=== PATIENT | female | born 1940 | race Caucasian/White ===

== ENCOUNTER 2019-05-29 17:53 | Inpatient (IN) | payer MEDICARE, SELFPAY ==
--- NOTE | ~2019-05-29 | XR_ITS ---
EXAMINATION: XR chest 2V EXAM DATE: 05/29/2019 20:01 INDICATION: Dysuria. Fever. TECHNIQUE: Frontal and lateral projections of the chest obtained and reviewed. Comparison is made to prior examination from 08/01/2018. FINDINGS: Small post infectious residua. The lungs are otherwise clear. There are no pleural effusi ons. Cardiac silhouette is prominent but magnified on this AP technique. There is no pneumothorax suspected. The bones are osteopenic. There are bony degenerative changes. Cervical and thoracolumba r fusion hardware. Lower thoracic vertebroplasty. Accounting for differences in technique, there is no significant interval change. IMPRESSION: No acute cardiopulmonary findings. Reviewed, dictated and finalized at location A.
--- NOTE | ~2019-05-29 | CT_ITS ---
EXAMINATION: CT abdomen pelvis w con EXAM DATE: 05/29/2019 19:56 INDICATION: Abdominal, suprapubic pain. TECHNIQUE: Spiral CT of the abdomen and pelvis was performed following intravenous injection of 100 m L Omnipaque 350. Axial, coronal and sagittal images were reviewed. The dose-length product (DLP) fo r this examination was 384.17 mGy-cm. The exposure was tailored according to patient size (auto mA e xposure control), and iterative reconstruction (ASIR) was used as additional dose reduction technique . There is no prior study for comparison. FINDINGS: The liver, spleen, adrenal glands and pancreas are unremarkable. Gallbladder is unremarkab le. No biliary obstruction. Portal and splenic veins are patent. Kidneys enhance symmetrically. T here is no hydronephrosis. The uterus is not identified and has likely been surgically resected. T he bladder is unremarkable. There is no retroperitoneal or pelvic lymphadenopathy. The appendix is not positively visualized. There is no pericecal inflammatory change to suggest appe ndicitis. There are surgical changes consistent with Niesen fundoplication. There is colonic interp osition. There is moderate sigmoid diverticulosis. There is wall thickening along the sigmoid colon and mild i nflammation. There is a focal region between the sigmoid colon and the bladder with air-fluid level w hich is suspected to be a diverticular abscess measuring about 3 x 4 cm. Can't totally exclude inflam matory cancer. There is no direct line of site to this for percutaneous intervention. No free intrap eritoneal gas. The heart is normal in size. There are no pericardial or pleural effusions. Mild b asilar emphysema and bronchiectasis. There is thoracolumbar fusion hardware. IMPRESSION: 1. Small abscess between sigmoid colon and bladder likely complication of acute diverticulitis. Reviewed, dictated and finalized at location A. IMPRESSION: 1. Small abscess between sigmoid colon and bladder likely complication of acut e diverticulitis.
--- NOTE | 2019-05-29 18:00 | ED.FEMALEGU ---
HPI - Female Genitourinary General Chief complaint: Urogenital-Female Stated complaint: painful urination, fever Time Seen by Provider: 05/29/19 17:58 Source: patient and RN notes reviewed Mode of arrival: wheelchair Limitations: no limitations History of Present Illness HPI Narrative: A 78 y/o female, with a hx of stage 3 CKD, presents to the ED with dysuria and difficulty urinating for the past week. She reports associated suprapubic ABD pain, generalized weakness, rhinorrhea, and a fever of 101.5. She also notes some chronic back pain. She denies any cough, congestion, N/V/D, or CP. No recent travel or sick contacts. MD elicited complaint: dysuria and difficulty urinating Pertinent past history: hysterectomy Onset (ago): week(s) (1) Associated symptoms: abdominal pain (suprapubic), weakness (generalized), fever (101.5) and other (rhinorrhea) Related Data Home Medications Medication Instructions Recorded Confirmed oxycodone-acetaminophen 02/22/19 Allergies Allergy/AdvReac Type Severity Reaction Status Date / Time morphine Allergy Mild Confusion Verified 05/29/19 18:34 adhesive Allergy Unknown BLISTERS Verified 05/29/19 18:34 diclofenac Allergy Unknown Unknown Verified 05/29/19 18:34 loratadine Allergy Unknown Unknown Verified 05/29/19 18:34 meloxicam Allergy Unknown Unknown Verified 05/29/19 18:34 NKFA Allergy Mild Unknown Uncoded 05/29/19 18:34 Review of Systems Review of Systems: Narrative: CONSTITUTIONAL: Reports generalized weakness and a fever of 101.5. ENT: Denies congestion. Reports rhinorrhea. CARDIOVASCULAR: Denies chest pain. RESPIRATORY: Denies cough. GASTROINTESTINAL: Denies nausea, vomiting, or diarrhea. Reports suprapubic ABD pain. GENITOURINARY: Reports dysuria and difficulty urinating. All systems reviewed & are unremarkable except as noted in HPI and below PMFSH Past Medical History Medical History Appendicitis Bilateral cataracts Chronic kidney disease, stage 3 (moderate) Degenerative disc disease Diverticulosis Gallbladder disease GI bleed Hiatal hernia History of CVA with residual deficit Hy kid NOS w cr kid I-IV Migraine Osteoarthritis Radiculopathy, lumbar region Surgical History Surgical History H/O discectomy H/O left mastectomy H/O: hysterectomy History of appendectomy History of cataract surgery History of cholecystectomy History of repair of hiatal hernia Hx of rectal polypectomy Previous back surgery Rods inserted Social History Social History Smoking packs per day: 1 Smoking cigarettes per day: 20.0 Years smoked: 40 Smoking pack-years: 40.00 Smoking status: Former smoker Second hand tobacco smoke exposure: No Smoking end date: 02/27/03 Alcohol intake: never Substance use: never Substance use type: does not use Gender identity (if verbalized by the patient): Female Exam Narrative: Exam Narrative: GENERAL: Awake, alert, conversant HEAD: Normocephalic, atraumatic. EYES: EOMI, conjunctiva clear ENT: Nares patent. Mucous membranes moist. NECK: Full range of motion CHEST: No respiratory distress, speaking in full sentences, no tachypnea HEART: Regular rate ABDOMEN: Non distended, + suprapubic tenderness, no flank tenderness, no guarding or ridigity EXTREMITIES: Normal range of motion. No edema. SKIN: Warm, dry, no rash. NEURO: No focal deficits. Alert and oriented x3. Course Course Emergency Course: Patient presenting for evaluation of suprapubic pain. At the time of initial assessment, ABCs are intact and vital signs are stable. Patient is afebrile. Laboratory results notable for mild leukocytosis. Stable creatinine. CT scan with evidence of abscess behind the bladder near to the sigmoid colon. Patient urinalysis is unequivocal, may be consistent with UTI, patient will need antibiotics for the abscess and sofía
[2019-05-29 18:15] VITALS: BP 132/81; PULSE 78; RESP 18; TEMP 37.6; O2SAT 85; O2SAT 97
[2019-05-29 18:20] VITALS: O2SAT 98
--- NOTE | 2019-05-29 18:25 | PC.NURSE ---
Pt states she has had supra pubic pain with urgency, frequency and pain with urination x 1 wk. Pt states she has had fever for a few days. Pt states she has no pain if not urinating. Pt is A&Ox4. Pt appears in NAD.
--- NOTE | 2019-05-29 18:34 | ECG_ITS ---
Measurements Intervals [place] Rate: 80 P: 39 RI: 175 QRS: 102 QRSD: 146 T: 8 QT: 374 QTc: 432 Interpretive Statements SINUS RHYTHM RIGHT AXIS DEVIATION RIGHT BUNDLE BRANCH BLOCK BASELINE WANDER- I, V4-V6 ABNORMAL ECG Electronically Signed On 05-30-2019 7:03:31 CDT by Tal Hernandez D.O.
[2019-05-29] MEDS: SODIUM CHLORIDE 0.9% IV 500 ML 999 ML IV CONT (18:52)
[2019-05-29] MEDS: ONDANSETRON INJ 4 MG/2 ML VIAL IV PUSH (18:52)
[2019-05-29] MEDS: ACETAMINOPHEN 500 MG TABLET 1000 MG PO (18:53)
[2019-05-29 19:10] LABS: Basophils Absolute Auto 0.1 K/mm3 (0.0-0.1); Basophils Percent Auto 0.6 % (0.2-1.2); Eosinophils Absolute Auto 0.1 K/mm3 (0-0.3); Eosinophils Percent Auto 0.8 % (0-4.4); Hematocrit 37.6 % (37.0-47.0); Hemoglobin 11.6 g/dL (12.0-15.0); Immature Granulocyte Absolute 0.06 K/mm3 (0.00-0.031); Immature Granulocyte Percent A 0.5 % (0-0.5); Lymphocytes Absolute Auto 1.63 K/mm3 (0.9-3.2); Lymphocytes Percent Auto 13.8 % (18.3-44.2); Mean Corpuscular HGB Conc 30.9 g/dl (32-36); Mean Corpuscular Volume 84.1 fl (80-100); Mean Platelet Volume 8.7 fl (7.4-10.4); Monocytes Absolute Auto 0.8 K/mm3 (0.1-0.6); Neutrophils Absolute Auto 9.1 K/mm3 (1.3-6.7); Neutrophils Percent Auto 77.3 % (45.5-73.1); Platelet Count Result 503 k/mm3 (150-375); Red Blood Count 4.47 M/mm3 (4.2-5.4); Red Cell Distribution Width 14.2 % (11.5-14.5); White Blood Count 11.8 K/mm3 (4.5-10.0)
[2019-05-29 19:22] LABS: Alanine Aminotransferase 11 U/L (4-35); Albumin Level 3.5 g/dL (3.5-5.1); Alkaline Phosphatase 61 U/L (38-126); Aspartate Amino Transferase 31 U/L (14-36); Bilirubin,Total 0.2 mg/dL (0.2-1.3); Blood Urea Nitrogen 16 mg/dL (7-17); Calcium 9.2 mg/dL (8.4-10.2); Carbon Dioxide 27 mmol/L (22-30); Chloride 99 mmol/L (98-107); Estimated CRCL calculation 30 ml/min; Estimated Glomerular Filt Rate 48; Glucose 123 mg/dL (65-105); Lipase 15 U/L (23-300); Potassium 3.6 mmol/L (3.4-5.0); Sodium 131 mmol/L (137-145)
[2019-05-29 19:23] VITALS: TEMP 36.9
[2019-05-29 19:23] LABS: Lactic Acid Reflex 0.8 mmol/L (0.7-2.1)
[2019-05-29 19:50] LABS: Add Urine Microscopic? YES; Amorphous Sediment Urine Few; Appearance Urine Clear (Clear); Bacteria Urine Trace /hpf; Bilirubin Urine Negative (Negative); Blood Urine 1+ (Negative); Color Urine Yellow (Yellow); Glucose Urine UA Negative (Negative); Ketones Urine Negative (Negative); Leukocyte Esterase Ur 1+ LEU/UL (Negative); Mucus Urine Rare /lpf; Nitrate Urine Negative (Negative); Protein Urine 1+ mg/dL (Negative); Specific Grav Ur 1.013 (1.001-1.035); Squamous Epithelial Cell Urine Few /hpf (Few); Urobilinogen Urine Negative mg/dL (<2.0); WBC Urine 21-30 /hpf
[2019-05-29 20:13] VITALS: BP 109/56; PULSE 74; RESP 18; TEMP 37.2; O2SAT 96
[2019-05-29 21:15] VITALS: BP 99/45; PULSE 72; RESP 23; TEMP 37.2; O2SAT 98
[2019-05-29 21:35] VITALS: BP 98/40; PULSE 66; RESP 16; TEMP 36.6; O2SAT 98
[2019-05-29 21:44] VITALS: BMI 19.9
--- NOTE | 2019-05-29 21:52 | ADMGEN ---
This patient, Maricruz Carnes, was admitted to 3 Med Surg Room 322-01. Patient/family oriented to hospital policies and general routines including ID bracelet, bed and alarms, visiting hours, pain management, procedures, bathroom and other care routines, personal items, smoking policy, room service/diet, and visiting hours. Valuables list has been completed. Information on how to activate the Rapid Response Team has been discussed. Patient/Family are encouraged to report perceived risks to care and to ask questions if they do not understand what they are told or what they should do.
[2019-05-29] MEDS: LACTATED RINGERS 1,000 ML 75 ML IV CONT (22:00)
--- NOTE | 2019-05-29 22:18 | PM.IMHP ---
H&P: HPI History of Present Illness Chief complaint: Sigmoid abscess Narrative: This is an 78 year old female with known CKD stage 3 who presented to the hospital because she believed she had a urinary tract infection. She complaining of having diffuse lower abdominal pain as well as suprapubic discomfort. She also reports having a fever. She mentions she has been battling with UTI symptoms for a couple of months. She denies any diarrhea or rectal bleeding and reports that she has had constipation. Her last colonoscopy was over 8 years ago. She denies any history of diverticular disease. On further questioning she also denies any nausea, vomiting, shortness of breath, coughing, chest pain, hematuria, or focal neurological symptoms. Tonight in the ER the pateint was found to have a small abscess between sigmoid colon and bladder likely complication of acute diverticulitis. General surgery has been consulted by ER provider and they asked that we admit the patient and they will evaluate her in the morning for possible surgical intervention for her abscess. There is no evidence of bowel perforation at this time and thus this does not appear to be a surgical emergency. She denies any other symptoms at this time. Review of Systems Review of Systems: All systems reviewed & are unremarkable except as noted in HPI and below PMFSH Past Medical History Medical History Appendicitis Bilateral cataracts Chronic kidney disease, stage 3 (moderate) Degenerative disc disease Diverticulosis Gallbladder disease GI bleed Hiatal hernia History of CVA with residual deficit Hy kid NOS w cr kid I-IV Migraine Osteoarthritis Radiculopathy, lumbar region Surgical History Surgical History H/O discectomy H/O left mastectomy H/O: hysterectomy History of appendectomy History of cataract surgery History of cholecystectomy History of repair of hiatal hernia Hx of rectal polypectomy Previous back surgery Rods inserted Family History Family History Father Malignant neoplasm of prostate Kidney malignancy Mother Emphysema of lung Social History Social History Smoking packs per day: 3 Smoking cigarettes per day: 60.0 Years smoked: 40 Smoking pack-years: 120.00 Smoking status: Former smoker Tobacco type: cigarettes Second hand tobacco smoke exposure: No Smoking end date: 02/27/03 Alcohol intake: never Substance use: never Substance use type: does not use Gender identity (if verbalized by the patient): Female Spiritual care concerns: No Agree to blood products: Yes Meds Home Medications and Allergies Home Medications Medication Instructions Recorded Confirmed Type fenofibrate 160 mg tablet 160 mg PO DAILY #90 tablet 05/02/19 05/29/19 Rx simvastatin 40 mg tablet 40 mg PO DAILY #90 tablet 05/02/19 05/29/19 Rx levothyroxine 88 mcg PO DAILY 05/29/19 05/29/19 History lisinopril-hydrochlorothiazide 1 tablet PO DAILY 05/29/19 05/29/19 History Allergies Allergy/AdvReac Type Severity Reaction Status Date / Time morphine Allergy Mild Confusion Verified 05/29/19 18:34 adhesive Allergy Unknown BLISTERS Verified 05/29/19 18:34 diclofenac Allergy Unknown Unknown Verified 05/29/19 18:34 loratadine Allergy Unknown Unknown Verified 05/29/19 18:34 meloxicam Allergy Unknown Unknown Verified 05/29/19 18:34 NKFA Allergy Mild Unknown Uncoded 05/29/19 18:34 Vital Signs Vital Signs - 24 hr 05/29/19 18:15 05/29/19 18:20 05/29/19 19:23 Temperature 37.6 C 36.9 C Pulse Rate 78 Respiratory Rate 18 Blood Pressure 132/81 Pulse Oximetry 85 L 98 05/29/19 20:13 05/29/19 21:15 Temperature 37.2 C 37.2 C Pulse Rate 74 72 Respiratory Rate 18 23 H Blood Pressure 109/56 L 99/45 L Pulse Oximetry 96 98
[2019-05-30] MEDS: LEVOTHYROXINE SODIUM INJ 100 MCG/5 ML VIAL 44 MCG IV PUSH (05:39)
[2019-05-30 06:00] VITALS: BP 113/49; PULSE 63; RESP 16; TEMP 36.4; O2SAT 97
[2019-05-30 06:07] LABS: Basophils Absolute Auto 0.1 K/mm3 (0.0-0.1); Basophils Percent Auto 0.8 % (0.2-1.2); Eosinophils Absolute Auto 0.2 K/mm3 (0-0.3); Eosinophils Percent Auto 2.4 % (0-4.4); Hematocrit 33.6 % (37.0-47.0); Hemoglobin 10.5 g/dL (12.0-15.0); Immature Granulocyte Absolute 0.03 K/mm3 (0.00-0.031); Immature Granulocyte Percent A 0.3 % (0-0.5); Lymphocytes Absolute Auto 1.22 K/mm3 (0.9-3.2); Mean Corpuscular HGB Conc 31.3 g/dl (32-36); Mean Corpuscular Hemoglobin 26.2 pg (26-34); Mean Corpuscular Volume 83.8 fl (80-100); Mean Platelet Volume 8.7 fl (7.4-10.4); Monocytes Absolute Auto 0.7 K/mm3 (0.1-0.6); Monocytes Percent Auto 7.9 % (2.6-8.5); Neutrophils Absolute Auto 6.5 K/mm3 (1.3-6.7); Neutrophils Percent Auto 74.6 % (45.5-73.1); Platelet Count Result 427 k/mm3 (150-375); Red Blood Count 4.01 M/mm3 (4.2-5.4); Red Cell Distribution Width 14.3 % (11.5-14.5); White Blood Count 8.7 K/mm3 (4.5-10.0)
[2019-05-30 06:19] LABS: Blood Urea Nitrogen 12 mg/dL (7-17); Calcium 8.3 mg/dL (8.4-10.2); Carbon Dioxide 25 mmol/L (22-30); Chloride 102 mmol/L (98-107); Estimated CRCL calculation 39 ml/min; Estimated Glomerular Filt Rate > 60; Glucose 96 mg/dL (65-105); Potassium 3.2 mmol/L (3.4-5.0); Sodium 133 mmol/L (137-145)
--- NOTE | 2019-05-30 11:04 | PM.CNGS ---
Assessment and Plan Assessment and plan (1) Colonic diverticular abscess: Code(s): K57.20 - Diverticulitis of large intestine with perforation and abscess without bleeding Status: Acute Assessment and Plan: Seems to be improving after only about 12 hours of medical treatment. Continue bowel rest with ice chips. Analgesics p.r.n. and IV fluids. Continue IV Zosyn antibiotics. Recheck white count tomorrow. Possibly start clear liquids tomorrow if continues to do well. (2) Thoracic spine pain: Code(s): M54.6 - Pain in thoracic spine Status: Acute Assessment and Plan: Will try to get information from community health systems regarding her new medication for chronic back pain. (3) Chronic kidney disease, stage 3 (moderate): Code(s): N18.3 - Chronic kidney disease, stage 3 (moderate) Status: Chronic Assessment and Plan: Creatinine 1.1 (4) HTN (hypertension), benign: Code(s): I10 - Essential (primary) hypertension Status: Chronic (5) History of breast cancer: Code(s): Z85.3 - Personal history of malignant neoplasm of breast Status: Acute Assessment and Plan: left mastectomy 15-20 years ago. History of Present Illness Consult details Consult date: 05/30/19 Reason for consult: abdominal pain ( Pelvic abscess by CT scan) Requesting physician: Harriet Luna MD Narrative: patient is an 78-year-old woman who came to the emergency room yesterday evening with complaints of lower abdominal pain and fever. She reported she has been having symptoms of urinary tract infection off and on for about 2 months. In the emergency room the patient was noted to have diffuse lower abdominal tenderness. She was afebrile but reported fever to 101.5 at home[place] [id number] scan of the abdomen and pelvis was done with IV contrast. This showed inflammatory changes in the sigmoid colon with a 4 cm abscess located behind the bladder and between the sigmoid colon and bladder. The patient was placed on bowel rest with IV fluids and analgesics. She is on IV Zosyn per antibiotic protocol. At this time she reports that her abdominal pain is improved. She denies any history of diverticulitis in the past. She reports her last colonoscopy was done by Dr. Kirkpatrick in [place] and was 7 years ago. Reviewing her previous admissions, the patient in 2006 had a colonoscopy here by Dr. Kirkpatrick. This showed melanosis coli, poor prep, and diverticulosis. She was also treated in November of 2015 for ischemic colitis. At that time she presented with bloody stools and acute lower abdominal pain. She responded to antibiotics but it was noted that she has chronic constipation due to narcotic use. The patient has chronic back pain and had a lumbar fusion. Until a month ago, she was taking Percocet 10/325 at least twice a day. She has been seeing someone named Drea at [facility] here in [place]. She is now on a new medication for her back pain but she can't recall what that is. She has had multiple previous surgeries including a left mastectomy sometime prior to 2004 for breast cancer. She has had appendectomy, cholecystectomy, and hysterectomy. I performed an open [place] fundoplication on the patient in 2004. She is seen now in consultation regarding her lower abdominal pain and CT evidence of diverticulitis with pelvic abscess. Her urinalysis was negative. She has no symptoms of pneumaturia or fecaluria. Review of Systems Review of Systems: All systems reviewed & are unremarkable except as noted in HPI and below Constitutional: Constitutional: Reports chills, Reports fever(s), Denies headache(s) and Reports malaise ENT: Denies headache(s) Cardiovascular: Cardiovascular: Denies chest pain and Denies dyspnea Respiratory: Respiratory: Denies cough and Denies dyspnea Gastrointestinal: Gastrointestinal: Reports as per HPI Neurologic: Denies Sensory deficit (Neuro
[2019-05-30 11:06] VITALS: BMI 19.9
[2019-05-30 14:00] VITALS: BP 116/51; PULSE 77; RESP 18; TEMP 38.1; O2SAT 96
[2019-05-30] MEDS: LACTATED RINGERS 1,000 ML 75 ML IV CONT (14:03)
--- NOTE | 2019-05-30 16:20 | PM.IMPN ---
Progress Note: A&P Assessment and Plan (1) Colonic diverticular abscess: Code(s): K57.20 - Diverticulitis of large intestine with perforation and abscess without bleeding Status: Acute Assessment and Plan: CT scan showing a small abscess between sigmoid colon and bladder likely complication of acute diverticulitis. Patient was hemodynamically stable on admission. WBC 11.8K. Blood pressure soft at times overnight but better today. Low grade temperature earlier today. She has been started on IV Zosyn. Still with lower abd pain related to bladder distention pushing on the abscess. WBC normal now. Encouraged patient to be up walking. She does have issues with constipation so may need to start Miralax. Appreciate General surgery input. (2) Chronic kidney disease, stage 3 (moderate): Code(s): N18.3 - Chronic kidney disease, stage 3 (moderate) Status: Chronic Assessment and Plan: Patient with a history of CKD stage 3. Est GFR runs in the 50's since 2018. Cr 0.8 today related to the IV fluids. Avoid nephrotoxic agents. Continue to monitor. (3) Mixed hyperlipidemia: Code(s): E78.2 - Mixed hyperlipidemia Status: Acute Assessment and Plan: Stable. LFTs within normal limits. fenofibrate and simvastatin on hold. Resume when appropriate. (4) Hypothyroidism: Qualifiers: Hypothyroidism type: unspecified Qualified Code(s): E03.9 - Hypothyroidism, unspecified Code(s): E03.9 - Hypothyroidism, unspecified Status: Chronic Assessment and Plan: TSH normal last year. Continue IV levothyroxine. Change to oral route when able. (5) HTN (hypertension), benign: Code(s): I10 - Essential (primary) hypertension Status: Chronic Assessment and Plan: Blood pressure reviewed on 05/30/2019. Blood pressure well controlled off home medications. She normally is on lisinopril/HCTZ. Resume when appropriate. (6) Hyponatremia: Code(s): E87.1 - Hypo-osmolality and hyponatremia Status: Acute Assessment and Plan: Noted but not common for this patient. Na better with IVF. Hyponatremia probably rlated to dehydration. Continue to follow. Check TSH and Cortisol if persistent. (7) Hypokalemia: Code(s): E87.6 - Hypokalemia Status: Acute Assessment and Plan: Mild hypokalemia related to IVF. Replace. Check Mag level tomorrow. (8) Chronic anemia: Code(s): D64.9 - Anemia, unspecified Status: Acute Assessment and Plan: Hgb 11.6 on admission and similar to past values in June. Hgb dropped to 10.5 probably related to IVF. Hx of colon polyps and colitis. Will check iron studies. (9) DVT prophylaxis: Code(s): Z29.9 - Encounter for prophylactic measures, unspecified Status: Acute Assessment and Plan: Lovenox Subjective Date/time seen: 05/30/19 16:21 Interval history: 78yo female here for abd pain and found to have abdominal abscess. Still with pain in the lower abdomen but improved after voiding. No BMs since admission. No dysuria. +flatus. No headache, nausea, vomiting chest pain, shortness of breath, sore throat or diarrhea Exam Narrative: Exam Narrative: 100.6 113/49 Gen - NARD lying almost flat in bed Chest - CTA bilaterally, nml RR CV - RRR S1/S2 Abd - Soft, NT/ND, Positive BS Ext - No pedal edema Psych - Nml mood and affect Skin - Warm and dry Objective Data Vital Signs Vital Signs: Vital Signs - 24 hr 05/29/19 18:15 05/29/19 18:20 05/29/19 19:23 Temperature 99.6 F 98.5 F Pulse Rate 78 Respiratory Rate 18 Blood Pressure 132/81 Pulse Oximetry 85 L 98 05/29/19 20:13 05/29/19 21:15 05/29/19 21:35 Temperature 98.9 F 99.0 F 97.8 F Pulse Rate 74 72 66 Respiratory Rate 18 23 H 16 Blood Pressure 109/56 L 99/45 L 98/40 L Pulse Oximetry 96 98 98 05/30/19 06:00 Temperature 97.6 F Pulse Rate 63 R
[2019-05-30] MEDS: POTASSIUM CHLORIDE 20 MEQ TABLET 40 MEQ PO (19:26)
[2019-05-30] MEDS: ENOXAPARIN 40 MG/0.4 ML SYRINGE SUB-Q (19:26)
[2019-05-30 21:32] VITALS: BP 124/49; PULSE 73; RESP 18; TEMP 36.9; O2SAT 98
[2019-05-31] MEDS: LACTATED RINGERS 1,000 ML 75 ML IV CONT ×2 (05:31→21:03)
[2019-05-31] MEDS: LEVOTHYROXINE SODIUM INJ 100 MCG/5 ML VIAL 44 MCG IV PUSH (05:32)
[2019-05-31 06:06] LABS: Hemoglobin 10.3 g/dL (12.0-15.0); Mean Corpuscular HGB Conc 30.3 g/dl (32-36); Mean Corpuscular Volume 85.9 fl (80-100); Mean Platelet Volume 8.6 fl (7.4-10.4); Platelet Count Result 407 k/mm3 (150-375); Red Blood Count 3.96 M/mm3 (4.2-5.4); Red Cell Distribution Width 14.2 % (11.5-14.5); White Blood Count 10.5 K/mm3 (4.5-10.0)
[2019-05-31 06:15] LABS: Albumin Level 2.9 g/dL (3.5-5.1); Blood Urea Nitrogen 12 mg/dL (7-17); Calcium 8.4 mg/dL (8.4-10.2); Carbon Dioxide 23 mmol/L (22-30); Chloride 103 mmol/L (98-107); Estimated CRCL calculation 39 ml/min; Estimated Glomerular Filt Rate > 60; Glucose 75 mg/dL (65-105); Magnesium 1.9 mg/dL (1.6-2.3); Phosphorus 2.9 mg/dL (2.5-4.5); Potassium 3.7 mmol/L (3.4-5.0); Sodium 134 mmol/L (137-145)
[2019-05-31 06:29] VITALS: BP 136/66; PULSE 69; RESP 18; TEMP 36.5; O2SAT 99
[2019-05-31 06:37] LABS: Iron 23 ug/dL (37-170)
[2019-05-31 06:47] LABS: Percent Iron Saturation 8 % (20-50)
--- NOTE | 2019-05-31 08:54 | PM.PNGS ---
Progress Note: A&P Assessment and Plan (1) Colonic diverticular abscess: Code(s): K57.20 - Diverticulitis of large intestine with perforation and abscess without bleeding Status: Acute Assessment and Plan: Continues to improve with the current treatment. Low-grade fever yesterday afternoon but afebrile since. WBC this morning 10,500. Abdominal pain is improving and she appears to be less tender. Continue IV Zosyn and analgesics. Will start a clear liquid diet. (2) Thoracic spine pain: Code(s): M54.6 - Pain in thoracic spine Status: Acute (3) Chronic kidney disease, stage 3 (moderate): Code(s): N18.3 - Chronic kidney disease, stage 3 (moderate) Status: Chronic Assessment and Plan: Creatinine 0.8 today, improved with IV fluid hydration. (4) HTN (hypertension), benign: Code(s): I10 - Essential (primary) hypertension Status: Chronic Additional Plan Discussed the patient's case and plan of care with Dr. Morales today. Subjective Subjective Date/Time Seen: 05/31/19 08:54 Patient reports: no new complaints, feels better, pain is less, flatus and bowel movement Interval history: Patient reports feeling better today. Reports abdominal pain is still located in the lower abdomen but is less today. Reports flatus and having a BM this morning. No nausea, vomiting, or bloating. Voiding normally. No other complaints at this time. Review of Systems Review of Systems: All systems reviewed & are unremarkable except as noted in HPI and below Exam Const: General: comfortable, no acute distress, alert and awake GI: Inspection: normal to inspection and non-distended GI Palp: Yes Soft to palpation, Yes Tenderness to palpation present (GI) (lower abdominal tenderness mostly near the suprapubic area), No Guarding due to palpation present (GI) and No Rebound tenderness present Percussion: Yes normal to percussion Auscultation: normal bowel sounds Neuro: General: patient oriented x3, moves all extremities and no focal motor deficits Extrem: General: normal to inspection and no calf tenderness Psych: Mental Status: mental status grossly normal (Awake, alert, and lucid. Judgment and memory intact) Affect: normal affect Attitude: cooperative Insight: Good insight present (Psych) Judgement: Good judgement present (Psych) Objective Data Vital Signs Vital Signs: Vital Signs - 24 hr 05/30/19 14:00 05/30/19 21:32 05/31/19 06:29 Temperature 38.1 C H 36.9 C 36.5 C Pulse Rate 77 73 69 Respiratory Rate 18 18 18 Blood Pressure 116/51 L 124/49 L 136/66 Pulse Oximetry 96 98 99 Intake/Output Intake/Output: Intake & Output 05/28/19 05/29/19 05/30/19 05/31/19 23:59 23:59 23:59 23:59 Intake Total 550 1200 1000 Output Total 950 500 Balance 550 250 500 Meds/Results Medications: Active Medications Generic Name Dose Route Start Last Admin Trade Name Freq PRN Reason Stop Dose Admin Enoxaparin Sodium 40 mg 05/30/19 17:00 05/30/19 19:26 Lovenox SUB-Q 40 mg DAILY@1700 MAYNOR Administration Lactated Ringer's 1,000 mls @ 75 mls/hr 05/29/19 21:10 05/31/19 05:31 Lr - Lactated Ringers Iv IV CONT 75 mls/hr .[id number] MAYNOR Administration Piperacillin Sod/Tazobactam Sod 2.25 gm in 50 mls @ 100 mls/hr 05/30/19 06:00 05/31/19 05:31 Zosyn 2.25 Gm/D5w 50 Ml IVPB 100 mls/hr Q6HR MAYNOR Administration Levothyroxine Sodium 44 mcg 05/30/19 06:30 05/31/19 05:32 Levothyroxine Sodium Inj IV PUSH 44 mcg DAILY@0630 MAYNOR Administration Morphine Sulfate 2 mg 05/29/19 21:08 Morphine Sulfate Inj IV PUSH Q2H PRN Pain Rated 7-10 Ondansetron HCl 4 mg 05/29/19 21:08 Zofran Inj IV PUSH Q4H PRN Nausea Radiology Results: ITS Impressions Chest X-Ray 05/29/19 20:03 IMPRESSION: No acute cardiopulmonary findings. Abdomen/Pelvis CT 05/29/19 20:04 IMPRESSION: 1. Small abscess between sigmoid colon and bladder li
--- NOTE | 2019-05-31 10:58 | PCNFU ---
Nutrition Follow-Up Complete: Altered GI fxn as related to sigmoid abscess as evidenced by NPO/poor po intake. Goal: meet estimated nutritional needs. progressing towards goal. Pt current nutrition is Clear liquid. Nutrition recommendation: Agree Last recorded weight is 51.1 kg. Bowel Motility:+BM 4/3 Labs Reviewed:Na 134,Alb 2.9, Hgb 10.3 Meds Noted:Lovenox,LR @75 ml/hr Additional Notes: Diet order has advanced to a clear liquid diet. Nursing was ordering tray for patient at that time. She is having bowel movements. Agree with advancing as tolerated per MD orders. Monitoring: RD will monitor every 3 days.
[2019-05-31 14:00] VITALS: BP 130/57; PULSE 78; RESP 18; TEMP 36.8; O2SAT 99
--- NOTE | 2019-05-31 14:44 | PCDIET ---
Physician Consult for Low Fiber Diet education. Due to Covid19 precautions, patient will be called for all educations. Patient called at 1343, no answer. I spoke with nurse SOULEYMANE Ortega today regarding diet education, discussed if I was unable to get in touch with patient, all information is located in the discharge instructions. Thank you for the consult.
--- NOTE | 2019-05-31 15:35 | PM.IMPN ---
Progress Note: A&P Assessment and Plan (1) Colonic diverticular abscess: Code(s): K57.20 - Diverticulitis of large intestine with perforation and abscess without bleeding Status: Acute Assessment and Plan: CT scan showing a small abscess between sigmoid colon and bladder likely complication of acute diverticulitis. Patient was hemodynamically stable on admission. Blood pressure was soft at times but normal and stable now. Persistnet low grade temperature noted. She is currently on IV Zosyn. Still with lower abd pain related to bladder distention pushing on the abscess but this has improved. WBC up slightly at 10.5K. Encouraged patient to be up walking. Tolerating clear liquids. Appreciate General surgery input. (2) Chronic kidney disease, stage 3 (moderate): Code(s): N18.3 - Chronic kidney disease, stage 3 (moderate) Status: Chronic Assessment and Plan: Patient with a history of CKD stage 3. Est GFR runs in the 50's since 2018. Cr 0.8 again today. Avoid nephrotoxic agents. Continue to monitor. (3) Mixed hyperlipidemia: Code(s): E78.2 - Mixed hyperlipidemia Status: Acute Assessment and Plan: Stable. LFTs within normal limits. Fenofibrate and simvastatin on hold. Resume when eating normally. (4) Hypothyroidism: Qualifiers: Hypothyroidism type: unspecified Qualified Code(s): E03.9 - Hypothyroidism, unspecified Code(s): E03.9 - Hypothyroidism, unspecified Status: Chronic Assessment and Plan: TSH normal last year. Continue IV levothyroxine. Change to oral route tomorrow since tolerating oral intake. (5) HTN (hypertension), benign: Code(s): I10 - Essential (primary) hypertension Status: Chronic Assessment and Plan: Blood pressure reviewed on 05/31/2019. Blood pressure well controlled off home medications. She normally is on lisinopril/HCTZ. Resume when appropriate. (6) Hyponatremia: Code(s): E87.1 - Hypo-osmolality and hyponatremia Status: Acute Assessment and Plan: Noted but not common for this patient. Na contineu to improve with IVF. Consider dehydration possibly related to the HCTZ. Continue to follow. (7) Hypokalemia: Code(s): E87.6 - Hypokalemia Status: Acute Assessment and Plan: Mild hypokalemia that was replaced. Repeat potassium and Mg level normal. (8) Chronic anemia: Code(s): D64.9 - Anemia, unspecified Status: Acute Assessment and Plan: Hgb 11.6 on admission and similar to past values in June. Hgb dropped to 10.5 but stable. Iron deficiency noted on lab values. Hx of colon polyps and colitis. Will need repeat colonoscopy when she has improved. Start iron. (9) DVT prophylaxis: Code(s): Z29.9 - Encounter for prophylactic measures, unspecified Status: Acute Assessment and Plan: Lovenox Subjective Date/time seen: 05/31/19 15:35 Interval history: 78yo female here for abd pain and found to have abdominal abscess. Low grade fever last night. Still having pain when bladder full but less severe now. No n/v. +BMs without diarrhea. Abd pain better. Up walking to the BR. Tolerating the clear liquids so far Exam Narrative: Exam Narrative: 100.8 130/57 Gen - NARD Chest - CTA bilaterally, nml RR CV - RRR S1/S2 Abd - Soft, NT/ND, Positive BS Ext - No pedal edema Psych - Nml mood and affect Skin - Warm and dry Objective Data Vital Signs Vital Signs: Vital Signs - 24 hr 05/30/19 21:32 05/31/19 06:29 05/31/19 14:00 Temperature 98.5 F 97.7 F 98.3 F Pulse Rate 73 69 78 Respiratory Rate 18 18 18 Blood Pressure 124/49 L 136/66 130/57 L Pulse Oximetry 98 99 99 Intake/Output Intake/Output: Intake & Output 05/28/19 05/29/19 05/30/19 05/31/19 23:59 23:59 23:59 23:59 Intake Total 550 1200 1410 Output Total 950 500 Balance 550 250 910 Meds/Results M
[2019-05-31] MEDS: ENOXAPARIN 40 MG/0.4 ML SYRINGE SUB-Q (17:01)
[2019-05-31] MEDS: ACETAMINOPHEN 325 MG TABLET 650 MG (17:02)
[2019-05-31 21:16] VITALS: BP 113/47; PULSE 60; RESP 16; TEMP 36.4; O2SAT 99
[2019-06-01] MEDS: LEVOTHYROXINE SODIUM 88 MCG TABLET PO (05:33)
[2019-06-01 06:00] VITALS: BP 127/53; PULSE 60; RESP 16; TEMP 36.4; O2SAT 99
[2019-06-01 07:15] LABS: Hematocrit 34.6 % (37.0-47.0); Hemoglobin 10.9 g/dL (12.0-15.0); Mean Corpuscular HGB Conc 31.5 g/dl (32-36); Mean Corpuscular Hemoglobin 26.1 pg (26-34); Mean Platelet Volume 8.6 fl (7.4-10.4); Platelet Count Result 439 k/mm3 (150-375); Red Blood Count 4.17 M/mm3 (4.2-5.4); Red Cell Distribution Width 14.1 % (11.5-14.5)
[2019-06-01 07:28] LABS: Blood Urea Nitrogen 8 mg/dL (7-17); Calcium 8.5 mg/dL (8.4-10.2); Carbon Dioxide 26 mmol/L (22-30); Chloride 104 mmol/L (98-107); Estimated CRCL calculation 45 ml/min; Estimated Glomerular Filt Rate > 60; Glucose 111 mg/dL (65-105); Potassium 3.1 mmol/L (3.4-5.0); Sodium 136 mmol/L (137-145)
[2019-06-01] MEDS: FERROUS SULFATE 324 MG TABLET PO ×2 (09:10→17:44)
--- NOTE | 2019-06-01 09:58 | PM.PNGS ---
Progress Note: A&P Assessment and Plan (1) Colonic diverticular abscess: Code(s): K57.20 - Diverticulitis of large intestine with perforation and abscess without bleeding Status: Acute Assessment and Plan: exam benign, will advance to low residue diet, encourage OOB, home if diana diet c po abx, diarrhea likely from abx will try immodium Subjective Subjective Date/Time Seen: 06/01/19 09:58 Interval history: Pt feels ok, c/o diarrhea. Pt denies any abd pain, some mild soreness c movt. Pt diana clears. Pt denies any further fevers, chills. Review of Systems Constitutional: Constitutional: Denies chills, Reports fatigue, Reports lethargy and Reports weakness Comments: denies fevers Cardiovascular: Cardiovascular: Denies chest pain Respiratory: Respiratory: Denies no additional respiratory complaints and Denies dyspnea Gastrointestinal: Gastrointestinal: Denies abdominal pain, Denies constipation, Reports diarrhea, Denies nausea and Denies vomiting Exam Const: General: no acute distress Resp: Auscultation: clear to auscultation bilaterally Cardio: Rate: regular rate Rhythm: regular rhythm GI: Other: soft, NT, ND Objective Data Vital Signs Vital Signs: Vital Signs - 24 hr 05/31/19 14:00 05/31/19 21:16 06/01/19 06:00 Temperature 36.8 C 36.4 C 36.4 C L Pulse Rate 78 60 60 Respiratory Rate 18 16 16 Blood Pressure 130/57 L 113/47 L 127/53 L Pulse Oximetry 99 99 99 Intake/Output Intake/Output: Intake & Output 05/29/19 05/30/19 05/31/19 06/01/19 23:59 23:59 23:59 23:59 Intake Total 550 1200 2630 320 Output Total 950 500 600 Balance 395 133 5674 -280 Meds/Results Medications: Active Medications Generic Name Dose Route Start Last Admin Trade Name Freq PRN Reason Stop Dose Admin Acetaminophen 650 mg 05/31/19 16:56 Tylenol Tablet PO Q4H PRN Mild Pain (1-3) or Fever Enoxaparin Sodium 40 mg 05/30/19 17:00 05/31/19 17:01 Lovenox SUB-Q 40 mg DAILY@1700 [facility] Administration Ferrous Sulfate 324 mg 06/01/19 08:00 06/01/19 09:10 Ferrous Sulfate PO 324 mg BIDWM [facility] Administration Lactated Ringer's 1,000 mls @ 50 mls/hr 05/29/19 21:10 05/31/19 21:03 Lr - Lactated Ringers Iv IV CONT 75 mls/hr .Q20H [facility] Administration Piperacillin Sod/Tazobactam Sod 2.25 gm in 50 mls @ 100 mls/hr 05/30/19 06:00 06/01/19 05:55 Zosyn 2.25 Gm/D5w 50 Ml IVPB Infused Q6HR [facility] Infusion Levothyroxine Sodium 88 mcg 06/01/19 06:30 06/01/19 05:33 Synthroid PO 88 mcg DAILY@0630 [facility] Administration Morphine Sulfate 2 mg 05/29/19 21:08 Morphine Sulfate Inj IV PUSH Q2H PRN Pain Rated 7-10 Ondansetron HCl 4 mg 05/29/19 21:08 Zofran Inj IV PUSH Q4H PRN Nausea Radiology Results: ITS Impressions Chest X-Ray 05/29/19 20:03 IMPRESSION: No acute cardiopulmonary findings. Abdomen/Pelvis CT 05/29/19 20:04 IMPRESSION: 1. Small abscess between sigmoid colon and bladder likely complication of acute diverticulitis. Labs Labs: Laboratory Results - last 24 hr 06/01/19 06/01/19 06:33 06:33 WBC 10.0 RBC 4.17 L Hgb 10.9 L Hct 34.6 L MCV 83.0 MCH 26.1 MCHC 31.5 L RDW 14.1 Plt Count 439 H MPV 8.6 Sodium 136 L Potassium 3.1 L Chloride 104 Carbon Dioxide 26 BUN 8 Creatinine 0.70 Estim Creat Clear Calc 45 Estimated GFR > 60 Glucose 111 H Calcium 8.5 Quality VTE Prophylaxis VTE prophylaxis: mechanical ordered
[2019-06-01] MEDS: LACTATED RINGERS 1,000 ML 75 ML IV CONT (12:09)
[2019-06-01] MEDS: LOPERAMIDE HCL 2 MG CAPSULE PO ×3 (12:10→18:46)
[2019-06-01] MEDS: ACETAMINOPHEN 325 MG TABLET 650 MG PO (12:12)
[2019-06-01 14:00] VITALS: BP 138/59; PULSE 67; RESP 18; TEMP 36.3; O2SAT 99
--- NOTE | 2019-06-01 14:08 | PM.IMPN ---
Progress Note: A&P Assessment and Plan (1) Colonic diverticular abscess: Code(s): K57.20 - Diverticulitis of large intestine with perforation and abscess without bleeding Status: Acute Assessment and Plan: CT scan showing a small abscess between sigmoid colon and bladder likely complication of acute diverticulitis. Patient was hemodynamically stable on admission but BP did become soft at times. BP normal and stable now. Low grade temperature noted early but has since resolved. Lower abd pain related to bladder distention pushing on the abscess has resolved. Diet advanced. Diarrhea possibly from the abx. She is currently on IV Zosyn. Appreciate General surgery input. Home tomorrow if diarrhea controlled, tolerating oral intake and pain controlled. Will need follow up imaging after discharge. (2) Chronic kidney disease, stage 3 (moderate): Code(s): N18.3 - Chronic kidney disease, stage 3 (moderate) Status: Chronic Assessment and Plan: Patient with a history of CKD stage 3. Est GFR runs in the 50's since 2018. Cr 0.7 related to the IVFs. Avoid nephrotoxic agents. Continue to monitor. (3) Mixed hyperlipidemia: Code(s): E78.2 - Mixed hyperlipidemia Status: Acute Assessment and Plan: Stable. LFTs within normal limits. Fenofibrate and simvastatin remain on hold. Resume when eating normally. (4) Hypothyroidism: Qualifiers: Hypothyroidism type: unspecified Qualified Code(s): E03.9 - Hypothyroidism, unspecified Code(s): E03.9 - Hypothyroidism, unspecified Status: Chronic Assessment and Plan: TSH normal last year. Continue oral levothyroxine. (5) HTN (hypertension), benign: Code(s): I10 - Essential (primary) hypertension Status: Chronic Assessment and Plan: Blood pressure reviewed on 06/01/2019. Blood pressure remains well controlled off home medications. She normally is on lisinopril/HCTZ. Resume when appropriate. Probably not resume HCTZ. (6) Hyponatremia: Code(s): E87.1 - Hypo-osmolality and hyponatremia Status: Acute Assessment and Plan: Noted but not common for this patient. Na back to 136 with the IVF. Consider dehydration possibly related to the HCTZ. Stop IVF. (7) Hypokalemia: Code(s): E87.6 - Hypokalemia Status: Acute Assessment and Plan: Mild hypokalemia that was replaced. Repeat potassium today low again probably related to the IVF. Mg level normal. Stop IVF. Replace potassium (8) Chronic anemia: Code(s): D64.9 - Anemia, unspecified Status: Acute Assessment and Plan: Hgb 11.6 on admission and similar to past values in June. Hgb dropped to 10.5 but stable. Iron deficiency noted on lab values. Hx of colon polyps and colitis. Will need repeat colonoscopy when she has improved. Continue iron. (9) DVT prophylaxis: Code(s): Z29.9 - Encounter for prophylactic measures, unspecified Status: Acute Assessment and Plan: Lovenox Subjective Date/time seen: 06/01/19 14:08 Interval history: 78yo female here for abd pain and found to have abdominal abscess. No issues overnight. No fevers. No CP or SOB. No longer having pain prior to voiding. Has developed diarrhea and imodium given. No n/v but with decreased appetite. Exam Narrative: Exam Narrative: AF 138/59 Gen - NARD lying almost flat in bed Chest - CTA bilaterally, nml RR CV - RRR S1/S2 Abd - Soft, NT/ND, Positive BS Ext - No pedal edema Psych - Nml mood and affect Skin - Warm and dry Objective Data Vital Signs Vital Signs: Vital Signs - 24 hr 05/31/19 21:16 06/01/19 06:00 06/01/19 14:00 Temperature 97.6 F 97.5 F L 97.4 F L Pulse Rate 60 60 67 Respiratory Rate 16 16 18 Blood Pressure 113/47 L 127/53 L 138/59 L Pulse Oximetry 99 99 99 Intake/Output Intake/Output: Intake & Output 05/29/19
[2019-06-01] MEDS: POTASSIUM CHLORIDE 20 MEQ PACKET (FOR LIQUID) 40 MEQ PO (15:24)
[2019-06-01] MEDS: ENOXAPARIN 40 MG/0.4 ML SYRINGE SUB-Q (17:43)
[2019-06-01 21:54] VITALS: BP 131/67; PULSE 65; RESP 16; TEMP 37; O2SAT 99
[2019-06-02] MEDS: LOPERAMIDE HCL 2 MG CAPSULE PO (00:36)
[2019-06-02 06:00] VITALS: BP 121/62; PULSE 50; RESP 16; TEMP 36.3; O2SAT 96
[2019-06-02] MEDS: LEVOTHYROXINE SODIUM 88 MCG TABLET PO (06:08)
[2019-06-02] MEDS: FERROUS SULFATE 324 MG TABLET PO (08:58)
--- NOTE | 2019-06-02 09:58 | PM.PNGS ---
Progress Note: A&P Assessment and Plan (1) Colonic diverticular abscess: Code(s): K57.20 - Diverticulitis of large intestine with perforation and abscess without bleeding Status: Acute Assessment and Plan: doing well, exam benign, cont low residue diet, ok to dc home c po abx from surgical standpoint, f/u c Dr. Morales in 2 wks p dc Subjective Subjective Date/Time Seen: 06/02/19 09:58 Pt feels good, no complaints. Pt diana low residue diet s issue. Pt having normal bowel fxn. Pt denies any f/c, abd pain. Review of Systems Constitutional: Constitutional: Denies chills, Denies fatigue and Denies fever(s) Cardiovascular: Cardiovascular: Denies chest pain Respiratory: Respiratory: Denies dyspnea Gastrointestinal: Gastrointestinal: Denies abdominal pain, Denies constipation, Denies GI cramping, Denies diarrhea, Denies nausea and Denies vomiting Exam Const: General: no acute distress Resp: Effort & Inspection: normal respiratory effort Cardio: Rate: regular rate Rhythm: regular rhythm GI: Inspection: normal to inspection and non-distended GI Palp: No abdominal tenderness, Yes Soft to palpation, No Tenderness to palpation present (GI), No Guarding due to palpation present (GI) and No Rebound tenderness present Objective Data Vital Signs Vital Signs: Vital Signs - 24 hr 06/01/19 14:00 06/01/19 21:54 06/02/19 06:00 Temperature 36.3 C L 37.0 C 36.3 C L Pulse Rate 67 65 50 L Respiratory Rate 18 16 16 Blood Pressure 138/59 L 131/67 121/62 Pulse Oximetry 99 99 96 Intake/Output Intake/Output: Intake & Output 05/30/19 05/31/19 06/01/19 06/02/19 23:59 23:59 23:59 23:59 Intake Total 1200 2630 2280 680 Output Total 602 963 4850 Balance 250 2130 1080 680 Meds/Results Medications: Active Medications Generic Name Dose Route Start Last Admin Trade Name Freq PRN Reason Stop Dose Admin Acetaminophen 650 mg 05/31/19 16:56 06/01/19 12:12 Tylenol Tablet PO 650 mg Q4H PRN Administration Mild Pain (1-3) or Fever Enoxaparin Sodium 40 mg 05/30/19 17:00 06/01/19 17:43 Lovenox SUB-Q 40 mg DAILY@1700 [facility] Administration Ferrous Sulfate 324 mg 06/01/19 08:00 06/02/19 08:58 Ferrous Sulfate PO 324 mg BIDWM [facility] Administration Piperacillin Sod/Tazobactam Sod 2.25 gm in 50 mls @ 100 mls/hr 05/30/19 06:00 06/02/19 06:38 Zosyn 2.25 Gm/D5w 50 Ml IVPB Infused Q6HR [facility] Infusion Levothyroxine Sodium 88 mcg 06/01/19 06:30 06/02/19 06:08 Synthroid PO 88 mcg DAILY@0630 [facility] Administration Loperamide HCl 2 mg 06/01/19 10:02 06/02/19 00:36 Loperamide Hcl PO 2 mg PRN PRN Administration Diarrhea Ondansetron HCl 4 mg 05/29/19 21:08 Zofran Inj IV PUSH Q4H PRN Nausea Radiology Results: ITS Impressions Chest X-Ray 05/29/19 20:03 IMPRESSION: No acute cardiopulmonary findings. Abdomen/Pelvis CT 05/29/19 20:04 IMPRESSION: 1. Small abscess between sigmoid colon and bladder likely complication of acute diverticulitis. Quality VTE Prophylaxis VTE prophylaxis: mechanical ordered
[2019-06-02 13:56] VITALS: BP 133/51; PULSE 69; RESP 16; TEMP 36.5; O2SAT 100
--- NOTE | 2019-06-02 14:39 | PM.DS ---
DS: Diagnosis Admitting Diagnosis Admitting Diagnosis: Diverticulitis of large intestine with perforation and abscess without bleeding Discharge Diagnosis (1) Colonic diverticular abscess: Code(s): K57.20 - Diverticulitis of large intestine with perforation and abscess without bleeding Status: Acute Assessment and Plan: CT scan on admission showing a small abscess between sigmoid colon and bladder likely complication of acute diverticulitis. Patient was hemodynamically stable on admission but BP did become soft at times. BP normal and stable now. Low grade temperature noted early but has since resolved. Lower abd pain related to bladder distention pushing on the abscess has resolved. She was NPO until she ate clinical improvement. Starting clear liquid diet and diet was advanced to low-fiber diet which she tolerated well. She developed diarrhea but this has resolved. She was treated with IV Zosyn. General surgery was involved in her care. (2) Chronic kidney disease, stage 3 (moderate): Code(s): N18.3 - Chronic kidney disease, stage 3 (moderate) Status: Chronic Assessment and Plan: Patient with a history of CKD stage 3. Est GFR runs in the 50's since 2018. Cr 0.7 related to the IVFs. Avoid nephrotoxic agents. Continue to monitor. (3) Mixed hyperlipidemia: Code(s): E78.2 - Mixed hyperlipidemia Status: Acute Assessment and Plan: Stable. LFTs within normal limits. Fenofibrate and simvastatin were placed on hold while NPO. Resume at discharge (4) Hypothyroidism: Qualifiers: Hypothyroidism type: unspecified Qualified Code(s): E03.9 - Hypothyroidism, unspecified Code(s): E03.9 - Hypothyroidism, unspecified Status: Chronic Assessment and Plan: TSH normal last year. We continued oral levothyroxine. (5) HTN (hypertension), benign: Code(s): I10 - Essential (primary) hypertension Status: Chronic Assessment and Plan: Blood pressure reviewed on 06/02/2019. Blood pressure remains well controlled off home medications. She normally is on lisinopril/HCTZ. Will continue to hold these medications for now. Patient to check blood pressure at home and discuss with primary care doctor. (6) Hyponatremia: Code(s): E87.1 - Hypo-osmolality and hyponatremia Status: Acute Assessment and Plan: Sodium 131 on admission probably related to dehydration. Na back to 136 with the IVF. Dehydration possibly related to the HCTZ. Treated with IV fluids until patient was eating normally. (7) Hypokalemia: Code(s): E87.6 - Hypokalemia Status: Acute Assessment and Plan: Mild hypokalemia that was replaced. (8) Chronic anemia: Code(s): D64.9 - Anemia, unspecified Status: Acute Assessment and Plan: Hgb 11.6 on admission and similar to past values in June. Hgb dropped to 10.5 but stable. Iron deficiency noted on lab values. Hx of colon polyps and colitis. Will need repeat colonoscopy when she has improved. She was started on iron. DS: Summary Hospital Course Reason for hospitalization: 78-year-old female here for abdominal pain found to have abdominal abscess. Please see H&P for details. Hospital Course: As above Time Spent with Patient Time attestation: Total time spent providing and/or coordinating discharge services: 32 minutes Time spent: Greater than 30 minutes Exam Narrative: Exam Narrative: AF 133/51 Gen - NARD lying semi recumbent in bed Chest - CTA bilaterally, nml RR CV - RRR S1/S2 Abd - Soft, NT/ND, Positive BS Ext - No pedal edema Psych - Nml mood and affect Skin - Warm and dry Discharge Plan Discharge Attending physician on discharge: Melvin Villanueva Consulting providers: Oumar Morales Discharging Clinician: Melvin Villanueva Anticipated Discharge Date/Time: 06/02/19 14:49 Patient Disposition: Home, Self-Care Ac
--- NOTE | 2019-06-03 14:44 | PC.NURSE ---
Received message from that patient's daughter stating new scripts not sent to pharmacy. Called Augmentin and Ferrous Sulfate into [facility]. Notified daughter, Heaven.
== END 2019-06-02 15:50 | disposition home or self-care (01) | DRG 392 ==
LOC: ANHED 21:13 → ANH3MEDSUR 21:19
PROVIDERS: Admitting Provider Family Medicine; Emergency Provider Emergency Medicine; PCP Family Medicine; Visit Provider Internal Medicine
DX: K57.20 Diverticulitis of large intestine with perforation and abscess without bleeding (principal); E87.1 Hypo-osmolality and hyponatremia; I12.9 Hypertensive chronic kidney disease with stage 1 through stage 4 chronic kidney disease, or unspecified chronic kidney disease; N18.3 Chronic kidney disease, stage 3 (moderate); E03.9 Hypothyroidism, unspecified; E87.6 Hypokalemia; D64.9 Anemia, unspecified; M54.16 Radiculopathy, lumbar region; M19.90 Unspecified osteoarthritis, unspecified site; K44.9 Diaphragmatic hernia without obstruction or gangrene; K46.9 Unspecified abdominal hernia without obstruction or gangrene; M54.6 Pain in thoracic spine; Z90.49 Acquired absence of other specified parts of digestive tract; Z90.710 Acquired absence of both cervix and uterus; Z98.42 Cataract extraction status, left eye; Z98.41 Cataract extraction status, right eye; Z86.73 Personal history of transient ischemic attack (TIA), and cerebral infarction without residual deficits; Z87.891 Personal history of nicotine dependence; Z85.3 Personal history of malignant neoplasm of breast
CPT/HCPCS: 36415; 71046; 74177; 80048; 80053; 80069; 81001; 82728; 83540; 83550; 83605; 83690; 83735; 85025; 85027; 87086; 87804; 93005; 96361; 96365; 96366; 96375; 99285; A9270; G0378; J1650; J2405; J2543; J7040; J7120; Q9967

== ENCOUNTER 2019-06-17 14:07 | Outpatient (CLI) | payer MEDICARE, SELFPAY ==
[2019-06-17 15:08] LABS: Add Urine Microscopic? YES; Appearance Urine Turbid (Clear); Bacteria Urine 3+ /hpf; Bilirubin Urine Negative (Negative); Blood Urine 2+ (Negative); Color Urine Yellow (Yellow); Glucose Urine UA Negative (Negative); Ketones Urine Negative (Negative); Leukocyte Esterase Ur 3+ LEU/UL (Negative); Nitrate Urine Negative (Negative); Protein Urine 2+ mg/dL (Negative); RBC Urine >75 /hpf (0-2); Squamous Epithelial Cell Urine Moderate /hpf (Few); Urobilinogen Urine Negative mg/dL (<2.0); WBC Clumps Urine Present /HPF; WBC Urine >75 /hpf
== END 2019-06-17 14:08 | disposition home or self-care (01) ==
PROVIDERS: PCP Family Medicine; Visit Provider Surgery
DX: R39.89 Other symptoms and signs involving the genitourinary system (principal); K57.20 Diverticulitis of large intestine with perforation and abscess without bleeding
CPT/HCPCS: 81001; 87077; 87086; 87088; 87186

== ENCOUNTER 2019-06-21 10:31 | Outpatient (CLI) | payer MEDICARE, SELFPAY ==
--- NOTE | ~2019-06-21 | CT_ITS ---
EXAMINATION: CT abdomen pelvis wo con DATE: 06/21/2019 11:03 INDICATION: Diverticulitis of the large intestine with perforation TECHNIQUE: Computed tomography (CT) of the abdomen and pelvis was performed without intravenous contr ast. The dose-length product (DLP) was 246.76 mGy-cm. Automated exposure control and iterative recons truction technique were employed. COMPARISON: 05/29/2019 FINDINGS: Sensitivity limited by the absence of intravenous contrast. There is mild emphysema of the visualized lung bases. The heart size is normal. The liver, pancreas, gallbladder, and adrenal glands are normal. Punctate calcifications in an otherwise normal spleen likely represent healed granulomat ous disease. There is calcified atherosclerosis of the aorta and many of the other arteries. The kidn eys are unremarkable. There is diverticulosis with persistent wall thickening of the sigmoid colon. T he previously described perisigmoid abscess positioned in the left pelvis between the sigmoid colon a nd bladder appears to slightly decreased in size measuring up to 3.8 cm, previously 4.1 cm. The gas-c ontaining component of the abscess has decreased in size. However, there is now a moderate volume of gas in the nondependent portion of the urinary bladder. There are no dilated loops of bowel. No patho logically enlarged abdominal or pelvic lymph nodes are identified. IMPRESSION: 1. Diverticulitis with slight decrease in size of previously described perisigmoid abscess. Moderate volume of gas in the urinary bladder raises concern for interval development of an enterovesicular fi stula. Reviewed, dictated and finalized at location A. IMPRESSION: 1. Diverticulitis with slight decrease in size of previously described perisigm oid abscess. Moderate volume of gas in the urinary bladder raises concern for i nterval development of an enterovesicular fistula.
== END 2019-06-21 10:32 | disposition home or self-care (01) ==
PROVIDERS: PCP Family Medicine; Visit Provider Surgery
DX: K57.20 Diverticulitis of large intestine with perforation and abscess without bleeding (principal); R39.89 Other symptoms and signs involving the genitourinary system
CPT/HCPCS: 74176

== ENCOUNTER 2019-07-09 05:50 | Outpatient (CLI) | payer MEDICARE, SELFPAY ==
[2019-07-09 18:34] LABS: SARS-CoV-2 RNA PCR Negative
== END 2019-07-09 05:51 | disposition home or self-care (01) ==
LOC: ANHCOVIDDT 05:50
PROVIDERS: PCP Family Medicine; Visit Provider Internal Medicine Gastroenterology
DX: Z01.818 Encounter for other preprocedural examination (principal); Z11.59 Encounter for screening for other viral diseases
CPT/HCPCS: 87635; U0003

== ENCOUNTER 2019-07-11 01:49 | Day surgery (SDC) | payer MEDICARE, SELFPAY ==
[2019-07-08 10:37] VITALS: BMI 21.4
--- NOTE | 2019-07-11 06:21 | SUR.PREOP ---
0605 PATIENT DENIES ANY DRUG ALLERGIES. JAE COMER
[2019-07-11 06:24] VITALS: BP 122/65; PULSE 69; RESP 16; TEMP 36.4; O2SAT 99; BMI 19.1
[2019-07-11] MEDS: LACTATED RINGERS 1,000 ML 150 ML IV CONT (06:50)
--- NOTE | 2019-07-11 06:57 | WPDANESEPPF ---
Anes - Initial Pre Proc Eval Procedure: Operation Date: 07/11/19 07:30 Proposed Procedures p Colonoscopy - Yung Kirkpatrick DO Date/Time: 07/11/19 06:57 Surgeon: Yung Kirkpatrick DO Pre Op Diagnosis: DIVERTICULITIS OF LARGE INTESTINE W/PERFORATION AB Patient Data Age: 79 Gender: F Height: 5 ft 3 in Weight: 48.8 kg Last Vital Signs Temp 36.4 C 07/11/19 06:24 Pulse 69 07/11/19 06:24 Resp 16 07/11/19 06:24 BP 122/65 07/11/19 06:24 Pulse Ox 99 07/11/19 06:24 Allergies Allergy/AdvReac Type Severity Reaction Status Date / Time loratadine Allergy Intermediate Swelling Verified 07/11/19 06:21 of Lip/Tongue/Throat morphine Allergy Mild Confusion Verified 07/11/19 06:21 adhesive Allergy Unknown BLISTERS Verified 07/11/19 06:21 Home Medications Medication Instructions Recorded Confirmed Type fenofibrate 160 mg tablet 160 mg PO DAILY #90 tablet 05/02/19 07/11/19 Rx simvastatin 40 mg tablet 40 mg PO DAILY #90 tablet 05/02/19 07/11/19 Rx levothyroxine 88 mcg PO DAILY 05/29/19 07/11/19 History ferrous sulfate 324 mg PO BIDWM #60 tablet 06/02/19 07/11/19 Rx polyethylene glycol 3350 17 17 gm PO BID 06/17/19 07/11/19 History gram/dose oral powder cephalexin 500 mg capsule 500 mg PO DAILY #30 cap 06/24/19 07/11/19 Rx cranberry conc-ascorbic acid 1 cap PO DAILY 07/08/19 07/11/19 History [Cranberry Urinary Comfort] Patient hx anesthesia problems: none Family hx anesthesia problems: none PMFSH Past Medical History Medical History Appendicitis Bilateral cataracts Chronic kidney disease, stage 3 (moderate) Degenerative disc disease Diverticulosis Gallbladder disease GI bleed Hiatal hernia History of CVA with residual deficit Hy kid NOS w cr kid I-IV Migraine Osteoarthritis Radiculopathy, lumbar region Surgical History Surgical History H/O discectomy H/O left mastectomy H/O: hysterectomy History of appendectomy History of cataract surgery History of cholecystectomy History of repair of hiatal hernia Hx of rectal polypectomy Previous back surgery Rods inserted Family History Family History Father Malignant neoplasm of prostate Kidney malignancy Mother Emphysema of lung Social History Social History Smoking packs per day: 3 Smoking cigarettes per day: 60.0 Years smoked: 40 Smoking pack-years: 120.00 Smoking status: Former smoker Tobacco type: cigarettes Second hand tobacco smoke exposure: No Smoking end date: 02/27/03 Alcohol intake: never Substance use: never Substance use type: does not use Gender identity (if verbalized by the patient): Female Spiritual care concerns: No Agree to blood products: Yes Anes - Eval Final PreProcedure Day of Procedure 07/11/19 06:57 Patient weight: thin Heart: regular rate and rhythm Lungs: clear to auscultation Airway: Mallampati scale class II Neurological: alert and oriented Last oral intake: >/= 8 hours ASA classification: III Emergent: no Anesthetic plan: proceed Anesthesia type and monitoring: general GIVS and standard monitoring Informed Consent: The patient's anesthetic plan and its attendant risks and benefits were discussed with the patient/family/POA. Questions were solicited and answers provided to the satisfaction of the patient/family/POA.
--- NOTE | 2019-07-11 07:36 | PM.IMHP ---
H&P: HPI History of Present Illness Chief complaint: DIVERTICULITIS OF LARGE INTESTINE W/PERFORATION AB Narrative: Reason for visit colonoscopy. This very pleasant lady seen in consultation request of general surgery. Impression: Diverticulitis with abscess and possible colovesicular fistula. GERD with a history of hiatal hernia repair. History adenomatous colon polyps. HTN. HLD. Breast cancer status post mastectomy. COPD. Chronic kidney disease. DJD. CVA. Recommendation: Will proceed with colonoscopy. History: Very pleasant lady's here for colonoscopy. Her GI review systems negative except for history of chronic constipation. She was recently diagnosed as having diverticulitis with abscess and possible colovesicular fistula. She is here for colonoscopy to assess for underlying inflammatory or neoplastic disease. General: very pleasant patient in no acute distress. HEENT: Head was normocephalic sclerae is clear mouth without masses neck was supple. Heart: Rate rhythm regular without S3 or S4. Lungs: CTA. Abdomen: Soft with no guarding or rigidity. Bowel sounds were active. Neurologic: Cranial nerves 2 through 12 intact. No focal defects. No clonus. Musculoskeletal system: Revealed no joint tenderness or swelling no muscle atrophy. Extremities: Reveal no significant edema. Skin: Warm and dry with normal turgor. Mental status: intact. Patient is alert and oriented. Review of Systems Review of Systems: All systems reviewed & are unremarkable except as noted in HPI and below PMFSH Past Medical History Medical History Appendicitis Bilateral cataracts Chronic kidney disease, stage 3 (moderate) Degenerative disc disease Diverticulosis Gallbladder disease GI bleed Hiatal hernia History of CVA with residual deficit Hy kid NOS w cr kid I-IV Migraine Osteoarthritis Radiculopathy, lumbar region Surgical History Surgical History H/O discectomy H/O left mastectomy H/O: hysterectomy History of appendectomy History of cataract surgery History of cholecystectomy History of repair of hiatal hernia Hx of rectal polypectomy Previous back surgery Rods inserted Family History Family History Father Malignant neoplasm of prostate Kidney malignancy Mother Emphysema of lung Social History Social History Smoking packs per day: 3 Smoking cigarettes per day: 60.0 Years smoked: 40 Smoking pack-years: 120.00 Smoking status: Former smoker Tobacco type: cigarettes Second hand tobacco smoke exposure: No Smoking end date: 02/27/03 Alcohol intake: never Substance use: never Substance use type: does not use Gender identity (if verbalized by the patient): Female Spiritual care concerns: No Agree to blood products: Yes Meds Home Medications and Allergies Home Medications Medication Instructions Recorded Confirmed Type fenofibrate 160 mg tablet 160 mg PO DAILY #90 tablet 05/02/19 07/11/19 Rx simvastatin 40 mg tablet 40 mg PO DAILY #90 tablet 05/02/19 07/11/19 Rx levothyroxine 88 mcg PO DAILY 05/29/19 07/11/19 History ferrous sulfate 324 mg PO BIDWM #60 tablet 06/02/19 07/11/19 Rx polyethylene glycol 3350 17 17 gm PO BID 06/17/19 07/11/19 History gram/dose oral powder cephalexin 500 mg capsule 500 mg PO DAILY #30 cap 06/24/19 07/11/19 Rx cranberry conc-ascorbic acid 1 cap PO DAILY 07/08/19 07/11/19 History [Cranberry Urinary Comfort] Allergies Allergy/AdvReac Type Severity Reaction Status Date / Time loratadine Allergy Intermediate Swelling Verified 07/11/19 06:21 of Lip/Tongue/Throat morphine Allergy Mild Confusion Verified 07/11/19 06:21 adhesive Allergy Unknown BLISTERS Verified 07/11/19 06:21 Vital Signs Comfort
[2019-07-11 08:18] VITALS: BP 101/57; PULSE 74; RESP 26; O2SAT 100
[2019-07-11 08:28] VITALS: BP 121/59; PULSE 60; RESP 26; O2SAT 100
[2019-07-11 08:37] VITALS: BP 126/55; PULSE 61; RESP 20; O2SAT 100
== END 2019-07-11 09:02 | disposition home or self-care (01) ==
PROVIDERS: PCP Family Medicine; Visit Provider Internal Medicine Gastroenterology
PROC: 0DJD8ZZ Inspection of Lower Intestinal Tract, Via Natural or Artificial Opening Endoscopic (ICD-10-PCS; CPT 45378; principal; 2019-07-11 07:30)
DX: D12.2 Benign neoplasm of ascending colon (principal); D12.3 Benign neoplasm of transverse colon; K52.9 Noninfective gastroenteritis and colitis, unspecified; K57.30 Diverticulosis of large intestine without perforation or abscess without bleeding; K21.9 Gastro-esophageal reflux disease without esophagitis; E78.5 Hyperlipidemia, unspecified; J44.9 Chronic obstructive pulmonary disease, unspecified; I12.9 Hypertensive chronic kidney disease with stage 1 through stage 4 chronic kidney disease, or unspecified chronic kidney disease; N18.3 Chronic kidney disease, stage 3 (moderate); M19.90 Unspecified osteoarthritis, unspecified site; Z85.3 Personal history of malignant neoplasm of breast; Z86.73 Personal history of transient ischemic attack (TIA), and cerebral infarction without residual deficits; Z87.891 Personal history of nicotine dependence
CPT/HCPCS: 45380; 87635; 88305; C9803; J2704; J7120; U0003

== ENCOUNTER 2019-07-16 09:28 | Outpatient (CLI) | payer MEDICARE, SELFPAY | END 2019-07-16 09:29 | disposition home or self-care (01) | LOC: ANHSURGERY 09:35 | PROVIDERS: PCP Family Medicine; Visit Provider Surgery | DX: Z01.812 Encounter for preprocedural laboratory examination (principal); K57.92 Diverticulitis of intestine, part unspecified, without perforation or abscess without bleeding | CPT/HCPCS: 36415; 86850; 86900; 86901 ==

== ENCOUNTER 2019-07-23 00:02 | Outpatient (CLI) | payer MEDICARE, SELFPAY ==
[2019-07-23 17:31] LABS: SARS-CoV-2 RNA PCR Negative
== END 2019-07-23 00:03 | disposition home or self-care (01) ==
LOC: ANHCOVIDDT 00:02
PROVIDERS: PCP Family Medicine; Visit Provider Surgery
DX: Z01.818 Encounter for other preprocedural examination (principal); Z11.59 Encounter for screening for other viral diseases
CPT/HCPCS: 87635; C9803; U0003

== ENCOUNTER 2019-07-25 16:15 | Inpatient (IN) | payer MEDICARE, SELFPAY ==
[2019-07-16 10:48] VITALS: BP 150/60; PULSE 68; RESP 18; TEMP 36.6; O2SAT 100; BMI 20.5
[2019-07-24 20:58] VITALS: O2SAT 94
[2019-07-25] VITALS (13 sets, daily range): BP systolic 108–151; BP diastolic 42–62; PULSE 55–72; RESP 16–24; TEMP 35.8–36.9; O2SAT 98–100; BMI 19.6; BMI 21.1
--- NOTE | ~2019-07-25 | XR_ITS ---
EXAMINATION: XR cystogram DATE: 07/31/2019 09:58 INDICATION: Colovesical fistula. TECHNIQUE: Water-soluble contrast was gravity-infused through the patient's Oconnor catheter. Multiple fluoroscopic images were obtained. Fluoroscopy exposure time was 0.2 minutes. The total number of maritza ges was 11. COMPARISON: CT abdomen and pelvis 06/21/2019 FINDINGS: There is no extraluminal leakage of contrast from the bladder. No ureteral reflux. There ar e changes of posterior fusion procedure in the spine. IMPRESSION: 1. No extraluminal leakage of contrast. Reviewed, dictated and finalized at location [facility].
--- NOTE | ~2019-07-25 | CT_ITS ---
EXAMINATION: CT brain wo con DATE: 07/29/2019 16:36 INDICATION: New onset of delirium TECHNIQUE: Computed tomography (CT) of the head was performed without intravenous contrast. The mA wa s adjusted according to patient size. Iterative reconstruction technique was employed. Exam dose: 60 5.33 mGy-cm total exam DLP. COMPARISON: 02/22/2019 CT brain FINDINGS: There are bilateral vertebral artery, basilar artery and bilateral carotid siphon and supra clinoid internal carotid artery calcifications. There is nonspecific diminished attenuation of the ce rebral white matter, likely due to chronic small vessel ischemic changes. There is a chronic lacunar infarct of left basal ganglia. Chronic bilateral cerebellar lacunar infarcts. No intracranial mass lesion or hemorrhage or recent cerebrovascular accident is evident. CT is not se nsitive however for hyperacute ischemic infarct. No subdural or epidural hematoma. The mastoid air cells and included paranasal sinuses are clear. No fracture or bone destruction of the cranial vault. IMPRESSION: Cerebral atherosclerosis and chronic small vessel ischemic changes of the cerebral white matter Chronic left basal ganglia lacunar infarct. Chronic bilateral cerebellar lacunar infarcts. No acute intracranial finding or significant change since 02/22/2019 Reviewed, dictated and finalized at [facility]. Reviewed, dictated and finalized at location [facility].
--- NOTE | 2019-07-25 06:48 | PM.IMHP ---
H&P: HPI History of Present Illness Chief complaint: Diverticulitis With Abscess/ Colovescular Fistula Narrative: Maricruz Carnes is a 79 year old female Who presented to the emergency room on May 28 with abdominal pain fever and symptoms of urinary tract infection. CT scan was done and showed acute diverticulitis with an abscess adjacent to the urinary bladder. She was treated conservatively with IV antibiotics and bowel rest. Her diverticulitis resolved but she has continued to have pneumaturia and evidence of a colovesical fistula. She continues to have some lower abdominal suprapubic pain. She had a colonoscopy by Dr. Kirkpatrick on July 11, 2019. This was negative other than inflammation in the area of the sigmoid colon and multiple wide-mouth diverticuli. After thorough discussion in the office, she is taken to surgery now for sigmoidectomy with repair of colovesical fistula. Review of Systems Review of Systems: All systems reviewed & are unremarkable except as noted in HPI and below Constitutional: Constitutional: Denies headache(s) ENT: Denies headache(s) Cardiovascular: Cardiovascular: Denies chest pain and Denies dyspnea Respiratory: Respiratory: Denies cough and Denies dyspnea Gastrointestinal: Gastrointestinal: Denies bloating, Denies constipation and Denies nausea Neurologic: Denies confusion and Denies headache(s) Psychiatric: Psychiatric: Denies confusion PMFSH Past Medical History Medical History Appendicitis Bilateral cataracts Chronic kidney disease, stage 3 (moderate) Degenerative disc disease Diverticulosis Gallbladder disease GI bleed Hiatal hernia History of CVA with residual deficit Hy kid NOS w cr kid I-IV Migraine Osteoarthritis Radiculopathy, lumbar region Surgical History Surgical History H/O discectomy H/O left mastectomy H/O: hysterectomy History of appendectomy History of cataract surgery History of cholecystectomy History of repair of hiatal hernia Hx of rectal polypectomy Previous back surgery Rods inserted Family History Family History Father Malignant neoplasm of prostate Kidney malignancy Mother Emphysema of lung Social History Social History Smoking packs per day: 3 Smoking cigarettes per day: 60.0 Years smoked: 40 Smoking pack-years: 120.00 Smoking status: Former smoker Tobacco type: cigarettes Second hand tobacco smoke exposure: No Smoking end date: 02/27/03 Alcohol intake: never Substance use: never Substance use type: does not use Gender identity (if verbalized by the patient): Female Spiritual care concerns: No Agree to blood products: Yes Meds Home Medications and Allergies Home Medications Medication Instructions Recorded Confirmed Type levothyroxine 88 mcg PO DAILY 05/29/19 07/16/19 History cranberry conc-ascorbic acid 1 cap PO DAILY 07/08/19 07/16/19 History [Cranberry Urinary Comfort] fenofibrate 160 mg PO HS 07/16/19 07/16/19 History metronidazole 500 mg PO Q8H 07/16/19 07/16/19 History simvastatin 40 mg PO HS 07/16/19 07/16/19 History Allergies Allergy/AdvReac Type Severity Reaction Status Date / Time loratadine Allergy Intermediate Swelling Verified 07/16/19 09:45 of throat morphine Allergy Mild Confusion Verified 07/16/19 09:45 adhesive Allergy Unknown BLISTERS Verified 07/16/19 09:45 Exam Const: General: cooperative, comfortable, no acute distress, alert and awake; No confusion Orientation/consciousness: No confusion HENMT: Head: normocephalic, atraumatic, no contusions and no scalp lesions Ears: external ears normal General nose exam: Normal external nose present Face and sinus: face symmetric and dry mucous membranes Mouth: Yes Normal oral and palatal mucosa present
--- NOTE | 2019-07-25 09:11 | WPDANESEPPF ---
Anes - Initial Pre Proc Eval Procedure: Operation Date: 07/25/19 10:30 Proposed Procedures p Sigmoidectomy With Repair Colovesicular Fistula - Oumar Morales MD Date/Time: 07/25/19 09:11 Surgeon: Oumar Morales MD Pre Op Diagnosis: Diverticulitis With Abscess/ Colovescular Fistula Patient Data Age: 79 Gender: F Height: 1.57 m Weight: 51 kg Last Vital Signs Temp 36.6 C 07/16/19 10:48 Pulse 68 07/16/19 10:48 Resp 18 07/16/19 10:48 BP 150/60 H 07/16/19 10:48 Pulse Ox 100 07/16/19 10:48 Allergies Allergy/AdvReac Type Severity Reaction Status Date / Time loratadine Allergy Intermediate Swelling Verified 07/16/19 09:45 of throat morphine Allergy Mild Confusion Verified 07/16/19 09:45 adhesive Allergy Unknown BLISTERS Verified 07/16/19 09:45 Home Medications Medication Instructions Recorded Confirmed Type levothyroxine 88 mcg PO DAILY 05/29/19 07/16/19 History cranberry conc-ascorbic acid 1 cap PO DAILY 07/08/19 07/16/19 History [Cranberry Urinary Comfort] fenofibrate 160 mg PO HS 07/16/19 07/16/19 History metronidazole 500 mg PO Q8H 07/16/19 07/16/19 History simvastatin 40 mg PO HS 07/16/19 07/16/19 History ECG: Date of Service: 05/29/19 Procedure(s): CA 12 lead EKG Accession Number(s): [id number] cc: ~ Measurements Intervals [place] Rate: 80 P: 39 CO: 175 QRS: 102 QRSD: 146 T: 8 QT: 374 QTc: 432 Interpretive Statements SINUS RHYTHM RIGHT AXIS DEVIATION RIGHT BUNDLE BRANCH BLOCK BASELINE WANDER- I, V4-V6 ABNORMAL ECG Electronically Signed On 05-30-2019 7:03:31 CDT by Tal Hernandez D.O. Dictated By: Tal Hernandez DO 05/29/19 [id number] Other Studies: stress test 07/2018: normal perfusion imaging, no diagnostic st changes, lvef 68% Patient hx anesthesia problems: none Family hx anesthesia problems: none PMFSH Past Medical History Medical History (Updated 07/25/19 @ 09:15 by Stanislav Islas MD) Appendicitis Bilateral cataracts Cancer LT BREAST CA Cardiomyopathy Chronic back pain Chronic kidney disease, stage 3 (moderate) Colovesical fistula Degenerative disc disease Diverticulitis of large intestine with abscess Diverticulosis Emphysema of lung Gallbladder disease GI bleed Hiatal hernia History of breast cancer History of CVA with residual deficit HTN (hypertension), benign Hy kid NOS w cr kid I-IV Hypercholesterolemia Hypothyroidism IFG (impaired fasting glucose) Migraine Mixed hyperlipidemia Osteoarthritis Osteoporosis Radiculopathy, lumbar region Thoracic spine pain Transient ischemic attack (TIA) X 2 Surgical History Surgical History (Updated 07/25/19 @ 09:15 by Stanislav Islas MD) H/O discectomy H/O left mastectomy H/O: hysterectomy History of appendectomy History of cataract surgery History of cholecystectomy History of repair of hiatal hernia Hx of rectal polypectomy Previous back surgery Rods inserted - CERVICAL and lumbar rods and screws SURGERIES X 4 Family History Family History Father Malignant neoplasm of prostate Kidney malignancy Mother Emphysema of lung Social History Social History Smoking packs per day: 3 Smoking cigarettes per day: 60.0 Years smoked: 40 Smoking pack-years: 120.00 Smoking status: Former smoker Tobacco type: cigarettes Second hand tobacco smoke exposure: No Smoking end date: 02/27/03 Alcohol intake: never Substance use: never Substance use type: does not use Gender identity (if verbalized by the patient): Female Spiritual care concerns: No Agree to blood products:
[2019-07-25] MEDS: LACTATED RINGERS 1,000 ML 30 ML IV CONT ×2 (09:30→15:02)
--- NOTE | 2019-07-25 09:57 | SUR.PREOP ---
0915; PT STATES SHE COMPLETED HER ENSURE BUNDLE THE DAY BEFORE SURGERY 07/23
[2019-07-25] MEDS: ALVIMOPAN 12 MG CAPSULE PO (10:03)
--- NOTE | 2019-07-25 10:12 | SUR.PREOP ---
1012; PT AND DAUGHTER NOTIFIED THE SURGERY START TIME WILL BE 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
[2019-07-25] MEDS: ceFAZolin 2 GM/D5W 50 ML 2 GM/50 ML BAG IVPB (11:00)
[2019-07-25] MEDS: metroNIDAZOLE 500 MG/ISO 100ML 500 MG/100 ML BAG 100 MG IVPB (11:15)
[2019-07-25] MEDS: IBUPROFEN IV 800 MG/200 ML 800 MG/200 ML BAG 400 MG IVPB ×2 (11:30→17:27)
--- NOTE | 2019-07-25 15:03 | PM.PROC ---
Procedure Note - Detailed Date of procedure: 07/25/19 Pre-op diagnosis: Diverticulitis With Abscess/ Colovesical Fistula Diverticulitis with abscess, colovesical fistula Post-op diagnosis: same Procedure performed: Sigmoid colon resection with repair colovesical fistula, takedown splenic flexure, hand-sewn colorectal anastomosis Description of procedure: The patient was taken to surgery and induced into general anesthesia. She was placed in Subhash stirrups in lithotomy. Rectal irrigation was carried out. Rectal tube was placed. O[place]nor catheter was placed. She was prepped and draped. A lower abdominal midline incision was made and carried down through the midline fascia. Peritoneal cavity was entered and extended the length of the wound. Our initial incision was from the pubis to below the umbilicus. After attempting to work with this size incision initially, I could not keep the bowel retracted enough to do the surgery. The incision had to be enlarged to just above the umbilicus. Bryn wound guard was used to retract the abdominal wall. Adhesions to the anterior abdominal wall were taken down. Adhesions of bowel to transverse colon were taken down. The viscera were retracted from the pelvis and the area of diverticulitis in the likely area of colovesical fistula was seen. I started the dissection by dividing the lateral peritoneal attachments to the descending colon. There were numerous diverticula on the descending colon and I opted to remove the entire sigmoid as well as some of the descending colon. After mobilizing the descending colon I continued up to the splenic flexure. The flexure was high and required a lot of retraction and careful dissection. Nonetheless I was able to place some traction on the distal transverse colon and proximal descending colon and slowly dissect out the splenic flexure. I finally freed it completely by dividing the omental adhesions to the transverse colon and proximal descending colon. This allowed plenty of colon to be brought down for anastomosis. From there I found the left ureter and dissected it down to the area of diverticular disease. There was a very thickened area of chronic diverticulitis in the mid to distal sigmoid. This was densely adherent to the lateral pelvic sidewall. The ureter was carefully dissected and dissected away from the area of the adhesions to the sigmoid colon. From there I used the Harmonic scalpel and freed the sigmoid colon from the adhesions to the round ligament and other pelvic structures. I then divided the lateral peritoneal attachments to the sigmoid colon, mobilizing it fully. I continued this dissection into the pelvis and isolated the area of the colovesical fistula. It was a small area on the dome of the bladder. I divided it with the cautery. The area of the fistula on the bladder was seen easily. I closed it with interrupted suture of 2 0 Vicryl. These were full-thickness suture. From there I divided additional adhesions and mobilized fully the sigmoid colon so that I could see the rectum. An area of upper rectum which was soft and pliable was chosen. I then used the cautery and Harmonic scalpel to dissect out the upper rectum from the rectal mesentery. The upper rectum was divided with the TLC 75 stapler. I then divided the mesentery of the sigmoid and upper rectum associated with the diverticular disease. This was done with the Harmonic scalpel. I dissected back to the distal descending colon where I had decided to perform the proximal extent of resection. I skeletonized the distal descending colon with the Harmonic scalpel and cautery. A TLC 75 was used to divide the bowel here as well. The sigmoid colon and distal descending colon were passed off as a specimen labeled sigmoid colon. I checked the mesentery and there appeared to be excellent mesenteric flow to the distal descending colon. It had plenty of length to reach down into the pelvis without tension. I then ca
--- NOTE | 2019-07-25 15:32 | SUR.PHASEI ---
1532 - pt's daughter shirley called and updated.
--- NOTE | 2019-07-25 16:25 | ADMGEN ---
This patient, Maricruz Carnes, was admitted to IMU Room 211-01. Patient/family oriented to hospital policies and general routines including ID bracelet, bed and alarms, visiting hours, pain management, procedures, bathroom and other care routines, personal items, smoking policy, room service/diet, and visiting hours. Valuables list has been completed. Information on how to activate the Rapid Response Team has been discussed. Patient/Family are encouraged to report perceived risks to care and to ask questions if they do not understand what they are told or what they should do.
[2019-07-25] MEDS: LACTATED RINGERS 1,000 ML 100 ML IV CONT (17:24)
[2019-07-25] MEDS: ACETAMINOPHEN 500 MG TABLET 1000 MG PO (20:23)
[2019-07-25] MEDS: FAMOTIDINE 20 MG/2 ML VIAL IV PUSH (20:23)
[2019-07-25] MEDS: ENOXAPARIN 30 MG/0.3 ML SYRINGE SUB-Q (20:24)
[2019-07-25] MEDS: SIMVASTATIN 20 MG TABLET 40 MG PO (20:24)
[2019-07-26] VITALS (12 sets, daily range): BP systolic 122–134; BP diastolic 49–66; PULSE 63–87; RESP 12–20; TEMP 36.1–36.9; O2SAT 90–100
[2019-07-26] MEDS: IBUPROFEN IV 800 MG/200 ML 800 MG/200 ML BAG 400 MG IVPB ×2 (00:02→05:48)
[2019-07-26] MEDS: LACTATED RINGERS 1,000 ML 100 ML IV CONT ×2 (03:35→16:51)
[2019-07-26 04:31] LABS: Basophils Absolute Auto 0.1 K/mm3 (0.0-0.1); Basophils Percent Auto 0.4 % (0.2-1.2); Hematocrit 38.3 % (37.0-47.0); Immature Granulocyte Absolute 0.07 K/mm3 (0.00-0.031); Immature Granulocyte Percent A 0.4 % (0-0.5); Lymphocytes Absolute Auto 1.36 K/mm3 (0.9-3.2); Lymphocytes Percent Auto 8.5 % (18.3-44.2); Mean Corpuscular HGB Conc 31.3 g/dl (32-36); Mean Corpuscular Hemoglobin 26.7 pg (26-34); Mean Corpuscular Volume 85.1 fl (80-100); Mean Platelet Volume 9.6 fl (7.4-10.4); Monocytes Absolute Auto 0.6 K/mm3 (0.1-0.6); Monocytes Percent Auto 3.8 % (2.6-8.5); Neutrophils Absolute Auto 13.8 K/mm3 (1.3-6.7); Neutrophils Percent Auto 86.9 % (45.5-73.1); Platelet Count Result 280 k/mm3 (150-375); Red Cell Distribution Width 17.2 % (11.5-14.5); White Blood Count 15.9 K/mm3 (4.5-10.0)
[2019-07-26 04:46] LABS: Blood Urea Nitrogen 13 mg/dL (7-17); Calcium 8.3 mg/dL (8.4-10.2); Carbon Dioxide 25 mmol/L (22-30); Chloride 107 mmol/L (98-107); Estimated CRCL calculation 36 ml/min; Estimated Glomerular Filt Rate > 60; Glucose 122 mg/dL (65-105); Potassium 3.5 mmol/L (3.4-5.0); Sodium 137 mmol/L (137-145)
[2019-07-26] MEDS: LEVOTHYROXINE SODIUM 88 MCG TABLET PO (05:48)
[2019-07-26] MEDS: ENOXAPARIN 30 MG/0.3 ML SYRINGE SUB-Q ×2 (08:23→20:28)
[2019-07-26] MEDS: ACETAMINOPHEN 500 MG TABLET 1000 MG PO (08:23)
[2019-07-26] MEDS: FAMOTIDINE 20 MG/2 ML VIAL IV PUSH ×2 (08:23→20:28)
--- NOTE | 2019-07-26 12:07 | PM.PNGS ---
Progress Note: A&P Assessment and Plan (1) Diverticulitis of large intestine with abscess: Qualifiers: Diverticulitis bleeding: without bleeding Qualified Code(s): K57.20 - Diverticulitis of large intestine with perforation and abscess without bleeding Code(s): K57.20 - Diverticulitis of large intestine with perforation and abscess without bleeding Status: Chronic Assessment and Plan: Doing well postop day 1. Status post sigmoidectomy with colorectal anastomosis and closure of colovesical fistula. Will advance to full liquids this morning and possibly to soft diet later today. Transfer patient to medical-surgical floor and get up out of bed to chair and ambulate if possible. Continue to recheck labs. Seems to be doing quite well so far. 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 Leave Oconnor for 7 days. (3) Chronic kidney disease, stage 3 (moderate): Code(s): N18.3 - Chronic kidney disease, stage 3 (moderate) Status: Chronic Assessment and Plan: Creatinine 0.8. Estimated creatinine clearance 36 millimeters/minute. Had some oliguria through the night with urine output about 20 cc/hour. Will continue IV fluids today. (4) History of CVA with residual deficit: Code(s): I69.30 - Unspecified sequelae of cerebral infarction Status: Chronic (5) Cardiomyopathy: Code(s): I42.9 - Cardiomyopathy, unspecified Status: Acute Subjective Subjective Date/Time Seen: 07/26/19 12:07 Post Op day: 1 Patient reports: still having pain (Incisional, Tylenol and ibuprofen do not help were), tolerating liquids well and flatus Review of Systems Review of Systems: All systems reviewed & are unremarkable except as noted in HPI and below Constitutional: Constitutional: Denies headache(s) ENT: Denies headache(s) Cardiovascular: Cardiovascular: Denies chest pain and Denies dyspnea Respiratory: Respiratory: Denies cough and Denies dyspnea Gastrointestinal: Gastrointestinal: Reports as per HPI Neurologic: Denies confusion and Denies headache(s) Psychiatric: Psychiatric: Denies confusion Exam Const: General: comfortable and no acute distress; No confusion Orientation/consciousness: patient oriented x3 and No confusion Resp: Effort & Inspection: normal respiratory effort Auscultation: clear to auscultation bilaterally Cardio: Rate: regular rate Rhythm: regular rhythm GI: Inspection: non-distended and incision (Dressing dry and intact) GI Palp: Yes Soft to palpation, Yes Tenderness to palpation present (GI), No Guarding due to palpation present (GI) and No Rebound tenderness present Auscultation: Hypoactive bowel sounds present Neuro: General: patient oriented x3, no focal motor deficits and No confusion Extrem: General: no calf tenderness and no edema Psych: Affect: normal affect Insight: Good insight present (Psych) Judgement: Good judgement present (Psych) Objective Data Vital Signs Vital Signs: Vital Signs - 24 hr 07/25/19 15:02 07/25/19 15:15 07/25/19 15:30 Temperature 36.9 C Pulse Rate 69 55 L 56 L Respiratory Rate 16 18 20 Blood Pressure 118/51 L 136/44 L 133/51 L Pulse Oximetry 100 100 98 07/25/19 15:47 07/25/19 16:00 07/25/19 16:10 Temperature Pulse Rate 62 61 68 Respiratory Rate 20 20 19 Blood Pressure 108/42 L 141/50 H 118/57 L Pulse Oximetry 99 100 100 07/25/19 16:25 07/25/19 16:38 07/25/19 18:00 Temperature 35.8 C L Pulse Rate 63 64 72 Respiratory Rate 24 H Blood Pressure 147/54 H Pulse Oximetry 100 07/25/19 20:00 07/25/19 22:00 07/25/19 23:51 Temperature 36.1 C L 36.1 C L Pulse Rate 68 71 66 Respiratory Rate 16 18 Blood Pressure 135/60 151/62 H Pulse Oximetry 100 100 07/26/19 00:00 07/26/19 02:00 07/26/19 03:43 Temperature Pulse Rate 66 63 64 Respiratory Rate 16 Blood Pressure 134/57 L
--- NOTE | 2019-07-26 16:31 | PC.NURSE ---
This patient, Maricruz Carnes, was transferred to [ [facility]] on 07/26/19 at 1446. Personal belongings sent with patient. Belongings list checked and signed with receiving [ X]. Report given to [Melissa]. Appropriate documentation sent with patient.
[2019-07-26] MEDS: ALVIMOPAN 12 MG CAPSULE PO ×2 (16:49→21:45)
[2019-07-26] MEDS: ONDANSETRON INJ 4 MG/2 ML VIAL IV PUSH (18:46)
[2019-07-26] MEDS: SIMVASTATIN 20 MG TABLET 40 MG PO (20:28)
[2019-07-27] MEDS: LACTATED RINGERS 1,000 ML 100 ML IV CONT ×2 (00:27→20:44)
[2019-07-27 05:00] VITALS: BP 169/88; PULSE 93; RESP 16; TEMP 36.8; O2SAT 90
[2019-07-27] MEDS: LEVOTHYROXINE SODIUM 88 MCG TABLET PO (06:08)
[2019-07-27 07:42] LABS: Hematocrit 35.1 % (37.0-47.0); Mean Corpuscular HGB Conc 31.3 g/dl (32-36); Mean Corpuscular Hemoglobin 26.7 pg (26-34); Mean Corpuscular Volume 85.2 fl (80-100); Mean Platelet Volume 9.5 fl (7.4-10.4); Platelet Count Result 249 k/mm3 (150-375); Red Blood Count 4.12 M/mm3 (4.2-5.4); Red Cell Distribution Width 17.4 % (11.5-14.5); White Blood Count 10.5 K/mm3 (4.5-10.0)
[2019-07-27 07:50] LABS: Blood Urea Nitrogen 10 mg/dL (7-17); Calcium 8.5 mg/dL (8.4-10.2); Carbon Dioxide 29 mmol/L (22-30); Chloride 104 mmol/L (98-107); Estimated CRCL calculation 36 ml/min; Estimated Glomerular Filt Rate > 60; Glucose 98 mg/dL (65-105); Sodium 136 mmol/L (137-145)
[2019-07-27 08:00] VITALS: PULSE 88; RESP 16; O2SAT 94
[2019-07-27 10:00] VITALS: BP 127/60; PULSE 80; RESP 18; TEMP 37.1; O2SAT 98
[2019-07-27] MEDS: ENOXAPARIN 30 MG/0.3 ML SYRINGE SUB-Q ×2 (10:18→20:43)
[2019-07-27] MEDS: FAMOTIDINE 20 MG/2 ML VIAL IV PUSH ×2 (10:22→20:44)
[2019-07-27] MEDS: ALVIMOPAN 12 MG CAPSULE PO ×2 (10:24→21:30)
--- NOTE | 2019-07-27 11:21 | PM.PNGS ---
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 Assessment and Plan: cont cassidy Subjective Subjective Date/Time Seen: 07/27/19 11:21 feels ok, some bloating and abd tenderness, diana full liquids Review of Systems Constitutional: Constitutional: Reports fatigue, Reports lethargy and Reports weakness Cardiovascular: Cardiovascular: Denies chest pain Respiratory: Respiratory: Denies dyspnea Gastrointestinal: Gastrointestinal: Reports abdominal pain, Reports bloating, Denies nausea and Denies vomiting Exam Const: General: no acute distress Resp: Auscultation: clear to auscultation bilaterally Cardio: Rate: regular rate Rhythm: regular rhythm GI: Other: soft, mod dist, sam TTP, incision C/D/I Objective Data Vital Signs Vital Signs: Vital Signs - 24 hr 07/26/19 12:00 07/26/19 15:03 07/26/19 22:00 Temperature 36.1 C L 36.4 C L 36.9 C Pulse Rate 70 77 87 Respiratory Rate 12 20 16 Blood Pressure 122/51 L 131/66 132/61 Pulse Oximetry 95 97 90 07/27/19 05:00 07/27/19 08:00 Temperature 36.8 C Pulse Rate 93 88 Respiratory Rate 16 16 Blood Pressure 169/88 H Pulse Oximetry 90 94 Intake/Output Intake/Output: Intake & Output 07/24/19 07/25/19 07/26/19 07/27/19 23:59 23:59 23:59 23:59 Intake Total 970 6835 1879 Output Total 978 094 7803 Balance 720 1825 579 Meds/Results Medications: Active Medications Generic Name Dose Route Start Last Admin Trade Name Freq PRN Reason Stop Dose Admin Acetaminophen 500 mg 07/26/19 10:06 Tylenol Tablet PO Q6H PRN Mild Pain (1-3) or Fever Hydrocodone Bitart/Acetaminophen 1 tab 07/26/19 10:06 [place] 5-325 Mg PO Q4H PRN Pain Rated 4-6 Hydrocodone Bitart/Acetaminophen 1 tab 07/26/19 10:06 07/27/19 06:07 [place] 10-325 Mg PO 1 tab Q4H PRN Administration Pain Rated 7-10 Alvimopan 12 mg 07/26/19 14:57 07/27/19 10:24 Entereg PO 08/02/19 14:58 12 mg Q12HR MAYNOR Administration Enoxaparin Sodium 30 mg 07/25/19 21:00 07/27/19 10:18 Lovenox SUB-Q 30 mg Q12HR MAYNOR Administration Famotidine 20 mg 07/25/19 21:00 07/27/19 10:22 Pepcid Iv IV PUSH 20 mg Q12HR MAYNOR Administration Fentanyl Citrate 25 mcg 07/25/19 16:15 07/26/19 14:38 Sublimaze IV PUSH 25 mcg Q2H PRN Administration Pain Rated 7-10 Fentanyl Citrate 12.5 mcg 07/25/19 16:15 07/26/19 16:49 Sublimaze IV PUSH 12.5 mcg Q2H PRN Administration Pain Rated 4-6 Lactated Ringer's 1,000 mls @ 100 mls/hr 07/25/19 16:15 07/27/19 04:51 Lr - Lactated Ringers Iv IV CONT 100 mls/hr .Q10H MAYNOR Infusion Levothyroxine Sodium 88 mcg 07/26/19 06:30 07/27/19 06:08 Synthroid PO 88 mcg DAILY@0630 MAYNOR Administration Ondansetron HCl 4 mg 07/25/19 16:15 07/26/19 18:46 Zofran Inj IV PUSH 4 mg Q4H PRN Administration Nausea And Vomiting Simvastatin 40 mg 07/25/19 21:00 07/26/19 20:28 Zocor PO 40 mg HS MAYNOR Administration Labs Labs: Laboratory Results - last 24 hr 07/27/19 07/27/19 07:01 07:01 WBC 10.5 H RBC 4.12 L Hgb 11.0 L Hct 35.1 L MCV 85.2 MCH 26.7 MCHC 31.3 L RDW 17.4 H Plt Count 249 MPV 9.5 Sodium 136 L Potassium 3.0 L Chloride 104 Carbon Dioxide 29 BUN 10 Creatinine 0.80 Estim Creat Clear Calc 36 Estimated GFR > 60 Glucose 98 Calcium 8.5
[2019-07-27 12:00] VITALS: PULSE 87; RESP 18; O2SAT 100
[2019-07-27 14:00] VITALS: BP 138/71; PULSE 87; RESP 18; TEMP 36.7; O2SAT 100
[2019-07-27] MEDS: SIMVASTATIN 20 MG TABLET 40 MG PO (20:43)
[2019-07-27 21:32] VITALS: BP 191/85; PULSE 92; RESP 16; TEMP 37; O2SAT 90
[2019-07-28 06:00] VITALS: BP 182/89; PULSE 81; RESP 18; TEMP 36.6; O2SAT 91
[2019-07-28] MEDS: LEVOTHYROXINE SODIUM 88 MCG TABLET PO (06:13)
[2019-07-28] MEDS: LACTATED RINGERS 1,000 ML 100 ML IV CONT (06:13)
[2019-07-28 06:41] LABS: Hematocrit 38.8 % (37.0-47.0); Hemoglobin 12.2 g/dL (12.0-15.0); Mean Corpuscular HGB Conc 31.4 g/dl (32-36); Mean Corpuscular Hemoglobin 26.6 pg (26-34); Mean Corpuscular Volume 84.5 fl (80-100); Mean Platelet Volume 9.7 fl (7.4-10.4); Platelet Count Result 253 k/mm3 (150-375); Red Blood Count 4.59 M/mm3 (4.2-5.4); Red Cell Distribution Width 16.4 % (11.5-14.5); White Blood Count 11.1 K/mm3 (4.5-10.0)
[2019-07-28 06:57] LABS: Blood Urea Nitrogen 6 mg/dL (7-17); Calcium 8.7 mg/dL (8.4-10.2); Carbon Dioxide 28 mmol/L (22-30); Chloride 95 mmol/L (98-107); Estimated CRCL calculation 68 ml/min; Estimated Glomerular Filt Rate > 60; Glucose 107 mg/dL (65-105); Potassium 2.9 mmol/L (3.4-5.0); Sodium 127 mmol/L (137-145)
[2019-07-28] MEDS: ENOXAPARIN 30 MG/0.3 ML SYRINGE SUB-Q ×2 (07:48→20:52)
[2019-07-28] MEDS: ALVIMOPAN 12 MG CAPSULE PO ×2 (07:49→20:52)
[2019-07-28] MEDS: FAMOTIDINE 20 MG/2 ML VIAL IV PUSH ×2 (07:49→20:52)
[2019-07-28 08:00] VITALS: PULSE 81; RESP 18; O2SAT 91
--- NOTE | 2019-07-28 10:34 | PM.PNGS ---
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 Pt diana diet but poor appetite. Pt reports she feels bloated. Pt reports some flatus but no bowel movts. Review of Systems Constitutional: Constitutional: Reports fatigue, Reports lethargy and Reports weakness Cardiovascular: Cardiovascular: Denies chest pain and Denies palpitations Respiratory: Respiratory: Denies dyspnea Gastrointestinal: Gastrointestinal: Reports abdominal pain, Reports bloating, Reports constipation, Denies heartburn, Reports nausea and Denies vomiting Exam Const: General: no acute distress Resp: Auscultation: clear to auscultation bilaterally Cardio: Rate: regular rate Rhythm: regular rhythm GI: Other: soft, mod dist, mild TTP at incision site, no peritoneal signs Objective Data Vital Signs Vital Signs: Vital Signs - 24 hr 07/27/19 12:00 07/27/19 14:00 07/27/19 21:32 Temperature 36.7 C 37.0 C Pulse Rate 87 87 92 Respiratory Rate 18 18 16 Blood Pressure 138/71 191/85 H Pulse Oximetry 100 100 90 07/28/19 06:00 Temperature 36.6 C Pulse Rate 81 Respiratory Rate 18 Blood Pressure 182/89 H Pulse Oximetry 91 Intake/Output Intake/Output: Intake & Output 07/25/19 07/26/19 07/27/19 07/28/19 23:59 23:59 23:59 23:59 Intake Total 970 2475 3150 2000 Output Total 191 233 1174 2100 Balance 720 1825 850 -100 Meds/Results Medications: Active Medications Generic Name Dose Route Start Last Admin Trade Name Freq PRN Reason Stop Dose Admin Acetaminophen 500 mg 07/26/19 10:06 Tylenol Tablet PO Q6H PRN Mild Pain (1-3) or Fever Hydrocodone Bitart/Acetaminophen 1 tab 07/26/19 10:06 [place] 5-325 Mg PO Q4H PRN Pain Rated 4-6 Hydrocodone Bitart/Acetaminophen 1 tab 07/26/19 10:06 07/28/19 03:04 [place] 10-325 Mg PO 1 tab Q4H PRN Administration Pain Rated 7-10 Alvimopan 12 mg 07/26/19 14:57 07/28/19 07:49 Entereg PO 08/02/19 14:58 12 mg Q12HR MAYNOR Administration Enoxaparin Sodium 30 mg 07/25/19 21:00 07/28/19 07:48 Lovenox SUB-Q 30 mg Q12HR MAYNOR Administration Famotidine 20 mg 07/25/19 21:00 07/28/19 07:49 Pepcid Iv IV PUSH 20 mg Q12HR MAYNOR Administration Fentanyl Citrate 25 mcg 07/25/19 16:15 07/26/19 14:38 Sublimaze IV PUSH 25 mcg Q2H PRN Administration Pain Rated 7-10 Fentanyl Citrate 12.5 mcg 07/25/19 16:15 07/26/19 16:49 Sublimaze IV PUSH 12.5 mcg Q2H PRN Administration Pain Rated 4-6 Lactated Ringer's 1,000 mls @ 100 mls/hr 07/25/19 16:15 07/28/19 06:13 Lr - Lactated Ringers Iv IV CONT 100 mls/hr .Q10H MAYNOR Administration Levothyroxine Sodium 88 mcg 07/26/19 06:30 07/28/19 06:13 Synthroid PO 88 mcg DAILY@0630 MAYNOR Administration Ondansetron HCl 4 mg 07/25/19 16:15 07/26/19 18:46 Zofran Inj IV PUSH 4 mg Q4H PRN Administration Nausea And Vomiting Simvastatin 40 mg 07/25/19 21:00 07/27/19 20:43 Zocor PO 40 mg HS MAYNOR Administration Labs Labs: Laboratory Results - last 24 hr 07/28/19 07/28/19 06:03 06:03 WBC 11.1 H RBC 4.59 Hgb 12.2 Hct 38.8 MCV 84.5 MCH 26.6 MCHC 31.4 L RDW 16.4 H Plt Count 253 MPV 9.7 Sodium 127 L Potassium 2.9 L Chloride 95 L Carbon Dioxide 28 BUN 6 L Creatinine 0.40 L Es
[2019-07-28 18:17] VITALS: BP 173/87; PULSE 87; RESP 16; TEMP 36.7; O2SAT 92
[2019-07-28] MEDS: SIMVASTATIN 20 MG TABLET 40 MG PO (20:52)
[2019-07-29] MEDS: LACTATED RINGERS 1,000 ML 100 ML IV CONT (02:20)
[2019-07-29 06:00] VITALS: BP 130/72; PULSE 72; RESP 18; TEMP 36.8; O2SAT 96
[2019-07-29] MEDS: LEVOTHYROXINE SODIUM 88 MCG TABLET PO (06:08)
[2019-07-29 06:21] LABS: Hemoglobin 11.8 g/dL (12.0-15.0); Mean Corpuscular HGB Conc 32.8 g/dl (32-36); Mean Corpuscular Hemoglobin 26.3 pg (26-34); Mean Corpuscular Volume 80.2 fl (80-100); Mean Platelet Volume 9.4 fl (7.4-10.4); Platelet Count Result 269 k/mm3 (150-375); Red Blood Count 4.49 M/mm3 (4.2-5.4); Red Cell Distribution Width 15.6 % (11.5-14.5); White Blood Count 8.3 K/mm3 (4.5-10.0)
[2019-07-29 06:35] LABS: Blood Urea Nitrogen 6 mg/dL (7-17); Calcium 8.5 mg/dL (8.4-10.2); Carbon Dioxide 28 mmol/L (22-30); Chloride 93 mmol/L (98-107); Estimated CRCL calculation 56 ml/min; Estimated Glomerular Filt Rate > 60; Glucose 100 mg/dL (65-105); Potassium 2.8 mmol/L (3.4-5.0); Sodium 126 mmol/L (137-145)
--- NOTE | 2019-07-29 07:34 | PM.PNGS ---
Progress Note: A&P Assessment and Plan (1) Diverticulitis of large intestine with abscess: Qualifiers: Diverticulitis bleeding: without bleeding Qualified Code(s): K57.20 - Diverticulitis of large intestine with perforation and abscess without bleeding Code(s): K57.20 - Diverticulitis of large intestine with perforation and abscess without bleeding Status: Chronic Assessment and Plan: abdomen is a little distended this morning. Patient denies nausea or bloating. Has been eating well. No bowel movement or flatus. Physical therapy has been consulted. Will also ambulate the patient in halls more. Seems to be doing well. Hopefully not developing ileus. 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 Oconnor catheter in place. (3) Hypokalemia: Code(s): E87.6 - Hypokalemia Status: Acute Assessment and Plan: Will supplement with potassium. (4) Hyponatremia: Code(s): E87.1 - Hypo-osmolality and hyponatremia Status: Acute Assessment and Plan: Start 1500 cc daily fluid restriction. (5) Chronic kidney disease, stage 3 (moderate): Code(s): N18.3 - Chronic kidney disease, stage 3 (moderate) Status: Chronic Assessment and Plan: Continue to monitor. Creatinine currently 0.5 Subjective Subjective Date/Time Seen: 07/29/19 07:34 Post Op day: 4 Patient reports: no new complaints ( tired, some incisional discomfort, denies nausea.), tolerating a regular diet, no flatus and no bowel movement Review of Systems Review of Systems: All systems reviewed & are unremarkable except as noted in HPI and below Constitutional: Constitutional: Denies headache(s) Cardiovascular: Cardiovascular: Denies chest pain and Denies dyspnea Respiratory: Respiratory: Denies cough and Denies dyspnea Gastrointestinal: Gastrointestinal: Reports as per HPI Neurologic: Denies confusion and Denies headache(s) Psychiatric: Psychiatric: Denies confusion Exam Const: General: comfortable and no acute distress; No confusion Orientation/consciousness: patient oriented x3 and No confusion GI: Inspection: distended and incision ( Dry and healing well) GI Palp: Yes Soft to palpation, Yes Tenderness to palpation present (GI), No Guarding due to palpation present (GI) and No Rebound tenderness present Auscultation: Hypoactive bowel sounds present Neuro: General: patient oriented x3, no focal motor deficits and No confusion Extrem: General: no calf tenderness and no edema Psych: Affect: normal affect Insight: Good insight present (Psych) Judgement: Good judgement present (Psych) Objective Data Vital Signs Vital Signs: Vital Signs - 24 hr 07/28/19 08:00 07/28/19 18:17 07/29/19 06:00 Temperature 36.7 C 36.8 C Pulse Rate 81 87 72 Respiratory Rate 18 16 18 Blood Pressure 173/87 H 130/72 Pulse Oximetry 91 92 96 Intake/Output Intake/Output: Intake & Output 07/26/19 07/27/19 07/28/19 07/29/19 23:59 23:59 23:59 23:59 Intake Total 2475 3150 3750 667 Output Total 650 2300 3350 1000 Balance 1825 850 400 -333 Meds/Results Medications: Active Medications Generic Name Dose Route Start Last Admin Trade Name Freq PRN Reason Stop Dose Admin Acetaminophen 500 mg 07/26/19 10:06 Tylenol Tablet PO Q6H PRN Mild Pain (1-3) or Fever Hydrocodone Bitart/Acetaminophen 1 tab 07/26/19 10:06 07/29/19 02:52 [place] 5-325 Mg PO 1 tab Q4H PRN Administration Pain Rated 4-6 Hydrocodone Bitart/Acetaminophen 1 tab 07/26/19 10:06 07/28/19 03:04 [place] 10-325 Mg PO 1 tab Q4H PRN Administration Pain Rated 7-10 Alvimopan 12 mg 07/26/19 14:57 07/28/19 20:52 Entereg PO 08/02/19 14:58 12 mg Q12HR MAYNOR Administration Enoxaparin Sodium 40 mg 07/29/19 09:00 Lovenox SUB-Q DAILY MAYNOR Famotidine 20 mg 07/25/19 21:
[2019-07-29] MEDS: ALVIMOPAN 12 MG CAPSULE PO ×2 (08:40→21:15)
[2019-07-29] MEDS: FAMOTIDINE 20 MG/2 ML VIAL IV PUSH ×2 (08:41→21:15)
[2019-07-29] MEDS: ENOXAPARIN 40 MG/0.4 ML SYRINGE SUB-Q (08:42)
[2019-07-29] MEDS: POTASSIUM CHLORIDE 10 MEQ TABLET.ER 30 MEQ PO ×4 (08:42→21:14)
[2019-07-29 14:15] VITALS: BP 131/73; PULSE 79; RESP 18; TEMP 37.1; O2SAT 100
[2019-07-29] MEDS: SIMVASTATIN 20 MG TABLET 40 MG PO (21:14)
[2019-07-29 22:03] VITALS: BP 164/108; PULSE 92; RESP 18; TEMP 36.7; O2SAT 94
--- NOTE | 2019-07-29 22:24 | PM.IMCN ---
Assessment and Plan Assessment and plan (1) Delirium: Code(s): R41.0 - Disorientation, unspecified Status: Acute Assessment and Plan: Likely hospital associated delirium precipitated by recent surgery, pain medication use, and or hyponatremia. However cannot rule out acute infection. UTI would seem less likely given the patient is afebrile and does not have any leukocytosis. Regardless will check a UA from the patient's Oconnor catheter. I would try to minimize the patient's narcotic pain medication and stick with oral or IV NSAIDs. (2) History of open sigmoidectomy: Code(s): Z98.890 - Other specified postprocedural states; Z90.49 - Acquired absence of other specified parts of digestive tract Status: Acute Assessment and Plan: Management per primary service. However given the patient's delirium I recommend discontinuing narcotic pain medications. Nursing staff reports that they think the patient has not had a bowel movement since surgery on the . The patient has been on Alvimopan since 07/26/2019. 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 Patient has already been placed on a fluid restricted diet. I agree with the patient having a diet with regular salt content. Will check a TSH injured patient's levothyroxine dose is adequate for appropriate treatment. The patient's last TSH in our system is from June of 2018. (4) Hypokalemia: Code(s): E87.6 - Hypokalemia Status: Acute Assessment and Plan: The patient received potassium supplementation earlier today. Will repeat potassium level and magnesium level now and supplement as needed. HPI Data of Consult Consult date: 07/30/19 Requesting Physician: Oumar Morales MD Primary Care Provider: Stephen Monreal MD Consult Narrative Narrative: Date and time of patient contact: 07/29/2019 at 11:30 p.m. Maricruz Carnes is a 79 year old female with a past medical history of hypertension, hypothyroidism, emphysema and colovesicular fistula status pos open sigmoidectomy with repair of colovesicular fistula performed by Dr. Morales 07/25/2019 who we are now consult on due to delirium. Per the nurses report the patient has become progressively more confused during her hospital stay. The patient initially went only be mildly confused and was able to be reoriented. However today the patient is now trying to climb out of bed. She will often get the orientation questions correct, but in the next sentence will talk about ?going down to the kitchen.? At the time of my evaluation she was oriented to person, date of , location and year. When I asked the patient about what month it was she rib repeated the answer to the prior question. I asked the question again she stated her response that was unrelated. Her speech is clear. She is following directions appropriately. She reports severe pain in her lower abdomen. However, the patient would fall asleep almost immediately after talking about her pain. She fell asleep multiple times during my evaluation. The patient's family had called and talked to the nurse and stated they were concerned that the patient had a UTI. The patient had a Oconnor catheter in place and is draining appropriately. Patient has been afebrile. As far as I can tell from the documentation the patient has been eating and acceptable amount since surgery. She has not had any recent vomiting. She denies any nausea. She does report some shortness of breath that started this evening. She has not been having any cough. Nursing staff reported the patient's oxygen saturations dropped to 88% on room air. The patient was slouched down in bed the patient was repositioned but oxygen saturations remained around 90. Patient was placed on 2 L nasal cannula. She does have incen
[2019-07-30] VITALS (14 sets, daily range): BP systolic 137–162; BP diastolic 61–99; PULSE 78–114; RESP 18–20; TEMP 36.6–36.8; O2SAT 93–98
[2019-07-30 00:48] LABS: Magnesium 1.6 mg/dL (1.6-2.3); Potassium 4.4 mmol/L (3.4-5.0)
[2019-07-30 01:28] LABS: Add Urine Microscopic? YES; Appearance Urine Cloudy (Clear); Bacteria Urine Trace /hpf; Bilirubin Urine Negative (Negative); Blood Urine 1+ (Negative); Color Urine Yellow (Yellow); Glucose Urine UA Negative (Negative); Ketones Urine Negative (Negative); Leukocyte Esterase Ur 3+ LEU/UL (Negative); Mucus Urine Rare /lpf; Nitrate Urine Positive (Negative); Protein Urine 2+ mg/dL (Negative); Specific Grav Ur 1.013 (1.001-1.035); Urobilinogen Urine Negative mg/dL (<2.0); WBC Urine >75 /hpf
[2019-07-30] MEDS: LEVALBUTEROL NEB 1.25 MG/3 ML 0.63 MG INHALATION ×4 (01:46→20:10)
[2019-07-30] MEDS: IPRATROPIUM BR 0.02% INH SOLN 0.5 MG/2.5 ML VIAL INHALATION ×4 (01:47→20:10)
[2019-07-30] MEDS: LEVOTHYROXINE SODIUM 88 MCG TABLET PO (05:53)
[2019-07-30 06:07] LABS: Hematocrit 41.5 % (37.0-47.0); Hemoglobin 13.2 g/dL (12.0-15.0); Mean Corpuscular HGB Conc 31.8 g/dl (32-36); Mean Corpuscular Hemoglobin 26.3 pg (26-34); Mean Corpuscular Volume 82.8 fl (80-100); Mean Platelet Volume 9.6 fl (7.4-10.4); Platelet Count Result 329 k/mm3 (150-375); Red Blood Count 5.01 M/mm3 (4.2-5.4); Red Cell Distribution Width 16.1 % (11.5-14.5); White Blood Count 7.9 K/mm3 (4.5-10.0)
[2019-07-30 06:23] LABS: Blood Urea Nitrogen 8 mg/dL (7-17); Calcium 9.5 mg/dL (8.4-10.2); Carbon Dioxide 25 mmol/L (22-30); Chloride 102 mmol/L (98-107); Estimated CRCL calculation 47 ml/min; Estimated Glomerular Filt Rate > 60; Glucose 109 mg/dL (65-105); Potassium 4.2 mmol/L (3.4-5.0); Sodium 132 mmol/L (137-145)
--- NOTE | 2019-07-30 08:16 | PM.PNGS ---
Progress Note: A&P Assessment and Plan (1) Delirium: Code(s): R41.0 - Disorientation, unspecified Status: Acute Assessment and Plan: Hospitalist consultation appreciated. CT scan of the head negative for acute changes. Will discontinue any narcotic analgesics and stick to Tylenol and ibuprofen. Continue ambulation and physical therapy. (2) Diverticulitis of large intestine with abscess: Qualifiers: Diverticulitis bleeding: without bleeding Qualified Code(s): K57.20 - Diverticulitis of large intestine with perforation and abscess without bleeding Code(s): K57.20 - Diverticulitis of large intestine with perforation and abscess without bleeding Status: Chronic Assessment and Plan: Still no bowel movement but no complaints of nausea, no vomiting. She has bowel sounds. Continue oral intake. Wound is healing well. Will discontinue dressing changes. 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 (4) History of CVA with residual deficit: Code(s): I69.30 - Unspecified sequelae of cerebral infarction Status: Chronic (5) Hyponatremia: Code(s): E87.1 - Hypo-osmolality and hyponatremia Status: Acute Assessment and Plan: Improved with fluid restriction. Continue. (6) Hypokalemia: Code(s): E87.6 - Hypokalemia Status: Acute Assessment and Plan: Improved with supplementation. Will decrease supplementation but continue for now. Subjective Subjective Date/Time Seen: 07/30/19 08:16 Post Op day: 5 Patient reports: no bowel movement and other ( Became confused yesterday afternoon. No other significant changes.) Interval history: Hospitalist consultation appreciated. Review of Systems Review of Systems: ROS unobtainable: Yes unobtainable due to mental status ( Confused this morning.) Exam Const: General: comfortable, no acute distress, alert, awake and confusion Nutritional Appearance: thin Orientation/consciousness: No oriented to person and No oriented to place GI: Inspection: incision ( Dry and intact, continues to heal well.) GI Palp: Yes Soft to palpation, Yes Tenderness to palpation present (GI), No Guarding due to palpation present (GI) and No Rebound tenderness present Auscultation: normal bowel sounds Extrem: General: normal to inspection, no calf tenderness bilaterally and no edema Psych: Speech and movement: Clear speech present Affect: normal affect Attitude: cooperative Insight: Limited insight present (Psych) Judgement: Limited judgement present (Psych) Objective Data Vital Signs Vital Signs: Vital Signs - 24 hr 07/29/19 14:15 07/29/19 22:03 07/30/19 01:47 Temperature 37.1 C 36.7 C Pulse Rate 79 92 85 Respiratory Rate 18 18 20 Blood Pressure 131/73 164/108 H Pulse Oximetry 100 94 07/30/19 01:55 07/30/19 06:00 Temperature 36.6 C Pulse Rate 87 90 Respiratory Rate 18 Blood Pressure 162/99 H Pulse Oximetry 94 Intake/Output Intake/Output: Intake & Output 07/27/19 07/28/19 07/29/19 07/30/19 23:59 23:59 23:59 23:59 Intake Total 3150 3750 2420 120 Output Total 2300 3350 2400 1250 Balance 850 400 20 -1130 Meds/Results Medications: Active Medications Generic Name Dose Route Start Last Admin Trade Name Freq PRN Reason Stop Dose Admin Acetaminophen 1,000 mg 07/30/19 08:10 Tylenol Tablet PO Q6H PRN Pain 1-6/FEVER Alvimopan 12 mg 07/26/19 14:57 07/29/19 21:15 Entereg PO 08/02/19 14:58 12 mg Q12HR MAYNOR Administration Enoxaparin Sodium 40 mg 07/29/19 09:00 07/29/19 08:42 Lovenox SUB-Q 40 mg DAILY MAYNOR Administration Famotidine 20 mg 07/30/19 09:00 Pepcid PO Q12HR MAYNOR Ibuprofen 800 mg in 200 mls @ 400 mls/hr 07/30/19 08:11 Caldolor 800 Mg/200 Ml IVPB Q6H PRN Pain Rated 6 or Greater Ibuprofen
[2019-07-30] MEDS: ACETAMINOPHEN 500 MG TABLET 1000 MG PO ×2 (09:38→17:16)
[2019-07-30] MEDS: ENOXAPARIN 40 MG/0.4 ML SYRINGE SUB-Q (09:39)
[2019-07-30] MEDS: ALVIMOPAN 12 MG CAPSULE PO ×2 (09:39→20:22)
[2019-07-30] MEDS: POTASSIUM CHLORIDE 20 MEQ TABLET.ER PO ×2 (09:41→17:11)
[2019-07-30] MEDS: FAMOTIDINE 20 MG TABLET PO ×2 (09:41→20:23)
--- NOTE | 2019-07-30 16:41 | PM.IMPN ---
Progress Note: A&P Assessment and Plan (1) Delirium: Code(s): R41.0 - Disorientation, unspecified Status: Acute Assessment and Plan: Likely hospital associated delirium precipitated by recent surgery, pain medication use, and or hyponatremia. And much more lucid and appropriate today.. Urine clear and does not appear to be acute infection. would try to minimize the patient's narcotic pain medication and stick with oral or IV NSAIDs. (2) History of open sigmoidectomy: Code(s): Z98.890 - Other specified postprocedural states; Z90.49 - Acquired absence of other specified parts of digestive tract Status: Acute Assessment and Plan: Management per primary service. POD # 5 However given the patient's delirium I recommend discontinuing narcotic pain medications. 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 Patient has already been placed on a fluid restricted diet. I agree with the patient having a diet with regular salt content. TSH is elevated at 14, so patient's levothyroxine dose is increased to 112 microgram from 88.. Na 132 today (4) Hypokalemia: Code(s): E87.6 - Hypokalemia Status: Acute Assessment and Plan: K 4.2 today. Will repeat potassium level and magnesium level now and supplement as needed. (5) DVT prophylaxis: Code(s): Z29.9 - Encounter for prophylactic measures, unspecified Status: Acute Assessment and Plan: Lovenox Subjective Date/time seen: 07/30/19 16:41 Interval history: Date of visit 07/29. 79-year-old white female status post sigmoid colon resection and repair of clonal vesicle fistula who had become more confused.. With decreasing her pain medication correctly number sodium she is more alert today and appropriate. No real complaints shortness breath abdominal pain or chest pain . Exam Narrative: Exam Narrative: Blood pressure 130/70 pulse is 94 regular afebrile Lungs clear CV regular rate rhythm Abdomen soft nontender midline incision bandage not removed, good bowel sounds Extremities without edema distal pulses 1+ Neuro alert cooperative pleasant oriented to person place but thinks it is the 21 of July Objective Data Vital Signs Vital Signs: Vital Signs - 24 hr 07/29/19 22:03 07/30/19 01:47 07/30/19 01:55 Temperature 36.7 C Pulse Rate 92 85 87 Respiratory Rate 18 20 Blood Pressure 164/108 H Pulse Oximetry 94 07/30/19 06:00 07/30/19 08:59 07/30/19 09:00 Temperature 36.6 C Pulse Rate 90 114 H Respiratory Rate 18 Blood Pressure 162/99 H Pulse Oximetry 94 93 07/30/19 09:04 07/30/19 13:15 07/30/19 13:22 Temperature Pulse Rate 114 H 95 95 Respiratory Rate Blood Pressure Pulse Oximetry 07/30/19 14:00 Temperature 36.8 C Pulse Rate 108 H Respiratory Rate 20 Blood Pressure 137/69 Pulse Oximetry 98 Intake/Output Intake/Output: Intake & Output 07/27/19 07/28/19 07/29/19 07/30/19 23:59 23:59 23:59 23:59 Intake Total 3150 3750 2420 320 Output Total 2300 3350 2400 1250 Balance 850 400 20 -930 Meds/Results Medications: Active Medications Generic Name Dose Route Start Last Admin Trade Name Freq PRN Reason Stop Dose Admin Acetaminophen 1,000 mg 07/30/19 08:10 07/30/19 09:38 Tylenol Tablet PO 1,000 mg Q6H PRN Administration Pain 1-6/FEVER Alvimopan 12 mg 07/26/19 14:57 07/30/19 09:39 Entereg PO 08/02/19 14:58 12 mg Q12HR MAYNOR Administration Enoxaparin Sodium 40 mg 07/29/19 09:00 07/30/19 09:39 Lovenox SUB-Q 40 mg DAILY MAYNOR Administration Famotidine 20 mg 07/30/19 09:00 07/30/19 09:41 Pepcid PO 20 mg Q12HR MAYNOR Administration Ibuprofen 800 mg in 200 mls @ 400 mls/hr 07/30/19 08:15 Caldolor 800 Mg/200 Ml IVPB Q6H P
[2019-07-30] MEDS: SIMVASTATIN 20 MG TABLET 40 MG PO (20:23)
[2019-07-31] VITALS (12 sets, daily range): BP systolic 120–137; BP diastolic 62–65; PULSE 72–85; RESP 16–18; TEMP 36.3–36.9; O2SAT 95–98
[2019-07-31] MEDS: LEVALBUTEROL NEB 1.25 MG/3 ML 0.63 MG INHALATION ×4 (04:02→21:11)
[2019-07-31] MEDS: IPRATROPIUM BR 0.02% INH SOLN 0.5 MG/2.5 ML VIAL INHALATION ×4 (04:02→21:11)
[2019-07-31] MEDS: LEVOTHYROXINE SODIUM 112 MCG TABLET PO (05:45)
[2019-07-31 05:46] LABS: Hematocrit 37.8 % (37.0-47.0); Hemoglobin 12.2 g/dL (12.0-15.0); Mean Corpuscular HGB Conc 32.3 g/dl (32-36); Mean Corpuscular Hemoglobin 26.8 pg (26-34); Mean Corpuscular Volume 82.9 fl (80-100); Mean Platelet Volume 9.8 fl (7.4-10.4); Platelet Count Result 338 k/mm3 (150-375); Red Blood Count 4.56 M/mm3 (4.2-5.4); Red Cell Distribution Width 16.7 % (11.5-14.5); White Blood Count 8.1 K/mm3 (4.5-10.0)
[2019-07-31 06:02] LABS: Blood Urea Nitrogen 13 mg/dL (7-17); Calcium 9.3 mg/dL (8.4-10.2); Carbon Dioxide 26 mmol/L (22-30); Chloride 104 mmol/L (98-107); Estimated CRCL calculation 41 ml/min; Estimated Glomerular Filt Rate > 60; Glucose 105 mg/dL (65-105); Sodium 134 mmol/L (137-145)
--- NOTE | 2019-07-31 06:21 | PM.PNGS ---
Progress Note: A&P Assessment and Plan (1) Delirium: Code(s): R41.0 - Disorientation, unspecified Status: Acute Assessment and Plan: Much improved. Patient oriented x3 this morning. Answers questions appropriately. Hopefully has resolved. (2) Diverticulitis of large intestine with abscess: Qualifiers: Diverticulitis bleeding: without bleeding Qualified Code(s): K57.20 - Diverticulitis of large intestine with perforation and abscess without bleeding Code(s): K57.20 - Diverticulitis of large intestine with perforation and abscess without bleeding Status: Chronic Assessment and Plan: Had bowel movements yesterday. Continue fluid restriction regular diet. 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 If no evidence of leak, will DC Oconnor catheter tomorrow. (4) Hypokalemia: Code(s): E87.6 - Hypokalemia Status: Acute Assessment and Plan: Improved. Will decrease potassium to 20 mEq daily. (5) Hyponatremia: Code(s): E87.1 - Hypo-osmolality and hyponatremia Status: Acute Assessment and Plan: Improved. Sodium up to 134. Continue 1500 cc fluid restriction today. (6) History of CVA with residual deficit: Code(s): I69.30 - Unspecified sequelae of cerebral infarction Status: Chronic Subjective Subjective Date/Time Seen: 07/31/19 06:21 Post Op day: 6 Patient reports: no new complaints, tolerating a regular diet, flatus and bowel movement Review of Systems Review of Systems: All systems reviewed & are unremarkable except as noted in HPI and below Cardiovascular: Cardiovascular: Denies chest pain and Denies dyspnea Respiratory: Respiratory: Denies cough and Denies dyspnea Gastrointestinal: Gastrointestinal: Reports as per HPI Exam Const: General: comfortable and no acute distress; No confusion Orientation/consciousness: patient oriented x3 and No confusion GI: Inspection: non-distended and incision (Healing well) GI Palp: Yes Soft to palpation, No Tenderness to palpation present (GI), No Guarding due to palpation present (GI) and No Rebound tenderness present Auscultation: normal bowel sounds Neuro: General: patient oriented x3, no focal motor deficits and No confusion Extrem: General: no calf tenderness and no edema Psych: Affect: normal affect Insight: Good insight present (Psych) Judgement: Good judgement present (Psych) Objective Data Vital Signs Vital Signs: Vital Signs - 24 hr 07/30/19 08:59 07/30/19 09:00 07/30/19 09:04 Temperature Pulse Rate 114 H 114 H Respiratory Rate Blood Pressure Pulse Oximetry 93 07/30/19 13:15 07/30/19 13:22 07/30/19 14:00 Temperature 36.8 C Pulse Rate 95 95 108 H Respiratory Rate 20 Blood Pressure 137/69 Pulse Oximetry 98 07/30/19 17:19 07/30/19 20:29 07/30/19 20:33 Temperature Pulse Rate 80 78 Respiratory Rate Blood Pressure Pulse Oximetry 94 07/30/19 20:43 07/30/19 22:00 07/31/19 04:02 Temperature 36.6 C Pulse Rate 81 79 76 Respiratory Rate 18 Blood Pressure 145/61 H Pulse Oximetry 98 07/31/19 04:08 Temperature Pulse Rate 77 Respiratory Rate Blood Pressure Pulse Oximetry Intake/Output Intake/Output: Intake & Output 07/28/19 07/29/19 07/30/19 07/31/19 23:59 23:59 23:59 23:59 Intake Total 3750 2420 790 Output Total 3350 2400 1800 Balance 400 20 -1010 Meds/Results Medications: Active Medications Generic Name Dose Route Start Last Admin Trade Name Freq PRN Reason Stop Dose Admin Acetaminophen 1,000 mg 07/30/19 08:10 07/30/19 17:16 Tylenol Tablet PO 1,000 mg Q6H PRN Administration Pain 1-6/FEVER Enoxaparin Sodium 40 mg 07/29/19 09:00 07/30/19 09:39 Lovenox SUB-Q 40 mg DAILY MAYNOR Administration Famotidine 20 mg 07/30/19 09:00 07/30/19 20:
[2019-07-31] MEDS: POTASSIUM CHLORIDE 20 MEQ TABLET.ER PO (09:18)
[2019-07-31] MEDS: ACETAMINOPHEN 500 MG TABLET 1000 MG PO ×2 (09:18→15:35)
[2019-07-31] MEDS: ENOXAPARIN 40 MG/0.4 ML SYRINGE SUB-Q (09:19)
[2019-07-31] MEDS: FAMOTIDINE 20 MG TABLET PO ×2 (09:19→21:58)
--- NOTE | 2019-07-31 15:53 | PM.IMPN ---
Progress Note: A&P Assessment and Plan (1) Delirium: Code(s): R41.0 - Disorientation, unspecified Status: Acute Assessment and Plan: Likely hospital associated delirium precipitated by recent surgery, pain medication use, and or hyponatremia. Much more lucid and appropriate today. Urine clear in Oconnor bag and does not appear to be acute infection, but UCx growth of pseudomonas. No leukocytosis, afebrile, VSS. Given that her delirium has much improved, I will hold off on antibiotics for now, but will consider antibiotics if her condition changes Would try to minimize the patient's narcotic pain medication and stick with oral or IV NSAIDs. (2) History of open sigmoidectomy: Code(s): Z98.890 - Other specified postprocedural states; Z90.49 - Acquired absence of other specified parts of digestive tract Status: Acute Assessment and Plan: Management per primary service. POD # 6 However given the patient's delirium, recommend discontinuing narcotic pain medications. 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 Patient has already been placed on a fluid restricted diet. I agree with the patient having a diet with regular salt content. TSH is elevated at 14, so patient's levothyroxine dose is increased to 112 microgram from 88.. Na 134 today; improved (4) Hypokalemia: Code(s): E87.6 - Hypokalemia Status: Acute Assessment and Plan: K 4.0 today. Will repeat potassium level and magnesium level now and supplement as needed. (5) DVT prophylaxis: Code(s): Z29.9 - Encounter for prophylactic measures, unspecified Status: Acute Assessment and Plan: Lovenox Subjective Date/time seen: 07/31/19 15:53 This is a Hospitalist Consult Progress Note Interval history: Patient is a 79 yo F with history of hypertension, hypothyroidism, emphysema and colovesicular fistula status pos open sigmoidectomy with repair of colovesicular fistula performed by Dr. Morales POD#6; Hospitalist service consulted due to delirium state earlier in stay. Patient states she feels well today. Her pain in her abdomen is better today. She is passing some gas, but no BMs. She still feels weak but working well with therapy. No other complaints at this time. Tolerating diet well. Denies f/c/s, headaches, dizziness, lightheadedness, cp/palpitations, sob/cough, n/v/d/c, calf pain/swelling. Review of Systems Review of Systems: All systems reviewed & are unremarkable except as noted in HPI and below Exam Narrative: Exam Narrative: Patient sitting upright in bed at time of visit Const: General: cooperative, comfortable, no acute distress, well developed, alert and awake Nutritional Appearance: well nourished Orientation/consciousness: patient oriented x3 HENMT: Head: normocephalic and atraumatic General nose exam: Normal nares present Face and sinus: face symmetric Eyes: General: appearance normal, both eyes and all related structures EOM: EOMs intact bilaterally Neck: Neck: trachea midline and supple Resp: Effort & Inspection: normal respiratory effort Auscultation: clear to auscultation bilaterally Cardio: Rate: regular rate Rhythm: regular rhythm Heart sounds: no murmurs GI: Inspection: non-distended GI Palp: No abdominal tenderness and Yes Soft to palpation Auscultation: Hypoactive bowel sounds present Urinary Catheter: Urinary Catheter: patent and draining and urine clear Skin: General skin exam: normal color and no rashes or lesions noted Neuro: General: patient oriented x3 and moves all extremities Speech: normal speech Extrem: Right lower extremity: no edema Left lower extremity: no edema Other: NTTP b/l calves Psych: Mental Status: mental status grossly normal Affect: normal affect Object
[2019-07-31] MEDS: SIMVASTATIN 20 MG TABLET 40 MG PO (21:58)
[2019-08-01] VITALS (12 sets, daily range): BP systolic 114–149; BP diastolic 48–67; PULSE 64–96; RESP 16–20; TEMP 36.6–37; O2SAT 95–100
[2019-08-01] MEDS: IPRATROPIUM BR 0.02% INH SOLN 0.5 MG/2.5 ML VIAL INHALATION ×4 (02:12→19:49)
[2019-08-01] MEDS: LEVALBUTEROL NEB 1.25 MG/3 ML 0.63 MG INHALATION ×4 (02:12→19:49)
[2019-08-01] MEDS: LEVOTHYROXINE SODIUM 112 MCG TABLET PO (05:16)
[2019-08-01 06:26] LABS: Hematocrit 36.7 % (37.0-47.0); Hemoglobin 11.8 g/dL (12.0-15.0); Mean Corpuscular HGB Conc 32.2 g/dl (32-36); Mean Corpuscular Hemoglobin 26.7 pg (26-34); Mean Platelet Volume 9.7 fl (7.4-10.4); Platelet Count Result 360 k/mm3 (150-375); Red Blood Count 4.42 M/mm3 (4.2-5.4); Red Cell Distribution Width 17.1 % (11.5-14.5); White Blood Count 8.7 K/mm3 (4.5-10.0)
[2019-08-01 06:36] LABS: Blood Urea Nitrogen 15 mg/dL (7-17); Calcium 9.1 mg/dL (8.4-10.2); Carbon Dioxide 25 mmol/L (22-30); Chloride 103 mmol/L (98-107); Estimated CRCL calculation 47 ml/min; Estimated Glomerular Filt Rate > 60; Glucose 100 mg/dL (65-105); Magnesium 1.7 mg/dL (1.6-2.3); Potassium 3.7 mmol/L (3.4-5.0); Sodium 133 mmol/L (137-145)
[2019-08-01] MEDS: ACETAMINOPHEN 500 MG TABLET 1000 MG PO ×3 (09:17→22:35)
[2019-08-01] MEDS: CIPROFLOXACIN 500 MG TAB PO ×2 (10:59→20:29)
[2019-08-01] MEDS: ENOXAPARIN 40 MG/0.4 ML SYRINGE SUB-Q (10:59)
[2019-08-01] MEDS: POTASSIUM CHLORIDE 20 MEQ TABLET.ER PO (11:00)
[2019-08-01] MEDS: FAMOTIDINE 20 MG TABLET PO ×2 (11:00→20:29)
--- NOTE | 2019-08-01 11:02 | PM.PNGS ---
Progress Note: A&P Assessment and Plan (1) Diverticulitis of large intestine with abscess: Qualifiers: Diverticulitis bleeding: without bleeding Qualified Code(s): K57.20 - Diverticulitis of large intestine with perforation and abscess without bleeding Code(s): K57.20 - Diverticulitis of large intestine with perforation and abscess without bleeding Status: Chronic Assessment and Plan: Doing well. Continue regular diet. Probably home tomorrow. 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 Oconnor removed this morning. We will observe today to see that she voids without difficulty. Her urine culture did show Pseudomonas. This is not a urinary tract infection as she does not have any symptoms but is asymptomatic bacteriuria. Because of the organism, will go ahead and treat with ciprofloxacin. (3) Delirium: Code(s): R41.0 - Disorientation, unspecified Status: Resolved Assessment and Plan: Awake alert oriented again today. (4) Hyponatremia: Code(s): E87.1 - Hypo-osmolality and hyponatremia Status: Acute Assessment and Plan: Improved but sodium still a the lower ranges of normal. (5) Hypokalemia: Code(s): E87.6 - Hypokalemia Status: Acute Assessment and Plan: Improved with potassium 3.7 today continue daily potassium supplement for now. Subjective Subjective Date/Time Seen: 08/01/19 11:02 Post Op day: 7 Patient reports: no new complaints, tolerating a regular diet and bowel movement Review of Systems Review of Systems: All systems reviewed & are unremarkable except as noted in HPI and below Constitutional: Constitutional: Denies headache(s) Cardiovascular: Cardiovascular: Denies chest pain and Denies dyspnea Respiratory: Respiratory: Denies cough and Denies dyspnea Gastrointestinal: Gastrointestinal: Reports as per HPI Neurologic: Denies confusion and Denies headache(s) Exam Const: General: comfortable and no acute distress; No confusion Orientation/consciousness: patient oriented x3 and No confusion GI: Inspection: non-distended and incision (No drainage, healing well) GI Palp: Yes Soft to palpation, No Tenderness to palpation present (GI), No Guarding due to palpation present (GI) and No Rebound tenderness present Auscultation: normal bowel sounds Neuro: General: patient oriented x3, no focal motor deficits and No confusion Extrem: General: no calf tenderness and no edema Psych: Affect: normal affect Insight: Good insight present (Psych) Judgement: Good judgement present (Psych) Objective Data Vital Signs Vital Signs: Vital Signs - 24 hr 07/31/19 14:00 07/31/19 15:00 07/31/19 15:12 Temperature 36.9 C Pulse Rate 85 80 84 Respiratory Rate 16 18 18 Blood Pressure 120/63 Pulse Oximetry 98 07/31/19 21:10 07/31/19 21:16 07/31/19 22:00 Temperature 36.3 C L Pulse Rate 82 82 76 Respiratory Rate 18 18 18 Blood Pressure 137/65 Pulse Oximetry 95 97 08/01/19 02:12 08/01/19 02:19 08/01/19 06:24 Temperature 37.0 C Pulse Rate 72 73 73 Respiratory Rate 16 16 20 Blood Pressure 149/67 H Pulse Oximetry 97 08/01/19 09:37 08/01/19 09:49 Temperature Pulse Rate 86 82 Respiratory Rate 20 20 Blood Pressure Pulse Oximetry 95 Intake/Output Intake/Output: Intake & Output 07/29/19 07/30/19 07/31/19 08/01/19 23:59 23:59 23:59 23:59 Intake Total 2420 790 1100 220 Output Total 2400 1800 1000 550 Balance 20 -1010 100 -330 Meds/Results Medications: Active Medications Generic Name Dose Route Start Last Admin Trade Name Freq PRN Reason Stop Dose Admin Acetaminophen 1,000 mg 07/30/19 08:10 08/01/19 09:17 Tylenol Tablet PO 1,000 mg Q6H PRN Administration Pain 1-6/FEVER Ciprofloxacin 500 mg 08/01/19 09:00 08/01/19 10:59 Cipro Po PO 500 mg
--- NOTE | 2019-08-01 15:22 | PCDIET ---
Nutrition LOS Complete: Pt current nutrition is Minced and Moist/Regular with Fluid restriction. Nutrition recommendation: Agree Last recorded weight is 49.9 kg. Bowel Motility: Diarrhea today Labs Reviewed: Hgb 11.8, Hct 35.7, Na 133, Cr .60 Meds Noted:Te Additional Notes: Pt states appetite has been increasing. She is eating 50-75% of non-select meals that are provided to her. I explained she could order if desired. She may benefit from a low fiber diet if diarrhea continues. She denies any abdominal pain at this time. We will continue to monitor PO intake, wt, GI weekly.
--- NOTE | 2019-08-01 17:45 | PM.IMPN ---
Progress Note: A&P Assessment and Plan (1) Delirium: Code(s): R41.0 - Disorientation, unspecified Status: Resolved Assessment and Plan: Likely hospital associated delirium precipitated by recent surgery, pain medication use, and or hyponatremia. And much more lucid and appropriate today.. Urine clear and does not appear to be acute infection but did grow Psuedomonas 100K would try to minimize the patient's narcotic pain medication and stick with oral or IV NSAIDs. (2) History of open sigmoidectomy: Code(s): Z98.890 - Other specified postprocedural states; Z90.49 - Acquired absence of other specified parts of digestive tract Status: Acute Assessment and Plan: Management per primary service. POD # 7 However given the patient's delirium I recommend discontinuing narcotic pain medications. diet advanced per surgery cystogram negative 07/31 and cassidy to be d/marcela today. 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 Patient has already been placed on a fluid restricted diet. I agree with the patient having a diet with regular salt content. TSH is elevated at 14, so patient's levothyroxine dose is increased to 112 microgram from 88.. Na 133 today (4) Hypokalemia: Code(s): E87.6 - Hypokalemia Status: Acute Assessment and Plan: K 3.7 today. (5) DVT prophylaxis: Code(s): Z29.9 - Encounter for prophylactic measures, unspecified Status: Acute Assessment and Plan: Lovenox Subjective Date/time seen: 08/01/19 17:45 Interval history: Date of visit 07/31. 79-year-old white female status post sigmoid colon resection and repair of colo vesicle fistula who had become more confused.. With decreasing her pain medication and correcting sodium she is more alert and appropriate. No real complaints shortness breath abdominal pain or chest pain .Had BM Exam Narrative: Exam Narrative: Blood pressure 114/48 pulse is 66 regular afebrile Lungs clear CV regular rate rhythm Abdomen soft nontender midline incision bandage not removed, good bowel sounds Extremities without edema distal pulses 1+ Neuro alert cooperative pleasant oriented to person place Objective Data Vital Signs Vital Signs: Vital Signs - 24 hr 07/31/19 21:10 07/31/19 21:16 07/31/19 22:00 Temperature 36.3 C L Pulse Rate 82 82 76 Respiratory Rate 18 18 18 Blood Pressure 137/65 Pulse Oximetry 95 97 08/01/19 02:12 08/01/19 02:19 08/01/19 06:24 Temperature 37.0 C Pulse Rate 72 73 73 Respiratory Rate 16 16 20 Blood Pressure 149/67 H Pulse Oximetry 97 08/01/19 08:00 08/01/19 09:37 08/01/19 09:49 Temperature Pulse Rate 82 86 82 Respiratory Rate 20 20 20 Blood Pressure Pulse Oximetry 95 95 08/01/19 14:00 08/01/19 14:33 08/01/19 14:48 Temperature 36.6 C Pulse Rate 65 91 96 Respiratory Rate 16 20 20 Blood Pressure 114/48 L Pulse Oximetry 100 Intake/Output Intake/Output: Intake & Output 07/29/19 07/30/19 07/31/19 08/01/19 23:59 23:59 23:59 23:59 Intake Total 2420 790 1100 340 Output Total 2400 1800 1000 550 Balance 20 -1010 100 -210 Meds/Results Medications: Active Medications Generic Name Dose Route Start Last Admin Trade Name Lalito PRN Reason Stop Dose Admin Acetaminophen 1,000 mg 07/30/19 08:10 08/01/19 16:42 Tylenol Tablet PO 1,000 mg Q6H PRN Administration Pain 1-6/FEVER Ciprofloxacin 500 mg 08/01/19 09:00 08/01/19 10:59 Cipro Po PO 500 mg Q12HR MAYNOR Administration Enoxaparin Sodium 40 mg 07/29/19 09:00 08/01/19 10:59 Lovenox SUB-Q 40 mg DAILY MAYNOR Administration Famotidine 20 mg 07/30/19 09:00 08/01/19 11:00 Pepcid PO 20 mg Q12HR MAYNOR Administration Ibuprofen 800 mg in 2
[2019-08-01] MEDS: SIMVASTATIN 20 MG TABLET 40 MG PO (20:29)
[2019-08-02] VITALS (7 sets, daily range): BP systolic 133–146; BP diastolic 65–70; PULSE 67–85; RESP 16–18; TEMP 36.3–36.7; O2SAT 95–100
[2019-08-02] MEDS: LEVALBUTEROL NEB 1.25 MG/3 ML 0.63 MG INHALATION ×2 (02:22→13:33)
[2019-08-02] MEDS: IPRATROPIUM BR 0.02% INH SOLN 0.5 MG/2.5 ML VIAL INHALATION ×2 (02:25→13:33)
[2019-08-02 05:54] LABS: Hematocrit 35.9 % (37.0-47.0); Hemoglobin 11.5 g/dL (12.0-15.0); Mean Corpuscular Hemoglobin 26.4 pg (26-34); Mean Corpuscular Volume 82.3 fl (80-100); Mean Platelet Volume 9.2 fl (7.4-10.4); Platelet Count Result 378 k/mm3 (150-375); Red Blood Count 4.36 M/mm3 (4.2-5.4); Red Cell Distribution Width 17.1 % (11.5-14.5); White Blood Count 7.5 K/mm3 (4.5-10.0)
[2019-08-02 06:04] LABS: Blood Urea Nitrogen 15 mg/dL (7-17); Calcium 9.2 mg/dL (8.4-10.2); Carbon Dioxide 26 mmol/L (22-30); Chloride 103 mmol/L (98-107); Estimated CRCL calculation 41 ml/min; Estimated Glomerular Filt Rate > 60; Glucose 101 mg/dL (65-105); Sodium 133 mmol/L (137-145)
[2019-08-02] MEDS: ACETAMINOPHEN 500 MG TABLET 1000 MG PO (06:05)
[2019-08-02] MEDS: LEVOTHYROXINE SODIUM 112 MCG TABLET PO (06:06)
[2019-08-02] MEDS: ENOXAPARIN 40 MG/0.4 ML SYRINGE SUB-Q (08:53)
[2019-08-02] MEDS: CIPROFLOXACIN 500 MG TAB PO (08:54)
[2019-08-02] MEDS: FAMOTIDINE 20 MG TABLET PO (08:55)
[2019-08-02] MEDS: POTASSIUM CHLORIDE 20 MEQ TABLET.ER PO (08:55)
--- NOTE | 2019-08-02 12:35 | PM.DS ---
DS: Admitting Diagnosis Admitting Diagnosis Admitting Diagnosis: Diverticulitis of intestine, part unspecified, without perforation or abscess without bleeding Colovesical fistula DS: Discharge Diagnosis Discharge Diagnosis (1) Diverticulitis of large intestine with abscess: Qualifiers: Diverticulitis bleeding: without bleeding Qualified Code(s): K57.20 - Diverticulitis of large intestine with perforation and abscess without bleeding Code(s): K57.20 - Diverticulitis of large intestine with perforation and abscess without bleeding Status: Resolved Assessment and Plan: Patient had open sigmoidectomy with takedown splenic flexure and repair of colovesical fistula on July 25, 2019 (2) Colovesical fistula: Code(s): 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 Cystogram on August 01, 2019 was negative. Oconnor catheter removed before discharge. (3) Asymptomatic bacteriuria: Code(s): R82.71 - Bacteriuria Status: Acute Assessment and Plan: Patient grew Pseudomonas after having her Oconnor catheter in for 7 days. She had no symptoms of dysuria fever chills or other signs of infection. This is asymptomatic bacteriuria. However because of the organism colonized in her bladder, she is being treated with ciprofloxacin for total of 7 days. She will go home on 5 days of ciprofloxacin. (4) Delirium: Code(s): R41.0 - Disorientation, unspecified Status: Resolved Assessment and Plan: Patient experienced delirium and confusion on postoperative day 4. In 5 but this then resolved. Narcotics were minimized. Hospitalist consultation was obtained and was very helpful. (5) Chronic kidney disease, stage 3 (moderate): Code(s): N18.3 - Chronic kidney disease, stage 3 (moderate) Status: Chronic Assessment and Plan: Stable throughout (6) History of CVA with residual deficit: Code(s): I69.30 - Unspecified sequelae of cerebral infarction Status: Chronic Assessment and Plan: No change (7) Hyponatremia: Code(s): E87.1 - Hypo-osmolality and hyponatremia Status: Resolved Assessment and Plan: Responded to fluid restriction and sodium now normal. (8) Hypokalemia: Code(s): E87.6 - Hypokalemia Status: Resolved Assessment and Plan: Supplemented and potassium is normal at discharge (9) Chronic anemia: Code(s): D64.9 - Anemia, unspecified Status: Chronic Assessment and Plan: Stable anemia DS: Summary Time Spent with Patient Time attestation: Total time spent providing and/or coordinating discharge services: Patient is an 79-year-old woman who presented on May 29, 2019 with severe diverticulitis and an abscess between the sigmoid colon in the urinary bladder. This resolved but then the patient began developing pneumaturia and had developed a colovesical fistula. She had a colonoscopy by Dr. Kirkpatrick on 07/11/2019 which was negative other than diverticulosis and some chronic inflammation associated with diverticulitis. After thorough discussion with the patient and her daughter, she was prepared for surgery and taken to the operating room on the day of admission July 25, 2019. She underwent open sigmoidectomy with repair of the colovesical fistula. Hand-sewn colorectal anastomosis was performed. Take down the splenic flexure was performed. Postoperatively she did well. Her pain was controlled with mild analgesics. She did develop some delirium and confusion on postop day 4 and 5 but this fortunately did resolve. Narcotic analgesics were minimized and the hospitalist service saw the patient in consultation. CT scan of the head was negative. Since then the patient has been quite lucid and oriented x3. She had a negative cystogram on 07/31/2019. Her Oconnor catheter was then removed on 08/01/2019. She was able to void without difficulty. She
--- NOTE | 2019-08-02 15:39 | PM.IMPN ---
Progress Note: A&P Assessment and Plan (1) Delirium: Code(s): R41.0 - Disorientation, unspecified Status: Resolved Assessment and Plan: Likely hospital associated delirium precipitated by recent surgery, pain medication use, and or hyponatremia. And much more lucid and appropriate last 3 days.. Urine clear and does not appear to be acute infection but did grow Psuedomonas 100K, now on cipro at d/c . (2) History of open sigmoidectomy: Code(s): Z98.890 - Other specified postprocedural states; Z90.49 - Acquired absence of other specified parts of digestive tract Status: Acute Assessment and Plan: Management per primary service. POD #8 diet advanced per surgery cystogram negative 07/31 and cassidy to be d/marcela 07/31. 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 Patient has already been placed on a fluid restricted diet. agree with the patient having a diet with regular salt content. TSH is elevated at 14, so patient's levothyroxine dose is increased to 112 microgram from 88.. Na 133 at d/c (4) Hypokalemia: Code(s): E87.6 - Hypokalemia Status: Resolved Assessment and Plan: K 4.0 at d/c. (5) DVT prophylaxis: Code(s): Z29.9 - Encounter for prophylactic measures, unspecified Status: Acute Assessment and Plan: Lovenox while here Subjective Date/time seen: 08/02/19 15:39 Interval history: Date of visit 08/01. 79-year-old white female status post sigmoid colon resection and repair of colo vesicle fistula who had become more confused post op.. With decreasing her pain medication and correcting sodium she is more alert and appropriate. No real complaints, shortness breath ,abdominal pain or chest pain .having bms and urinating well without cassidy Exam Narrative: Exam Narrative: Blood pressure 132/70 pulse is 84 regular afebrile Lungs clear CV regular rate rhythm Abdomen soft nontender midline incision bandage not removed, good bowel sounds Extremities without edema distal pulses 1+ Neuro alert cooperative pleasant oriented to person place Objective Data Vital Signs Vital Signs: Vital Signs - 24 hr 08/01/19 19:45 08/01/19 19:51 08/01/19 22:00 Temperature 36.8 C Pulse Rate 74 74 64 Respiratory Rate 20 20 16 Blood Pressure 138/60 Pulse Oximetry 95 100 08/02/19 02:20 08/02/19 02:26 08/02/19 06:00 Temperature 36.3 C L Pulse Rate 79 79 67 Respiratory Rate 18 18 16 Blood Pressure 146/65 H Pulse Oximetry 97 08/02/19 09:28 08/02/19 13:30 08/02/19 13:40 Temperature Pulse Rate 78 82 Respiratory Rate 18 18 Blood Pressure Pulse Oximetry 95 08/02/19 14:00 Temperature 36.7 C Pulse Rate 85 Respiratory Rate 18 Blood Pressure 133/70 Pulse Oximetry 100 Intake/Output Intake/Output: Intake & Output 07/30/19 07/31/19 08/01/19 08/02/19 23:59 23:59 23:59 23:59 Intake Total 790 1100 690 930 Output Total 1800 1000 1300 1350 Balance -1010 100 -610 -420 Meds/Results Radiology Results: ITS Impressions Head CT 07/29/19 16:36 IMPRESSION: Cerebral atherosclerosis and chronic small vessel ischemic changes of the cerebral white matter Chronic left basal ganglia lacunar infarct. Chronic bilateral cerebellar lacunar infarcts. No acute intracranial finding or significant change since 02/22/2019 Cystogram 07/31/19 09:59 IMPRESSION: 1. No extraluminal leakage of contrast. Labs Labs: Laboratory Results - last 24 hr 08/02/19 08/02/19 05:32 05:32 WBC 7.5 RBC 4.36 Hgb 11.5 L Hct 35.9 L MCV 82.3 MCH 26.4 MCHC 32.0 RDW 17.1 H Plt Count 378 H MPV 9.2 Sodium 133 L Potassium 4.0 Chloride 103 Carbon Dioxide 26 BUN 15 Creatinine 0.7
== END 2019-08-02 15:05 | disposition home health service (06) | DRG 330 ==
LOC: ANHIMU 16:18 → ANH3MEDSUR 07-26 14:56
PROVIDERS: Internal Medicine; Admitting Provider Surgery; PCP Family Medicine; Visit Provider Surgery
PROC: 0DTN0ZZ Resection of Sigmoid Colon, Open Approach (ICD-10-PCS; CPT 44143; principal; 2019-07-25 10:30)
DX: K57.20 Diverticulitis of large intestine with perforation and abscess without bleeding (principal); N32.1 Vesicointestinal fistula; E87.1 Hypo-osmolality and hyponatremia; I42.9 Cardiomyopathy, unspecified; F05 Delirium due to known physiological condition; R82.71 Bacteriuria; B96.5 Pseudomonas (aeruginosa) (mallei) (pseudomallei) as the cause of diseases classified elsewhere; I12.9 Hypertensive chronic kidney disease with stage 1 through stage 4 chronic kidney disease, or unspecified chronic kidney disease; N18.3 Chronic kidney disease, stage 3 (moderate); D64.9 Anemia, unspecified; E03.9 Hypothyroidism, unspecified; M81.0 Age-related osteoporosis without current pathological fracture; E78.2 Mixed hyperlipidemia; M19.90 Unspecified osteoarthritis, unspecified site; E87.6 Hypokalemia; K44.9 Diaphragmatic hernia without obstruction or gangrene; J43.9 Emphysema, unspecified; K57.90 Diverticulosis of intestine, part unspecified, without perforation or abscess without bleeding; Z90.710 Acquired absence of both cervix and uterus; Z98.42 Cataract extraction status, left eye; Z98.41 Cataract extraction status, right eye; Z90.49 Acquired absence of other specified parts of digestive tract; Z87.891 Personal history of nicotine dependence; Z85.3 Personal history of malignant neoplasm of breast; Z86.73 Personal history of transient ischemic attack (TIA), and cerebral infarction without residual deficits
CPT/HCPCS: 36415; 51600; 70450; 74430; 80048; 81001; 83735; 84132; 84443; 85025; 85027; 87077; 87086; 87088; 87186; 87635; 88307; 94640; 97110; 97116; 97161; 97165; 97530; 97535; A9270; C1713; C1729; C9803; J0131; J0690; J1100; J1170; J1650; J1741; J2405; J2704; J2710; J3010; J3480; J7030; J7120; Q9967; U0003

== ENCOUNTER 2019-08-19 11:09 | Outpatient (CLI) | payer MEDICARE, SELFPAY ==
[2019-08-19 11:40] LABS: Basophils Absolute Auto 0.1 K/mm3 (0.0-0.1); Basophils Percent Auto 0.9 % (0.2-1.2); Eosinophils Absolute Auto 0.1 K/mm3 (0-0.3); Eosinophils Percent Auto 1.7 % (0-4.4); Hematocrit 39.3 % (37.0-47.0); Hemoglobin 12.2 g/dL (12.0-15.0); Immature Granulocyte Absolute 0.02 K/mm3 (0.00-0.031); Immature Granulocyte Percent A 0.3 % (0-0.5); Lymphocytes Absolute Auto 2.42 K/mm3 (0.9-3.2); Lymphocytes Percent Auto 35.1 % (18.3-44.2); Mean Corpuscular Hemoglobin 27.2 pg (26-34); Mean Corpuscular Volume 87.7 fl (80-100); Mean Platelet Volume 9.8 fl (7.4-10.4); Monocytes Absolute Auto 0.6 K/mm3 (0.1-0.6); Neutrophils Absolute Auto 3.7 K/mm3 (1.3-6.7); Platelet Count Result 269 k/mm3 (150-375); Red Blood Count 4.48 M/mm3 (4.2-5.4); White Blood Count 6.9 K/mm3 (4.5-10.0)
[2019-08-19 11:50] LABS: Alanine Aminotransferase 13 U/L (4-35); Alkaline Phosphatase 69 U/L (38-126); Aspartate Amino Transferase 23 U/L (14-36); Bilirubin,Total 0.4 mg/dL (0.2-1.3); Blood Urea Nitrogen 11 mg/dL (7-17); Calcium 9.2 mg/dL (8.4-10.2); Carbon Dioxide 31 mmol/L (22-30); Chloride 103 mmol/L (98-107); Estimated Glomerular Filt Rate > 60; Glucose 89 mg/dL (65-105); Potassium 3.8 mmol/L (3.4-5.0); Sodium 138 mmol/L (137-145)
== END 2019-08-19 11:10 | disposition home or self-care (01) ==
LOC: ANHLAB 11:11
PROVIDERS: PCP Family Medicine; Visit Provider Surgery
DX: K57.20 Diverticulitis of large intestine with perforation and abscess without bleeding (principal)
CPT/HCPCS: 36415; 80053; 85025

== ENCOUNTER 2019-12-08 15:42 | Inpatient (IN) | payer MEDICARE, SELFPAY ==
--- NOTE | ~2019-12-08 | CT_ITS ---
EXAMINATION: CT abdomen pelvis w con DATE: 12/08/2019 17:44 INDICATION: Abdominal pain, nausea TECHNIQUE: Computed tomography (CT) of the abdomen and pelvis was performed with 100 cc Omnipaque 350 intravenous contrast. Automated exposure control and iterative reconstruction technique were employe d. Exam dose: 302.94 mGy-cm total exam DLP. COMPARISON: 06/21/2019 CT abdomen pelvis FINDINGS: Minimal discoid atelectasis or scarring at the lung bases. Cardiomegaly. Coronary artery calcifications. No pericardial or pleural effusion. No hepatic, splenic, pancreatic, adrenal or renal space-occupying mass lesion is detected. Small left renal probable cortical cyst. No urinary tract calculus or hydroureteronephrosis. There is extensive calcification of the abdominal aorta; no evidence of abdominal aortic aneurysm. No intraperitoneal or retroperitoneal or pelvic mass lesion or adenopathy or ascites. There are multiple diverticula of the sigmoid colon; no CT evidence of diverticulitis. There is a pro minent amount of fecal material within the colon. There is small bowel dilatation up to 5 cm caliber, consistent with small bowel obstruction, with tra nsition in the medial left lower quadrant of the abdomen (series 3 image 83).. Compression screw and intramedullary guanakito of proximal left femur. Posterior spinal fusion at T11-S1 Vertebroplasty at T10 compression fracture IMPRESSION: Small bowel obstruction, with dilated small bowel up to 5 cm diameter Diverticulosis of the colon; no CT evidence of diverticulitis. Reviewed, dictated and finalized at [facility]. Reviewed, dictated and finalized at [facility]. IMPRESSION: Small bowel obstruction, with dilated small bowel up to [address] Diverticulosis of the colon; no CT evidence of diverticulitis.
--- NOTE | ~2019-12-08 | XR_ITS ---
XR abdomen NG/feed tube insert DATE: 12/08/2019 19:21 INDICATION: NG tube placement TECHNIQUE: Portable AP view on 12/08/2019 at 1950 hours COMPARISON: 12/08/2019 CT abdomen pelvis FINDINGS: NG tube is present within the lower chest within approximately 2 cm above the diaphragmatic hiatus. There may be fundoplication changes; recommend correlation with surgical history. Gaseous distention of the stomach. There is bilateral excretion of contrast material. Vertebroplasty is noted in the lower thoracic vertebral body and there are bilateral lower thoracic a nd lumbar pedicle screws and rods. IMPRESSION: NG tube in distal esophagus Reviewed, dictated and finalized at [facility]. Reviewed, dictated and finalized at [facility]. IMPRESSION: NG tube in distal esophagus
--- NOTE | ~2019-12-08 | XR_ITS ---
XR abdomen NG/feed tube rechec DATE: 12/08/2019 20:08 INDICATION: NG tube adjustment TECHNIQUE: Portable AP view on 12/08/2019 at 2003 hours COMPARISON: 12/08/2019 AP view at 1915 hours FINDINGS: NG tube tip is now in the distal stomach. IMPRESSION: NG tube in distal stomach Reviewed, dictated and finalized at [facility]. Reviewed, dictated and finalized at [facility]. IMPRESSION: NG tube in distal stomach
--- NOTE | ~2019-12-08 | XR_ITS ---
EXAMINATION: XR abdomen obstructive series DATE: 12/09/2019 05:46 INDICATION: Small bowel obstruction. TECHNIQUE: Upright and supine views of the abdomen were obtained. COMPARISON: CT abdomen and pelvis 12/08/2019 FINDINGS: There are no gas-filled dilated loops of bowel. The nasogastric tube tip is in the distal s tomach. No free intraperitoneal gas. There are changes of vertebroplasty in thoracic spine. There are changes of posterior fusion procedure in thoracolumbar spine. There is internal fixation of left fem ur. IMPRESSION: 1. Nonobstructive bowel gas pattern. Reviewed, dictated and finalized at location [facility].
[2019-12-08 15:48] VITALS: BP 215/88; PULSE 76; RESP 18; TEMP 36.8; O2SAT 99
[2019-12-08] MEDS: METHYLNALTREXONE 12 MG/0.6 ML VIAL SUB-Q (16:18)
[2019-12-08 17:04] LABS: Basophils Percent Auto 0.3 % (0.2-1.2); Eosinophils Percent Auto 0.3 % (0-4.4); Hematocrit 41.1 % (37.0-47.0); Hemoglobin 13.2 g/dL (12.0-15.0); Immature Granulocyte Absolute 0.03 K/mm3 (0.00-0.031); Immature Granulocyte Percent A 0.3 % (0-0.5); Lymphocytes Absolute Auto 1.24 K/mm3 (0.9-3.2); Lymphocytes Percent Auto 10.7 % (18.3-44.2); Mean Corpuscular HGB Conc 32.1 g/dl (32-36); Mean Corpuscular Hemoglobin 28.4 pg (26-34); Mean Corpuscular Volume 88.6 fl (80-100); Mean Platelet Volume 9.8 fl (7.4-10.4); Monocytes Absolute Auto 0.5 K/mm3 (0.1-0.6); Monocytes Percent Auto 4.2 % (2.6-8.5); Neutrophils Absolute Auto 9.8 K/mm3 (1.3-6.7); Neutrophils Percent Auto 84.2 % (45.5-73.1); Platelet Count Result 269 k/mm3 (150-375); Red Blood Count 4.64 M/mm3 (4.2-5.4); Red Cell Distribution Width 14.3 % (11.5-14.5); White Blood Count 11.6 K/mm3 (4.5-10.0)
[2019-12-08 17:14] LABS: Lactic Acid Reflex 1.2 mmol/L (0.7-2.1)
[2019-12-08 17:15] LABS: Alanine Aminotransferase 9 U/L (4-35); Alkaline Phosphatase 74 U/L (38-126); Anion Gap 9 mmol/L (8-16); Aspartate Amino Transferase 30 U/L (14-36); Bilirubin,Total 0.3 mg/dL (0.2-1.3); Blood Urea Nitrogen 16 mg/dL (7-17); Carbon Dioxide 29 mmol/L (22-30); Chloride 99 mmol/L (98-107); Estimated CRCL calculation 52 ml/min; Estimated Glomerular Filt Rate > 60; Glucose 160 mg/dL (65-105); Potassium 3.9 mmol/L (3.4-5.0); Sodium 137 mmol/L (137-145)
[2019-12-08] MEDS: KETOROLAC 15 MG/ML VIAL (*BKC) IV PUSH (17:22)
[2019-12-08] MEDS: ONDANSETRON INJ 4 MG/2 ML VIAL (17:29)
[2019-12-08 17:30] VITALS: BP 209/83; RESP 18; O2SAT 99
[2019-12-08] MEDS: hydrALAZINE HCL 20 MG/ML VIAL 10 MG IV PUSH (17:55)
--- NOTE | 2019-12-08 18:46 | ED.GENADULT ---
HPI - General Adult General Chief complaint: Nausea/Vomiting/Diarrhea Stated complaint: stomach ache Time Seen by Provider: 12/08/19 15:59 Source: patient and family Mode of arrival: ambulatory Limitations: no limitations History of Present Illness HPI narrative: 79-year-old with a history of hypertension, partial colectomy secondary to diverticulosis, s/p left hip surgery few months ago here with complaints of sudden onset of abdominal pain along with abdominal distention since this afternoon. Patient also states that she has been constipated for past 2 days. She denies any fever or chills. Daughter states that she was recently started on oxycodone extended release tablet 2 days ago. She denies any urinary symptoms or blood in the stool. Onset (ago): hour(s) (4) Location: abdomen Radiation: non-radiation Severity: moderate Severity scale (1-10): 5 Quality: aching Pain Consistency: constant Relieving factors: none Exacerbating factors: none Associated symptoms: denies other symptoms Related Data Home Medications Medication Instructions Recorded Confirmed Cranberry Urinary Comfort 1 cap PO DAILY 07/08/19 09/05/19 psyllium husk 0.52 gram capsule 0.52 gm PO DAILY 08/12/19 09/05/19 bisacodyl 5 mg PO ONCE 12/08/19 calcium carbonate-vitamin D3 cap PO 12/08/19 [Calcium 600 + D(3)] docusate sodium 100 mg PO DAILY 12/08/19 fenofibrate 160 mg PO DAILY 12/08/19 tamsulosin 0.4 mg PO DAILY 12/08/19 Allergies Allergy/AdvReac Type Severity Reaction Status Date / Time loratadine Allergy Intermediate Swelling Verified 12/08/19 16:05 of throat morphine Allergy Mild Confusion Verified 12/08/19 16:05 Review of Systems Review of Systems: All systems reviewed & are unremarkable except as noted in HPI and below Constitutional: Constitutional: Reports no additional constitutional complaints Eyes: Eyes: Reports no additional eye complaints ENT: Reports system reviewed and no additional complaints, except as documented Cardiovascular: Cardiovascular: Reports no additional cardiovascular complaints Respiratory: Respiratory: Reports no additional respiratory complaints Gastrointestinal: Gastrointestinal: Reports no additional gastrointestinal complaints Musculoskeletal: Musculoskeletal: Reports no additional musculoskeletal complaints PMFSH Past Medical History Medical History (Updated 12/08/19 @ 18:52 by Angel Wiggins MD) Cardiomyopathy Chronic back pain Chronic kidney disease, stage 3 (moderate) Colovesical fistula Status post sigmoid colon resection with repair of colovesicular fistula, takedown of splenic flexure and hand-sewn colorectal anastomosis Degenerative disc disease Delirium Diverticulitis of large intestine with abscess 05/29/2019 Diverticulosis Emphysema of lung GI bleed History of breast cancer Left breast cancer 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 Kirkpatrick 07/11/2019: Colonic polyps with polypectomy in the mid descending and distal transverse; colitis; diverticulosis History of left mastectomy History of open sigmoidectomy 07/25/2019 sigmoidectomy with repair of colovesicular fistula, take down the splenic flexure, hand-sewn colorectal anastomosis performed by Dr. Morales History of repair of hiatal hernia Hx of rectal polypectomy Previous back surgery Rods inserted - CERVICAL and lumbar guanakito
[2019-12-08] MEDS: BENZOCAINE/TETRACAINE SPRAY (*SP) 56 ML AEROSOL 1 SPRAY (18:50)
[2019-12-08 19:12] LABS: Add Urine Microscopic? YES; Appearance Urine Clear (Clear); Bilirubin Urine Negative (Negative); Blood Urine Negative (Negative); Color Urine Yellow (Yellow); Glucose Urine UA Negative (Negative); Ketones Urine Negative (Negative); Leukocyte Esterase Ur 3+ LEU/UL (Negative); Nitrate Urine Positive (Negative); Protein Urine Negative (Negative); Squamous Epithelial Cell Urine Rare /hpf (Few); Urobilinogen Urine Negative mg/dL (<2.0); WBC Urine 51-75 /hpf
[2019-12-08 19:24] VITALS: BP 190/120; PULSE 95; RESP 18; O2SAT 95
--- NOTE | 2019-12-08 19:25 | PC.NURSE ---
Pt. requesting more pain medications. ERP notified, no further orders.
[2019-12-08] MEDS: HYDROmorphone HCL INJ (*CRX) 1 MG/ML SYR 0.5 MG IV PUSH (19:30)
[2019-12-08 19:55] VITALS: BP 187/105; PULSE 98; RESP 21; O2SAT 92
[2019-12-08 20:15] VITALS: BP 152/85; PULSE 90; RESP 18; TEMP 36.1; O2SAT 97
--- NOTE | 2019-12-08 20:15 | ADMGEN ---
This patient, Maricruz Carnes, was admitted to 3 Med Surg Room 316-01. Patient/family oriented to hospital policies and general routines including ID bracelet, bed and alarms, visiting hours, pain management, procedures, bathroom and other care routines, personal items, smoking policy, room service/diet, and visiting hours. Valuables list has been completed. Information on how to activate the Rapid Response Team has been discussed. Patient/Family are encouraged to report perceived risks to care and to ask questions if they do not understand what they are told or what they should do.
[2019-12-08] MEDS: LACTATED RINGERS 1,000 ML 100 ML IV CONT (21:45)
--- NOTE | 2019-12-08 23:20 | PM.IMHP ---
H&P: HPI History of Present Illness Date/Time: 12/08/19 23:20 Chief complaint: stomach ache Narrative: Maircruz Carnes is a 79 year old female pain. The patient stated that she has been constipated for 2 days. She has taken her routine stool softeners. The patient has been on oxycodone extended-release tablets that she started 2 days ago due to hip pain from her ORIF of the left hip that she had performed a few months ago at [facility]. The patient has had abdominal pain and abdominal distention since this afternoon. No nausea vomiting no fever no chills. This year the patient had diverticulitis with abscess and colovesical fistula and underwent a sigmoid colon resection with repair of colovesical fistula, takedown splenic flexure, hand-sewn colorectal anastomosis. This was noted on 07/25/2019 and the patient was discharged to home on 08/02/2019 on 08/19/2019 at that time she had not been taking any further pain medication and was having a bowel movement every other day without difficulty. She was eating well. As small bowel obstruction with dilated small bowel up to 5 cm diameter. A nG-tube was placed and x-ray was read as NG tube in the distal stomach. Strain approximately 6 and mL of dark green fluid. Patient was given Relistor and Toradol and Zofran and hydralazine in the emergency room. She stated she had Relief once she had the NG tube and it was draining. Date of service 12/08/2019. Review of Systems Review of Systems: All systems reviewed & are unremarkable except as noted in HPI and below Constitutional: Constitutional: Reports as per HPI and Reports no additional constitutional complaints Eyes: Eyes: Reports as per HPI and Reports no additional eye complaints ENT: Reports system reviewed and no additional complaints, except as documented and Reports Normal hearing present Cardiovascular: Cardiovascular: Reports no additional cardiovascular complaints Respiratory: Respiratory: Reports no additional respiratory complaints and Reports no additional respiratory complaints Gastrointestinal: Gastrointestinal: Reports as per HPI and Reports no additional gastrointestinal complaints Musculoskeletal: Musculoskeletal: Reports no additional musculoskeletal complaints Integumentary/Breasts: Skin/Breast: Reports system reviewed and no additional complaints, except as docu and Reports as per HPI Neurologic: Reports system reviewed and no additional complaints, except as documented, Reports as per HPI and Reports Normal hearing present Psychiatric: Psychiatric: Reports no additional psychiatric complaints and Reports as per HPI Endocrine: Endocrine: Reports no additional endocrine complaints Hematologic/Lymphatic: Hematologic/Lymphatic: Reports no additional hematologic/lymphatic complaints Allergic/Immunologic: Allergic/Immunologic: Reports no additional allergic/immunologic complaints [facility] Past Medical History Medical History (Updated 12/08/19 @ 23:33 by Emily Velazquez NP) Cardiomyopathy Chronic back pain Chronic kidney disease, stage 3 (moderate) Colovesical fistula Status post sigmoid colon resection with repair of colovesicular fistula, takedown of splenic flexure and hand-sewn colorectal anastomosis Degenerative disc disease Delirium Diverticulitis of large intestine with abscess 05/29/2019 Diverticulosis Emphysema of lung GI bleed History of breast cancer Left breast cancer History of CVA with residual deficit Left basal ganglia infarct, bilateral cerebellar lacunar infarcts HTN (hypertension), benign Hypercholesterolemia Hypothyroidism IFG (impaired fasting glucose) Migraine Mixed hyperlipidemia Osteoarthritis Osteoporosis DEXA scan 01/2016 Radiculopathy, lumbar region S/P ORIF (open reduction internal fixation) fracture Left hip [facility] within the last couple months around September 2019 Thoracic spine pain Transient ischemic attack (TIA) X 2 Surgical History Surgical
[2019-12-09 06:00] VITALS: BP 154/78; PULSE 61; RESP 17; TEMP 36.3; O2SAT 96
[2019-12-09] MEDS: LEVOTHYROXINE SODIUM INJ 100 MCG/5 ML VIAL 44 MCG IV PUSH (06:14)
[2019-12-09 06:25] LABS: Basophils Percent Auto 0.3 % (0.2-1.2); Eosinophils Absolute Auto 0.3 K/mm3 (0-0.3); Eosinophils Percent Auto 3.6 % (0-4.4); Hematocrit 38.2 % (37.0-47.0); Immature Granulocyte Absolute 0.02 K/mm3 (0.00-0.031); Immature Granulocyte Percent A 0.3 % (0-0.5); Lymphocytes Absolute Auto 1.48 K/mm3 (0.9-3.2); Lymphocytes Percent Auto 19.5 % (18.3-44.2); Mean Corpuscular HGB Conc 31.4 g/dl (32-36); Mean Corpuscular Hemoglobin 27.5 pg (26-34); Mean Corpuscular Volume 87.4 fl (80-100); Mean Platelet Volume 9.7 fl (7.4-10.4); Monocytes Absolute Auto 0.5 K/mm3 (0.1-0.6); Monocytes Percent Auto 6.6 % (2.6-8.5); Neutrophils Absolute Auto 5.3 K/mm3 (1.3-6.7); Neutrophils Percent Auto 69.7 % (45.5-73.1); Platelet Count Result 260 k/mm3 (150-375); Red Blood Count 4.37 M/mm3 (4.2-5.4); Red Cell Distribution Width 14.3 % (11.5-14.5); White Blood Count 7.6 K/mm3 (4.5-10.0)
[2019-12-09 06:37] LABS: Lactic Acid Reflex 0.8 mmol/L (0.7-2.1)
[2019-12-09 06:42] LABS: Anion Gap 4 mmol/L (8-16); Blood Urea Nitrogen 17 mg/dL (7-17); CRP 1.6 mg/dL (<1.0); Calcium 9.2 mg/dL (8.4-10.2); Carbon Dioxide 32 mmol/L (22-30); Chloride 100 mmol/L (98-107); Estimated CRCL calculation 35 ml/min; Estimated Glomerular Filt Rate 60; Glucose 106 mg/dL (65-105); Lactate Dehydrogenase 364 U/L (313-618); Potassium 3.6 mmol/L (3.4-5.0); Sodium 136 mmol/L (137-145)
[2019-12-09] MEDS: LACTATED RINGERS 1,000 ML 100 ML IV CONT (07:44)
[2019-12-09 08:02] LABS: Free T4 Free Thyroxine Reflex 1.11 ng/dL (0.78-2.19)
[2019-12-09 09:06] LABS: Total Triiodothyronine (T3) 1.42 NG/ML (0.97-1.69)
[2019-12-09] MEDS: HYDROmorphone HCL INJ (*CRX) 1 MG/ML SYR 0.5 MG IV PUSH ×2 (09:38→15:05)
--- NOTE | 2019-12-09 10:59 | PM.IMPN ---
Progress Note: A&P Assessment and Plan (1) SBO (small bowel obstruction): Code(s): K56.609 - Unspecified intestinal obstruction, unspecified as to partial versus complete obstruction Status: Acute Assessment and Plan: She reported severe abdominal pain rated 20/10 and last bowel movement was 10/8. She was taking narcotic pain medication due to pain from [facility]. CT abd/pelvis demonstrated small bowel obstruction with small bowel dilated to 5cm with transition point in medial LLQ. She has a hx of sigmoidectomy with repair of colovesicular fistula, take down of the splenic flexure, and hand-sewn colorectal anastomosis performed by Dr. Morales 07/25/2019 due to diverticulitis with abscess, colovesical fistula. She was placed on bowel rest and NG tube placed. She feels much better today. Repeat obstructive series plain films show nonobstructive bowel gas pattern today. She is passing flatus but no bowel movement. Continue gentle IV fluid rehydration. Continue analgesics and antiemetics as needed. General surgery is on board. Further management per general surgery. Input is greatly appreciated. (2) Hypothyroidism: Qualifiers: Hypothyroidism type: unspecified Qualified Code(s): E03.9 - Hypothyroidism, unspecified Code(s): E03.9 - Hypothyroidism, unspecified Status: Chronic Assessment and Plan: Continue IV levothyroxine. Resume PO levothyroxine when clinically appropriate. (3) HTN (hypertension), benign: Code(s): I10 - Essential (primary) hypertension Status: Chronic Assessment and Plan: Blood pressures were elevated at admission, likely due to severe abdominal pain which she rated 20/10 at admission. Pain has resolved and blood pressures have improved. She is not on prior to admission antihypertensives. Hydralazine is available as needed. Continue to monitor. (4) Chronic kidney disease, stage 3 (moderate): Code(s): N18.3 - Chronic kidney disease, stage 3 (moderate) Status: Chronic Assessment and Plan: Cr is 0.9 and BUN 17. Continue to monitor. Renally dose medications and avoid nephrotoxins. GFR >60. (5) Mixed hyperlipidemia: Code(s): E78.2 - Mixed hyperlipidemia Status: Acute Assessment and Plan: Simvastatin is on hold due to NPO status. Resume when clinically appropriate. (6) Abnormal urinalysis: Code(s): R82.90 - Unspecified abnormal findings in urine Status: Acute Assessment and Plan: Urinalysis demonstrates positive nitrates, 3+ leukocyte esterase, 3-5 RBC, and 51-75 WBC. Urine culture is pending. She did have hx of asymptomatic bacteria due to pseudomonas aeruginosa on urine culture 07/30/19 and was treated at that time with ciprofloxacin given the specific pathogen. Await urine culture to determine if she should be treated based on the organism. I do not feel treatment is indicated at this time since she is asymptomatic. I discussed this with the patient and her daughter. Monitor closely for any developing symptoms. Subjective Date/time seen: 12/09/19 10:59 Mrs. Carnes is an 79 y.o. female with PMH significant for hypothyroidism, CKD 3, HLD, HTN, and diverticulitis with abscess and colovesical fistula s/p sigmoidectomy and repair by Dr. Morales 07/25/19, and left hip fracture several months ago s/p ORIF at [facility] who presented to the emergency department for the evaluation of sudden onset, severe abdominal pain and distention in the setting of constipation. She was taking oxycodone for pain. She is seen in follow-up for small bowel obstruction. Her abdominal pain has resolved completely. Her only concern at this time is right nasal discomfort from the NG tube. She reports flatus but no bowel movements yet. She reports no urinary symptoms including no hematuria, dysuria, urgency, frequency, incontinence, or hesitancy. She denies chest pain, dyspnea, and palpitations
--- NOTE | 2019-12-09 12:02 | PM.CNGS ---
Assessment and Plan Assessment and plan (1) SBO (small bowel obstruction): Code(s): K56.609 - Unspecified intestinal obstruction, unspecified as to partial versus complete obstruction Status: Acute Assessment and Plan: most likely ileus, exam and XR improved today, will clamp NG and possibly remove later today, cont serial exams (2) HTN (hypertension), benign: Code(s): I10 - Essential (primary) hypertension Status: Chronic Assessment and Plan: stable mgmt per primary (3) Mixed hyperlipidemia: Code(s): E78.2 - Mixed hyperlipidemia Status: Acute Assessment and Plan: stable, mgmt per primary (4) History of breast cancer: Code(s): Z85.3 - Personal history of malignant neoplasm of breast Status: Chronic Assessment and Plan: stable (5) History of open sigmoidectomy: Code(s): Z98.890 - Other specified postprocedural states; Z90.49 - Acquired absence of other specified parts of digestive tract Status: Acute Assessment and Plan: no issues, exam benign, incision well healed History of Present Illness Consult details Consult date: 12/09/19 Reason for consult: abdominal pain Requesting physician: Nadira Lopez PA-C Narrative: Pt is 79 y/o F presenting c/o crampy abd pain, N/V, constipation over last few days. Pt had sigmoid colectomy by Dr Morales in June for complicated diverticulitis c colovesical fistula. Pt reports she recently had hip sx and has been taking Oxycodone at home. Upon evaluation today, pt reports she is passing some flatus and feels better. Review of Systems Constitutional: Constitutional: Denies anorexia, Denies body ache(s), Denies chills, Reports fatigue, Denies fever(s), Denies headache(s), Reports lethargy, Denies malaise and Reports weakness Eyes: Eyes: Reports no additional eye complaints ENT: Reports system reviewed and no additional complaints, except as documented and Reports Normal hearing present Cardiovascular: Cardiovascular: Reports no additional cardiovascular complaints Respiratory: Respiratory: Reports no additional respiratory complaints Gastrointestinal: Gastrointestinal: Reports abdominal pain, Reports belching, Reports bloating, Reports change in bowel habits, Reports constipation, Reports GI cramping, Reports nausea and Reports vomiting Genitourinary: Genitourinary: Reports no additional female genitourinary complaints Musculoskeletal: Musculoskeletal: Reports no additional musculoskeletal complaints Integumentary/Breasts: Skin/Breast: Reports system reviewed and no additional complaints, except as docu Neurologic: Reports system reviewed and no additional complaints, except as documented Psychiatric: Psychiatric: Reports no additional psychiatric complaints Endocrine: Endocrine: Reports no additional endocrine complaints Hematologic/Lymphatic: Hematologic/Lymphatic: Reports no additional hematologic/lymphatic complaints Allergic/Immunologic: Allergic/Immunologic: Reports no additional allergic/immunologic complaints [facility] Past Medical History Medical History Cardiomyopathy Chronic back pain Chronic kidney disease, stage 3 (moderate) Colovesical fistula Status post sigmoid colon resection with repair of colovesicular fistula, takedown of splenic flexure and hand-sewn colorectal anastomosis Degenerative disc disease Delirium Diverticulitis of large intestine with abscess 05/29/2019 Diverticulosis Emphysema of lung GI bleed History of breast cancer Left breast cancer History of CVA with residual deficit Left basal ganglia infarct, bilateral cerebellar lacunar infarcts HTN (hypertension), benign Hypercholesterolemia Hypothyroidism IFG (impaired fasting glucose) Migraine Mixed hyperlipidemia Osteoarthritis Osteoporosis DEXA scan 01/2016 Radiculopathy, lumbar region S/P ORIF (open reduction internal fixation) fracture Left hip
[2019-12-09 14:00] VITALS: BP 169/76; PULSE 65; RESP 18; TEMP 36.2; O2SAT 96
[2019-12-09] MEDS: LACTATED RINGERS 1,000 ML 75 ML IV CONT ×2 (16:22→17:39)
[2019-12-09 22:00] VITALS: BP 156/62; PULSE 70; RESP 18; TEMP 36.2; O2SAT 94
[2019-12-10] MEDS: LEVOTHYROXINE SODIUM INJ 100 MCG/5 ML VIAL 44 MCG IV PUSH (05:58)
[2019-12-10 06:00] VITALS: BP 178/70; PULSE 63; RESP 18; TEMP 36.1; O2SAT 96
[2019-12-10] MEDS: LACTATED RINGERS 1,000 ML 75 ML IV CONT (06:00)
[2019-12-10 06:36] LABS: Hematocrit 36.8 % (37.0-47.0); Hemoglobin 11.6 g/dL (12.0-15.0); Mean Corpuscular HGB Conc 31.5 g/dl (32-36); Mean Corpuscular Hemoglobin 28.2 pg (26-34); Mean Corpuscular Volume 89.3 fl (80-100); Mean Platelet Volume 9.8 fl (7.4-10.4); Platelet Count Result 251 k/mm3 (150-375); Red Blood Count 4.12 M/mm3 (4.2-5.4); Red Cell Distribution Width 14.4 % (11.5-14.5); White Blood Count 6.2 K/mm3 (4.5-10.0)
[2019-12-10 06:55] LABS: Anion Gap 5 mmol/L (8-16); Blood Urea Nitrogen 10 mg/dL (7-17); Calcium 8.9 mg/dL (8.4-10.2); Carbon Dioxide 32 mmol/L (22-30); Chloride 103 mmol/L (98-107); Estimated CRCL calculation 44 ml/min; Estimated Glomerular Filt Rate > 60; Glucose 98 mg/dL (65-105); Potassium 3.3 mmol/L (3.4-5.0); Sodium 140 mmol/L (137-145)
[2019-12-10] MEDS: POTASSIUM CHLORIDE 20 MEQ TABLET PO (08:01)
--- NOTE | 2019-12-10 11:52 | PM.IMPN ---
Progress Note: A&P Assessment and Plan (1) SBO (small bowel obstruction): Code(s): K56.609 - Unspecified intestinal obstruction, unspecified as to partial versus complete obstruction Status: Acute Assessment and Plan: She was taking narcotic pain medication due to pain from [facility] months ago; which may be precipitating etiology. CT abd/pelvis 12/07 demonstrated small bowel obstruction with small bowel dilated to 5cm with transition point in medial LLQ. She has a hx of sigmoidectomy with repair of colovesicular fistula, take down of the splenic flexure, and hand-sewn colorectal anastomosis performed by Dr. Morales 07/25/2019 due to diverticulitis with abscess, colovesical fistula. She was placed on bowel rest and NG tube placed. NG tube was discontinued on 12/08. Abdominal XR 12/08 showed nonobstructive bowel gas pattern. She is passing flatus but has not had a BM. General surgery is following and recommendations are appreciated Advance to soft diet per surgery recs Discontinue IV fluids as she is tolerating oral intake. Continue analgesics and antiemetics as needed. (2) Hypothyroidism: Qualifiers: Hypothyroidism type: unspecified Qualified Code(s): E03.9 - Hypothyroidism, unspecified Code(s): E03.9 - Hypothyroidism, unspecified Status: Chronic Assessment and Plan: TSH is wnl. Resume PO levothyroxine. Previously on IV while NPO (3) HTN (hypertension), benign: Code(s): I10 - Essential (primary) hypertension Status: Chronic Assessment and Plan: Blood pressures were elevated at admission, likely due to severe abdominal pain. Pain has resolved and blood pressures have improved but are still quite elevated. She is not on prior to admission antihypertensives. Hydralazine is available as needed for elevated BP. Continue to monitor and consider addition of antihypertensive agent if elevated readings persist. (4) Chronic kidney disease, stage 3 (moderate): Code(s): N18.3 - Chronic kidney disease, stage 3 (moderate) Status: Chronic Assessment and Plan: Cr is 0.7 and BUN 10 today. Continue to monitor. Renally dose medications and avoid nephrotoxins. (5) Mixed hyperlipidemia: Code(s): E78.2 - Mixed hyperlipidemia Status: Acute Assessment and Plan: resume simvastatin as no longer NPO. (6) Abnormal urinalysis: Code(s): R82.90 - Unspecified abnormal findings in urine Status: Acute Assessment and Plan: Urinalysis demonstrates positive nitrates, 3+ leukocyte esterase, 3-5 RBC, and 51-75 WBC. She did have hx of asymptomatic bacteria due to pseudomonas aeruginosa on urine culture 07/30/19 and was treated at that time with ciprofloxacin given the specific pathogen. Urine culture is pending. Await urine culture to determine if she should be treated based on the organism. Will hold on empiric treatment at this time as patient is asymptomatic, afebrile, and without leukocytosis Monitor closely for developing symptoms. Subjective Date/time seen: 12/10/19 11:52 Interval history: Date of service: 12/10/2019 Maricruz Carnes is an 79-year-old female with a history of CKD stage 3, CVA, hypertension, and multiple other comorbidities who is seen in follow-up for small bowel obstruction. She feels markedly improved today. She has no abdominal pain at this time. She is passing flatus but has not had a bowel movement. She denies abdominal cramping or bloating. She denies nausea or vomiting. She denies dysuria, hematuria, urgency or frequency. No shortness of breath, cough, chest pain, palpitations, dizziness, or lightheadedness. She has been ambulating with assistance. Review of Systems Review of Systems: Narrative: 12 systems reviewed with pertinent positives and negatives as per HPI. Exam Narrative: Exam Narrative: Maricruz Carnes is a well nourished 8
--- NOTE | 2019-12-10 11:53 | PM.PNGS ---
Progress Note: A&P Assessment and Plan (1) SBO (small bowel obstruction): Code(s): K56.609 - Unspecified intestinal obstruction, unspecified as to partial versus complete obstruction Status: Acute Assessment and Plan: exam benign, await bowel fxn, soft diet, encourage OOB Subjective Subjective Date/Time Seen: 12/10/19 11:53 feels good, +flatus, no bowel movt, diana clears Review of Systems Constitutional: Constitutional: Denies body ache(s), Denies chills, Denies fatigue, Denies fever(s), Denies lethargy and Reports weakness Cardiovascular: Cardiovascular: Reports no additional cardiovascular complaints Respiratory: Respiratory: Reports no additional respiratory complaints Gastrointestinal: Gastrointestinal: Denies abdominal pain, Denies belching, Denies bloating, Reports constipation, Denies GI cramping, Denies diarrhea, Denies nausea and Denies vomiting Exam Const: General: cooperative, healthy appearing, comfortable and no acute distress Resp: Effort & Inspection: normal respiratory effort Auscultation: clear to auscultation bilaterally Cardio: Rate: regular rate Rhythm: regular rhythm GI: Inspection: normal to inspection and non-distended GI Palp: No abdominal tenderness, Yes Soft to palpation and No Tenderness to palpation present (GI) Auscultation: normal bowel sounds Objective Data Vital Signs Vital Signs: Vital Signs - 24 hr 12/09/19 14:00 12/09/19 22:00 12/10/19 06:00 Temperature 36.2 C L 36.2 C L 36.1 C L Pulse Rate 65 70 63 Respiratory Rate 18 18 18 Blood Pressure 169/76 H 156/62 H 178/70 H Pulse Oximetry 96 94 96 Intake/Output Intake/Output: Intake & Output 12/07/19 12/08/19 12/09/19 12/10/19 23:59 23:59 23:59 23:59 Intake Total 3120 1340 Output Total 1150 1000 Balance 1970 340 Meds/Results Medications: Active Medications Generic Name Dose Route Start Last Admin Trade Name Freq PRN Reason Stop Dose Admin Hydralazine HCl 10 mg 12/09/19 15:27 Hydralazine Hcl 20 Mg/Ml Vial IV PUSH Q8H PRN SBP >180, DBP >100 Hydromorphone HCl 0.5 mg 12/08/19 23:18 12/09/19 15:05 Hydromorphone Hcl Inj (*Crx) 1 Mg/Ml Syr IV PUSH 0.5 mg Q3H PRN Administration Pain Rated 7-10 Lactated Ringer's 1,000 mls @ 75 mls/hr 12/08/19 18:45 12/10/19 06:00 Lr - Lactated Ringers Iv IV CONT 75 mls/hr .[id number] MAYNOR Administration Levothyroxine Sodium 44 mcg 12/09/19 06:30 12/10/19 05:58 Levothyroxine Sodium Inj 100 Mcg/5 Ml Vial IV PUSH 44 mcg DAILY@0630 MAYNOR Administration Lorazepam 0.5 mg 12/08/19 23:18 Lorazepam Inj (*Crx) 2 Mg/Ml Vial IV PUSH Q6H PRN Anxiety Ondansetron HCl 4 mg 12/08/19 18:43 Ondansetron Inj 4 Mg/2 Ml Vial IV PUSH Q4H PRN Nausea Radiology Results: ITS Impressions Abdomen/Pelvis CT 12/08/19 18:05 IMPRESSION: Small bowel obstruction, with dilated small bowel up to 5 cm diameter Diverticulosis of the colon; no CT evidence of diverticulitis. Abdomen X-Ray 12/09/19 06:59 IMPRESSION: 1. Nonobstructive bowel gas pattern. Labs Labs: Laboratory Results - last 24 hr 12/10/19 12/10/19 06:18 06:18 WBC 6.2 RBC 4.12 L Hgb 11.6 L Hct 36.8 L MCV 89.3 MCH 28.2 MCHC 31.5 L RDW 14.4 Plt Count 251 MPV 9.8 Sodium 140 Potassium 3.3 L Chloride 103 Carbon Dioxide 32 H Anion Gap 5 L BUN 10 D Creatinine 0.70 Estim Creat Clear Calc 44 Estimated GFR > 60 Glucose 98 Calcium 8.9 Quality VTE Prophylaxis VTE prophylaxis: mechanical ordered
[2019-12-10 14:00] VITALS: BP 141/56; PULSE 77; RESP 18; TEMP 36.9; O2SAT 100
[2019-12-10] MEDS: SIMVASTATIN 20 MG TABLET 40 MG PO (21:54)
[2019-12-10 22:00] VITALS: BP 166/63; PULSE 72; RESP 18; TEMP 36.2; O2SAT 97
[2019-12-10] MEDS: LORazepam INJ (*CRX) 2 MG/ML VIAL 0.5 MG IV PUSH (22:19)
[2019-12-11 05:44] LABS: Hematocrit 36.5 % (37.0-47.0); Hemoglobin 11.7 g/dL (12.0-15.0); Mean Corpuscular HGB Conc 32.1 g/dl (32-36); Mean Corpuscular Volume 87.3 fl (80-100); Mean Platelet Volume 9.4 fl (7.4-10.4); Platelet Count Result 245 k/mm3 (150-375); Red Blood Count 4.18 M/mm3 (4.2-5.4); Red Cell Distribution Width 14.3 % (11.5-14.5); White Blood Count 5.6 K/mm3 (4.5-10.0)
[2019-12-11 06:00] VITALS: BP 170/82; PULSE 65; RESP 18; TEMP 36.7; O2SAT 100
[2019-12-11 06:04] LABS: Anion Gap 7 mmol/L (8-16); Blood Urea Nitrogen 13 mg/dL (7-17); Calcium 8.9 mg/dL (8.4-10.2); Carbon Dioxide 28 mmol/L (22-30); Chloride 105 mmol/L (98-107); Estimated CRCL calculation 39 ml/min; Estimated Glomerular Filt Rate > 60; Glucose 100 mg/dL (65-105); Potassium 3.8 mmol/L (3.4-5.0); Sodium 140 mmol/L (137-145)
[2019-12-11] MEDS: LEVOTHYROXINE SODIUM 88 MCG TABLET PO (06:21)
[2019-12-11] MEDS: ASPIRIN 81 MG CHEWABLE TABLET PO (09:53)
[2019-12-11] MEDS: amLODIPine BESYLATE 5 MG TABLET PO (09:53)
[2019-12-11] MEDS: TAMSULOSIN HCL 0.4 MG CAPSULE PO (09:53)
[2019-12-11 14:00] VITALS: BP 163/76; PULSE 70; RESP 18; TEMP 36.7; O2SAT 98
--- NOTE | 2019-12-11 14:40 | PM.PNGS ---
Progress Note: A&P Assessment and Plan (1) SBO (small bowel obstruction): Code(s): K56.609 - Unspecified intestinal obstruction, unspecified as to partial versus complete obstruction Status: Acute Additional Plan doing well, diana diet, +bowel fxn, ok to dc home from surgical standpoint, limit narcotic use Subjective Subjective Date/Time Seen: 12/11/19 14:40 feels good, +bowel fxn, diana soft diet Review of Systems Constitutional: Constitutional: Denies anorexia, Denies chills, Denies fatigue, Denies fever(s), Denies lethargy, Denies malaise and Reports weakness Cardiovascular: Cardiovascular: Reports no additional cardiovascular complaints Respiratory: Respiratory: Reports no additional respiratory complaints Gastrointestinal: Gastrointestinal: Reports no additional gastrointestinal complaints, Denies abdominal pain, Denies bloating, Denies constipation, Denies GI cramping, Denies heartburn, Denies diarrhea, Denies nausea and Denies vomiting Exam Const: General: cooperative, healthy appearing, comfortable and no acute distress Resp: Effort & Inspection: normal respiratory effort Auscultation: clear to auscultation bilaterally Cardio: Rate: regular rate Rhythm: regular rhythm GI: Inspection: normal to inspection GI Palp: No abdominal tenderness, Yes Soft to palpation, No Firmness to palpation present (GI), No Tenderness to palpation present (GI), No Guarding due to palpation present (GI) and No Rigid due to palpation Auscultation: normal bowel sounds Objective Data Vital Signs Vital Signs: Vital Signs - 24 hr 12/10/19 22:00 12/11/19 06:00 12/11/19 14:00 Temperature 36.2 C L 36.7 C 36.7 C Pulse Rate 72 65 70 Respiratory Rate 18 18 18 Blood Pressure 166/63 H 170/82 H 163/76 H Pulse Oximetry 97 100 98 Intake/Output Intake/Output: Intake & Output 12/08/19 12/09/19 12/10/19 12/11/19 23:59 23:59 23:59 23:59 Intake Total 3120 2830 880 Output Total 1150 3300 800 Balance 1970 -470 80 Meds/Results Medications: Active Medications Generic Name Dose Route Start Last Admin Trade Name Freq PRN Reason Stop Dose Admin Amlodipine Besylate 5 mg 12/11/19 09:00 12/11/19 09:53 Amlodipine Besylate 5 Mg Tablet PO 5 mg QAM MAYNOR Administration Aspirin 81 mg 12/11/19 09:00 12/11/19 09:53 Aspirin 81 Mg Chewable Tablet PO 81 mg DAILY MAYNOR Administration Hydralazine HCl 10 mg 12/09/19 15:27 Hydralazine Hcl 20 Mg/Ml Vial IV PUSH Q8H PRN SBP >180, DBP >100 Hydromorphone HCl 0.5 mg 12/08/19 23:18 12/09/19 15:05 Hydromorphone Hcl Inj (*Crx) 1 Mg/Ml Syr IV PUSH 0.5 mg Q3H PRN Administration Pain Rated 7-10 Ceftriaxone Sodium/Dextrose 1 gm in 50 mls @ 100 mls/hr 12/11/19 09:00 12/11/19 09:53 Rocephin 1 Gm/D5w 50 Ml IVPB 100 mls/hr Q24H MAYNOR Administration Levothyroxine Sodium 88 mcg 12/11/19 06:30 12/11/19 06:21 Levothyroxine Sodium 88 Mcg Tablet PO 88 mcg DAILY@0630 MAYNOR Administration Lorazepam 0.5 mg 12/08/19 23:18 12/10/19 22:19 Lorazepam Inj (*Crx) 2 Mg/Ml Vial IV PUSH 0.5 mg Q6H PRN Administration Anxiety Ondansetron HCl 4 mg 12/08/19 18:43 Ondansetron Inj 4 Mg/2 Ml Vial IV PUSH Q4H PRN Nausea Simvastatin 40 mg 12/10/19 21:00 12/10/19 21:54 Simvastatin 20 Mg Tablet PO 40 mg HS MAYNOR Administration Tamsulosin HCl 0.4 mg 12/11/19 09:00 12/11/19 09:53 Tamsulosin Hcl 0.4 Mg Capsule PO 0.4 mg DAILY MAYNOR Administration Radiology Results: ITS Impressions Abdomen/Pelvis CT 12/08/19 18:05 IMPRESSION: Small bowel obstruction, with dilated small bowel up to 5 cm diameter Diverticulosis of the colon; no CT evidence of diverticulitis. Abdomen X-Ray 12/09/19 06:59 IMPRESSION: 1. Nonobstructive bowel gas pattern. Labs Labs: Laboratory Results - last 24 hr 12/11/19 12/11/19 05:34 05:34 WBC 5.6 RBC 4.18 L Hgb 11.7 L Hct 36.5 L MCV 87.3 MCH
--- NOTE | 2019-12-11 16:04 | PM.DS ---
DS: Admitting Diagnosis Admitting Diagnosis Admitting Diagnosis: Abdominal pain DS: Discharge Diagnosis Discharge Diagnosis (1) SBO (small bowel obstruction): Code(s): K56.609 - Unspecified intestinal obstruction, unspecified as to partial versus complete obstruction Status: Acute Assessment and Plan: She takes chronic narcotic pain medication which may be precipitating etiology. CT abd/pelvis 12/07 demonstrated small bowel obstruction with small bowel dilated to 5cm with transition point in medial LLQ. She has a hx of sigmoidectomy with repair of colovesicular fistula, take down of the splenic flexure, and hand-sewn colorectal anastomosis performed by Dr. Morales 07/25/2019 due to diverticulitis with abscess, colovesical fistula. She was placed on bowel rest and NG tube placed. She was seen in consultation by General surgery and no surgical intervention was required. She was hydrated with IV fluids. NG tube was discontinued on 12/08. Abdominal XR 12/08 showed nonobstructive bowel gas pattern. she was able to advance to a soft diet which she tolerated well. Her abdominal pain resolved. She did have a small bowel movement was passing flatus. She should continue with soft diet. (2) Urinary tract infection: Code(s): N39.0 - Urinary tract infection, site not specified Status: Acute Assessment and Plan: Urinalysis demonstrated positive nitrates, 3+ leukocyte esterase, 3-5 RBC, and 51-75 WBC. She was asymptomatic, therefore treatment was held until urine cultures were obtained. She remained afebrile and without leukocytosis. Urine cultures positive for greater than 100,000 CFU Klebsiella with susceptibility to ceftriaxone. She received IV ceftriaxone which was transition to p.o. cefdinir which she will continue to complete 7 days of antibiotic therapy. (3) Hypothyroidism: Qualifiers: Hypothyroidism type: unspecified Qualified Code(s): E03.9 - Hypothyroidism, unspecified Code(s): E03.9 - Hypothyroidism, unspecified Status: Chronic Assessment and Plan: TSH is wnl. She was treated with IV levothyroxine while NPO which was transitioned back to oral. Continue p.o. levothyroxine. (4) HTN (hypertension), benign: Code(s): I10 - Essential (primary) hypertension Status: Chronic Assessment and Plan: Blood pressures were elevated at admission, likely due to severe abdominal pain. She received IV hydralazine as needed. Pain resolved and blood pressures improved but were still above target. She is not on any antihypertensives. She reports BP is usually well controlled. She was instructed to monitor her BP at home every other day and record readings for PCP review. If BP remains elevated, she will benefit from addition of antihypertensive agent. (5) Chronic kidney disease, stage 3 (moderate): Code(s): N18.3 - Chronic kidney disease, stage 3 (moderate) Status: Chronic Assessment and Plan: BUN and creatinine were stable. (6) Mixed hyperlipidemia: Code(s): E78.2 - Mixed hyperlipidemia Status: Acute Assessment and Plan: Continue simvastatin. (7) Chronic, continuous use of opioids: Code(s): F11.90 - Opioid use, unspecified, uncomplicated Status: Acute Assessment and Plan: Patient is current with pain management and takes daily opiate therapy for back pain. She recently had ORIF at [facility] several months prior and has been taking pain medication for this as well. Chronic narcotic use likely precipitated SBO. We discussed limitation of narcotic use. She should follow-up with pain management and consider alternate treatment modalities. We also discussed maintaining a bowel regimen in order to achieve soft BM every 1-2 days. DS: Summary Hospital Course Reason for hospitalization: Small-bowel obstruction Hospital Course: date of admission: 12/08/2019 date of discharge: 12/11/2019
== END 2019-12-11 16:30 | disposition home or self-care (01) | DRG 389 ==
LOC: ANHED 20:20 → ANH3MEDSUR 12-09 07:05
PROVIDERS: Nurse Practitioner; Physician Assistant; Admitting Provider Internal Medicine; Emergency Provider Family Medicine; PCP Family Medicine; Visit Provider Physician Assistant
DX: K56.609 Unspecified intestinal obstruction, unspecified as to partial versus complete obstruction (principal); N39.0 Urinary tract infection, site not specified; B96.89 Other specified bacterial agents as the cause of diseases classified elsewhere; I12.9 Hypertensive chronic kidney disease with stage 1 through stage 4 chronic kidney disease, or unspecified chronic kidney disease; N18.30 Chronic kidney disease, stage 3 unspecified; E03.9 Hypothyroidism, unspecified; E78.2 Mixed hyperlipidemia; F11.90 Opioid use, unspecified, uncomplicated; J43.9 Emphysema, unspecified; M19.90 Unspecified osteoarthritis, unspecified site; M81.0 Age-related osteoporosis without current pathological fracture; Z86.73 Personal history of transient ischemic attack (TIA), and cerebral infarction without residual deficits; Z85.3 Personal history of malignant neoplasm of breast; Z90.710 Acquired absence of both cervix and uterus; Z98.42 Cataract extraction status, left eye; Z98.41 Cataract extraction status, right eye; Z90.49 Acquired absence of other specified parts of digestive tract; Z87.891 Personal history of nicotine dependence; Z98.890 Other specified postprocedural states
CPT/HCPCS: 36415; 74018; 74019; 74177; 80048; 80053; 81001; 82728; 83605; 83615; 83735; 84439; 84443; 84480; 85025; 85027; 86140; 87077; 87086; 87088; 87186; 96372; 96374; 96375; 97110; 97116; 97161; 97165; 97530; 97535; 99285; A9270; J0360; J0696; J1170; J1885; J2060; J2212; J2405; J7120; Q9967

== ENCOUNTER → 2020-01-15 15:17 | Outpatient (CLI) | payer MEDICARE, SELFPAY ==
--- NOTE | ~2020-01-15 | MR_ITS ---
EXAMINATION: MR lumbar spine wo/w con DATE: 01/15/2020 16:47 INDICATION: Low back pain. TECHNIQUE: Magnetic resonance imaging (MRI) of the lumbar spine was performed without and with 10 mL MultiHance intravenous contrast. Sequences included sagittal T2-weighted FSE, sagittal T2-weighted FS FSE, sagittal STIR FSE, and sagittal and axial T1-weighted FSE. Postcontrast sequences included axia l T2-weighted FSE and axial and sagittal T1-weighted FS FSE. COMPARISON: Lumbar spine MRI 09/30/2015, CT abdomen and pelvis 12/08/2019 FINDINGS: There is 8 mm anterolisthesis of L4 on L5. There is 3 mm retrolisthesis of T12 on L1, L1 on L2, and L2 on L3. There is a chronic compression fracture of T10 with changes of vertebroplasty and focal kyphosis. There is mild chronic height loss of T9 and T11 vertebral bodies. There are changes o f posterior fusion procedure from T11 to S1 with pedicle screws. There is severely decreased disc hei ght at T10-T11, moderately decreased disc height at T12-L1, and severely decreased disc height from L 1-L2 through L5-S1. There is interbody fusion at L3-L4 and L4-L5. The distal spinal cord signal inten sity is normal. The conus medullaris is at L1. The following disc levels are specifically discussed: L1-L2: The disc is bulging. There is moderate bilateral facet joint hypertrophy. There is moderate bi lateral neural foraminal stenosis. There is mild central canal stenosis with posterior decompression. L2-L3: The disc does not extend beyond the endplate margin. There is moderate bilateral facet joint h ypertrophy. There is mild bilateral neural foraminal stenosis. There is mild central canal stenosis w ith posterior decompression. L3-L4: There is moderate bilateral facet joint hypertrophy. There is mild bilateral neural foraminal stenosis. There is mild central canal stenosis with posterior decompression. L4-L5: The disc does not extend beyond the endplate margins. There is severe bilateral facet joint hy pertrophy. There is mild bilateral neural foraminal stenosis. There is mild central canal stenosis wi th posterior decompression. L5-S1: The disc does not extend beyond the endplate margin. There is moderate bilateral facet joint h ypertrophy. There is mild bilateral neural foraminal stenosis. There is no central canal stenosis. IMPRESSION: 1. Severe thoracolumbar spondylosis, stable from 09/30/2015. 2. Posterior fusion procedure from T11 to S1. Reviewed, dictated and finalized at location A. UTER TECHNICAL SUPPORT SPECIALIST
[2020-01-15 15:53] LABS: Estimated Glomerular Filt Rate > 60
== END ==
PROVIDERS: PCP Family Medicine; Visit Provider Nurse Practitioner Family
DX: M47.815 Spondylosis without myelopathy or radiculopathy, thoracolumbar region (principal); M47.817 Spondylosis without myelopathy or radiculopathy, lumbosacral region; M48.05 Spinal stenosis, thoracolumbar region; M48.54XA Collapsed vertebra, not elsewhere classified, thoracic region, initial encounter for fracture; M48.07 Spinal stenosis, lumbosacral region; Z98.1 Arthrodesis status; M43.15 Spondylolisthesis, thoracolumbar region
CPT/HCPCS: 72158; A9577

== ENCOUNTER → 2020-02-18 12:24 | Outpatient (CLI) | payer MEDICARE, SELFPAY ==
--- NOTE | ~2020-02-18 | US_ITS ---
EXAMINATION: US soft tissue UE RT EXAM DATE: 02/18/2020 12:54 INDICATION: L98.9 - Disorder of the skin and subcutaneous tissue, unspec. Reportedly felt this for ab out a year. No other mass or abnormality identified in the region. TECHNIQUE: Multiple grayscale and Doppler images of the symptomatic right upper arm area were obtaine d (by a technologist who performed the scan) and subsequently reviewed. There is no prior study for comparison. FINDINGS: Symptomatic area was scanned. Patient's brachial artery was deep to this, somewhat more superficial t chaidez typically seen. Normal brachial artery Doppler waveform. IMPRESSION: 1. Unremarkable ultrasound exam. Reviewed, dictated and finalized at location B. ROOM TECHNICIAN
== END ==
PROVIDERS: PCP Family Medicine; Visit Provider Physician Assistant
DX: L98.9 Disorder of the skin and subcutaneous tissue, unspecified (principal)
CPT/HCPCS: 76882

== ENCOUNTER 2020-03-04 17:07 | Outpatient (CLI) | payer MEDICARE, SELFPAY ==
[2020-03-04 17:46] LABS: Alkaline Phosphatase 96 U/L (38-126); Aspartate Amino Transferase 28 U/L (14-36); Bilirubin,Total 0.3 mg/dL (0.2-1.3); Blood Urea Nitrogen 16 mg/dL (7-17); Carbon Dioxide 34 mmol/L (22-30); Estimated Glomerular Filt Rate 60; Glucose 99 mg/dL (65-105)
[2020-03-04 18:31] LABS: Alanine Aminotransferase 11 U/L (4-35); Anion Gap 3 mmol/L (8-16); Calcium 10.3 mg/dL (8.4-10.2); Chloride 100 mmol/L (98-107); Potassium 4.1 mmol/L (3.4-5.0); Sodium 137 mmol/L (137-145)
== END 2020-03-04 17:08 | disposition home or self-care (01) ==
LOC: ANHLAB 17:08
PROVIDERS: PCP Family Medicine; Visit Provider Family Medicine
DX: E03.9 Hypothyroidism, unspecified (principal); M62.838 Other muscle spasm
CPT/HCPCS: 36415; 80053; 84443

== ENCOUNTER → 2020-06-22 08:49 | Outpatient (CLI) | payer MEDICARE, SELFPAY ==
--- NOTE | ~2020-06-22 | XR_ITS ---
EXAMINATION: XR ankle RT min 3V DATE: 06/22/2020 09:10 INDICATION: Right ankle pain. TECHNIQUE: 4 views of right ankle were obtained. COMPARISON: None. FINDINGS: Bone alignment is normal. No fracture. Joint spaces are normal. There is an enthesophyte at plantar aspect of calcaneal tuberosity. There is ankle soft tissue swelling. IMPRESSION: 1. No fracture. Reviewed, dictated and finalized at location A. IMPRESSION: 1. No fracture.
== END ==
PROVIDERS: PCP Family Medicine; Visit Provider Nurse Practitioner Family
DX: M25.571 Pain in right ankle and joints of right foot (principal)
CPT/HCPCS: 73610

== ENCOUNTER 2020-08-17 10:44 | Outpatient (CLI) | payer MEDICARE, SELFPAY ==
[2020-08-17 11:29] LABS: Hematocrit 47.3 % (37.0-47.0); Hemoglobin 14.8 g/dL (12.0-15.0); Mean Corpuscular HGB Conc 31.3 g/dl (32-36); Mean Corpuscular Hemoglobin 29.5 pg (26-34); Mean Corpuscular Volume 94.4 fl (80-100); Mean Platelet Volume 9.3 fl (7.4-10.4); Platelet Count Result 226 k/mm3 (150-375); Red Blood Count 5.01 M/mm3 (4.2-5.4); Red Cell Distribution Width 14.1 % (11.5-14.5); White Blood Count 6.9 K/mm3 (4.5-10.0)
[2020-08-17 11:43] LABS: Alanine Aminotransferase 13 U/L (4-35); Albumin Level 4.1 g/dL (3.5-5.1); Alkaline Phosphatase 89 U/L (38-126); Anion Gap 8 mmol/L (8-16); Aspartate Amino Transferase 39 U/L (14-36); Bilirubin,Total 0.5 mg/dL (0.2-1.3); Blood Urea Nitrogen 12 mg/dL (7-17); Calcium 9.6 mg/dL (8.4-10.2); Carbon Dioxide 27 mmol/L (22-30); Chloride 105 mmol/L (98-107); Estimated Glomerular Filt Rate 53; Glucose 101 mg/dL (65-105); Hemoglobin A1C 6.1 % (<5.7); Potassium 3.8 mmol/L (3.4-5.0); Sodium 140 mmol/L (137-145)
[2020-08-17 11:53] LABS: Add Urine Microscopic? YES; Appearance Urine Cloudy (Clear); Bacteria Urine Trace /hpf; Bilirubin Urine Negative (Negative); Blood Urine Negative (Negative); Color Urine Yellow (Yellow); Glucose Urine UA Negative (Negative); Ketones Urine Negative (Negative); Leukocyte Esterase Ur 3+ LEU/UL (NEGATIVE); Mucus Urine Rare /lpf; Nitrate Urine Negative (Negative); Protein Urine 1+ mg/dL (Negative); RBC Urine 0-2 /hpf (0-2); Specific Grav Ur 1.015 (1.001-1.035); Squamous Epithelial Cell Urine Moderate /hpf (Few); Urobilinogen Urine Negative mg/dL (<2.0)
[2020-08-17 12:12] LABS: Thyroid Stimulating Hormone 0.162 uIU/mL (0.465-4.680)
[2020-08-17 12:59] LABS: Folic Acid > 20.0 ng/mL (2.76->20)
== END 2020-08-17 10:45 | disposition home or self-care (01) ==
PROVIDERS: PCP Family Medicine; Visit Provider Family Medicine
DX: E03.9 Hypothyroidism, unspecified (principal); I10 Essential (primary) hypertension; E78.2 Mixed hyperlipidemia; R73.01 Impaired fasting glucose
CPT/HCPCS: 36415; 80053; 81001; 82607; 82746; 83036; 84443; 85027

== ENCOUNTER → 2020-09-02 14:33 | Outpatient (CLI) | payer MEDICARE, SELFPAY ==
--- NOTE | ~2020-09-02 | MM_ITS ---
EXAMINATION: MM screening clara RT w sandy HISTORY: Screening right mammogram, history of left mastectomy TECHNIQUE: Craniocaudal and mediolateral oblique 3-D tomosynthesis images were obtained and synthetic 2-D images were generated. CAD analysis was submitted and interpreted. COMPARISON: 05/15/2018, 04/18/2017 BREAST PARENCHYMAL COMPOSITION: The breast is almost entirely fatty. FINDINGS: Scattered benign-appearing calcifications are present. There is no evidence of suspicious m ass, calcification, or architectural distortion to suggest malignancy. There has been no suspicious i nterval change. IMPRESSION: 1. No mammographic evidence of malignancy. 2. Recommend routine screening mammography while the patient remains in good health. BI-RADS Category 2: Benign finding(s). Reviewed, dictated and finalized at location A. IMPRESSION: 1. No mammographic evidence of malignancy. 2. Recommend routine screening mammography while the patient remains in good he alth. BI-RADS Category 2: Benign finding(s).
== END ==
PROVIDERS: Visit Provider Family Medicine
DX: Z12.31 Encounter for screening mammogram for malignant neoplasm of breast (principal)
CPT/HCPCS: 77063; 77067

== ENCOUNTER 2020-10-14 11:19 | Outpatient (CLI) | payer MEDICARE, SELFPAY | END 2020-10-14 11:20 | disposition home or self-care (01) | PROVIDERS: Visit Provider Family Medicine | DX: E03.9 Hypothyroidism, unspecified (principal) | CPT/HCPCS: 36415; 84443 ==

== ENCOUNTER 2020-11-23 09:46 | Outpatient (CLI) | payer MEDICARE, SELFPAY | END 2020-11-23 09:47 | disposition home or self-care (01) | PROVIDERS: PCP Family Medicine; Visit Provider Physician Assistant | DX: E03.9 Hypothyroidism, unspecified (principal) | CPT/HCPCS: 36415; 84443 ==

== ENCOUNTER → 2021-02-01 10:53 | Outpatient (CLI) | payer MEDICARE, SELFPAY ==
--- NOTE | ~2021-02-01 | XR_ITS ---
EXAMINATION: XR lumbar spine 2-3V DATE: 02/01/2021 11:21 INDICATION: Low back pain TECHNIQUE: Anteroposterior and lateral views of the lumbar spine, and cone-down lateral view of the l umbosacral junction were obtained. COMPARISON: 09/30/2015 FINDINGS: There are changes of posterior fusion from T11 through S1. There is interval vertebroplasty change at T10. A T11 compression fracture is stable with 1/5 vertebral body loss. No new fracture is identified. There is severe loss of intervertebral disc space height throughout the lumbar spine. Th e lumbar vertebral body heights are maintained. There has been interval antegrade intramedullary guanakito and interlocking intratrochanteric screw fixation of the left femur. IMPRESSION: 1. Severe lumbar spondylosis without acute findings or significant interval change. 2. Interval vertebroplasty of T10. Reviewed, dictated and finalized at location A. ER MIXER IMPRESSION: 1. Severe lumbar spondylosis without acute findings or significant interval nicholas nge. 2. Interval vertebroplasty of T10.
--- NOTE | ~2021-02-01 | XR_ITS ---
EXAMINATION: XR thoracic spine 2V DATE: 02/01/2021 11:21 INDICATION: Thoracic back pain TECHNIQUE: AP, lateral and lateral swimmer's views of the thoracic spine were obtained. COMPARISON: 05/01/2018 FINDINGS: Vertebroplasty changes noted at T10. There is a chronic and unchanged compression fracture of T11 with 1/5 anterior vertebral body height loss. Severe loss of intervertebral disc space height is present throughout the thoracic spine. No acute fracture is identified. Changes of posterior fusio n procedure are noted in the cervical spine. IMPRESSION: 1.Severe thoracic spondylosis without acute findings or significant interval change. Reviewed, dictated and finalized at location A. MS AGENT RIGHT OF WAY IMPRESSION: 1.Severe thoracic spondylosis without acute findings or significant interval ch evert.
== END ==
PROVIDERS: PCP Family Medicine; Visit Provider Nurse Practitioner Family
DX: M47.894 Other spondylosis, thoracic region (principal); M47.896 Other spondylosis, lumbar region
CPT/HCPCS: 72070; 72100

== ENCOUNTER → 2021-02-23 08:49 | Outpatient (CLI) | payer MEDICARE, SELFPAY ==
--- NOTE | ~2021-02-23 | XR_ITS ---
EXAMINATION: XR knee RT min 4V DATE: 02/23/2021 09:15 INDICATION: Right knee pain. TECHNIQUE: 4 views of right knee including standing views were obtained. COMPARISON: None. FINDINGS: Bone alignment is normal. No fracture. There is mild osteoarthritis of medial and patellofe moral compartments. There is chondrocalcinosis of the menisci. There is a moderate-sized knee joint e ffusion. IMPRESSION: 1. Mild right knee osteoarthritis. 2. Moderate-sized right knee joint effusion. Reviewed, dictated and finalized at location B. UND TELEMARKETER
== END ==
PROVIDERS: PCP Family Medicine; Visit Provider Physician Assistant
DX: M17.11 Unilateral primary osteoarthritis, right knee (principal); M25.461 Effusion, right knee
CPT/HCPCS: 73564

== ENCOUNTER → 2021-11-24 10:27 | Outpatient (CLI) | payer MEDICARE, SELFPAY ==
--- NOTE | ~2021-11-24 | XR_ITS ---
EXAMINATION: XR sacroiliac joints min 3V INDICATION: Sacroiliac joint pain TECHNIQUE: Three views of the sacroiliac joints are obtained. COMPARISON: None available FINDINGS: Bone alignment is normal. There is no fracture. There is no abnormal sclerosis or erosion o f the sacroiliac joints. There is antegrade intramedullary guanakito and interlocking intratrochanteric scr ew fixation of the left fusion changes are also noted in the visualized lumbar spine. femur. IMPRESSION: 1. No acute abnormality of the sacroiliac joints. Reviewed, dictated and finalized at location A.
== END ==
PROVIDERS: PCP Family Medicine; Visit Provider Nurse Practitioner Family
DX: M53.3 Sacrococcygeal disorders, not elsewhere classified (principal)
CPT/HCPCS: 72202

== ENCOUNTER 2021-11-26 09:33 | Emergency (ER) | payer MEDICARE, SELFPAY ==
--- NOTE | ~2021-11-26 | XR_ITS ---
EXAMINATION: XR hip LT 2V w AP pelvis INDICATION: Left hip pain TECHNIQUE: AP view the pelvis and two views of the left hip are obtained. COMPARISON: 11/24/2021 FINDINGS: There is antegrade intramedullary guanakito and interlocking intratrochanteric screw fixation of the left femur. Bone alignment is normal. No acute fracture is identified. There is mild osteoarthri tis of the hips. Orthopedic hardware appears intact. There are partially imaged surgical changes in t he lumbosacral spine. IMPRESSION: 1. No acute osseous abnormality. Reviewed, dictated and finalized at location A.
[2021-11-26 09:37] VITALS: BP 162/84; PULSE 70; RESP 16; TEMP 37.1; O2SAT 97
[2021-11-26 09:46] VITALS: BP 140/78; O2SAT 99
[2021-11-26] MEDS: ONDANSETRON HCL ODT 4 MG TABLET PO (10:45)
[2021-11-26] MEDS: HYDROmorphone HCL INJ (*CRX) 1 MG/ML SYR 0.5 MG IM (10:45)
--- NOTE | 2021-11-26 11:18 | ED.LOWEXIN ---
HPI - Extremity Injury (Lower) General Chief Complaint: Extremity Injury, Lower Stated Complaint: hip pain Time Seen by Provider: 11/26/21 09:55 Source: patient and family Limitations: no limitations History of Present Illness HPI Narrative: 81 years old white female came to the emergency room with her daughter from home complaining of left hip pain started over 1 week ago. Patient denies any trauma, she reported possible twist while moving around. Patient lives alone. History of left hip surgery years ago and the back surgery with hardware years ago. Patient is managed by a pain management physician. She ran out of tramadol. She denies any fever, chills, nausea, vomiting, headache, chest pain, shortness of breath, abdominal pain or back pain Related Data Home Medications Medication Instructions Recorded Confirmed cranberry concentrate-ascorbic 1 cap PO DAILY 07/08/19 08/18/21 acid 140 mg-100 mg capsule (Cranberry Urinary Comfort) psyllium husk 0.52 gram capsule 0.52 gm PO DAILY 08/12/19 08/18/21 (Metamucil) aspirin 81 mg tablet 81 mg PO DAILY 12/08/19 08/18/21 calcium carbonate 600 mg-vitamin 1 cap PO DAILY 12/08/19 08/18/21 D3 5 mcg (200 unit) capsule (Calcium 600 + D(3)) docusate sodium 100 mg tablet 100 mg PO 3XW 12/08/19 08/18/21 magnesium 250 mg tablet 250 mg PO DAILY 12/08/19 08/18/21 tamsulosin 0.4 mg capsule 0.4 mg PO DAILY 12/08/19 08/18/21 tizanidine 2 mg tablet 2 mg PO TID PRN 03/05/20 08/18/21 Allergies Allergy/AdvReac Type Severity Reaction Status Date / Time loratadine Allergy Intermediate Swelling Verified 08/18/21 09:30 of throat morphine Allergy Mild Confusion Verified 08/18/21 09:30 Review of Systems Review of Systems: All systems reviewed & are unremarkable except as noted in HPI and below PMFSH Past Medical History Medical History Cardiomyopathy Chronic back pain Chronic kidney disease, stage 3 (moderate) Chronic kidney disease, stage 3 unspecified Colovesical fistula Status post sigmoid colon resection with repair of colovesicular fistula, takedown of splenic flexure and hand-sewn colorectal anastomosis Degenerative disc disease Delirium Diverticulitis of large intestine with abscess 05/29/2019 Diverticulosis Emphysema of lung GI bleed History of breast cancer Left breast cancer 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 Kirkpatrick 07/11/2019: Colonic polyps with polypectomy in the mid descending and distal transverse; colitis; diverticulosis History of left mastectomy History of open sigmoidectomy 07/25/2019 sigmoidectomy with repair of colovesicular fistula, take down the splenic flexure, hand-sewn colorectal anastomosis performed by Dr. Morales History of repair of hiatal hernia Hx of rectal polypectomy Previous back surgery Rods inserted - CERVICAL and lumbar rods and screws SURGERIES X 4 S/P ORIF (open reduction internal fixation) fracture Left hip [facility] within the last couple months around September 2019 Family History Family History Father Malignant neoplasm of prostate Kidney malignancy Mother Emphysema of lung Sibling Diverticulitis large intestine Sister S/P colon resection Heart disease Social History Social History (R
[2021-11-26 11:27] VITALS: BP 137/78; PULSE 76; RESP 18; O2SAT 96
== END 2021-11-26 11:29 | disposition home or self-care (01) ==
PROVIDERS: Emergency Provider Emergency Medicine; PCP Family Medicine
DX: M25.552 Pain in left hip (principal); I12.9 Hypertensive chronic kidney disease with stage 1 through stage 4 chronic kidney disease, or unspecified chronic kidney disease; N18.30 Chronic kidney disease, stage 3 unspecified; I42.9 Cardiomyopathy, unspecified; E78.00 Pure hypercholesterolemia, unspecified; E03.9 Hypothyroidism, unspecified; E78.2 Mixed hyperlipidemia; M81.0 Age-related osteoporosis without current pathological fracture; Z86.73 Personal history of transient ischemic attack (TIA), and cerebral infarction without residual deficits; Z85.3 Personal history of malignant neoplasm of breast; Z90.49 Acquired absence of other specified parts of digestive tract; Z98.0 Intestinal bypass and anastomosis status; Z87.891 Personal history of nicotine dependence; Z79.51 Long term (current) use of inhaled steroids; Z79.82 Long term (current) use of aspirin; Z79.891 Long term (current) use of opiate analgesic
CPT/HCPCS: 73502; 96372; 99283; A9270; J1170

== ENCOUNTER → 2022-02-16 11:21 | Outpatient (CLI) | payer MEDICARE, SELFPAY ==
--- NOTE | ~2022-02-16 | XR_ITS ---
Clinical Indication: Shortness of breath, cough AP and lateral views of the chest: Comparison: 05/29/2019 Findings: Calcified granuloma left midlung noted. The lungs are otherwise clear, without evidence of focal consolidation or pleural effusion. Cardiomediastinal silhouette is within normal limits. Cervi grady and thoracolumbar spinal fixation hardware again noted. Stable vertebroplasty cement noted at a m id to lower thoracic vertebral body. Impression: No acute abnormality. Chronic findings in the spine, as above. Reviewed, dictated and finalized at location M. ENGINE OPERATOR COMPRESSORS Impression: No acute abnormality. Chronic findings in the spine, as above.
== END ==
PROVIDERS: PCP Family Medicine; Visit Provider Family Medicine
DX: R05.9 Cough, unspecified (principal)
CPT/HCPCS: 71046

== ENCOUNTER 2022-12-15 08:09 | Emergency (ER) | payer MEDICARE, SELFPAY ==
--- NOTE | ~2022-12-15 | XR_ITS ---
AP view of the pelvis and AP and lateral views of the left hip Clinical history: Pain COMPARISON: 10/30/2021 Findings: No acute fracture or dislocation is seen. Osseous alignment is stable. Prior ORIF at the pr oximal left femur is unchanged from prior exam. Lumbosacral spinal fixation hardware is also unchange d. Soft tissues are unremarkable. Impression: No acute reality. Prior ORIF of the proximal left femur, unchanged. Lumbosacral spinal fixation hardware, unchanged. Reviewed, dictated and finalized at location M. Impression: No acute reality. Prior ORIF of the proximal left femur, unchanged. Lumbosacral spinal fixation hardware, unchanged.
--- NOTE | ~2022-12-15 | CT_ITS ---
CT ANGIOGRAM NECK AND HEAD History: Left-sided weakness. Technique: Axial noncontrast imaging of the brain was performed. Serial spiral axial images through t he head and neck were then obtained during arterial phase IV injection of 100 cc of Omnipaque 350. 3- D postprocessing and MIP images were then reconstructed on the remote workstation. Dose reduction dilcia hnique was used on this scan by utilizing automated exposure control and iterative reconstruction dilcia hnique. The dose-length product (DLP) was 1659.04 mGy-cm. CTA neck findings: Bilateral vertebral arteries are patent. Bilateral common carotid, internal carot id, and external carotid arteries are patent. Calcified plaque at the origin of the left internal car otid artery results in stenosis of approximately 30 %. There is calcified plaque at the proximal righ t internal carotid artery, without significant stenosis. The proximal right internal carotid artery d emonstrates 0% stenosis relative to the normal distal artery lumen diameter. The proximal left it intern al carotid artery demonstrates 30% stenosis relative to the normal distal artery lumen diameter. CTA head findings: Distal vertebral arteries, basilar artery, and posterior cerebral arteries are pat ent. Distal right internal carotid artery terminates as the right PICA, normal variant. Distal it intern al carotid arteries, middle cerebral arteries, and anterior cerebral arteries are patent. No large ve ssel occlusion. No stenosis or aneurysm. Axial noncontrast imaging of brain demonstrates no evidence for acute infarct, intracranial hemorrhag e, or mass lesion. Ventricles and subarachnoid spaces are mildly dilated. Paranasal sinuses and masto id air cells are clear. Impression: No large vessel occlusion. 30% stenosis of the proximal left internal carotid artery, as detailed above. Reviewed, dictated and finalized at location M. Impression: No large vessel occlusion. 30% stenosis of the proximal left internal carotid artery, as detailed above.
[2022-12-15 08:17] VITALS: BP 181/91; PULSE 77; RESP 18; TEMP 36.4; O2SAT 97
--- NOTE | 2022-12-15 08:51 | ED.FALL ---
HPI - Fall General Chief Complaint: Fall Stated Complaint: GLF Time Seen by Provider: 12/15/22 08:10 History of Present Illness HPI Narrative: 82-year-old female on Eliquis presenting the emergency department for evaluation of having some left-sided weakness. Patient states that she woke up this morning she was having persistent left-sided weakness and felt woozy on the left side . Patient states that whenever she tried to walk she leaned to the left. Patient reports is what caused a ground-level fall. Patient does complain of some left hip pain and patient did strike her head during the fall. Patient denies any loss consciousness. Patient does have a history of a total left arthroplasty in 2019 Related Data Home Medications Medication Instructions Recorded Confirmed cranberry concentrate-ascorbic 1 cap PO DAILY 07/08/19 10/05/22 acid 140 mg-100 mg capsule (Cranberry Urinary Comfort) psyllium husk 0.52 gram capsule 0.52 gm PO DAILY 08/12/19 10/05/22 (Metamucil) aspirin 81 mg tablet 81 mg PO DAILY 12/08/19 10/05/22 calcium carbonate 600 mg-vitamin 1 cap PO DAILY 12/08/19 10/05/22 D3 5 mcg (200 unit) capsule (Calcium 600 + D(3)) docusate sodium 100 mg tablet 100 mg PO 3XW 12/08/19 10/05/22 magnesium 250 mg tablet 250 mg PO DAILY 12/08/19 10/05/22 tamsulosin 0.4 mg capsule 0.4 mg PO DAILY 12/08/19 10/05/22 tizanidine 2 mg tablet 2 mg PO TID PRN 03/05/20 10/05/22 Allergies Allergy/AdvReac Type Severity Reaction Status Date / Time loratadine Allergy Intermediate Swelling Verified 10/05/22 09:38 of throat morphine Allergy Mild Confusion Verified 10/05/22 09:38 Review of Systems Review of Systems: All systems reviewed & are unremarkable except as noted in HPI and below [facility] Past Medical History Medical History Cardiomyopathy Chronic back pain Chronic kidney disease, stage 3 (moderate) Chronic kidney disease, stage 3 unspecified Colovesical fistula Status post sigmoid colon resection with repair of colovesicular fistula, takedown of splenic flexure and hand-sewn colorectal anastomosis Degenerative disc disease Delirium Diverticulitis of large intestine with abscess 05/29/2019 Diverticulosis Emphysema of lung GI bleed History of breast cancer Left breast cancer 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 Kirkpatrick 07/11/2019: Colonic polyps with polypectomy in the mid descending and distal transverse; colitis; diverticulosis History of left mastectomy History of open sigmoidectomy 07/25/2019 sigmoidectomy with repair of colovesicular fistula, take down the splenic flexure, hand-sewn colorectal anastomosis performed by Dr. Morales History of repair of hiatal hernia Hx of rectal polypectomy Previous back surgery Rods inserted - CERVICAL and lumbar rods and screws SURGERIES X 4 S/P ORIF (open reduction internal fixation) fracture Left hip [facility] within the last couple months around September 2019 Family History Family History Father Malignant neoplasm of prostate Kidney malignancy Mother Emphysema of lung Sibling Diverticulitis large intestine Sister S/P colon resection Heart disease Social History Social History (Reviewed 10/05/22 @ 09:38 by Mable Ferguson
[2022-12-15 09:17] LABS: Basophils Percent Auto 0.4 % (0.2-1.2); Eosinophils Absolute Auto 0.1 K/mm3 (0-0.3); Eosinophils Percent Auto 1.5 % (0-4.4); Hematocrit 42.3 % (37.0-47.0); Hemoglobin 13.2 g/dL (12.0-15.0); Immature Granulocyte Absolute 0.02 K/mm3 (0.00-0.031); Immature Granulocyte Percent A 0.3 % (0-0.5); Lymphocytes Absolute Auto 1.31 K/mm3 (0.9-3.2); Lymphocytes Percent Auto 19.6 % (18.3-44.2); Mean Corpuscular HGB Conc 31.2 g/dl (32-36); Mean Corpuscular Hemoglobin 29.3 pg (26-34); Mean Corpuscular Volume 93.8 fl (80-100); Mean Platelet Volume 9.7 fl (7.4-10.4); Monocytes Absolute Auto 0.6 K/mm3 (0.1-0.6); Monocytes Percent Auto 8.2 % (2.6-8.5); Neutrophils Absolute Auto 4.7 K/mm3 (1.3-6.7); Platelet Count Result 200 k/mm3 (150-375); Red Blood Count 4.51 M/mm3 (4.2-5.4); Red Cell Distribution Width 13.7 % (11.5-14.5); White Blood Count 6.7 K/mm3 (4.5-10.0)
[2022-12-15 09:30] LABS: Alanine Aminotransferase 11 U/L (6-35); Albumin Level 3.7 g/dL (3.5-5.1); Alkaline Phosphatase 81 U/L (38-126); Anion Gap 5 mmol/L (8-16); Aspartate Amino Transferase 27 U/L (14-36); Bilirubin,Total 0.6 mg/dL (0.2-1.3); Blood Urea Nitrogen 15 mg/dL (7-17); Calcium 9.1 mg/dL (8.4-10.2); Carbon Dioxide 27 mmol/L (22-30); Chloride 105 mmol/L (98-107); Estimated CRCL calculation 39 ml/min; Estimated Glomerular Filt Rate > 60; Glucose 109 mg/dL (65-110); Potassium 3.7 mmol/L (3.4-5.0); Sodium 137 mmol/L (137-145)
[2022-12-15 09:35] LABS: Partial Thromboplastin Time 24.7 SECONDS (22.3-36.8); Prothrombin Time 13.2 Seconds (11.1-14.7)
[2022-12-15 11:08] LABS: Appearance Urine Cloudy (Clear); Bacteria Urine None Seen /hpf; Bilirubin Urine Negative (Negative); Blood Urine Negative (Negative); Color Urine Yellow (Yellow); Glucose Urine UA Negative (Negative); Ketones Urine Negative (Negative); Leukocyte Esterase Ur 2+ LEU/UL (Negative); Need Manual Microscopic Reviewed; Nitrate Urine Negative (Negative); Non Pathogenic Casts 0-2; Protein Urine Negative (Negative); RBC Urine 0-2 /hpf (0-2); Specific Grav Ur 1.023 (1.001-1.035); Squamous Epithelial Cell Urine None seen /hpf (Few); Urobilinogen Urine 0.2 mg/dL (<2.0); WBC Urine 0-5 /hpf; pH Urine 7.5 (5.0-9.0)
[2022-12-15 11:09] LABS: Add Urine Microscopic? YES
[2022-12-15 12:41] VITALS: BP 168/84; PULSE 82; RESP 16; O2SAT 98
== END 2022-12-15 12:42 | disposition home or self-care (01) ==
PROVIDERS: Emergency Provider Emergency Medicine; PCP Family Medicine
DX: G45.9 Transient cerebral ischemic attack, unspecified (principal); S79.912A Unspecified injury of left hip, initial encounter; I12.9 Hypertensive chronic kidney disease with stage 1 through stage 4 chronic kidney disease, or unspecified chronic kidney disease; N18.30 Chronic kidney disease, stage 3 unspecified; J43.9 Emphysema, unspecified; I69.90 Unspecified sequelae of unspecified cerebrovascular disease; E78.2 Mixed hyperlipidemia; M19.90 Unspecified osteoarthritis, unspecified site; M81.0 Age-related osteoporosis without current pathological fracture; Z87.891 Personal history of nicotine dependence; Z90.711 Acquired absence of uterus with remaining cervical stump; Z98.42 Cataract extraction status, left eye; Z98.41 Cataract extraction status, right eye; Z90.49 Acquired absence of other specified parts of digestive tract; Z79.82 Long term (current) use of aspirin; Z79.01 Long term (current) use of anticoagulants; I65.22 Occlusion and stenosis of left carotid artery; W18.39XA Other fall on same level, initial encounter
CPT/HCPCS: 36415; 70496; 70498; 73502; 80053; 81001; 85025; 85610; 85730; 99284; Q9967

== ENCOUNTER → 2023-03-28 09:53 | Outpatient (CLI) | payer MEDICARE, SELFPAY ==
--- NOTE | ~2023-03-28 | XR_ITS ---
XR sacrum coccyx min 2V DATE: 03/28/2023 10:24 INDICATION: Fall. Sacral and coccygeal injury TECHNIQUE: AP, angled AP and lateral views COMPARISON: None FINDINGS: There is prominent diffuse osteopenia. Normal alignment at the pubic symphysis and sacroiliac joints. The lateral view is rotated, limiting the examination. No apparent sacral or coccygeal fracture is evident on this limited examination. CT examination or ra dionuclide bone scan would be more sensitive for detection of any sacral insufficiency fracture. Status post posterior surgical fusion of the lumbosacral spine. Impression screws of proximal left femur. IMPRESSION: Osteopenia Status post lumbosacral surgical fusion Postoperative change of the left femur No apparent sacral or coccygeal fracture. CT examination or bone scan would be more sensitive for det ection of any sacral insufficiency fracture. Reviewed, dictated and finalized at location L. 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 IMPRESSION: Osteopenia Status post lumbosacral surgical fusion Postoperative change of the left femur No apparent sacral or coccygeal fracture. CT examination or bone scan would be more sensitive for detection of any sacral insufficiency fracture.
== END ==
PROVIDERS: PCP Physician Assistant; Visit Provider Physician Assistant
DX: M53.3 Sacrococcygeal disorders, not elsewhere classified (principal); M85.88 Other specified disorders of bone density and structure, other site; Z98.1 Arthrodesis status
CPT/HCPCS: 72220

== ENCOUNTER 2023-05-16 11:35 | Outpatient (CLI) | payer MEDICARE, SELFPAY ==
--- NOTE | ~2023-05-16 | MM_ITS ---
EXAMINATION: MM screening clara RT w sandy HISTORY: Screening TECHNIQUE: Craniocaudal and mediolateral oblique 3-D tomosynthesis images were obtained and synthetic 2-D images were generated. CAD analysis was submitted and interpreted. COMPARISON: Comparison to multiple prior studies sequentially, with oldest reviewed study dated 04/18. BREAST PARENCHYMAL COMPOSITION: Not Dense: Breast are almost entirely fatty. FINDINGS: There is no evidence of suspicious mass, calcification, or architectural distortion to sugg est malignancy in the right breast. There has been no suspicious interval change. IMPRESSION: 1. No mammographic evidence of malignancy. 2. Recommend routine screening mammography in one year. BI-RADS Category 1: Negative Reviewed, dictated and finalized at location A.
== END 2023-05-16 11:36 ==
LOC: MICIMG 11:36
PROVIDERS: PCP Family Medicine; Visit Provider Family Medicine
DX: Z12.31 Encounter for screening mammogram for malignant neoplasm of breast (principal)
CPT/HCPCS: 77063; 77067

== ENCOUNTER 2023-08-29 09:53 | Outpatient (CLI) | payer MEDICARE, SELFPAY ==
[2023-08-29 10:31] LABS: Hematocrit 45.7 % (37.0-47.0); Hemoglobin 14.8 g/dL (12.0-15.0); Mean Corpuscular HGB Conc 32.4 g/dl (32-36); Mean Corpuscular Volume 92.7 fl (80-100); Mean Platelet Volume 9.9 fl (7.4-10.4); Platelet Count Result 242 k/mm3 (150-375); Red Blood Count 4.93 M/mm3 (4.2-5.4); Red Cell Distribution Width 13.2 % (11.5-14.5); White Blood Count 7.3 K/mm3 (4.5-10.0)
[2023-08-29 10:49] LABS: Alanine Aminotransferase 11 U/L (6-35); Albumin Level 4.2 g/dL (3.5-5.1); Alkaline Phosphatase 100 U/L (38-126); Anion Gap 7 mmol/L (4-12); Aspartate Amino Transferase 30 U/L (14-36); Bilirubin,Total 0.8 mg/dL (0.2-1.3); Blood Urea Nitrogen 12 mg/dL (7-17); Calcium 9.5 mg/dL (8.4-10.2); Carbon Dioxide 30 mmol/L (22-30); Chloride 103 mmol/L (98-107); Cholesterol 150 mg/dL (0-200); Estimated Glomerular Filt Rate > 60; Glucose 110 mg/dL (65-110); HDL Direct 52 mg/dL; Potassium 3.6 mmol/L (3.4-5.0); Sodium 140 mmol/L (137-145); Triglycerides 192 mg/dL (<150)
[2023-08-29 10:59] LABS: LDL Cholesterol Direct 71 mg/dL
[2023-08-29 11:04] LABS: Hemoglobin A1C 6.2 % (<5.7)
[2023-08-29 11:17] LABS: Thyroid Stimulating Hormone 0.199 uIU/mL (0.465-4.680)
[2023-08-29 12:59] LABS: Appearance Urine Clear (Clear); Bacteria Urine None Seen /hpf; Bilirubin Urine Negative (Negative); Blood Urine Negative (Negative); Color Urine Yellow (Yellow); Glucose Urine UA Negative (Negative); Ketones Urine Negative (Negative); Leukocyte Esterase Ur 1+ LEU/UL (Negative); Need Manual Microscopic Reviewed; Nitrate Urine Negative (Negative); Non Pathogenic Casts 0-2; Protein Urine Negative (Negative); RBC Urine 0-2 /hpf (0-2); Squamous Epithelial Cell Urine None Seen /hpf (Few); WBC Urine 0-5 /hpf (0-3)
[2023-08-29 13:01] LABS: Add Urine Microscopic? YES
== END 2023-08-29 09:54 | disposition home or self-care (01) ==
LOC: ANHLAB 10:01
PROVIDERS: PCP Family Medicine; Visit Provider Family Medicine
DX: E03.9 Hypothyroidism, unspecified (principal); R73.01 Impaired fasting glucose; E78.2 Mixed hyperlipidemia; I12.9 Hypertensive chronic kidney disease with stage 1 through stage 4 chronic kidney disease, or unspecified chronic kidney disease; N18.30 Chronic kidney disease, stage 3 unspecified; Z00.00 Encounter for general adult medical examination without abnormal findings; M54.6 Pain in thoracic spine
CPT/HCPCS: 36415; 80053; 80061; 81001; 83036; 84443; 85027

== ENCOUNTER 2024-01-18 11:19 | Inpatient (IN) | payer MEDICARE, SELFPAY ==
[2024-01-18] VITALS (22 sets, daily range): BP systolic 109–199; BP diastolic 61–153; PULSE 85–118; RESP 16–91; TEMP 36.4–39.4; O2SAT 92–98; BMI 24.2
--- NOTE | ~2024-01-18 | XR_ITS ---
EXAMINATION: XR chest 1V DATE: 01/18/2024 12:47 INDICATION: Abdominal pain and weakness TECHNIQUE: frontal view of the chest was obtained. COMPARISON: Chest radiograph dated 02/16/[address] dated 01/18/2024 FINDINGS: Mild coarse reticular opacities at the bilateral lower lung zones. Calcified nodules in the left midl kayla zone consistent with old granulomatous disease. No pleural effusion or pneumothorax. Borderline h eart size accounting for AP technique. Tortuous thoracic aorta. Lower thoracic vertebroplasty, likely T10. Multilevel instrumented cervical and lumbar/lower thoracic posterior spinal fusion. IMPRESSION: 1. Coarse reticular opacities at the bilateral lung bases which could represent atelectasis, mild pul monary edema, pneumonia or more chronic interstitial lung disease. Line 2. Borderline heart size. Reviewed, dictated and finalized at location B. RIBUTION SPECIALIST IMPRESSION: 1. Coarse reticular opacities at the bilateral lung bases which could represent atelectasis, mild pulmonary edema, pneumonia or more chronic interstitial lung disease. Line 2. Borderline heart size.
--- NOTE | ~2024-01-18 | CT_ITS ---
EXAMINATION: CT brain wo con DATE: 01/18/2024 18:11 INDICATION: Altered mental status. TECHNIQUE: Computed tomography (CT) of the head was performed without intravenous contrast. The mA wa s adjusted according to patient size. Iterative reconstruction technique was employed. The dose-lengt h product was 681.00 mGy-cm. COMPARISON: Head CT 12/15/2022 FINDINGS: There is mild motion artifact. There are scattered areas of low attenuation in the cerebral white matter. There is no intracranial hemorrhage, acute infarction, or abnormal intracranial mass l esion. There is an old infarct in the left cerebellum. The ventricles are normal in size. The mastoid air cells are normal. The paranasal sinuses are clear. There are likely changes of ocular lens repla cement surgeries. IMPRESSION: 1. 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 2. Stable moderate nonspecific cerebral white matter disease, which likely represents chronic small v essel ischemic disease. Reviewed, dictated and finalized at location A. ER BLOCK CUTTER IMPRESSION: 1. 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 2. Stable moderate nonspecific cerebral white matter disease, which likely repr esents chronic small vessel ischemic disease.
--- NOTE | ~2024-01-18 | CT_ITS ---
EXAMINATION: CT abdomen pelvis w con DATE: 01/18/2024 12:42 INDICATION: Diffuse abdominal pain. TECHNIQUE: Computed tomography (CT) of the abdomen and pelvis was performed with 100 mL Omnipaque-350 intravenous contrast. Automated exposure control and iterative reconstruction technique were employe d. The dose-length product was 547.70 mGy-cm. COMPARISON: 12/08/2019 FINDINGS: Mild groundglass opacities and irregular septal line thickening at the dependent aspect of the bilate ral lower lobes with some associated peripheral cystic lung disease which could represent atelectasis or less likely mild pulmonary edema or pneumonia superimposed over mild emphysema versus UIP pattern chronic interstitial lung disease. Borderline heart size with right atrial enlargement. Atherosclero tic coronary artery calcifications. No pericardial or pleural effusion. Small sliding-type hiatal her sandra with suggestion of prior Haven fundoplication. Liver, gallbladder, spleen, pancreas and bilatera l adrenal glands are normal. Small region of cortical scarring at both kidneys which could represent sequela prior infection or infarction. Moderate amount of stool scattered throughout the colon. There is mild sigmoid and descending colon predominant diverticulosis without adjacent from trace strandin g to suggest diverticulitis. No bowel obstruction. Bladder is normal. The uterus is not identified an d has likely been surgically resected. No free intraperitoneal gas or fluid. No pathologically enlarg ed abdominal or pelvic lymphadenopathy. Chronic T10 compression fractures with prior vertebroplasty. There is T11-S1 posterior spinal fusion with bilateral vertical guanakito and pedicle screw fixation. Inter nal fixation at the proximal left femur with an antegrade intramedullary guanakito and a pair of femoral ne ck screws. IMPRESSION: 1. No acute intra-abdominal/pelvic process. 2. Mild groundglass opacity and irregular septal line thickening in the dependent lower lungs which c ould be due to emphysema, mild pulmonary edema or less likely pneumonia superimposed over mild emphys tiago or more chronic UIP pattern chronic interstitial lung disease. 3. Borderline heart size with right atrial enlargement. 4. Small sliding-type hiatal hernia with change of prior Haven fundoplication. 4. Mild descending and sigmoid colon diverticulosis. Reviewed, dictated and finalized at location B. T TEAM MEMBER IMPRESSION: 1. No acute intra-abdominal/pelvic process. 2. Mild groundglass opacity and irregular septal line thickening in the depende nt lower lungs which could be due to emphysema, mild pulmonary edema or less li sweetie pneumonia superimposed over mild emphysema or more chronic UIP pattern chr onic interstitial lung disease. 3. Borderline heart size with right atrial enlargement. 4. Small sliding-type hiatal hernia with change of prior Haven fundoplication. 4. Mild descending and sigmoid colon diverticulosis.
--- NOTE | ~2024-01-18 | XR_ITS ---
EXAMINATION: XR chest 1V portable DATE: 01/20/2024 08:00 INDICATION: Pneumonia TECHNIQUE: frontal view of the chest was obtained. COMPARISON: Chest radiograph and CT dated 01/18/2024 FINDINGS: Calcified nodules in the left midlung zone consistent with old granulomatous disease. Mild reticular opacities at the bilateral lung bases which could represent atelectasis, mild pulmonary edema or pneu monia. No pleural effusion or pneumothorax. Mild cardiomegaly. T11 compression fracture with prior ve rtebroplasty. Partially visualized instrumented lower cervical and thoracolumbar posterior spinal fus ion. IMPRESSION: 1. Mild reticular opacities at the bilateral lung bases most likely atelectasis with differential inc luding mild pulmonary edema or pneumonia. 2. Cardiomegaly. Reviewed, dictated and finalized at location A. CARE INTERVIEWER IMPRESSION: 1. Mild reticular opacities at the bilateral lung bases most likely atelectasis with differential including mild pulmonary edema or pneumonia. 2. Cardiomegaly.
--- NOTE | ~2024-01-18 | CT_ITS ---
EXAMINATION: CTA chest PE protocol DATE: 01/18/2024 18:18 TEA BLENDER INDICATION: Altered mental status, hypoxia TECHNIQUE: Computed tomographic angiography (CTA) of the chest was performed with 100 mL Omnipaque-35 0 intravenous contrast. The dose-length product was 337.65 mGy-cm. Maximum intensity projection 3D-re constructions of the aorta and other arteries were constructed by the technologist on a separate work station. COMPARISON: None. FINDINGS: No filling defect is identified within the main or proximal pulmonary arteries. Evaluation of the subsegmental and subsegmental pulmonary arteries is limited secondary to motion art ifact from rapid respiration. The thoracic aorta is unremarkable without aneurysmal dilatation or dissection The heart is enlarged, without pericardial effusion. Bibasilar pleural thickening and atelectasis. Fatty atrophy of the paraspinous musculature. Fixation hardware within the lower cervical and thoracic spines. IMPRESSION: No pulmonary embolus. No aortic dissection. Bibasilar pleural thickening and atelectasis. Reviewed, dictated and finalized at location A. BLENDER
--- NOTE | ~2024-01-18 | CT_ITS ---
EXAMINATION: CT cervical spine wo con DATE: 01/18/2024 18:11 INDICATION: Neck injury. TECHNIQUE: Computed tomography (CT) of the cervical spine was performed without intravenous contrast. Automated exposure control and iterative reconstruction technique were employed. The dose-length pro duct was 222.09 mGy-cm. COMPARISON: None FINDINGS: There is mild emphysema. There is 8 degrees levocurvature of cervical spine. There is 4 mm anterolisthesis of C3 on C4. Vertebral body heights are normal. There is severely decreased disc heig ht from C2-C3 through C7-T1. There are changes of posterior fusion procedure from C3 to C7 with later al mass screws. 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 There is severe bilateral facet joint osteoarthritis. There is moderate right and mild left neural foraminal stenosis. There is mild central canal stenosis. C3-C4: There is ankylosis of the uncovertebral joints with mild hypertrophy. There is mild bilateral facet joint hypertrophy. There is mild bilateral neural foraminal stenosis. There is mild central can al stenosis. C4-C5: There is moderate bilateral uncovertebral joint hypertrophy. There is mild bilateral facet mariano nt hypertrophy. There is mild bilateral neural foraminal stenosis. There is mild central canal stenos is. C5-C6: There is severe bilateral uncovertebral joint hypertrophy. There is mild bilateral facet joint hypertrophy. There is mild bilateral neural foraminal stenosis. There is no central canal stenosis. There is posterior decompression. C6-C7: There is severe bilateral uncovertebral joint hypertrophy. There is mild bilateral facet joint hypertrophy. There is mild bilateral neural foraminal stenosis. There is mild central canal stenosis . There is posterior decompression. C7-T1: There is severe bilateral uncovertebral joint osteoarthritis. There is severe bilateral facet joint osteoarthritis. There is moderate bilateral neural foraminal stenosis. There is mild central ca nal stenosis. IMPRESSION: 1. No fracture. 2. Severe cervical spondylosis. 3. Posterior fusion procedure from C3 to C7. Reviewed, dictated and finalized at location A. JOINER
[2024-01-18 11:48] LABS: Basophils Percent Auto 0.3 % (0.2-1.2); Eosinophils Percent Auto 0.1 % (0-4.4); Hemoglobin 15.8 g/dL (12.0-15.0); Immature Granulocyte Absolute 0.02 K/mm3 (0.00-0.031); Immature Granulocyte Percent A 0.3 % (0-0.5); Immature Platelet Fraction Pct 2.8 % (0.9-11.2); Lymphocytes Absolute Auto 0.52 K/mm3 (0.9-3.2); Lymphocytes Percent Auto 7.5 % (18.3-44.2); Mean Corpuscular HGB Conc 33.6 g/dl (32-36); Mean Corpuscular Hemoglobin 30.6 pg (26-34); Mean Corpuscular Volume 91.1 fl (80-100); Mean Platelet Volume 9.6 fl (7.4-10.4); Monocytes Absolute Auto 0.3 K/mm3 (0.1-0.6); Neutrophils Absolute Auto 6.1 K/mm3 (1.3-6.7); Neutrophils Percent Auto 87.8 % (45.5-73.1); Platelet Count Result 183 k/mm3 (150-375); Red Blood Count 5.16 M/mm3 (4.2-5.4); Red Cell Distribution Width 13.3 % (11.5-14.5); White Blood Count 6.9 K/mm3 (4.5-10.0)
[2024-01-18 12:00] LABS: Alanine Aminotransferase 16 U/L (6-35); Albumin Level 4.4 g/dL (3.5-5.1); Alkaline Phosphatase 108 U/L (38-126); Anion Gap 5 mmol/L (4-12); Aspartate Amino Transferase 42 U/L (14-36); Bilirubin,Total 0.8 mg/dL (0.2-1.3); Blood Urea Nitrogen 11 mg/dL (7-17); Calcium 9.2 mg/dL (8.4-10.2); Carbon Dioxide 30 mmol/L (22-30); Chloride 98 mmol/L (98-107); Estimated CRCL calculation 38 ml/min; Estimated Glomerular Filt Rate > 60; Glucose 134 mg/dL (65-110); Lipase 37 U/L (23-300); Potassium 3.4 mmol/L (3.4-5.0); Sodium 133 mmol/L (137-145)
--- NOTE | 2024-01-18 12:01 | ECG_ITS ---
Test Date: 2024-01-18 12:24:51 Measurements Intervals [place] Rate: 92 P: 11 ND: 172 QRS: 101 QRSD: 150 T: -3 QT: 403 QTc: 500 Interpretive Statements SINUS RHYTHM RIGHT AXIS DEVIATION POSSIBLE LEFT ATRIAL ENLARGEMENT RIGHT BUNDLE BRANCH BLOCK BASELINE ARTIFACT- I, II, III, AVR, AVL, AVF, V1-V6 ABNORMAL ECG No previous ECG available for comparison Electronically Signed On 01-18-2024 12:27:04 CONSTRUCTION MATERIALS TESTER by Tal Hernandez D.O.
[2024-01-18 12:24] LABS: Fractional Inspired Oxygen 21 %; PCO2 VBG 36.7 mmHg (42.0-48.0)
[2024-01-18 12:27] LABS: Partial Thromboplastin Time 21.1 Seconds (22.3-36.8); Prothrombin Time 13.2 Seconds (11.1-14.7)
[2024-01-18 12:31] LABS: Device ROOM AIR; PO2 VBG < 27.0 mmHg (35.0-45.0); pH VBG 7.451 (7.300-7.400)
[2024-01-18 12:36] LABS: Estimated CRCL calculation 34 ml/min; Estimated Glomerular Filt Rate > 60
[2024-01-18 12:37] LABS: Magnesium 1.7 mg/dL (1.6-2.3); Phosphorus 3.2 mg/dL (2.5-4.5)
[2024-01-18 12:38] LABS: Troponin I < 0.012 ng/mL (0.000-0.034)
[2024-01-18] MEDS: SODIUM CHLORIDE 0.9% 999 ML IV CONT (12:47)
[2024-01-18 12:55] LABS: Lactic Acid Reflex 1.5 mmol/L (0.7-2.0)
[2024-01-18 13:22] LABS: Influenza A QL RT-PCR Negative (Negative); Influenza B QL RT-PCR Negative (Negative); RSV RNA, RT-PCR Negative (Negative); SARS-CoV-2 RNA PCR Negative (Negative)
[2024-01-18 13:23] LABS: Add Urine Microscopic? YES; Appearance Urine Cloudy (Clear); Bacteria Urine None Seen /hpf; Bilirubin Urine Negative (Negative); Blood Urine Negative (Negative); Color Urine Yellow (Yellow); Glucose Urine UA Negative (Negative); Ketones Urine Trace mg/dL (Negative); Leukocyte Esterase Ur Negative LEU/UL (Negative); Nitrate Urine Negative (Negative); Non Pathogenic Casts 0-2; Protein Urine 1+ mg/dL (Negative); Specific Grav Ur 1.025 (1.001-1.035); Squamous Epithelial Cell Urine None Seen /hpf (Few); WBC Urine 0-5 /hpf (0-3)
[2024-01-18 13:45] LABS: Glucose Point of Care 114 mg/dl (65-105)
--- NOTE | 2024-01-18 15:16 | ECG_ITS ---
Test Date: 2024-01-18 15:29:29 Measurements Intervals [place] Rate: 109 P: 36 VT: 204 QRS: 107 QRSD: 151 T: -7 QT: 379 QTc: 511 Interpretive Statements SINUS TACHYCARDIA RIGHT AXIS DEVIATION RIGHT BUNDLE BRANCH BLOCK BASELINE ARTIFACT- I, II, III, AVR, AVL, AVF, V1-V6 ABNORMAL ECG Compared to ECG 01/18/2024 12:24:51 HEART RATE HAS INCREASED Electronically Signed On 01-18-2024 15:48:26 LAWN CARE TECHNICIAN by Tal Hernandez D.O.
[2024-01-18 16:09] LABS: Troponin I 0.021 ng/mL (0.000-0.034)
--- NOTE | 2024-01-18 16:30 | ED.GENADULT ---
HPI - General Adult General Chief complaint: Abdominal Pain Stated complaint: abd pain, weakness Time Seen by Provider: 01/18/24 11:46 History of Present Illness HPI narrative: This is an 83-year-old woman sent from home for shakes rigors and altered mental status. The patient's daughter tried to speak to on the phone but could not reach her. Then her cleaning woman came over and she was much more confused than usual. She was shaking and complaining of abdominal pain. they then brought her to the hospital for further evaluation. The patient is altered and is not able to provide much useful information. She kept saying that her stomach hurt. She denied fevers chills chest pain difficulty breathing or urinary symptoms. She does not or last bowel movements but she is still passing gas. the patient's daughter arrived several hours after arrival says she has had some diarrhea last week. Related Data Home Medications Medication Instructions Recorded Confirmed cranberry concentrate-ascorbic 1 cap PO DAILY 07/08/19 11/08/23 acid 140 mg-100 mg capsule (Cranberry Urinary Comfort) aspirin 81 mg tablet 81 mg PO DAILY 12/08/19 11/08/23 calcium 600 mg (as 1 cap PO DAILY 12/08/19 11/08/23 carbonate)-vitamin D3 5 mcg (200 unit) capsule (Calcium 600 + D(3)) docusate sodium 100 mg tablet 100 mg PO 3XW 12/08/19 11/08/23 magnesium 250 mg tablet 250 mg PO DAILY 12/08/19 11/08/23 Allergies Allergy/AdvReac Type Severity Reaction Status Date / Time loratadine Allergy Intermediate Swelling Verified 11/08/23 10:59 of throat morphine Allergy Mild Confusion Verified 11/08/23 10:59 [facility] Past Medical History Medical History Cardiomyopathy Chronic back pain Chronic kidney disease, stage 3 (moderate) Chronic kidney disease, stage 3 unspecified Colovesical fistula Status post sigmoid colon resection with repair of colovesicular fistula, takedown of splenic flexure and hand-sewn colorectal anastomosis Degenerative disc disease Delirium Dementia Diverticulitis of large intestine with abscess 05/29/2019 Diverticulosis Emphysema of lung GI bleed History of breast cancer Left breast cancer 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 Kirkpatrick 07/11/2019: Colonic polyps with polypectomy in the mid descending and distal transverse; colitis; diverticulosis History of left mastectomy History of open sigmoidectomy 07/25/2019 sigmoidectomy with repair of colovesicular fistula, take down the splenic flexure, hand-sewn colorectal anastomosis performed by Dr. Morales History of repair of hiatal hernia Hx of rectal polypectomy Previous back surgery Rods inserted - CERVICAL and lumbar rods and screws SURGERIES X 4 S/P ORIF (open reduction internal fixation) fracture Left hip [facility] within the last couple months around September 2019 Family History Family History Father Malignant neoplasm of prostate Kidney malignancy Mother Emphysema of lung Sibling Diverticulitis large intestine Sister S/P colon resection Heart disease Social History Social History Social History: The patient stated she quit smoking about 15 years ago. The patient is she has 2 children. The patient is living with her daughter at this time otherwise she lives at home. She went to [facility] for short period time while recovering from her left hip repair. 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 Patient does not use alcohol marijuana or illicit drugs. The patient smoked for approximately 43 years. Primary care physician: Dr. Stephen Monreal Code status: Full code per [facility] Healthcare power of employment law attorney: Heaven Nichols Smoking packs per day: 2 Smoking cigarettes per day: 40.0 Years smoked: 43 Smoking pack-years: 86.00 Smoking status: Former smoker Tobacco type: cigarettes Second hand tobacco smoke exposure: No Smoking end date: 02/27/03 Alcohol intake: former Alcohol use details: 4-5 alcoholic beverages a but quit doing so many years ago. Substance use: never Substance use type: does not use Living arrangements: with family Occupation/Education: retired Gender identity (if verbalized by the patient): Female Sexual Orientation (if Verbalized by the Patient): Straight or Heterosexual Spiritual care concerns: No Agree to blood products: Yes Exam Narrative: APPEARANCE Patient appears unwell, she is tremulous and shaking, A&O x1 Head: atraumatic. EYES: EOMI, NOSE: Atraumatic NECK: Trachea midline RESPIRATORY: slightly tachypneic, clear lungs, Hypoxic on room air requiring supplemental oxygen CARDIOVASCULAR: tachycardia, no peripheral edema ABDOMINAL: suprapubic fullness, tenderness, no guarding rebound MUSCULOSKELETAl: No obvious deformities NEURO: Alert. Moving 4/4 extremities to command SKIN:: Warm, dry. Normal color PSYCHIATRIC: altered Course Vital Signs Vital signs: Vital Signs Temperature 97.6 F 01/18/24 11:19 Pulse Rate 92 01/18/24 11:19 Respiratory Rate 18 01/18/24 11:19 Blood Pressure 162/138 H 01/18/24 11:19 Pulse Oximetry 94 01/18/24 11:19 Oxygen Delivery Room Air 01/18/24 11:19 Temperature 97.7 F 01/18/24 16:46 Pulse Rate 104 H 01/18/24 17:01 Respiratory Rate 29 H 01/18/24 17:01 Blood Pressure 181/95 H 01/18/24 17:01 Pulse Oximetry 95 01/18/24 17:01 Oxygen Delivery Nasal Cannula 01/18/24 13:48 Oxygen Flow Rate 2 01/18/24 13:48 Medical Decision Making [facility] Narrative Medical decision making narrative: -Course: 83-year-old female presenting from home for altered mental status and rigors. Broad workup ordered as she cannot provide much meaningful history to guide the exam other than her belly hurts. Bladder was found to be distended and after [place] was placed drained 1200 cc of urine which may be the cause for abdominal pain. CT PE - CAP significant for mild ground-glass opacities in the lungs which could be due to multiple causes although pneumonia is consideration. She has received 30 cc kg of IV fluids and was still tachycardic. Point of care cardiothoracic ultrasound showed a flat IVC and she was given another L of fluid. At this time the patient is ill-appearing, altered, requiring supplemental oxygen, and tachycardic without a clear cause. Blood cultures are still pending. She will be started on broad-spectrum antibiotics to cover lung pathology as well as abdominal pathology. Goals of care and code status were discussed with the daughter and power of employment law attorney Monica Nichols . Patient is DNR/DNI. Medications/oxygen ok. This patient has a high likelihood of clinical deterioration given her clinical presentation. -DDX includes but is not limited to: Sepsis UTI dehydration pneumonia cva -Social determinants of health: patient lives at home -Hx from independent Sources:Daughter at bedside. -Independent interpretation of studies: white count 6.9. Hemoglobin 15.8 VBG 7.45/36.7/27.0/25.0 metabolic panel unremarkable. Kidney function at baseline. Lactic normal. Minor elevations in AST of 42 ALT 16 alk-phos 108 troponin undetectable -> .021 urine not indicative infection viral swabs negative imaging reviewed Independent EKG interpretation: Rhythm [sinus], Rate [109], [place] -[rightward], [place] -[normal], QRS [RBBB], QTC [normal], T waves -[negative for concerning inversions], ST Segments - [Negative for concerning elevations] Final interpretations: [Normal Sinus Rhythm] -Discussion of Management/Consultants:hospitalist -Shared decision making / Disposition:admitted. Vital Signs Vital Signs: Vital Signs Temperature 97.6 F 01/18/24 11:19 Pulse Rate 92 01/18/24 11:19 Respiratory Rate 18 01/18/24 11:19 Blood Pressure 162/138 H 01/18/24 11:19 Pulse Oximetry 94 01/18/24 11:19 Oxygen Delivery Room Air 01/18/24 11:19 Temperature 97.7 F 01/18/24 16:46 Pulse Rate 104 H 01/18/24 17:01 Respiratory Rate 29 H 01/18/24 17:01 Blood Pressure 181/95 H 01/18/24 17:01 Pulse Oximetry 95 01/18/24 17:01 Oxygen Delivery Nasal Cannula 01/18/24 13:48 Oxygen Flow Rate 2 01/18/24 13:48 Lab Data 01/18/24 11:41 01/18/24 12:34 Labs: Lab Results 01/18/24 01/18/24 01/18/24 Range/Units 11:41 12:30 12:34 WBC 6.9 (4.5-10.0) K/mm3 RBC 5.16 (4.2-5.4) M/mm3 Hgb 15.8 H (12.0-15.0) g/dL Hct 47.0 (37.0-47.0) % MCV 91.1 (80-100) fl MCH 30.6 (26-34) pg MCHC 33.6 (32-36) g/dl RDW 13.3 (11.5-14.5) % Plt Count 183 (150-375) k/mm3 MPV 9.6 (7.4-10.4) fl Immature Gran % (Auto) 0.3 (0-0.5) % Neut % (Auto) 87.8 H (45.5-73.1) % Lymph % (Auto) 7.5 L (18.3-44.2) % [place] % (Auto) 4.0 (2.6-8.5) % Eos % (Auto) 0.1 (0-4.4) % Baso % (Auto) 0.3 (0.2-1.2) % Lymph # (Auto) 0.52 L (0.9-3.2) K/mm3 [place] # (Auto) 0.3 (0.1-0.6) K/mm3 Eos # (Auto) 0.0 (0-0.3) K/mm3 Baso # (Auto) 0.0 (0.0-0.1) K/mm3 Abs Immat Gran (auto) 0.02 (0.00-0.031) K/mm3 Absolute Neuts (auto) 6.1 (1.3-6.7) K/mm3 Absolute Nucleated RBC 0.000 (0.0-0.012) K/mm3 Nucleated RBC % 0.0 (0.0-0.2) % % Immature Plt Fraction 2.8 (0.9-11.2) % PT 13.2 (11.1-14.7) Seconds INR 1.0 APTT 21.1 L (22.3-36.8) Seconds Sodium 133 L (137-145) mmol/L Potassium 3.4 (3.4-5.0) mmol/L Chloride 98 (98-107) mmol/L Carbon Dioxide 30 (22-30) mmol/L Anion Gap 5 (4-12) mmol/L BUN 11 (7-17) mg/dL Creatinine 0.70 0.80 (0.7-1.0) mg/dL Estim Creat Clear Calc 38 34 ml/min Estimated GFR > 60 > 60 (59 - ) Glucose 134 H (65-110) mg/dL POC Capillary Glucose (65-105) mg/dl Lactic Acid 1.5 (0.7-2.0) mmol/L Calcium 9.2 (8.4-10.2) mg/dL Phosphorus 3.2 (2.5-4.5) mg/dL Magnesium 1.7 (1.6-2.3) mg/dL Total Bilirubin 0.8 (0.2-1.3) mg/dL AST 42 H (14-36) U/L ALT 16 (6-35) U/L Alkaline Phosphatase 108 (38-126) U/L Troponin I < 0.012 (0.000-0.034) ng/mL Total Protein 8.0 (6.3-8.2) g/dL Albumin 4.4 (3.5-5.1) g/dL Lipase 37 (23-300) U/L Urine Color (Yellow) Urine Appearance (Clear) Urine pH (5.0-9.0) Ur Specific [place] (1.001-1.035) Urine Protein (Negative) mg/dL Urine Glucose (UA) (Negative) mg/dL Urine Ketones (Negative) mg/dL Ur Blood (Man) (Negative) Urine Nitrate (Negative) Urine Bilirubin (Negative) Urine Urobilinogen (<2.0) mg/dL Leukocyte Esterase Rfl (Negative) BATSHEVA/UL Urine RBC (0-2) /hpf Urine WBC (0-3) /hpf Ur Squamous Epith Cells (Few) /hpf Urine Bacteria /hpf Urine Casts Influenza A (RT-PCR) Negative (Negative) Influenza B (RT-PCR) Negative (Negative) RSV (RT-PCR) Negative (Negative) SARS-CoV-2 RNA (RT-PCR) Negative (Negative) 01/18/24 01/18/24 01/18/24 Range/Units 13:10 13:43 15:28 WBC (4.5-10.0) K/mm3 RBC (4.2-5.4) M/mm3 Hgb (12.0-15.0) g/dL Hct (37.0-47.0) % MCV (80-100) fl MCH (26-34) pg MCHC (32-36) g/dl RDW (11.5-14.5) % Plt Count (150-375) k/mm3 MPV (7.4-10.4) fl Immature Gran % (Auto) (0-0.5) % Neut % (Auto) (45.5-73.1) % Lymph % (Auto) (18.3-44.2) % [place] % (Auto) (2.6-8.5) % Eos % (Auto) (0-4.4) % Baso % (Auto) (0.2-1.2) % Lymph # (Auto) (0.9-3.2) K/mm3 [place] # (Auto) (0.1-0.6) K/mm3 Eos # (Auto) (0-0.3) K/mm3 Baso # (Auto) (0.0-0.1) K/mm3 Abs Immat Gran (auto) (0.00-0.031) K/mm3 Absolute Neuts (auto) (1.3-6.7) K/mm3 Absolute Nucleated RBC (0.0-0.012) K/mm3 Nucleated RBC % (0.0-0.2) % % Immature Plt Fraction (0.9-11.2) % PT (11.1-14.7) Seconds INR APTT (22.3-36.8) Seconds Sodium (137-145) mmol/L Potassium (3.4-5.0) mmol/L Chloride (98-107) mmol/L Carbon Dioxide (22-30) mmol/L Anion Gap (4-12) mmol/L BUN (7-17) mg/dL Creatinine (0.7-1.0) mg/dL Estim Creat Clear Calc ml/min Estimated GFR (59 - ) Glucose (65-110) mg/dL POC Capillary Glucose 114 H (65-105) mg/dl Lactic Acid (0.7-2.0) mmol/L Calcium (8.4-10.2) mg/dL Phosphorus (2.5-4.5) mg/dL Magnesium (1.6-2.3) mg/dL Total Bilirubin (0.2-1.3) mg/dL AST (14-36) U/L ALT (6-35) U/L Alkaline Phosphatase (38-126) U/L Troponin I 0.021 D (0.000-0.034) ng/mL Total Protein (6.3-8.2) g/dL Albumin (3.5-5.1) g/dL Lipase (23-300) U/L Urine Color Yellow (Yellow) Urine Appearance Cloudy H (Clear) Urine pH 8.0 (5.0-9.0) Ur Specific [place] 1.025 (1.001-1.035) Urine Protein 1+ H (Negative) mg/dL Urine Glucose (UA) Negative (Negative) mg/dL Urine Ketones Trace H (Negative) mg/dL Ur Blood (Man) Negative (Negative) Urine Nitrate Negative (Negative) Urine Bilirubin Negative (Negative) Urine Urobilinogen 1.0 (<2.0) mg/dL Leukocyte Esterase Rfl Negative (Negative) BATSHEVA/UL Urine RBC 3-5 H (0-2) /hpf Urine WBC 0-5 (0-3) /hpf Ur Squamous Epith Cells None seen (Few) /hpf Urine Bacteria None seen /hpf Urine Casts 0-2 Influenza A (RT-PCR) (Negative) Influenza B (RT-PCR) (Negative) RSV (RT-PCR) (Negative) SARS-CoV-2 RNA (RT-PCR) (Negative) ABG Data ABG results: 01/18/24 12:15 VBG pH 7.451 H* VBG pCO2 36.7 L VBG pO2 < 27.0 L VBG HCO3 25.0 O2 Delivery Device Room air O2 Liters/Min Not Reportable FiO2 21 Critical Care Time Critical Care Time Critical Care Time: Yes Total Critical Care Time: 45 Discharge Plan Discharge Clinical Impression: Altered mental status, Hypoxic respiratory failure, Abdominal pain, Urinary retention Patient Disposition: Still a Patient Condition: Critical Instructions: Antibiotic Form Prescriptions: No Action donepezil 10 mg tablet 10 mg PO QHS Qty: 30 5RF Trelegy Ellipta 200-62.5-25 mcg blister with device 1 inh inhalation DAILY Qty: 60 5RF lisinopril 40 mg tablet 40 mg PO DAILY Qty: 90 3RF Cranberry Urinary Comfort 140-100 mg Capsule 1 cap PO DAILY docusate sodium 100 mg Tablet 100 mg PO 3XW Calcium 600 + D(3) 600 mg calcium- 200 unit Capsule 1 cap PO DAILY magnesium 250 mg Tablet 250 mg PO DAILY aspirin 81 mg Tablet 81 mg PO DAILY simvastatin 40 mg tablet 40 mg PO HS Qty: 90 3RF hydrochlorothiazide 12.5 mg tablet See Rx Instructions .ROUTE .COMPLEX Qty: 90 2RF Dose Instruction: TAKE 1 TABLET BY MOUTH EVERY DAY Rx Instructions: TAKE 1 TABLET BY MOUTH EVERY DAY levothyroxine 88 mcg tablet 88 mcg PO DAILY Qty: 90 1RF Follow-up/Referrals: Stephen Monreal MD [Primary Care Provider] -
[2024-01-18] MEDS: PIPERACILLN/TAZ 3.375GM/NS50ML 3.375 GM/50 ML BAG IVPB ×2 (16:39→23:25)
[2024-01-18] MEDS: SODIUM CHLORIDE 0.9% IV 1,000 ML 999 ML IV CONT (16:51)
[2024-01-18] MEDS: DOXYCYCLINE 100 MG/NS 100 ML 100 MG/100 ML BAG IVPB (17:10)
[2024-01-18] MEDS: VANCOMYCIN 1,500 MG/NS 500 ML 1,500 MG/500 ML BAG 250 MG IVPB (19:24)
[2024-01-18] MEDS: KETOROLAC 15 MG/ML VIAL (*BKC) IV PUSH (19:43)
[2024-01-18] MEDS: ACETAMINOPHEN 650 MG SUPPOSITORY RECTAL (19:43)
--- NOTE | 2024-01-18 20:12 | P.HP_ITS ---
H&P: HPI History of Present Illness Date/Time: 01/18/24 20:12 Chief Complaint: generalized weakness Narrative: This is an 83-year-old female with past medical history significant for dementia, hypertension chronic kidney disease, DJD, osteoporosis. patient was brought today to the emergency room due to generalized weakness, episode of fever, altered mental status rules, lethargy. X2 day duration. In emergency room patient had an exhaustive workup which was pretty much unrevealing however patient showed deterioration was started on antibiotics empirically. History has been obtained from daughter who is at bedside and from reviewing medical records Patient has been admitted for further evaluation management and treatment. EXAMINATION: XR chest 1V DATE: 01/18/2024 12:47 INDICATION: Abdominal pain and weakness TECHNIQUE: frontal view of the chest was obtained. COMPARISON: Chest radiograph dated 02/16/[address] dated 01/18/2024 FINDINGS: Mild coarse reticular opacities at the bilateral lower lung zones. Calcified nodules in the left midlung zone consistent with old granulomatous disease. No pleural effusion or pneumothorax. Borderline heart size accounting for AP technique. Tortuous thoracic aorta. Lower thoracic vertebroplasty, likely T10. Multilevel instrumented cervical and lumbar/lower thoracic posterior spinal fusion. IMPRESSION: 1. Coarse reticular opacities at the bilateral lung bases which could represent atelectasis, mild pulmonary edema, pneumonia or more chronic interstitial lung disease. Line 2. Borderline heart size. EXAMINATION: CT abdomen pelvis w con DATE: 01/18/2024 12:42 INDICATION: Diffuse abdominal pain. TECHNIQUE: Computed tomography (CT) of the abdomen and pelvis was performed with 100 mL Omnipaque-350 intravenous contrast. Automated exposure control and iterative reconstruction technique were employed. The dose-length product was 547.70 mGy-cm. COMPARISON: 12/08/2019 FINDINGS: Mild groundglass opacities and irregular septal line thickening at the dependent aspect of the bilateral lower lobes with some associated peripheral cystic lung disease which could represent atelectasis or less likely mild pulmonary edema or pneumonia superimposed over mild emphysema versus UIP pattern chronic interstitial lung disease. Borderline heart size with right atrial enlargement. Atherosclerotic coronary artery calcifications. No pericardial or pleural effusion. Small sliding-type hiatal hernia with suggestion of prior Haven fundoplication. Liver, gallbladder, spleen, pancreas and bilateral adrenal glands are normal. Small region of cortical scarring at both kidneys which could represent sequela prior infection or infarction. Moderate amount of stool scattered throughout the colon. There is mild sigmoid and descending colon predominant diverticulosis without adjacent from trace stranding to suggest diverticulitis. No bowel obstruction. Bladder is normal. The uterus is not identified and has likely been surgically resected. No free intraperitoneal gas or fluid. No pathologically enlarged abdominal or pelvic lymphadenopathy. Chronic T10 compression fractures with prior vertebroplasty. There is T11-S1 posterior spinal fusion with bilateral vertical guanakito and pedicle screw fixation. Internal fixation at the proximal left femur with an antegrade intramedullary guanakito and a pair of femoral neck screws. IMPRESSION: 1. No acute intra-abdominal/pelvic process. 2. Mild groundglass opacity and irregular septal line thickening in the dependent lower lungs which could be due to emphysema, mild pulmonary edema or less likely pneumonia superimposed over mild emphysema or more chronic UIP pattern chronic interstitial lung disease. 3. Borderline heart size with right atrial enlargement. 4. Small sliding-type hiatal hernia with change of prior Haven fundoplication. 4. Mild descending and sigmoid colon diverticulosis. Review of Systems Review of Systems: ROS unobtainable: Yes unobtainable due to mental status ( obtundation) [facility] Past Medical History Medical History (Updated 01/18/24 @ 23:45 by Keren Kelly MD) Altered mental status Cardiomyopathy Chronic back pain Chronic kidney disease, stage 3 (moderate) Chronic kidney disease, stage 3 unspecified Colovesical fistula Status post sigmoid colon resection with repair of colovesicular fistula, takedown of splenic flexure and hand-sewn colorectal anastomosis Degenerative disc disease Delirium Dementia Diverticulitis of large intestine with abscess 05/29/2019 Diverticulosis Emphysema of lung GI bleed History of breast cancer Left breast cancer 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 Kirkpatrick 07/11/2019: Colonic polyps with polypectomy in the mid descending and distal transverse; colitis; diverticulosis History of left mastectomy History of open sigmoidectomy 07/25/2019 sigmoidectomy with repair of colovesicular fistula, take down the splenic flexure, hand-sewn colorectal anastomosis performed by Dr. Morales History of repair of hiatal hernia Hx of rectal polypectomy Previous back surgery Rods inserted - CERVICAL and lumbar rods and screws SURGERIES X 4 S/P ORIF (open reduction internal fixation) fracture Left hip [facility] within the last couple months around September 2019 Family History Family History Father Malignant neoplasm of prostate Kidney malignancy Mother Emphysema of lung Sibling Diverticulitis large intestine Sister S/P colon resection Heart disease Social History Social History Social History: The patient stated she quit smoking about 15 years ago. The patient is she has 2 children. The patient is living with her daughter at this time otherwise she lives at home. She went to [facility] for short period time while recovering from her left hip repair. She worked in a [employer] at 1 time and then a [employer] shop and that is what she retired from. Patient does not use alcohol marijuana or illicit drugs. The patient smoked for approximately 43 years. Primary care physician: Dr. Stephen Monreal Code status: Full code per [facility] Healthcare power of compliance attorney: Heavenfloresita Nichols Smoking packs per day: 2 Smoking cigarettes per day: 40.0 Years smoked: 43 Smoking pack-years: 86.00 Smoking status: Former smoker Tobacco type: cigarettes Second hand tobacco smoke exposure: No Smoking end date: 02/27/03 Alcohol intake: former Alcohol use details: 4-5 alcoholic beverages a but quit doing so many years ago. Substance use: never Substance use type: does not use Living arrangements: with family Occupation/Education: retired Gender identity (if verbalized by the patient): Female Sexual Orientation (if Verbalized by the Patient): Straight or Heterosexual Spiritual care concerns: No Agree to blood products: Yes Meds Home Medications and Allergies Home Medications Medication Instructions Recorded Confirmed Type cranberry concentrate-ascorbic 1 cap PO DAILY 07/08/19 11/08/23 History acid 140 mg-100 mg capsule (Cranberry Urinary Comfort) aspirin 81 mg tablet 81 mg PO DAILY 12/08/19 11/08/23 History calcium 600 mg (as 1 cap PO DAILY 12/08/19 11/08/23 History carbonate)-vitamin D3 5 mcg (200 unit) capsule (Calcium 600 + D(3)) docusate sodium 100 mg tablet 100 mg PO 3XW 12/08/19 11/08/23 History magnesium 250 mg tablet 250 mg PO DAILY 12/08/19 11/08/23 History lisinopril 40 mg tablet 40 mg PO DAILY #90 tabs 02/23/23 11/08/23 Rx simvastatin 40 mg tablet 40 mg PO HS #90 tabs 03/23/23 11/08/23 Rx hydrochlorothiazide 12.5 mg tablet See Rx Instructions .Route 04/26/23 11/08/23 Rx .COMPLEX #90 tabs fluticasone fur. 200 mcg-umeclid 1 inh inhalation DAILY #60 ea 08/29/23 11/08/23 Rx 62.5 mcg-vilant 25 mcg inhalat.powder (Trelegy Ellipta) donepezil 10 mg tablet 10 mg PO QHS #30 tabs 11/08/23 11/08/23 Rx levothyroxine 88 mcg tablet 88 mcg PO DAILY #90 tabs 01/10/24 Rx Allergies Allergy/AdvReac Type Severity Reaction Status Date / Time loratadine Allergy Intermediate Swelling Verified 11/08/23 10:59 of throat morphine Allergy Mild Confusion Verified 11/08/23 10:59 Vital Signs Vital Signs - 24 hr 01/18/24 11:19 01/18/24 11:26 01/18/24 12:01 Temperature 97.6 F Pulse Rate 92 90 92 Respiratory Rate 18 34 H 21 H Blood Pressure 162/138 H 162/138 H 190/153 H Pulse Oximetry 94 98 95 Oxygen Delivery Room Air Oxygen Flow Rate 01/18/24 12:03 01/18/24 12:27 01/18/24 13:16 Temperature 98.1 F Pulse Rate 92 94 Respiratory Rate 25 H 18 Blood Pressure 180/152 H 178/114 H 199/124 H Pulse Oximetry 95 95 94 Oxygen Delivery Oxygen Flow Rate 01/18/24 13:46 01/18/24 13:48 01/18/24 13:31 Temperature Pulse Rate 103 H Respiratory Rate 24 H Blood Pressure 190/94 H Pulse Oximetry 93 93 Oxygen Delivery Nasal Cannula Nasal Cannula Oxygen Flow Rate 2 2 01/18/24 13:46 01/18/24 14:01 01/18/24 15:01 Temperature 97.7 F Pulse Rate 101 H 100 112 H Respiratory Rate 22 H 25 H 91 H Blood Pressure 187/122 H 185/126 H 168/131 H Pulse Oximetry 95 92 Oxygen Delivery Oxygen Flow Rate 01/18/24 16:01 01/18/24 16:31 01/18/24 16:46 Temperature 97.7 F Pulse Rate 117 H 118 H 117 H Respiratory Rate 24 H 22 H 27 H Blood Pressure 180/102 H 142/109 H 185/108 H Pulse Oximetry 92 93 93 Oxygen Delivery Oxygen Flow Rate 01/18/24 17:01 01/18/24 17:16 01/18/24 17:30 Temperature Pulse Rate 104 H 105 H 106 H Respiratory Rate 29 H 28 H 29 H Blood Pressure 181/95 H 168/90 H 177/99 H Pulse Oximetry 95 94 95 Oxygen Delivery Oxygen Flow Rate 01/18/24 17:45 01/18/24 19:50 Temperature 102.9 F H Pulse Rate 111 H 108 H Respiratory Rate 28 H 25 H Blood Pressure 191/112 H 136/84 Pulse Oximetry 95 96 Oxygen Delivery Oxygen Flow Rate Exam Narrative: room with a ill-appearing Const: General: comfortable, no acute distress, well developed, ill appearing acutely, lethargic, patient obtunded and average body habitus Nutritional Appearance: average body habitus Orientation/consciousness: patient obtunded and lethargic HENMT: Head: normal to inspection, normocephalic and atraumatic Ears: hearing grossly normal bilaterally Face/Nose/Sinus: normal facial exam Face and sinus: normal facial exam Eyes: General: appearance normal, both eyes and all related structures Pupils: Equal, round and reactive pupils present EOM: EOMs intact bilaterally Neck: Neck: full ROM, no lymphadenopathy and no JVD Thyroid: thyroid normal Lymphatic: no lymphadenopathy noted Resp: Effort & Inspection: normal respiratory effort and able to speak in complete sentences Auscultation: clear to auscultation bilaterally Cardio: Jugular venous distension: no JVD Rate: regular rate Rhythm: regular rhythm Heart sounds: S1 normal heart sound present and S2 normal heart sound present GI: GI Palp: Yes Soft to palpation and Yes No hepatosplenomegaly present : General: Yes deferred Skin: Rashes: no rashes Wounds: no wounds Neuro: General: no focal motor deficits, CN's II-XI intact bilaterally, patient obtunded and Unable to assess gait Cranial nerves: Yes CN's II-XII intact bilaterally and Yes Equal, round and reactive pupils present Cognition (Neuro): abnormal cognition Motor exam (neuro): 5/5 motor strength present throughout Extrem: General: normal to inspection, full ROM, no joint enlargement and no pedal edema H&P: Results Labs Labs: Short CBC 01/18/24 Range/Units 11:41 WBC 6.9 (4.5-10.0) K/mm3 Hgb 15.8 H (12.0-15.0) g/dL Hct 47.0 (37.0-47.0) % Plt Count 183 (150-375) k/mm3 BMP 01/18/24 01/18/24 11:41 12:34 Sodium 133 L Potassium 3.4 Chloride 98 Carbon Dioxide 30 BUN 11 Creatinine 0.70 0.80 Glucose 134 H Calcium 9.2 Cardiac Enzymes 01/18/24 01/18/24 Range/Units 11:41 15:28 Troponin I < 0.012 0.021 D (0.000-0.034) ng/mL Liver Function 01/18/24 Range/Units 11:41 Total Bilirubin 0.8 (0.2-1.3) mg/dL AST 42 H (14-36) U/L ALT 16 (6-35) U/L Alkaline Phosphatase 108 (38-126) U/L Albumin 4.4 (3.5-5.1) g/dL Urine 01/18/24 Range/Units 13:10 Urine Color Yellow (Yellow) Urine Appearance Cloudy H (Clear) Urine pH 8.0 (5.0-9.0) Ur Specific Flora 1.025 (1.001-1.035) Urine Protein 1+ H (Negative) mg/dL Urine Glucose (UA) Negative (Negative) mg/dL Assessment and Plan Assessment and plan (1) Altered mental status: Code(s): R41.82 - Altered mental status, unspecified Status: Acute Assessment and Plan: admit to regular medical floor likely secondary to acute illness suspect sepsis unknown source sepsis workup in progress started on broad-spectrum antibiotics empirically (2) Hypoxic respiratory failure: Code(s): J96.91 - Respiratory failure, unspecified with hypoxia Status: Acute Assessment and Plan: on supplemental oxygen by nasal cannula (3) Cardiomyopathy: Code(s): I42.9 - Cardiomyopathy, unspecified Status: Acute Assessment and Plan: continue to monitor (4) Chronic low back pain: Code(s): M54.5 - Low back pain; G89.29 - Other chronic pain Status: Acute Assessment and Plan: Tylenol p.r.n. (5) Chronic kidney disease, stage 3 unspecified: Code(s): N18.30 - Chronic kidney disease, stage 3 unspecified Status: Acute Assessment and Plan: continue to monitor BUN and creatinine Hospitalist MIPS Advance Care Plan I have confirmed that the patient's Advanced Care Plan is present, code status is documented, or surrogate decision maker is listed in patient medical record.: Yes Medication Reconciliation I have utilized all available resources to obtain, update and review the patients current medications (includes all prescriptions, OTC, herbals, cannabis, and nutritional supplements).: Yes
[2024-01-18 21:35] LABS: Lactic Acid Reflex 0.8 mmol/L (0.7-2.0)
--- NOTE | 2024-01-18 22:19 | ADMGEN ---
This patient, Maricruz Carnes, was admitted to 2 Medical Room 257-01. Patient/family oriented to hospital policies and general routines including ID bracelet, bed and alarms, visiting hours, pain management, procedures, bathroom and other care routines, personal items, smoking policy, room service/diet, and visiting hours. Information on how to activate the Rapid Response Team has been discussed. Patient/Family are encouraged to report perceived risks to care and to ask questions if they do not understand what they are told or what they should do.
[2024-01-18 22:35] LABS: MRSA (PCR) NOT DETECTED (NOT DETECTE)
[2024-01-19] VITALS (8 sets, daily range): BP systolic 131–145; BP diastolic 64–68; PULSE 79–95; RESP 18–24; TEMP 36.3–36.9; O2SAT 92–97
--- NOTE | 2024-01-19 | ECHO_ITS ---
Patient Info Name: Maricruz Carnes Age: 83 years : 1940 Gender: Female Ht: 61 in Wt: 128 lbs BSA: 1.59 m2 HR: 95 bpm BP: 142 / 68 mmHg Heart Rhythm: Sinus Rhythm Technical Quality: Fair Exam Date: 01/19/2024 3:29 PM Exam Location: Echo Lab Patient Status: Inpatient Admit Date: 01/19/2024 Staff Ordering Physician: Marce Ramsay APRN Hide Worker: Jojo Moser RDCS Attending Provider: Keren Kelly MD Referring Physician: Devendra ACOSTA; Exam Type: CA echo doppler color flow Study Info Indications - Cardiomyopathy Complete two-dimensional, color flow and Doppler transthoracic echocardiogram is performed. Summary 1. Complete two-dimensional, color flow and Doppler transthoracic echocardiogram is performed. 2. Left ventricular chamber dimension is normal. 3. Left ventricular wall thickness is mildly increased. 4. Left ventricular systolic function is normal with an ejection fraction by Biplane Method of Discs of 60 %. 5. The left ventricular diastolic function is grade I diastolic dysfunction. 6. Right ventricular chamber dimension is normal. 7. Right ventricular systolic function is normal. 8. There is no aortic valve stenosis with a peak velocity of 153 cm/s, mean gradient of 5 mmHg, and aortic valve area of 2.2 cm2. 9. No pulmonary hypertension, estimated pulmonary arterial systolic pressure is 27 mmHg. Left Ventricle Left ventricular chamber dimension is normal. Left ventricular wall thickness is mildly increased. Left ventricular systolic function is normal with an ejection fraction by Biplane Method of Discs of 60 %. The left ventricular diastolic function is grade I diastolic dysfunction. Right Ventricle Right ventricular chamber dimension is normal. Right ventricular systolic function is normal. Left Atria Left atrial chamber dimension is normal. Right Atria Right atrial chamber dimension is normal. Aortic Valve The aortic valve is trileaflet. There is no aortic valve stenosis with a peak velocity of 153 cm/s, mean gradient of 5 mmHg, and aortic valve area of 2.2 cm2. There is no aortic valve regurgitation. Mitral Valve The mitral valve has normal leaflets. There is no mitral valve regurgitation. There is no mitral valve stenosis. Tricuspid Valve There is trace tricuspid valve regurgitation. No pulmonary hypertension, estimated pulmonary arterial systolic pressure is 27 mmHg. Pericardium/Pleural There is no pericardial effusion. Inferior Vena Cava Normal inferior vena cava with >50% collapse upon inspiration consistent with normal right atrial pressure, 3 mmHg. Aorta The aortic root size at the sinus of Valsalva is normal. The prox ascending aorta size is normal. Left Ventricular Outflow Tract Name Value Normal LVOT 2D LVOT Diameter 2.0 cm LVOT Doppler LVOT Peak Gradient 4 mmHg LVOT Mean Gradient 2 mmHg LVOT VTI 15 cm LVOT VTI/AV VTI Ratio 0.7 LVOT Stroke Volume 48 ml LVOT CO 4.3 l/min LVOT CI 2.7 l/min/m2 Pulmonic Valve Name Value Normal RVOT Doppler RVOT Peak Gradient 2 mmHg PV Doppler PV Peak Gradient 4 mmHg Mitral Valve Name Value Normal MV Doppler MV Decel Sawyer 355 cm/s2 MV PHT 58 ms MV Area (PHT) 3.8 cm2 4.0-5.0 MV Diastolic Function MV E Peak Velocity 70 cm/s MV A Peak Velocity 123 cm/s MV E/A 0.6 MV Decel Time 198 ms MV Annular TDI MV E/e' (Septal) 20.9 <=8.0 MV E/e' (Lateral) 13.3 <=8.0 MV E/e' (Average) 17.1 Tricuspid Valve Name Value Normal TV Regurgitation Doppler TR Peak Velocity 245 cm/s TR Peak Gradient 18 mmHg Estimated PAP/RSVP RA Pressure 3 mmHg <=5 PA Systolic Pressure 27 mmHg <36 RV Systolic Pressure 27 mmHg <36 Aorta Name Value Normal Ascending Aorta Ao Root Diameter (MM) 2.7 cm Ao Root Diam Index (MM) 1.7 cm/m2 Aortic Valve Name Value Normal AV Doppler AV Peak Velocity 153 cm/s AV Peak Gradient 9 mmHg AV Mean Gradient 5 mmHg AV VTI 22 cm AV Area (Cont Eq VTI) 2.2 cm2 >=3.0 AV Area (Cont Eq Isra) 2.2 cm2 AV Regurgitation 2D LVOT Area 3.2 cm2 Ventricles Name Value Normal LV Dimensions 2D/MM IVS Diastolic Thickness (2D) 1.1 cm 0.6-1.0 LVID Diastole (2D) 3.4 cm 3.8-5.2 LVIW Diastolic Thickness (2D) 1.1 cm 0.6-0.9 LVID Systole (2D) 2.1 cm 2.2-3.5 LVOT Diameter 2.0 cm LV Mass (2D Cubed) 118.11 g 67.00-162.00 LV Mass Index (2D Cubed) 74 g/m2 43-95 Relative Wall Thickness (2D) 0.64 LV Fractional Shortening/Ejection Fraction 2D/MM LV Fractional Shortening (2D) 38 % 27-45 LV EF (2D Teicholz) 69 % 54-74 LV Diastolic Volume (4C MOD) 47 ml LV EF (4C MOD) 57 % LV Diastolic Volume (2C MOD) 37 ml LV EF (2C MOD) 62 % LV Diastolic Volume (BP MOD) 42 ml 46-106 LV Diastolic Volume Index (BP MOD) 27 ml/m2 29-61 LV Systolic Volume (BP MOD) 17 ml 14-42 LV Systolic Volume Index (BP MOD) 11 ml/m2 8-24 LV EF (BP MOD) 60 % 54-74 LV Diastolic Length (4C) 6.1 cm LV Systolic Length (4C) 5.2 cm LV Stroke Volume (4C MOD) 27 ml Atria Name Value Normal LA Dimensions LA Dimension (MM) 4.6 cm 2.7-3.8 LA Volume (4C A-L) 37 ml LA Volume (BP A-L) 32 ml RA Dimensions RA Area (4C) 7.2 cm2 <=18.0 Report Signatures
[2024-01-19] MEDS: DOXYCYCLINE 100 MG/NS 100 ML 100 MG/100 ML BAG IVPB ×2 (05:28→20:08)
[2024-01-19 06:30] LABS: Estimated CRCL calculation 34 ml/min; Estimated Glomerular Filt Rate > 60
[2024-01-19] MEDS: PIPERACILLN/TAZ 3.375GM/NS50ML 3.375 GM/50 ML BAG IVPB (06:34)
--- NOTE | 2024-01-19 12:14 | P.PNIM_ITS ---
Progress Note: A&P Assessment and Plan (1) Sepsis: Qualifiers: Sepsis acute organ dysfunction status: unspecified Sepsis type: sepsis due to unspecified organism Qualified Code(s): A41.9 - Sepsis, unspecified o rganism Code(s): A41.9 - Sepsis, unspecified organism Status: Acute Assessment and Plan: * patient initially meeting sepsis criteria with a heart rate of 103, respiratory rate of 24, temperature of 102.9 * UA showed cloudy urine appearance, 1+ urine protein , trace ketones, 3-5 urine RBC * blood cultures were obtained and are pending * urine did not reflux a culture * abdomen/pelvis CT was negative for any acute inter abdominal, pelvic process, showed mild ground-glass opacities and irregular septal line thickening in the dependent lower lung likely due to emphysema versus mild pulmonary edema, or pneumonia, mild descending and sigmoid colon diverticulosis, small sliding hiatal hernia * 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 and stable moderate nonspecific white matter disease representing chronic small-vessel ischemic disease * continue neuro checks * likely secondary to sepsis infection of unknown source (3) Hypoxic respiratory failure: Code(s): J96.91 - Respiratory failure, unspecified with hypoxia Status: Acute Assessment and Plan: * currently on 2 L nasal cannula * continue to wean O2 for sat greater than 92% * continue Rocephin and doxycycline for possible community-acquired pneumonia (4) Chronic low back pain: Code(s): M54.5 - Low back pain; G89.29 - Other chronic pain Status: Acute Assessment and Plan: * Tylenol p.r.n. (5) Chronic kidney disease, stage 3 unspecified: Code(s): N18.30 - Chronic kidney disease, stage 3 unspecified Status: Acute Assessment and Plan: * creatinine 0.80, EGFR greater than 60, creatinine clearance 34 (6) Hypothyroidism: Qualifiers: Hypothyroidism type: unspecified Qualified Code(s): E03.9 - Hypothyroidism, unspecified Code(s): E03.9 - Hypothyroidism, unspecified Status: Chronic Assessment and Plan: * TSH 0.239 * will decrease her Synthroid 76 mcg daily from her 88 mcg daily * will check T3 and T4 (7) Dementia: Code(s): F03.90 - Unspecified dementia, unspecified severity, without behavioral disturbance, psychotic disturbance, mood disturbance, and anxiety Status: Acute Assessment and Plan: * continue Aricept (8) HTN (hypertension), benign: Code(s): I10 - Essential (primary) hypertension Status: Chronic Assessment and Plan: * blood pressure ranging 126/68 to 145/64 * continue lisinopril and hydrochlorothiazide (9) Hypercholesterolemia: Code(s): E78.00 - Pure hypercholesterolemia, unspecified Status: Acute Assessment and Plan: * continue simvastatin and aspirin Time Spent With Patient Time with patient: 25 - 35 minutes Subjective Date/time seen: 01/19/24 12:14 Interval history: interval history: this is an 83-year-old female who presented to the hospital on 01/18/2024 with fever, altered mental status, lethargy, generalized weakness. Workup in the hospital included a chest x-ray shown coarse reticular opacities at the bilate ral lung bases. Abdomen pelvis CT was negative for any acute intra-abdominal pelvic process, shown mild ground-glass opacity and irregular septal line thickening in the dependent lower lung zone which could be due to emphysema, mild pulmonary edema or less likely pneumonia, small sliding hiatal hernia, mild descending and sigmoid colon diverticulosis. 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 Cervical spine CT was negative for fracture, showed severe cervical spondylosis, posterior fusion from C3-C7. Chest CTA was negative for PE, dissection. Initial labs showed a normal white blood cell count of 6.9, sodium 133 AST 42, troponin negative x2, lipase 37. UA was obtained showing cloudy urine appearance, 1+ urine protein, trace ketone, 3-5 urine RBC otherwise negative. MRSA was negative. Respiratory panel was negative for influenza a and B, RSV, COVID. Blood cultures were obtained and are pending. EKG showed sinus tachycardia with right axis deviation, right bundle branch block, with a rate of 109, QTC 511. Patient was given 1800 mL of normal saline, doxycycline, Zosyn, vancomycin, Toradol and Tylenol while in the ED. subjective: patient is very lethargic lying in the bed with 2 L nasal cannula. She will answer yes no questions. Daughter is at the bedside and answers some questions for me. Daughter states that she had some diarrhea last week however that has subsided. Patient denies any sore throat,nausea, vomiting, diarrhea, abdominal pain, chest pain, shortness a breath. She does report fever, chills /rigors, body aches, and headache.Labs and imaging reviewed. Review of Systems Review of Systems: All systems reviewed & are unremarkable except as noted in HPI and below Constitutional: Constitutional: Reports as per HPI and Reports no additional constitutional complaints Eyes: Eyes: Reports as per HPI and Reports no additional eye complaints ENT: Reports system reviewed and no additional complaints, except as documented and Reports as per HPI Cardiovascular: Cardiovascular: Reports as per HPI and Reports no additional cardiovascular complaints Respiratory: Respiratory: Reports as per HPI and Reports no additional respiratory complaints Gastrointestinal: Gastrointestinal: Reports as per HPI and Reports no additional gastrointestinal complaints Genitourinary: Genitourinary: Reports no additional female genitourinary complaints and Reports as per HPI Musculoskeletal: Musculoskeletal: Reports no additional musculoskeletal complaints and Reports as per HPI Integumentary/Breasts: Skin/Breast: Reports system reviewed and no additional complaints, except as docu and Reports as per HPI Neurologic: Reports system reviewed and no additional complaints, except as documented and Reports as per HPI Psychiatric: Psychiatric: Reports no additional psychiatric complaints and Reports as per HPI Exam Narrative: General: appears weak and fatigued Cardiac: Normal S1 and S2. No murmur, gallops or friction rubs, peripheral pulses intact. Respiratory: Lungs clear to auscultation, diminished in the bases, no adventitious lung sounds currently on 2 L Gastrointestinal: soft, non-distended, non-tender, normoactive bowel sounds. : O[place] catheter in place for Extremities: moves all extremities well, no edema Skin: clean, dry, intact. No wounds or lesions. Neuro: Alert to voice and oriented times 2-3, cranial nerves intact, no neuro deficits. Psych: normal mood, normal affect, interactive Objective Data Vital Signs Vital Signs: Vital Signs - 24 hr 01/18/24 12:27 01/18/24 13:16 01/18/24 13:46 Temperature 98.1 F Pulse Rate 94 Respiratory Rate 18 Blood Pressure 178/114 H 199/124 H Pulse Oximetry 95 94 93 Oxygen Delivery Nasal Cannula Oxygen Flow Rate 2 01/18/24 13:48 01/18/24 13:31 01/18/24 13:46 Temperature Pulse Rate 103 H 101 H Respiratory Rate 24 H 22 H Blood Pressure 190/94 H 187/122 H Pulse Oximetry 93 Oxygen Delivery Nasal Cannula Oxygen Flow Rate 2 01/18/24 14:01 01/18/24 15:01 01/18/24 16:01 Temperature 97.7 F Pulse Rate 100 112 H 117 H Respiratory Rate 25 H 91 H 24 H Blood Pressure 185/126 H 168/131 H 180/102 H Pulse Oximetry 95 92 92 Oxygen Delivery Oxygen Flow Rate 01/18/24 16:31 01/18/24 16:46 01/18/24 17:01 Temperature 97.7 F Pulse Rate 118 H 117 H 104 H Respiratory Rate 22 H 27 H 29 H Blood Pressure 142/109 H 185/108 H 181/95 H Pulse Oximetry 93 93 95 Oxygen Delivery Oxygen Flow Rate 01/18/24 17:16 01/18/24 17:30 01/18/24 17:45 Temperature Pulse Rate 105 H 106 H 111 H Respiratory Rate 28 H 29 H 28 H Blood Pressure 168/90 H 177/99 H 191/112 H Pulse Oximetry 94 95 95 Oxygen Delivery Oxygen Flow Rate 01/18/24 19:50 01/18/24 21:12 01/18/24 22:28 Temperature 102.9 F H 100.2 F H Pulse Rate 108 H 98 Respiratory Rate 25 H 29 H Blood Pressure 136/84 126/68 Pulse Oximetry 96 95 96 Oxygen Delivery Nasal Cannula Oxygen Flow Rate 2 01/18/24 22:00 01/19/24 04:59 01/19/24 08:58 Temperature 98 F 98.4 F Pulse Rate 85 79 Respiratory Rate 16 18 Blood Pressure 109/61 145/64 H Pulse Oximetry 96 96 92 Oxygen Delivery Nasal Cannula Oxygen Flow Rate 2 01/19/24 09:20 Temperature Pulse Rate Respiratory Rate Blood Pressure Pulse Oximetry 95 Oxygen Delivery Nasal Cannula Oxygen Flow Rate 2 Intake/Output Intake/Output: Intake & Output 01/16/24 01/17/24 01/18/24 01/19/24 23:59 23:59 23:59 23:59 Intake Total 3500 150 Output Total 3450 150 Balance 50 0 Meds/Results Medications: Active Medications Generic Name Dose Route Start Last Admin Trade Name Freq PRN Reason Stop Dose Admin Piperacillin/Tazobactam/Dextrose 3.375 gm in 50 mls @ 100 mls/hr 01/19/24 00:00 01/19/24 07:04 Zosyn 3.375 Gm/Ns 50 Ml IVPB Infused Q6HR [facility] Infusion Doxycycline Hyclate 100 mg in 100 mls @ 100 mls/hr 01/19/24 06:00 01/19/24 06:35 Vibramycin 100 Mg/Ns 100 Ml IVPB Infused Q12H [facility] Infusion Vancomycin HCl 1,250 mg in 250 mls @ 166.667 mls/hr 01/20/24 07:00 Vancomycin 1,250 Mg/Ns 250 Ml IVPB Q36H [facility] Radiology Results: ITS Impressions Chest X-Ray 01/18/24 13:00 IMPRESSION: 1. Coarse reticular opacities at the bilateral lung bases which could represent atelectasis, mild pulmonary edema, pneumonia or more chronic interstitial lung disease. Line 2. Borderline heart size. Abdomen/Pelvis CT 01/18/24 13:15 IMPRESSION: 1. No acute intra-abdominal/pelvic process. 2. Mild groundglass opacity and irregular septal line thickening in the dependent lower lungs which could be due to emphysema, mild pulmonary edema or less likely pneumonia superimposed over mild emphysema or more chronic UIP pattern chronic interstitial lung disease. 3. Borderline heart size with right atrial enlargement. 4. Small sliding-type hiatal hernia with change of prior [place] fundoplication. 4. Mild descending and sigmoid colon diverticulosis. Head CT 01/18/24 18:14 IMPRESSION: 1. 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 2. Stable moderate nonspecific cerebral white matter disease, which likely represents chronic small vessel ischemic disease. Cervical Spine CT 01/18/24 18:17 IMPRESSION: 1. No fracture. 2. Severe cervical spondylosis. 3. Posterior fusion procedure from C3 to C7. Chest CTA 01/18/24 18:18 IMPRESSION: No pulmonary embolus. No aortic dissection. Bibasilar pleural thickening and atelectasis. Labs Labs: Laboratory Results - last 24 hr 01/18/24 01/18/24 01/18/24 11:41 12:15 12:30 WBC 6.9 RBC 5.16 Hgb 15.8 H Hct 47.0 MCV 91.1 MCH 30.6 MCHC 33.6 RDW 13.3 Plt Count 183 MPV 9.6 Immature Gran % (Auto) 0.3 Neut % (Auto) 87.8 H Lymph % (Auto) 7.5 L Bertie % (Auto) 4.0 Eos % (Auto) 0.1 Baso % (Auto) 0.3 Lymph # (Auto) 0.52 L Bertie # (Auto) 0.3 Eos # (Auto) 0.0 Baso # (Auto) 0.0 Abs Immat Gran (auto) 0.02 Absolute Neuts (auto) 6.1 Absolute Nucleated RBC 0.000 Nucleated RBC % 0.0 % Immature Plt Fraction 2.8 PT 13.2 INR 1.0 APTT 21.1 L VBG pH 7.451 H* VBG pCO2 36.7 L VBG pO2 < 27.0 L VBG HCO3 25.0 O2 Delivery Device Room air O2 Liters/Min Not Reportable FiO2 21 Creatinine Estim Creat Clear Calc Estimated GFR POC Capillary Glucose Lactic Acid 1.5 Phosphorus 3.2 Magnesium 1.7 Troponin I < 0.012 Urine Color Urine Appearance Urine pH Ur Specific [place] Urine Protein Urine Glucose (UA) Urine Ketones Ur Blood (Man) Urine Nitrate Urine Bilirubin Urine Urobilinogen Leukocyte Esterase Rfl Urine RBC Urine WBC Ur Squamous Epith Cells Urine Bacteria Urine Casts Nasal MRSA (PCR) Influenza A (RT-PCR) Negative Influenza B (RT-PCR) Negative RSV (RT-PCR) Negative SARS-CoV-2 RNA (RT-PCR) Negative 01/18/24 01/18/24 01/18/24 12:34 13:10 13:43 WBC RBC Hgb Hct MCV MCH MCHC RDW Plt Count MPV Immature Gran % (Auto) Neut % (Auto) Lymph % (Auto) Bertie % (Auto) Eos % (Auto) Baso % (Auto) Lymph # (Auto) Bertie # (Auto) Eos # (Auto) Baso # (Auto) Abs Immat Gran (auto) Absolute Neuts (auto) Absolute Nucleated RBC Nucleated RBC % % Immature Plt Fraction PT INR APTT VBG pH VBG pCO2 VBG pO2 VBG HCO3 O2 Delivery Device O2 Liters/Min FiO2 Creatinine 0.80 Estim Creat Clear Calc 34 Estimated GFR > 60 POC Capillary Glucose 114 H Lactic Acid Phosphorus Magnesium Troponin I Urine Color Yellow Urine Appearance Cloudy H Urine pH 8.0 Ur Specific [place] 1.025 Urine Protein 1+ H Urine Glucose (UA) Negative Urine Ketones Trace H Ur Blood (Man) Negative Urine Nitrate Negative Urine Bilirubin Negative Urine Urobilinogen 1.0 Leukocyte Esterase Rfl Negative Urine RBC 3-5 H Urine WBC 0-5 Ur Squamous Epith Cells None seen Urine Bacteria None seen Urine Casts 0-2 Nasal MRSA (PCR) Influenza A (RT-PCR) Influenza B (RT-PCR) RSV (RT-PCR) SARS-CoV-2 RNA (RT-PCR) 01/18/24 01/18/24 01/19/24 15:28 21:18 06:09 WBC RBC Hgb Hct MCV MCH MCHC RDW Plt Count MPV Immature Gran % (Auto) Neut % (Auto) Lymph % (Auto) Bertie % (Auto) Eos % (Auto) Baso % (Auto) Lymph # (Auto) Bertie # (Auto) Eos # (Auto) Baso # (Auto) Abs Immat Gran (auto) Absolute Neuts (auto) Absolute Nucleated RBC Nucleated RBC % % Immature Plt Fraction PT INR APTT VBG pH VBG pCO2 VBG pO2 VBG HCO3 O2 Delivery Device O2 Liters/Min FiO2 Creatinine 0.80 Estim Creat Clear Calc 34 Estimated GFR > 60 POC Capillary Glucose Lactic Acid 0.8 Phosphorus Magnesium Troponin I 0.021 D Urine Color Urine Appearance Urine pH Ur Specific [place] Urine Protein Urine Glucose (UA) Urine Ketones Ur Blood (Man) Urine Nitrate Urine Bilirubin Urine Urobilinogen Leukocyte Esterase Rfl Urine RBC Urine WBC Ur Squamous Epith Cells Urine Bacteria Urine Casts Nasal MRSA (PCR) Not detected Influenza A (RT-PCR) Influenza B (RT-PCR) RSV (RT-PCR) SARS-CoV-2 RNA (RT-PCR) Quality VTE Prophylaxis VTE prophylaxis: pharmacologic ordered
[2024-01-19] MEDS: hydroCHLOROthiazide 12.5 MG CAPSULE PO (12:40)
[2024-01-19] MEDS: ASPIRIN 81 MG ENTERIC TABLET PO (12:40)
[2024-01-19] MEDS: lisinopriL 20 MG TABLET 40 MG PO (12:40)
[2024-01-19] MEDS: ACETAMINOPHEN 325 MG TABLET 650 MG PO (12:40)
[2024-01-19] MEDS: LEVOTHYROXINE SODIUM 88 MCG TABLET PO (12:40)
[2024-01-19] MEDS: MULTIVITAMINS THERAPEUTIC TAB (*BKC) 1 TABLET PO (12:40)
[2024-01-19 13:05] LABS: Thyroid Stimulating Hormone 0.239 uIU/mL (0.465-4.680)
[2024-01-19] MEDS: FLUTICASONE/UMECLIDIN/VILANTER 200-62.5-25 MCG ELLIPTA 1 PUFF INHALATION (13:38)
[2024-01-19] MEDS: polyethylene glycoL 3350 17 GM POWD.PACK PO (17:41)
[2024-01-19 18:27] LABS: T4 Thyroxine 8.16 ug/dL (5.53-11.0)
[2024-01-19] MEDS: DONEPEZIL HCL 10 MG TABLET PO (20:08)
[2024-01-19] MEDS: SIMVASTATIN 20 MG TABLET 40 MG PO (20:08)
[2024-01-20] MEDS: ACETAMINOPHEN 325 MG TABLET 650 MG PO ×2 (04:18→20:32)
[2024-01-20 06:00] VITALS: PULSE 89; RESP 16; TEMP 37; O2SAT 96
[2024-01-20] MEDS: LEVOTHYROXINE SODIUM 75 MCG TABLET PO (06:00)
--- NOTE | 2024-01-20 07:28 | P.PNIM_ITS ---
Progress Note: A&P Assessment and Plan (1) Sepsis: Qualifiers: Sepsis acute organ dysfunction status: unspecified Sepsis type: sepsis due to unspecified organism Qualified Code(s): A41.9 - Sepsis, unspecified o rganism Code(s): A41.9 - Sepsis, unspecified organism Status: Acute Assessment and Plan: * patient initially meeting sepsis criteria with a heart rate of 103, respiratory rate of 24, temperature of 102.9 * UA showed cloudy urine appearance, 1+ urine protein , trace ketones, 3-5 urine RBC * blood cultures were obtained and are pending * urine did not reflux a culture * abdomen/pelvis CT was negative for any acute inter abdominal, pelvic process, showed mild ground-glass opacities and irregular septal line thickening in the dependent lower lung likely due to emphysema versus mild pulmonary edema, or pneumonia, mild descending and sigmoid colon diverticulosis, small sliding hiatal hernia * 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 and stable moderate nonspecific white matter disease representing chronic small-vessel ischemic disease * continue neuro checks * likely secondary to sepsis infection of unknown source (3) Hypoxic respiratory failure: Code(s): J96.91 - Respiratory failure, unspecified with hypoxia Status: Acute Assessment and Plan: * currently on 2 L nasal cannula * continue to wean O2 for sat greater than 92% * continue doxycycline for possible community-acquired pneumonia * Echocardiogram and BNP ordered (4) Chronic low back pain: Code(s): M54.5 - Low back pain; G89.29 - Other chronic pain Status: Acute Assessment and Plan: * Tylenol p.r.n. (5) Chronic kidney disease, stage 3 unspecified: Code(s): N18.30 - Chronic kidney disease, stage 3 unspecified Status: Acute Assessment and Plan: * creatinine 0.80, EGFR greater than 60, creatinine clearance 34 (6) Hypothyroidism: Qualifiers: Hypothyroidism type: unspecified Qualified Code(s): E03.9 - Hypothyroidism, unspecified Code(s): E03.9 - Hypothyroidism, unspecified Status: Chronic Assessment and Plan: * TSH 0.239 * will decrease her Synthroid 76 mcg daily from her 88 mcg daily * will check T3 and T4 pending (7) Dementia: Code(s): F03.90 - Unspecified dementia, unspecified severity, without behavioral disturbance, psychotic disturbance, mood disturbance, and anxiety Status: Acute Assessment and Plan: * continue Aricept (8) HTN (hypertension), benign: Code(s): I10 - Essential (primary) hypertension Status: Chronic Assessment and Plan: * blood pressure ranging 126/68 to 145/64 * continue lisinopril and hydrochlorothiazide (9) Hypercholesterolemia: Code(s): E78.00 - Pure hypercholesterolemia, unspecified Status: Acute Assessment and Plan: * continue simvastatin and aspirin Time Spent With Patient Time with patient: Greater than 35 minutes Subjective Date/time seen: 01/20/24 07:28 Interval history: interval history: this is an 83-year-old female who presented to the hospital on 01/18/2024 with fever, altered mental status, lethargy, generalized weakness found to have altered mental status with sepsis and hypoxic respiratory failure subjective: Patient appears to be resting comfortably on 2 L nasal cannula, patient is cardiomegaly with possible pulmonary edema will order echo and BNP Review of Systems Review of Systems: All systems reviewed & are unremarkable except as noted in HPI and below ROS unobtainable: Yes unobtainable due to mental status ( obtundation) Constitutional: Constitutional: Reports as per HPI and Reports no additional constitutional complaints Eyes: Eyes: Reports as per HPI and Reports no additional eye complaints ENT: Reports system reviewed and no additional complaints, except as documented and Reports as per HPI Cardiovascular: Cardiovascular: Reports as per HPI and Reports no additional cardiovascular complaints Respiratory: Respiratory: Reports as per HPI and Reports no additional respiratory complaints Gastrointestinal: Gastrointestinal: Reports as per HPI and Reports no additional gastrointestinal complaints Genitourinary: Genitourinary: Reports no additional female genitourinary complaints and Reports as per HPI Musculoskeletal: Musculoskeletal: Reports no additional musculoskeletal complaints and Reports as per HPI Integumentary/Breasts: Skin/Breast: Reports system reviewed and no additional complaints, except as docu and Reports as per HPI Neurologic: Reports system reviewed and no additional complaints, except as documented and Reports as per HPI Psychiatric: Psychiatric: Reports no additional psychiatric complaints and Reports as per HPI Exam Narrative: General: appears weak and fatigued Cardiac: Normal S1 and S2. No murmur, gallops or friction rubs, peripheral pulses intact. Respiratory: Lungs clear to auscultation, diminished in the bases, no adventitious lung sounds currently on 2 L Gastrointestinal: soft, non-distended, non-tender, normoactive bowel sounds. : Oconnor catheter in place for Extremities: moves all extremities well, no edema Skin: clean, dry, intact. No wounds or lesions. Neuro: Alert to voice and oriented times 2-3, cranial nerves intact, no neuro deficits. Psych: normal mood, normal affect, interactive Const: General: comfortable, no acute distress, well developed, ill appearing acutely, lethargic, patient obtunded and average body habitus Nutritional Appearance: average body habitus Orientation/consciousness: patient obtunded and lethargic HENMT: Head: normal to inspection, normocephalic and atraumatic Ears: hearing grossly normal bilaterally Face/Nose/Sinus: normal facial exam Face and sinus: normal facial exam Eyes: General: appearance normal, both eyes and all related structures Pupils: Equal, round and reactive pupils present EOM: EOMs intact bilaterally Neck: Neck: full ROM, no lymphadenopathy and no JVD Thyroid: thyroid normal Lymphatic: no lymphadenopathy noted Resp: Effort & Inspection: normal respiratory effort and able to speak in complete sentences Auscultation: clear to auscultation bilaterally Cardio: Jugular venous distension: no JVD Rate: regular rate Rhythm: regular rhythm Heart sounds: S1 normal heart sound present and S2 normal heart sound present : General: Yes deferred Skin: Rashes: no rashes Wounds: no wounds Neuro: General: no focal motor deficits, CN's II-XI intact bilaterally, patient obtunded and Unable to assess gait Cranial nerves: Yes CN's II-XII intact bilaterally and Yes Equal, round and reactive pupils present Cognition (Neuro): abnormal cognition Gait exam (Neuro): Unable to assess gait Motor exam (neuro): 5/5 motor strength present throughout Extrem: General: normal to inspection, full ROM, no joint enlargement and no pedal edema Objective Data Vital Signs Vital Signs: Vital Signs - 24 hr 01/19/24 08:58 01/19/24 09:20 01/19/24 13:38 Temperature Pulse Rate Respiratory Rate Blood Pressure Pulse Oximetry 92 95 94 Oxygen Delivery Nasal Cannula Nasal Cannula Nasal Cannula Oxygen Flow Rate 2 2 2 01/19/24 14:00 01/19/24 19:42 01/19/24 20:00 Temperature 97.4 F L 98.1 F Pulse Rate 95 91 Respiratory Rate 24 H 20 Blood Pressure 142/68 H 131/65 Pulse Oximetry 95 95 95 Oxygen Delivery Nasal Cannula Oxygen Flow Rate 2 01/19/24 22:09 01/20/24 06:00 Temperature 98.4 F 98.6 F Pulse Rate 85 89 Respiratory Rate 18 16 Blood Pressure Pulse Oximetry 97 96 Oxygen Delivery Oxygen Flow Rate Intake/Output Intake/Output: Intake & Output 01/17/24 01/18/24 01/19/24 01/20/24 23:59 23:59 23:59 23:59 Intake Total 3500 250 0 Output Total 3450 600 Balance 50 -350 0 Meds/Results Medications: Active Medications Generic Name Dose Route Start Last Admin Trade Name Freq PRN Reason Stop Dose Admin Acetaminophen 650 mg 01/19/24 12:33 01/20/24 04:18 Acetaminophen 325 Mg Tablet PO 650 mg Q4H PRN Administration Mild Pain (1-3) or Fever Aspirin 81 mg 01/19/24 12:25 01/19/24 12:40 Aspirin 81 Mg Enteric Tablet PO 81 mg QAM MAYNOR Administration Donepezil HCl 10 mg 01/19/24 21:00 01/19/24 20:08 Donepezil Hcl 10 Mg Tablet PO 10 mg QHS MAYNOR Administration Fluticasone/Umeclidinium/Vilanterol 1 puff 01/19/24 12:30 01/19/24 13:38 Fluticasone/Umeclidin/Vilanter 200-62.5-25 Mcg Ellipta INHALATION 1 puff DAILYRT MAYNOR Administration Hydrochlorothiazide 12.5 mg 01/19/24 12:25 01/19/24 12:40 Hydrochlorothiazide 12.5 Mg Capsule PO 12.5 mg DAILY MAYNOR Administration Doxycycline Hyclate 100 mg in 100 mls @ 100 mls/hr 01/19/24 21:00 01/19/24 21:08 Vibramycin 100 Mg/Ns 100 Ml IVPB 01/23/24 09:59 Infused Q12H MAYNOR Infusion Levothyroxine Sodium 75 mcg 01/20/24 06:30 01/20/24 06:00 Levothyroxine Sodium 75 Mcg Tablet PO 75 mcg DAILY@0630 MAYNOR Administration Lisinopril 40 mg 01/19/24 12:30 01/19/24 12:40 Lisinopril 20 Mg Tablet PO 40 mg DAILY MAYNOR Administration Multivitamins Therapeutic 1 tablet 01/19/24 12:30 01/19/24 12:40 Multivitamins Therapeutic Tab (*Bkc) PO 1 tablet DAILY MAYNOR Administration Perflutren Lipid Microsphere 0 ml 01/19/24 14:29 Perflutren Lipid Microspheres 1.5 Ml Vial Diluted To 10 Ml Total Volume IV PUSH 01/22/24 14:29 ONCE PRN adequate visualization Protocol Polyethylene Glycol 17 gm 01/19/24 17:05 01/19/24 17:41 Polyethylene Glycol 3350 17 Gm Powd.Pack PO 17 gm QAM MAYNOR Administration Simvastatin 40 mg 01/19/24 21:00 01/19/24 20:08 Simvastatin 20 Mg Tablet PO 40 mg HS MAYNOR Administration Radiology Results: ITS Impressions Chest X-Ray 01/18/24 13:00 IMPRESSION: 1. Coarse reticular opacities at the bilateral lung bases which could represent atelectasis, mild pulmonary edema, pneumonia or more chronic interstitial lung disease. Line 2. Borderline heart size. Abdomen/Pelvis CT 01/18/24 13:15 IMPRESSION: 1. No acute intra-abdominal/pelvic process. 2. Mild groundglass opacity and irregular septal line thickening in the dependent lower lungs which could be due to emphysema, mild pulmonary edema or less likely pneumonia superimposed over mild emphysema or more chronic UIP pattern chronic interstitial lung disease. 3. Borderline heart size with right atrial enlargement. 4. Small sliding-type hiatal hernia with change of prior [place] fundoplication. 4. Mild descending and sigmoid colon diverticulosis. Head CT 01/18/24 18:14 IMPRESSION: 1. 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 2. Stable moderate nonspecific cerebral white matter disease, which likely represents chronic small vessel ischemic disease. Cervical Spine CT 01/18/24 18:17 IMPRESSION: 1. No fracture. 2. Severe cervical spondylosis. 3. Posterior fusion procedure from C3 to C7. Chest CTA 01/18/24 18:18 IMPRESSION: No pulmonary embolus. No aortic dissection. Bibasilar pleural thickening and atelectasis. Labs Labs: Laboratory Results - last 24 hr 01/19/24 01/19/24 06:04 17:35 TSH 0.239 L Thyroxine (T4) 8.16 Quality VTE Prophylaxis VTE prophylaxis: pharmacologic ordered Hospitalist MIPS Advance Care Plan I have confirmed that the patient's Advanced Care Plan is present, code status is documented, or surrogate decision maker is listed in patient medical record.: Yes Medication Reconciliation I have utilized all available resources to obtain, update and review the patients current medications (includes all prescriptions, OTC, herbals, cannabis, and nutritional supplements).: Yes
[2024-01-20 08:00] VITALS: O2SAT 96
[2024-01-20 08:32] LABS: Hematocrit 42.9 % (37.0-47.0); Hemoglobin 14.2 g/dL (12.0-15.0); Mean Corpuscular HGB Conc 33.1 g/dl (32-36); Mean Corpuscular Hemoglobin 30.1 pg (26-34); Mean Corpuscular Volume 90.9 fl (80-100); Mean Platelet Volume 10.2 fl (7.4-10.4); Platelet Count Result 118 k/mm3 (150-375); Red Blood Count 4.72 M/mm3 (4.2-5.4); Red Cell Distribution Width 13.8 % (11.5-14.5); White Blood Count 2.4 K/mm3 (4.5-10.0)
[2024-01-20 08:39] VITALS: O2SAT 96
[2024-01-20] MEDS: FLUTICASONE/UMECLIDIN/VILANTER 200-62.5-25 MCG ELLIPTA 1 PUFF INHALATION (08:39)
[2024-01-20 08:46] LABS: Anion Gap 5 mmol/L (4-12); Blood Urea Nitrogen 22 mg/dL (7-17); Calcium 9.1 mg/dL (8.4-10.2); Carbon Dioxide 27 mmol/L (22-30); Chloride 103 mmol/L (98-107); Estimated CRCL calculation 38 ml/min; Estimated Glomerular Filt Rate > 60; Glucose 128 mg/dL (65-110); Sodium 135 mmol/L (137-145)
[2024-01-20] MEDS: DOXYCYCLINE 100 MG/NS 100 ML 100 MG/100 ML BAG IVPB ×2 (10:18→21:51)
[2024-01-20] MEDS: lisinopriL 20 MG TABLET 40 MG PO (10:19)
[2024-01-20] MEDS: ASPIRIN 81 MG ENTERIC TABLET PO (10:19)
[2024-01-20] MEDS: MULTIVITAMINS THERAPEUTIC TAB (*BKC) 1 TABLET PO (10:19)
[2024-01-20] MEDS: hydroCHLOROthiazide 12.5 MG CAPSULE PO (10:20)
[2024-01-20] MEDS: ENOXAPARIN 40 MG/0.4 ML SYRINGE SUB-Q (10:20)
[2024-01-20] MEDS: polyethylene glycoL 3350 17 GM POWD.PACK PO (10:20)
[2024-01-20 12:07] LABS: Glucose Point of Care 118 mg/dl (65-105)
[2024-01-20 13:38] LABS: NT Pro B Type Natriuretic Pept 192 pg/mL (19.9-100)
[2024-01-20] MEDS: KCL 20 MEQ/SW 100 ML 100 ML 50 MEQ IVPB (13:39)
[2024-01-20 13:56] VITALS: BP 119/64; PULSE 86; RESP 24; TEMP 37; O2SAT 96
[2024-01-20 20:00] VITALS: O2SAT 96
[2024-01-20] MEDS: DONEPEZIL HCL 10 MG TABLET PO (20:30)
[2024-01-20] MEDS: SIMVASTATIN 20 MG TABLET 40 MG PO (20:30)
[2024-01-20 22:00] VITALS: BP 141/68; PULSE 89; RESP 18; TEMP 36.8; O2SAT 98
[2024-01-21 05:58] LABS: Hematocrit 44.4 % (37.0-47.0); Hemoglobin 14.8 g/dL (12.0-15.0); Mean Corpuscular HGB Conc 33.3 g/dl (32-36); Mean Corpuscular Hemoglobin 30.5 pg (26-34); Mean Corpuscular Volume 91.5 fl (80-100); Platelet Count Result 115 k/mm3 (150-375); Red Blood Count 4.85 M/mm3 (4.2-5.4); White Blood Count 2.2 K/mm3 (4.5-10.0)
[2024-01-21 06:00] VITALS: BP 148/81; PULSE 83; RESP 18; TEMP 36.7; O2SAT 96
[2024-01-21] MEDS: LEVOTHYROXINE SODIUM 75 MCG TABLET PO (06:01)
[2024-01-21 06:06] LABS: Anion Gap 5 mmol/L (4-12); Blood Urea Nitrogen 26 mg/dL (7-17); Calcium 9.4 mg/dL (8.4-10.2); Carbon Dioxide 28 mmol/L (22-30); Chloride 104 mmol/L (98-107); Estimated CRCL calculation 38 ml/min; Estimated Glomerular Filt Rate > 60; Glucose 129 mg/dL (65-110); Sodium 137 mmol/L (137-145)
--- NOTE | 2024-01-21 07:08 | P.PNIM_ITS ---
Progress Note: A&P Assessment and Plan (1) Sepsis: Qualifiers: Sepsis acute organ dysfunction status: unspecified Sepsis type: sepsis due to unspecified organism Qualified Code(s): A41.9 - Sepsis, unspecified o rganism Code(s): A41.9 - Sepsis, unspecified organism Status: Acute Assessment and Plan: * patient initially meeting sepsis criteria with a heart rate of 103, respiratory rate of 24, temperature of 102.9 * UA showed cloudy urine appearance, 1+ urine protein , trace ketones, 3-5 urine RBC * blood cultures were obtained and are pending * urine did not reflux a culture * abdomen/pelvis CT was negative for any acute inter abdominal, pelvic process, showed mild ground-glass opacities and irregular septal line thickening in the dependent lower lung likely due to emphysema versus mild pulmonary edema, or pneumonia, mild descending and sigmoid colon diverticulosis, small sliding hiatal hernia * 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 and stable moderate nonspecific white matter disease representing chronic small-vessel ischemic disease * continue neuro checks * likely secondary to sepsis infection of unknown source (3) Hypoxic respiratory failure: Code(s): J96.91 - Respiratory failure, unspecified with hypoxia Status: Acute Assessment and Plan: * currently on 2 L nasal cannula * continue to wean O2 for sat greater than 92% * continue doxycycline for possible community-acquired pneumonia * Echocardiogram 60% * BNP 192 (4) Chronic low back pain: Code(s): M54.5 - Low back pain; G89.29 - Other chronic pain Status: Acute Assessment and Plan: * Tylenol p.r.n. (5) Chronic kidney disease, stage 3 unspecified: Code(s): N18.30 - Chronic kidney disease, stage 3 unspecified Status: Acute Assessment and Plan: * creatinine 0.80, EGFR greater than 60, creatinine clearance 34 (6) Hypothyroidism: Qualifiers: Hypothyroidism type: unspecified Qualified Code(s): E03.9 - Hypothyroidism, unspecified Code(s): E03.9 - Hypothyroidism, unspecified Status: Chronic Assessment and Plan: * TSH 0.239 * will decrease her Synthroid 76 mcg daily from her 88 mcg daily * will check T3 and T4 pending (7) Dementia: Code(s): F03.90 - Unspecified dementia, unspecified severity, without behavioral dist urbance, psychotic disturbance, mood disturbance, and anxiety Status: Acute Assessment and Plan: * continue Aricept (8) HTN (hypertension), benign: Code(s): I10 - Essential (primary) hypertension Status: Chronic Assessment and Plan: * blood pressure ranging 126/68 to 145/64 * continue lisinopril and hydrochlorothiazide (9) Hypercholesterolemia: Code(s): E78.00 - Pure hypercholesterolemia, unspecified Status: Acute Assessment and Plan: * continue simvastatin and aspirin Time Spent With Patient Time with patient: Greater than 35 minutes Subjective Date/time seen: 01/21/24 07:08 Interval history: interval history: this is an 83-year-old female who presented to the hospital on 01/18/2024 with fever, altered mental status, lethargy, generalized weakness found to have altered mental status with sepsis and hypoxic respiratory failure subjective: Patient appears to be resting comfortably on 2 L nasal cannula, patient is cardiomegaly with possible pulmonary edema, echo 60% and BNP 192. Potassium with no improvements from yesterday's replacement, 40 of K ordered today magnesium lab ordered for tomorrow. Leukopenia 2.2 and platelets of 115. Patient on baseline oxygen demands. OT note patient is independent, waiting on PT evaluation for discharge planning Review of Systems Review of Systems: All systems reviewed & are unremarkable except as noted in HPI and below ROS unobtainable: Yes unobtainable due to mental status ( obtundation) Constitutional: Constitutional: Reports as per HPI and Reports no additional constitutional complaints Eyes: Eyes: Reports as per HPI and Reports no additional eye complaints ENT: Reports system reviewed and no additional complaints, except as documented and Reports as per HPI Cardiovascular: Cardiovascular: Reports as per HPI and Reports no additional cardiovascular complaints Respiratory: Respiratory: Reports as per HPI and Reports no additional respiratory complaints Gastrointestinal: Gastrointestinal: Reports as per HPI and Reports no additional gastrointestinal complaints Genitourinary: Genitourinary: Reports no additional female genitourinary complaints and Reports as per HPI Musculoskeletal: Musculoskeletal: Reports no additional musculoskeletal complaints and Reports as per HPI Integumentary/Breasts: Skin/Breast: Reports system reviewed and no additional complaints, except as docu and Reports as per HPI Neurologic: Reports system reviewed and no additional complaints, except as documented and Reports as per HPI Psychiatric: Psychiatric: Reports no additional psychiatric complaints and Reports as per HPI Exam Narrative: General: appears weak and fatigued Cardiac: Normal S1 and S2. No murmur, gallops or friction rubs, peripheral pulses intact. Respiratory: Lungs clear to auscultation, diminished in the bases, no adventitious lung sounds currently on 2 L Gastrointestinal: soft, non-distended, non-tender, normoactive bowel sounds. : Oconnor catheter in place for Extremities: moves all extremities well, no edema Skin: clean, dry, intact. No wounds or lesions. Neuro: Alert to voice and oriented times 2-3, cranial nerves intact, no neuro deficits. Psych: normal mood, normal affect, interactive Const: General: comfortable, no acute distress, well developed, ill appearing acutely, lethargic, patient obtunded and average body habitus Nutritional Appearance: average body habitus Orientation/consciousness: patient obtunded and lethargic HENMT: Head: normal to inspection, normocephalic and atraumatic Ears: hearing grossly normal bilaterally Face/Nose/Sinus: normal facial exam Face and sinus: normal facial exam Eyes: General: appearance normal, both eyes and all related structures Pupils: Equal, round and reactive pupils present EOM: EOMs intact bilaterally Neck: Neck: full ROM, no lymphadenopathy and no JVD Thyroid: thyroid normal Lymphatic: no lymphadenopathy noted Resp: Effort & Inspection: normal respiratory effort and able to speak in complete sentences Auscultation: clear to auscultation bilaterally Cardio: Jugular venous distension: no JVD Rate: regular rate Rhythm: regular rhythm Heart sounds: S1 normal heart sound present and S2 normal heart sound present : General: Yes deferred Skin: Rashes: no rashes Wounds: no wounds Neuro: General: no focal motor deficits, CN's II-XI intact bilaterally, patient obtunded and Unable to assess gait Cranial nerves: Yes CN's II-XII intact bilaterally and Yes Equal, round and reactive pupils present Cognition (Neuro): abnormal cognition Gait exam (Neuro): Unable to assess gait Motor exam (neuro): 5/5 motor strength present throughout Extrem: General: normal to inspection, full ROM, no joint enlargement and no pedal edema Objective Data Vital Signs Vital Signs: Vital Signs - 24 hr 01/20/24 08:39 01/20/24 13:56 01/20/24 08:00 Temperature 98.6 F Pulse Rate 86 Respiratory Rate 24 H Blood Pressure 119/64 Pulse Oximetry 96 96 96 Oxygen Delivery Nasal Cannula Nasal Cannula Oxygen Flow Rate 2 2 Fraction of Inspired Oxygen 28 01/20/24 20:00 01/20/24 22:00 Temperature 98.2 F Pulse Rate 89 Respiratory Rate 18 Blood Pressure 141/68 H Pulse Oximetry 96 98 Oxygen Delivery Nasal Cannula Oxygen Flow Rate 2 Fraction of Inspired Oxygen Intake/Output Intake/Output: Intake & Output 01/18/24 01/19/24 01/20/24 01/21/24 23:59 23:59 23:59 23:59 Intake Total 3500 250 320 Output Total 3450 600 400 Balance 50 -350 -80 Meds/Results Medications: Active Medications Generic Name Dose Route Start Last Admin Trade Name Freq PRN Reason Stop Dose Admin Acetaminophen 650 mg 01/19/24 12:33 01/20/24 20:32 Acetaminophen 325 Mg Tablet PO 650 mg Q4H PRN Administration Mild Pain (1-3) or Fever Aspirin 81 mg 01/19/24 12:25 01/20/24 10:19 Aspirin 81 Mg Enteric Tablet PO 81 mg QAM MAYNOR Administration Donepezil HCl 10 mg 01/19/24 21:00 01/20/24 20:30 Donepezil Hcl 10 Mg Tablet PO 10 mg QHS MAYNOR Administration Enoxaparin Sodium 40 mg 01/20/24 09:00 01/20/24 10:20 Enoxaparin 40 Mg/0.4 Ml Syringe SUB-Q 40 mg DAILY MAYNOR Administration Fluticasone/Umeclidinium/Vilanterol 1 puff 01/19/24 12:30 01/20/24 08:39 Fluticasone/Umeclidin/Vilanter 200-62.5-25 Mcg Ellipta INHALATION 1 puff DAILYRT MAYNOR Administration Hydrochlorothiazide 12.5 mg 01/19/24 12:25 01/20/24 10:20 Hydrochlorothiazide 12.5 Mg Capsule PO 12.5 mg DAILY MAYNOR Administration Doxycycline Hyclate 100 mg in 100 mls @ 100 mls/hr 01/19/24 21:00 01/20/24 22:51 Vibramycin 100 Mg/Ns 100 Ml IVPB 01/23/24 09:59 Infused Q12H MAYNOR Infusion Levothyroxine Sodium 75 mcg 01/20/24 06:30 01/21/24 06:01 Levothyroxine Sodium 75 Mcg Tablet PO 75 mcg DAILY@0630 MAYNOR Administration Lisinopril 40 mg 01/19/24 12:30 01/20/24 10:19 Lisinopril 20 Mg Tablet PO 40 mg DAILY MAYNOR Administration Multivitamins Therapeutic 1 tablet 01/19/24 12:30 01/20/24 10:19 Multivitamins Therapeutic Tab (*Bkc) PO 1 tablet DAILY MAYNOR Administration Perflutren Lipid Microsphere 0 ml 01/19/24 14:29 Perflutren Lipid Microspheres 1.5 Ml Vial Diluted To 10 Ml Total Volume IV PUSH 01/22/24 14:29 ONCE PRN adequate visualization Protocol Polyethylene Glycol 17 gm 01/19/24 17:05 01/20/24 10:20 Polyethylene Glycol 3350 17 Gm Powd.Pack PO 17 gm QAM MAYNOR Administration Simvastatin 40 mg 01/19/24 21:00 01/20/24 20:30 Simvastatin 20 Mg Tablet PO 40 mg HS MAYNOR Administration Radiology Results: ITS Impressions Abdomen/Pelvis CT 01/18/24 13:15 IMPRESSION: 1. No acute intra-abdominal/pelvic process. 2. Mild groundglass opacity and irregular septal line thickening in the dependent lower lungs which could be due to emphysema, mild pulmonary edema or less likely pneumonia superimposed over mild emphysema or more chronic UIP pattern chronic interstitial lung disease. 3. Borderline heart size with right atrial enlargement. 4. Small sliding-type hiatal hernia with change of prior [place] fundoplication. 4. Mild descending and sigmoid colon diverticulosis. Head CT 01/18/24 18:14 IMPRESSION: 1. 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 2. Stable moderate nonspecific cerebral white matter disease, which likely represents chronic small vessel ischemic disease. Cervical Spine CT 01/18/24 18:17 IMPRESSION: 1. No fracture. 2. Severe cervical spondylosis. 3. Posterior fusion procedure from C3 to C7. Chest CTA 01/18/24 18:18 IMPRESSION: No pulmonary embolus. No aortic dissection. Bibasilar pleural thickening and atelectasis. Chest X-Ray 01/20/24 08:04 IMPRESSION: 1. Mild reticular opacities at the bilateral lung bases most likely atelectasis with differential including mild pulmonary edema or pneumonia. 2. Cardiomegaly. Labs Labs: Laboratory Results - last 24 hr 01/20/24 01/20/24 01/21/24 08:00 11:56 05:19 WBC 2.4 L 2.2 L RBC 4.72 4.85 Hgb 14.2 14.8 Hct 42.9 44.4 MCV 90.9 91.5 MCH 30.1 30.5 MCHC 33.1 33.3 RDW 13.8 14.0 Plt Count 118 L 115 L MPV 10.2 11.0 H Sodium 135 L 137 Potassium 3.0 L 3.0 L Chloride 103 104 Carbon Dioxide 27 28 Anion Gap 5 5 BUN 22 H D 26 H Creatinine 0.70 0.70 Estim Creat Clear Calc 38 38 Estimated GFR > 60 > 60 Glucose 128 H 129 H POC Capillary Glucose 118 H Calcium 9.1 9.4 NT-Pro-B Natriuret Pep 192 H Quality VTE Prophylaxis VTE prophylaxis: pharmacologic ordered
[2024-01-21 08:00] VITALS: PULSE 93; RESP 22; O2SAT 99
[2024-01-21] MEDS: FLUTICASONE/UMECLIDIN/VILANTER 200-62.5-25 MCG ELLIPTA 1 PUFF INHALATION (08:26)
[2024-01-21 08:29] VITALS: O2SAT 94
[2024-01-21] MEDS: MULTIVITAMINS THERAPEUTIC TAB (*BKC) 1 TABLET PO (08:57)
[2024-01-21] MEDS: ASPIRIN 81 MG ENTERIC TABLET PO (08:57)
[2024-01-21] MEDS: hydroCHLOROthiazide 12.5 MG CAPSULE PO (08:57)
[2024-01-21] MEDS: lisinopriL 20 MG TABLET 40 MG PO (08:57)
[2024-01-21] MEDS: DOXYCYCLINE 100 MG/NS 100 ML 100 MG/100 ML BAG IVPB ×2 (08:58→20:40)
[2024-01-21] MEDS: polyethylene glycoL 3350 17 GM POWD.PACK PO (08:58)
[2024-01-21] MEDS: ENOXAPARIN 40 MG/0.4 ML SYRINGE SUB-Q (09:27)
[2024-01-21] MEDS: POTASSIUM CHLORIDE INJ 40 MEQ in SODIUM CHLORIDE 0.9% IV 500 ML 130 MEQ IVPB (10:49)
[2024-01-21] MEDS: ACETAMINOPHEN 325 MG TABLET 650 MG PO (11:32)
[2024-01-21 13:50] VITALS: BP 129/56; PULSE 93; RESP 22; TEMP 36.3; O2SAT 99
[2024-01-21 20:00] VITALS: O2SAT 99
[2024-01-21] MEDS: SIMVASTATIN 20 MG TABLET 40 MG PO (20:39)
[2024-01-21] MEDS: DONEPEZIL HCL 10 MG TABLET PO (20:39)
[2024-01-21 22:00] VITALS: BP 163/72; PULSE 86; RESP 16; TEMP 36.9; O2SAT 98
[2024-01-22 06:00] VITALS: RESP 18; TEMP 36.7
[2024-01-22 06:18] LABS: Hematocrit 44.1 % (37.0-47.0); Hemoglobin 14.4 g/dL (12.0-15.0); Mean Corpuscular HGB Conc 32.7 g/dl (32-36); Mean Corpuscular Hemoglobin 30.7 pg (26-34); Mean Platelet Volume 10.7 fl (7.4-10.4); Platelet Count Result 111 k/mm3 (150-375); Red Blood Count 4.69 M/mm3 (4.2-5.4); Red Cell Distribution Width 13.8 % (11.5-14.5); White Blood Count 2.2 K/mm3 (4.5-10.0)
[2024-01-22] MEDS: LEVOTHYROXINE SODIUM 75 MCG TABLET PO (06:31)
[2024-01-22 06:39] LABS: Anion Gap 6 mmol/L (4-12); Blood Urea Nitrogen 16 mg/dL (7-17); Calcium 9.1 mg/dL (8.4-10.2); Carbon Dioxide 27 mmol/L (22-30); Chloride 102 mmol/L (98-107); Estimated CRCL calculation 52 ml/min; Estimated Glomerular Filt Rate > 60; Glucose 139 mg/dL (65-110); Magnesium 1.8 mg/dL (1.6-2.3); Phosphorus 2.7 mg/dL (2.5-4.5); Potassium 3.2 mmol/L (3.4-5.0); Sodium 135 mmol/L (137-145)
--- NOTE | 2024-01-22 08:46 | P.PNIM_ITS ---
Progress Note: A&P Assessment and Plan (1) Sepsis: Qualifiers: Sepsis acute organ dysfunction status: unspecified Sepsis type: sepsis due to unspecified organism Qualified Code(s): A41.9 - Sepsis, unspecified o rganism Code(s): A41.9 - Sepsis, unspecified organism Status: Acute Assessment and Plan: * patient initially meeting sepsis criteria with a heart rate of 103, respiratory rate of 24, temperature of 102.9 * UA showed cloudy urine appearance, 1+ urine protein , trace ketones, 3-5 urine RBC * blood cultures were obtained and are pending * urine did not reflux a culture * abdomen/pelvis CT was negative for any acute inter abdominal, pelvic process, showed mild ground-glass opacities and irregular septal line thickening in the dependent lower lung likely due to emphysema versus mild pulmonary edema, or pneumonia, mild descending and sigmoid colon diverticulosis, small sliding hiatal hernia * 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 and stable moderate nonspecific white matter disease representing chronic small-vessel ischemic disease * continue neuro checks * likely secondary to sepsis infection due to UTI (3) Hypoxic respiratory failure: Code(s): J96.91 - Respiratory failure, unspecified with hypoxia Status: Acute Assessment and Plan: * currently on room air * continue to wean O2 for sat greater than 92% * continue doxycycline for possible community-acquired pneumonia * Echocardiogram showing EF of 60%, grade I diastolic dysfunction * BNP 192 (4) Chronic low back pain: Code(s): M54.5 - Low back pain; G89.29 - Other chronic pain Status: Acute Assessment and Plan: * Tylenol p.r.n. (5) Chronic kidney disease, stage 3 unspecified: Code(s): N18.30 - Chronic kidney disease, stage 3 unspecified Status: Acute Assessment and Plan: * creatinine 0.50, EGFR greater than 60, creatinine clearance 52 * Continue to trend (6) Hypothyroidism: Qualifiers: Hypothyroidism type: unspecified Qualified Code(s): E03.9 - Hypothyroidism, unspecified Code(s): E03.9 - Hypothyroidism, unspecified Status: Chronic Assessment and Plan: * TSH 0.239 * will decrease her Synthroid 76 mcg daily from her 88 mcg daily * T4 8.16, T3 still pending (7) Dementia: Code(s): F03.90 - Unspecified dementia, unspecified severity, without behavioral disturbance, psychotic disturbance, mood disturbance, and anxiety Status: Acute Assessment and Plan: * continue Aricept (8) HTN (hypertension), benign: Code(s): I10 - Essential (primary) hypertension Status: Chronic Assessment and Plan: * blood pressure ranging 126/68 to 145/64 * continue lisinopril and hydrochlorothiazide (9) Hypercholesterolemia: Code(s): E78.00 - Pure hypercholesterolemia, unspecified Status: Acute Assessment and Plan: * continue simvastatin and aspirin Time Spent With Patient Time with patient: 25 - 35 minutes Subjective Date/time seen: 01/22/24 08:46 Interval history: Interval history: this is an 83-year-old female who presented to the hospital on 01/18/2024 with fever, altered mental status, lethargy, generalized weakness. Workup in the hospital included a chest x-ray shown coarse reticular opacities at the bilateral lung bases. Abdomen pelvis CT was negative for any acute intra- abdominal pelvic process, shown mild ground-glass opacity and irregular septal line thickening in the dependent lower lung zone which could be due to emphysema, mild pulmonary edema or less likely pneumonia, small sliding hiatal hernia, mild descending and sigmoid colon diverticulosis. 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 Cervical spine CT was negative for fracture, showed severe cervical spondylosis, posterior fusion from C3-C7. Chest CTA was negative for PE, dissection. Initial labs showed a normal white blood cell count of 6.9, sodium 133 AST 42, troponin negative x2, lipase 37. UA was obtained showing cloudy urine appearance, 1+ urine protein, trace ketone, 3-5 urine RBC otherwise negative. MRSA was negative. Respiratory panel was negative for influenza a and B, RSV, COVID. Blood cultures were obtained and are pending. EKG showed sinus tachycardia with right axis deviation, right bundle branch block, with a rate of 109, QTC 511. Patient was given 1800 mL of normal saline, doxycycline, Zosyn, vancomycin, Toradol and Tylenol while in the ED. Subjective: Patient is alert today. She reports generalized fatigue/weakness. She denies any other complaints today. Labs and imaging reviewed. Review of Systems Review of Systems: All systems reviewed & are unremarkable except as noted in HPI and below Constitutional: Constitutional: Reports as per HPI and Reports no additional constitutional complaints Eyes: Eyes: Reports as per HPI and Reports no additional eye complaints ENT: Reports system reviewed and no additional complaints, except as documented and Reports as per HPI Cardiovascular: Cardiovascular: Reports as per HPI and Reports no additional cardiovascular complaints Respiratory: Respiratory: Reports as per HPI and Reports no additional respiratory complaints Gastrointestinal: Gastrointestinal: Reports as per HPI and Reports no additional gastrointestinal complaints Genitourinary: Genitourinary: Reports no additional female genitourinary complaints and Reports as per HPI Musculoskeletal: Musculoskeletal: Reports no additional musculoskeletal complaints and Reports as per HPI Integumentary/Breasts: Skin/Breast: Reports system reviewed and no additional complaints, except as docu and Reports as per HPI Neurologic: Reports system reviewed and no additional complaints, except as d ocumented and Reports as per HPI Psychiatric: Psychiatric: Reports no additional psychiatric complaints and Reports as per HPI Exam Narrative: General: appears weak and fatigued Cardiac: Normal S1 and S2. No murmur, gallops or friction rubs, peripheral pulses intact. Respiratory: Lungs clear to auscultation, diminished in the bases, no adventitious lung sounds currently on room air Gastrointestinal: soft, non-distended, non-tender, normoactive bowel sounds. : Oconnor catheter in place Extremities: moves all extremities well, no edema Skin: clean, dry, intact. No wounds or lesions. Neuro: Alert and oriented x3, cranial nerves intact, no neuro deficits. Psych: normal mood, normal affect, interactive Objective Data Vital Signs Vital Signs: Vital Signs - 24 hr 01/21/24 13:50 01/21/24 13:57 01/21/24 20:00 Temperature 97.3 F L Pulse Rate 93 Respiratory Rate 22 H Blood Pressure 129/56 L Pulse Oximetry 99 99 Oxygen Delivery Nasal Cannula Nasal Cannula Oxygen Flow Rate 2 2 01/21/24 22:00 01/22/24 06:00 Temperature 98.4 F 98.1 F Pulse Rate 86 Respiratory Rate 16 18 Blood Pressure 163/72 H Pulse Oximetry 98 Oxygen Delivery Oxygen Flow Rate Intake/Output Intake/Output: Intake & Output 01/19/24 01/20/24 01/21/24 01/22/24 23:59 23:59 23:59 23:59 Intake Total 250 320 680 0 Output Total 600 400 750 150 Balance -350 -80 -70 -150 Meds/Results Medications: Active Medications Generic Name Dose Route Start Last Admin Trade Name Freq PRN Reason Stop Dose Admin Acetaminophen 650 mg 01/19/24 12:33 01/21/24 11:32 Acetaminophen 325 Mg Tablet PO 650 mg Q4H PRN Administration Mild Pain (1-3) or Fever Aspirin 81 mg 01/19/24 12:25 01/21/24 08:57 Aspirin 81 Mg Enteric Tablet PO 81 mg QAM MAYNOR Administration Donepezil HCl 10 mg 01/19/24 21:00 01/21/24 20:39 Donepezil Hcl 10 Mg Tablet PO 10 mg QHS MAYNOR Administration Enoxaparin Sodium 40 mg 01/20/24 09:00 01/21/24 09:27 Enoxaparin 40 Mg/0.4 Ml Syringe SUB-Q 40 mg DAILY MAYNOR Administration Fluticasone/Umeclidinium/Vilanterol 1 puff 01/19/24 12:30 01/21/24 08:26 Fluticasone/Umeclidin/Vilanter 200-62.5-25 Mcg Ellipta INHALATION 1 puff DAILYRT MAYNOR Administration Hydrochlorothiazide 12.5 mg 01/19/24 12:25 01/21/24 08:57 Hydrochlorothiazide 12.5 Mg Capsule PO 12.5 mg DAILY MAYNOR Administration Doxycycline Hyclate 100 mg in 100 mls @ 100 mls/hr 01/19/24 21:00 01/21/24 21:40 Vibramycin 100 Mg/Ns 100 Ml IVPB 01/23/24 09:59 Infused Q12H MAYNOR Infusion Levothyroxine Sodium 75 mcg 01/20/24 06:30 01/22/24 06:31 Levothyroxine Sodium 75 Mcg Tablet PO 75 mcg DAILY@0630 MAYNOR Administration Lisinopril 40 mg 01/19/24 12:30 01/21/24 08:57 Lisinopril 20 Mg Tablet PO 40 mg DAILY MAYNOR Administration Multivitamins Therapeutic 1 tablet 01/19/24 12:30 01/21/24 08:57 Multivitamins Therapeutic Tab (*Bkc) PO 1 tablet DAILY MAYNOR Administration Perflutren Lipid Microsphere 0 ml 01/19/24 14:29 Perflutren Lipid Microspheres 1.5 Ml Vial Diluted To 10 Ml Total Volume IV PUSH 01/22/24 14:29 ONCE PRN adequate visualization Protocol Polyethylene Glycol 17 gm 01/19/24 17:05 01/21/24 08:58 Polyethylene Glycol 3350 17 Gm Powd.Pack PO 17 gm QAM MAYNOR Administration Simvastatin 40 mg 01/19/24 21:00 01/21/24 20:39 Simvastatin 20 Mg Tablet PO 40 mg HS MAYNOR Administration Radiology Results: ITS Impressions Abdomen/Pelvis CT 01/18/24 13:15 IMPRESSION: 1. No acute intra-abdominal/pelvic process. 2. Mild groundglass opacity and irregular septal line thickening in the dependent lower lungs which could be due to emphysema, mild pulmonary edema or less likely pneumonia superimposed over mild emphysema or more chronic UIP p attern chronic interstitial lung disease. 3. Borderline heart size with right atrial enlargement. 4. Small sliding-type hiatal hernia with change of prior [place] fundoplication. 4. Mild descending and sigmoid colon diverticulosis. Head CT 01/18/24 18:14 IMPRESSION: 1. 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 2. Stable moderate nonspecific cerebral white matter disease, which likely represents chronic small vessel ischemic disease. Cervical Spine CT 01/18/24 18:17 IMPRESSION: 1. No fracture. 2. Severe cervical spondylosis. 3. Posterior fusion procedure from C3 to C7. Chest CTA 01/18/24 18:18 IMPRESSION: No pulmonary embolus. No aortic dissection. Bibasilar pleural thickening and atelectasis. Chest X-Ray 01/20/24 08:04 IMPRESSION: 1. Mild reticular opacities at the bilateral lung bases most likely atelectasis with differential including mild pulmonary edema or pneumonia. 2. Cardiomegaly. Labs Labs: Laboratory Results - last 24 hr 01/22/24 06:02 WBC 2.2 L RBC 4.69 Hgb 14.4 Hct 44.1 MCV 94.0 MCH 30.7 MCHC 32.7 RDW 13.8 Plt Count 111 L MPV 10.7 H Sodium 135 L Potassium 3.2 L Chloride 102 Carbon Dioxide 27 Anion Gap 6 BUN 16 D Creatinine 0.50 L Estim Creat Clear Calc 52 Estimated GFR > 60 Glucose 139 H Calcium 9.1 Phosphorus 2.7 Magnesium 1.8 Quality VTE Prophylaxis VTE prophylaxis: pharmacologic ordered
[2024-01-22 08:49] VITALS: PULSE 89; RESP 20; O2SAT 96
[2024-01-22] MEDS: FLUTICASONE/UMECLIDIN/VILANTER 200-62.5-25 MCG ELLIPTA 1 PUFF INHALATION (08:49)
[2024-01-22 09:15] VITALS: O2SAT 96
[2024-01-22] MEDS: hydroCHLOROthiazide 12.5 MG CAPSULE PO (09:17)
[2024-01-22] MEDS: MULTIVITAMINS THERAPEUTIC TAB (*BKC) 1 TABLET PO (09:17)
[2024-01-22] MEDS: lisinopriL 20 MG TABLET 40 MG PO (09:17)
[2024-01-22] MEDS: ACETAMINOPHEN 325 MG TABLET 650 MG PO (09:17)
[2024-01-22] MEDS: ASPIRIN 81 MG ENTERIC TABLET PO (09:17)
[2024-01-22] MEDS: DOXYCYCLINE 100 MG/NS 100 ML 100 MG/100 ML BAG IVPB (09:18)
[2024-01-22] MEDS: ENOXAPARIN 40 MG/0.4 ML SYRINGE SUB-Q (09:18)
[2024-01-22] MEDS: polyethylene glycoL 3350 17 GM POWD.PACK PO (09:18)
[2024-01-22] MEDS: POTASSIUM CHLORIDE INJ 40 MEQ in SODIUM CHLORIDE 0.9% IV 500 ML 130 MEQ IVPB (10:43)
[2024-01-22 14:00] VITALS: BP 149/75; PULSE 86; RESP 18; TEMP 37.1; O2SAT 98
[2024-01-22 16:00] VITALS: O2SAT 93
[2024-01-22] MEDS: AMOXICILLIN/CLAVULANATE K 875-125 MG TAB 1 TABLET PO (17:40)
[2024-01-22 20:26] VITALS: PULSE 99; RESP 20; TEMP 36.7; O2SAT 94
[2024-01-22] MEDS: DONEPEZIL HCL 10 MG TABLET PO (20:28)
[2024-01-22] MEDS: DOXYCYCLINE HYCLATE 100 MG TABLET PO (20:28)
[2024-01-22] MEDS: SIMVASTATIN 20 MG TABLET 40 MG PO (20:28)
[2024-01-23] VITALS (9 sets, daily range): BP systolic 137–160; BP diastolic 63–78; PULSE 75–90; RESP 18–20; TEMP 36.6–36.7; O2SAT 87–96
[2024-01-23] MEDS: LEVOTHYROXINE SODIUM 75 MCG TABLET PO (05:52)
[2024-01-23] MEDS: FLUTICASONE/UMECLIDIN/VILANTER 200-62.5-25 MCG ELLIPTA 1 PUFF INHALATION (08:13)
[2024-01-23 08:33] LABS: Basophils Percent Auto 0.6 % (0.2-1.2); Hemoglobin 14.8 g/dL (12.0-15.0); Immature Granulocyte Absolute 0.04 K/mm3 (0.00-0.031); Immature Granulocyte Percent A 0.8 % (0-0.5); Lymphocytes Absolute Auto 1.51 K/mm3 (0.9-3.2); Lymphocytes Percent Auto 31.5 % (18.3-44.2); Mean Corpuscular HGB Conc 33.6 g/dl (32-36); Mean Corpuscular Hemoglobin 30.5 pg (26-34); Mean Corpuscular Volume 90.5 fl (80-100); Mean Platelet Volume 11.2 fl (7.4-10.4); Monocytes Absolute Auto 0.7 K/mm3 (0.1-0.6); Monocytes Percent Auto 14.6 % (2.6-8.5); Neutrophils Absolute Auto 2.5 K/mm3 (1.3-6.7); Neutrophils Percent Auto 52.5 % (45.5-73.1); Platelet Count Result 124 k/mm3 (150-375); Red Blood Count 4.86 M/mm3 (4.2-5.4); Red Cell Distribution Width 13.9 % (11.5-14.5); White Blood Count 4.8 K/mm3 (4.5-10.0)
[2024-01-23 08:45] LABS: Alanine Aminotransferase 42 U/L (6-35); Albumin Level 3.7 g/dL (3.5-5.1); Alkaline Phosphatase 99 U/L (38-126); Anion Gap 8 mmol/L (4-12); Aspartate Amino Transferase 124 U/L (14-36); Bilirubin,Total 0.9 mg/dL (0.2-1.3); Blood Urea Nitrogen 17 mg/dL (7-17); Calcium 9.3 mg/dL (8.4-10.2); Carbon Dioxide 27 mmol/L (22-30); Chloride 100 mmol/L (98-107); Estimated CRCL calculation 44 ml/min; Estimated Glomerular Filt Rate > 60; Glucose 125 mg/dL (65-110); Potassium 3.4 mmol/L (3.4-5.0); Sodium 135 mmol/L (137-145)
[2024-01-23] MEDS: lisinopriL 20 MG TABLET 40 MG PO (08:45)
[2024-01-23] MEDS: ASPIRIN 81 MG ENTERIC TABLET PO (08:45)
[2024-01-23] MEDS: ACETAMINOPHEN 325 MG TABLET 650 MG PO (08:45)
[2024-01-23] MEDS: MULTIVITAMINS THERAPEUTIC TAB (*BKC) 1 TABLET PO (08:46)
[2024-01-23] MEDS: ENOXAPARIN 40 MG/0.4 ML SYRINGE SUB-Q (08:46)
[2024-01-23] MEDS: polyethylene glycoL 3350 17 GM POWD.PACK PO (08:46)
[2024-01-23] MEDS: hydroCHLOROthiazide 12.5 MG CAPSULE PO (08:46)
[2024-01-23] MEDS: DOXYCYCLINE HYCLATE 100 MG TABLET PO (08:46)
[2024-01-23] MEDS: AMOXICILLIN/CLAVULANATE K 875-125 MG TAB 1 TABLET PO ×2 (08:46→20:34)
[2024-01-23 08:58] LABS: T3 Free 1.8 pg/mL (2.3-4.2)
[2024-01-23 09:15] LABS: Atypical Lymphocytes Present; Platelet Estimate Slightly Decreased (Adequate); Schistocytes None Seen
--- NOTE | 2024-01-23 10:51 | P.PNIM_ITS ---
Progress Note: A&P Assessment and Plan (1) Sepsis: Qualifiers: Sepsis acute organ dysfunction status: unspecified Sepsis type: sepsis due to unspecified organism Qualified Code(s): A41.9 - Sepsis, unspecified o rganism Code(s): A41.9 - Sepsis, unspecified organism Status: Acute Assessment and Plan: * patient initially meeting sepsis criteria with a heart rate of 103, respiratory rate of 24, temperature of 102.9 * UA showed cloudy urine appearance, 1+ urine protein , trace ketones, 3-5 urine RBC * blood cultures were obtained and are pending * urine did not reflux a culture * abdomen/pelvis CT was negative for any acute inter abdominal, pelvic process, showed mild ground-glass opacities and irregular septal line thickening in the dependent lower lung likely due to emphysema versus mild pulmonary edema, or pneumonia, mild descending and sigmoid colon diverticulosis, small sliding hiatal hernia * 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 She finished course of Doxycycline and will need 4 more days of the Augmentin to complete the course * Zosyn and vancomycin were discontinued. 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 Fatigued today but answers to voice and answers questions (3) Hypoxic respiratory failure: Code(s): J96.91 - Respiratory failure, unspecified with hypoxia Status: Acute Assessment and Plan: * currently on room air * continue to wean O2 for sat greater than 92% * continue doxycycline for possible community-acquired pneumonia * Echocardiogram showing EF of 60%, grade I diastolic dysfunction * BNP 192 initially (4) Chronic low back pain: Code(s): M54.5 - Low back pain; G89.29 - Other chronic pain Status: Acute Assessment and Plan: * Tylenol p.r.n. (5) Chronic kidney disease, stage 3 unspecified: Code(s): N18.30 - Chronic kidney disease, stage 3 unspecified Status: Acute Assessment and Plan: * creatinine 0.60, EGFR greater than 60, creatinine clearance 44 * Continue to trend (6) Hypothyroidism: Qualifiers: Hypothyroidism type: unspecified Qualified Code(s): E03.9 - Hypothyroidism, unspecified Code(s): E03.9 - Hypothyroidism, unspecified Status: Chronic Assessment and Plan: * TSH 0.239 * T4 8.16, T3 1.8 * Continue Synthroid 75 mg daily, this was decreased this admission due to her TSH and T3 levels being low. (7) Dementia: Code(s): F03.90 - Unspecified dementia, unspecified severity, without behavioral disturbance, psychotic disturbance, mood disturbance, and anxiety Status: Acute Assessment and Plan: * continue Aricept (8) HTN (hypertension), benign: Code(s): I10 - Essential (primary) hypertension Status: Chronic Assessment and Plan: * blood pressure ranging 129/56-160/78 * continue lisinopril and hydrochlorothiazide (9) Hypercholesterolemia: Code(s): E78.00 - Pure hypercholesterolemia, unspecified Status: Acute Assessment and Plan: * continue simvastatin and aspirin Time Spent With Patient Time with patient: 15 - 25 minutes Subjective Date/time seen: 01/23/24 10:51 Interval history: Interval history: this is an 83-year-old female who presented to the hospital on 01/18/2024 with fever, altered mental status, lethargy, generalized weakness. Workup in the hospital included a chest x-ray shown coarse reticular opacities at the bilateral lung bases. Abdomen pelvis CT was negative for any acute intra- abdominal pelvic process, shown mild ground-glass opacity and irregular septal line thickening in the dependent lower lung zone which could be due to emphysema, mild pulmonary edema or less likely pneumonia, small sliding hiatal hernia, mild descending and sigmoid colon diverticulosis. 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 Cervical spine CT was negative for fracture, showed severe cervical spondylosis, posterior fusion from C3-C7. Chest CTA was negative for PE, dissection. Initial labs showed a normal white blood cell count of 6.9, sodium 133 AST 42, troponin negative x2, lipase 37. UA was obtained showing cloudy urine appearance, 1+ urine protein, trace ketone, 3-5 urine RBC otherwise negative. MRSA was negative. Respiratory panel was negative for influenza a and B, RSV, COVID. Blood cultures were obtained and are pending. EKG showed sinus tachycardia with right axis deviation, right bundle branch block, with a rate of 109, QTC 511. Patient was given 1800 mL of normal saline, doxycycline, Zosyn, vancomycin, Toradol and Tylenol while in the ED. Subjective: Patient is alert to voice, appears fatigued. Labs reviewed. Review of Systems Review of Systems: All systems reviewed & are unremarkable except as noted in HPI and below Constitutional: Constitutional: Reports as per HPI and Reports no additional constitutional complaints Eyes: Eyes: Reports as per HPI and Reports no additional eye complaints ENT: Reports system reviewed and no additional complaints, except as documented and Reports as per HPI Cardiovascular: Cardiovascular: Reports as per HPI and Reports no additional cardiovascular complaints Respiratory: Respiratory: Reports as per HPI and Reports no additional respiratory complaints Gastrointestinal: Gastrointestinal: Reports as per HPI and Reports no additional gastrointestinal complaints Genitourinary: Genitourinary: Reports no additional female genitourinary complaints and Reports as per HPI Musculoskeletal: Musculoskeletal: Reports no additional musculoskeletal complaints and Reports as per HPI Integumentary/Breasts: Skin/Breast: Reports system reviewed and no additional complaints, except as docu and Reports as per HPI Neurologic: Reports system reviewed and no additional complaints, except as documented and Reports as per HPI Psychiatric: Psychiatric: Reports no additional psychiatric complaints and Reports as per HPI Exam Narrative: General: appears weak and fatigued Cardiac: Normal S1 and S2. No murmur, gallops or friction rubs, peripheral pulses intact. Respiratory: Lungs clear to auscultation, diminished in the bases, no adventitious lung sounds currently on room air Gastrointestinal: soft, non-distended, non-tender, normoactive bowel sounds. : Oconnor catheter in place , clear and bartolome, pure wick in place Extremities: moves all extremities well, no edema Skin: clean, dry, intact. No wounds or lesions. Neuro: Alert and oriented x3, cranial nerves intact, no neuro deficits. Psych: normal mood, normal affect, interactive Objective Data Vital Signs Vital Signs: Vital Signs - 24 hr 01/22/24 14:00 01/22/24 16:00 01/22/24 20:26 Temperature 98.7 F 98.1 F Pulse Rate 86 99 Respiratory Rate 18 20 Blood Pressure 149/75 H Pulse Oximetry 98 93 94 Oxygen Delivery Room Air 01/22/24 20:00 01/23/24 00:04 01/23/24 04:14 Temperature 97.9 F Pulse Rate 90 Respiratory Rate 20 Blood Pressure 160/78 H 160/75 H Pulse Oximetry 92 Oxygen Delivery Room Air 01/23/24 08:13 01/23/24 08:45 Temperature Pulse Rate Respiratory Rate Blood Pressure Pulse Oximetry 92 93 Oxygen Delivery Room Air Room Air Intake/Output Intake/Output: Intake & Output 01/20/24 01/21/24 01/22/24 01/23/24 23:59 23:59 23:59 23:59 Intake Total 320 680 456 0 Output Total 400 750 650 300 Balance -80 -70 -194 -300 Meds/Results Medications: Active Medications Generic Name Dose Route Start Last Admin Trade Name Freq PRN Reason Stop Dose Admin Acetaminophen 650 mg 01/19/24 12:33 01/23/24 08:45 Acetaminophen 325 Mg Tablet PO 650 mg Q4H PRN Administration Mild Pain (1-3) or Fever Amoxicillin/Clavulanate Potassium 1 tablet 01/22/24 18:00 01/23/24 08:46 Amoxicillin/Clavulanate K 875-125 Mg Tab PO 01/27/24 09:01 1 tablet Q12HR MAYNOR Administration Aspirin 81 mg 01/19/24 12:25 01/23/24 08:45 Aspirin 81 Mg Enteric Tablet PO 81 mg QAM MAYNOR Administration Donepezil HCl 10 mg 01/19/24 21:00 01/22/24 20:28 Donepezil Hcl 10 Mg Tablet PO 10 mg QHS MAYNOR Administration Enoxaparin Sodium 40 mg 01/20/24 09:00 01/23/24 08:46 Enoxaparin 40 Mg/0.4 Ml Syringe SUB-Q 40 mg DAILY MAYNOR Administration Fluticasone/Umeclidinium/Vilanterol 1 puff 01/19/24 12:30 01/23/24 08:13 Fluticasone/Umeclidin/Vilanter 200-62.5-25 Mcg Ellipta INHALATION 1 puff DAILYRT MAYNOR Administration Hydrochlorothiazide 12.5 mg 01/19/24 12:25 01/23/24 08:46 Hydrochlorothiazide 12.5 Mg Capsule PO 12.5 mg DAILY MAYNOR Administration Levothyroxine Sodium 75 mcg 01/20/24 06:30 01/23/24 05:52 Levothyroxine Sodium 75 Mcg Tablet PO 75 mcg DAILY@0630 MAYNOR Administration Lisinopril 40 mg 01/19/24 12:30 01/23/24 08:45 Lisinopril 20 Mg Tablet PO 40 mg DAILY MAYNOR Administration Multivitamins Therapeutic 1 tablet 01/19/24 12:30 01/23/24 08:46 Multivitamins Therapeutic Tab (*Bkc) PO 1 tablet DAILY MAYNOR Administration Polyethylene Glycol 17 gm 01/19/24 17:05 01/23/24 08:46 Polyethylene Glycol 3350 17 Gm Powd.Pack PO 17 gm QAM MAYNOR Administration Simvastatin 40 mg 01/19/24 21:00 01/22/24 20:28 Simvastatin 20 Mg Tablet PO 40 mg HS MAYNOR Administration Radiology Results: ITS Impressions Abdomen/Pelvis CT 01/18/24 13:15 IMPRESSION: 1. No acute intra-abdominal/pelvic process. 2. Mild groundglass opacity and irregular septal line thickening in the dependent lower lungs which could be due to emphysema, mild pulmonary edema or less likely pneumonia superimposed over mild emphysema or more chronic UIP pattern chronic interstitial lung disease. 3. Borderline heart size with right atrial enlargement. 4. Small sliding-type hiatal hernia with change of prior [place] fundoplication. 4. Mild descending and sigmoid colon diverticulosis. Head CT 01/18/24 18:14 IMPRESSION: 1. 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 2. Stable moderate nonspecific cerebral white matter disease, which likely represents chronic small vessel ischemic disease. Cervical Spine CT 01/18/24 18:17 IMPRESSION: 1. No fracture. 2. Severe cervical spondylosis. 3. Posterior fusion procedure from C3 to C7. Chest CTA 01/18/24 18:18 IMPRESSION: No pulmonary embolus. No aortic dissection. Bibasilar pleural thickening and atelectasis. Chest X-Ray 01/20/24 08:04 IMPRESSION: 1. Mild reticular opacities at the bilateral lung bases most likely atelectasis with differential including mild pulmonary edema or pneumonia. 2. Cardiomegaly. Labs Labs: Laboratory Results - last 24 hr 01/19/24 01/23/24 17:35 08:18 WBC 4.8 RBC 4.86 Hgb 14.8 Hct 44.0 MCV 90.5 MCH 30.5 MCHC 33.6 RDW 13.9 Plt Count 124 L MPV 11.2 H Immature Gran % (Auto) 0.8 H Neut % (Auto) 52.5 Lymph % (Auto) 31.5 Tillman % (Auto) 14.6 H Eos % (Auto) 0.0 Baso % (Auto) 0.6 Lymph # (Auto) 1.51 Tillman # (Auto) 0.7 H Eos # (Auto) 0.0 Baso # (Auto) 0.0 Abs Immat Gran (auto) 0.04 H Absolute Neuts (auto) 2.5 Absolute Nucleated RBC 0.000 Nucleated RBC % 0.0 Atypical Lymphocytes Present Platelet Estimate Slightly decreased % Immature Plt Fraction 7.0 Schistocytes None seen Sodium 135 L Potassium 3.4 Chloride 100 Carbon Dioxide 27 Anion Gap 8 BUN 17 Creatinine 0.60 L Estim Creat Clear Calc 44 Estimated GFR > 60 Glucose 125 H Calcium 9.3 Total Bilirubin 0.9 AST 124 H ALT 42 H Alkaline Phosphatase 99 Total Protein 7.0 Albumin 3.7 Free T3 pg/mL 1.8 L Quality VTE Prophylaxis VTE prophylaxis: pharmacologic ordered
[2024-01-23] MEDS: SIMVASTATIN 20 MG TABLET 40 MG PO (20:34)
[2024-01-23] MEDS: DONEPEZIL HCL 10 MG TABLET PO (20:34)
[2024-01-24 04:31] VITALS: BP 145/68; PULSE 87; RESP 18; TEMP 36.6; O2SAT 91
[2024-01-24 06:02] LABS: Basophils Percent Auto 0.5 % (0.2-1.2); Hematocrit 43.4 % (37.0-47.0); Hemoglobin 14.6 g/dL (12.0-15.0); Immature Granulocyte Absolute 0.05 K/mm3 (0.00-0.031); Immature Granulocyte Percent A 0.8 % (0-0.5); Lymphocytes Absolute Auto 1.72 K/mm3 (0.9-3.2); Lymphocytes Percent Auto 28.3 % (18.3-44.2); Mean Corpuscular HGB Conc 33.6 g/dl (32-36); Mean Corpuscular Hemoglobin 30.4 pg (26-34); Mean Corpuscular Volume 90.4 fl (80-100); Mean Platelet Volume 11.4 fl (7.4-10.4); Monocytes Absolute Auto 0.6 K/mm3 (0.1-0.6); Monocytes Percent Auto 9.9 % (2.6-8.5); Neutrophils Absolute Auto 3.7 K/mm3 (1.3-6.7); Neutrophils Percent Auto 60.5 % (45.5-73.1); Platelet Count Result 143 k/mm3 (150-375); Red Cell Distribution Width 14.2 % (11.5-14.5); White Blood Count 6.1 K/mm3 (4.5-10.0)
[2024-01-24 06:06] LABS: Alanine Aminotransferase 46 U/L (6-35); Albumin Level 3.5 g/dL (3.5-5.1); Alkaline Phosphatase 101 U/L (38-126); Anion Gap 7 mmol/L (4-12); Aspartate Amino Transferase 119 U/L (14-36); Bilirubin,Total 0.7 mg/dL (0.2-1.3); Blood Urea Nitrogen 22 mg/dL (7-17); Calcium 9.2 mg/dL (8.4-10.2); Carbon Dioxide 25 mmol/L (22-30); Chloride 103 mmol/L (98-107); Estimated CRCL calculation 44 ml/min; Estimated Glomerular Filt Rate > 60; Glucose 121 mg/dL (65-110); Potassium 3.4 mmol/L (3.4-5.0); Sodium 135 mmol/L (137-145)
[2024-01-24] MEDS: LEVOTHYROXINE SODIUM 75 MCG TABLET PO (06:30)
[2024-01-24] MEDS: FLUTICASONE/UMECLIDIN/VILANTER 200-62.5-25 MCG ELLIPTA 1 PUFF INHALATION (07:05)
[2024-01-24 07:07] VITALS: O2SAT 93
[2024-01-24] MEDS: lisinopriL 20 MG TABLET 40 MG PO (09:19)
[2024-01-24 09:20] VITALS: O2SAT 95
[2024-01-24] MEDS: ENOXAPARIN 40 MG/0.4 ML SYRINGE SUB-Q (09:20)
[2024-01-24] MEDS: ACETAMINOPHEN 325 MG TABLET 650 MG PO (09:20)
[2024-01-24] MEDS: polyethylene glycoL 3350 17 GM POWD.PACK PO (09:20)
[2024-01-24] MEDS: AMOXICILLIN/CLAVULANATE K 875-125 MG TAB 1 TABLET PO ×2 (09:20→21:46)
[2024-01-24] MEDS: hydroCHLOROthiazide 12.5 MG CAPSULE PO (09:20)
[2024-01-24] MEDS: MULTIVITAMINS THERAPEUTIC TAB (*BKC) 1 TABLET PO (09:20)
[2024-01-24] MEDS: ASPIRIN 81 MG ENTERIC TABLET PO (09:20)
--- NOTE | 2024-01-24 10:03 | P.DS_ITS ---
DS: Admitting Diagnosis Discharge Date 01/24/24 Admitting Diagnosis Altered mental status Hypoxic respiratory failure Cardiomyopathy Chronic low back pain Chronic kidney disease stage 3 DS: Discharge Diagnosis Discharge Diagnosis (1) Sepsis: Qualifiers: Sepsis acute organ dysfunction status: unspecified Sepsis type: sepsis due to unspecified organism Qualified Code(s): A41.9 - Sepsis, unspecified organism Code(s): A41.9 - Sepsis, unspecified organism Status: Acute (2) Altered mental status: Code(s): R41.82 - Altered mental status, unspecified Status: Acute (3) Hypoxic respiratory failure: Code(s): J96.91 - Respiratory failure, unspecified with hypoxia Status: Acute (4) Chronic low back pain: Code(s): M54.5 - Low back pain; G89.29 - Other chronic pain Status: Acute (5) Chronic kidney disease, stage 3 unspecified: Code(s): N18.30 - Chronic kidney disease, stage 3 unspecified Status: Acute (6) Hypothyroidism: Qualifiers: Hypothyroidism type: unspecified Qualified Code(s): E03.9 - Hypothyroidism, unspecified Code(s): E03.9 - Hypothyroidism, unspecified Status: Chronic (7) Dementia: Code(s): F03.90 - Unspecified dementia, unspecified severity, without behavioral disturbance, psychotic disturbance, mood disturbance, and anxiety Status: Acute (8) HTN (hypertension), benign: Code(s): I10 - Essential (primary) hypertension Status: Chronic (9) Hypercholesterolemia: Code(s): E78.00 - Pure hypercholesterolemia, unspecified Status: Acute DS: Summary Hospital Course Reason for hospitalization: Altered mental status Hypoxic respiratory failure Cardiomyopathy Chronic low back pain Chronic kidney disease stage 3 Hospital Course: this is an 83-year-old female who presented to the hospital on 01/18/2024 with fever, altered mental status, lethargy, generalized weakness. Workup in the hospital included a chest x-ray shown coarse reticular opacities at the bila teral lung bases. Abdomen pelvis CT was negative for any acute intra-abdominal pelvic process, shown mild ground-glass opacity and irregular septal line thickening in the dependent lower lung zone which could be due to emphysema, mild pulmonary edema or less likely pneumonia, small sliding hiatal hernia, mild descending and sigmoid colon diverticulosis. 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 Cervical spine CT was negative for fracture, showed severe cervical spondylosis, posterior fusion from C3-C7. Chest CTA was negative for PE, dissection. Initial labs showed a normal white blood cell count of 6.9, sodium 133 AST 42, troponin negative x2, lipase 37. UA was obtained showing cloudy urine appearance, 1+ urine protein, trace ketone, 3-5 urine RBC otherwise negative. MRSA was negative. Respiratory panel was negative for influenza a and B, RSV, COVID. Blood cultures were obtained and are pending. EKG showed sinus tachycardia with right axis deviation, right bundle branch block, with a rate of 109, QTC 511. Patient was given 1800 mL of normal saline, doxycycline, Zosyn, vancomycin, Toradol and Tylenol while in the ED. She will need to finish her course of Augmentin and then follow up with primary care doctor in 1 week. VSS, she is afebrile, currently on 2L NC. She will need to continue with incentive spirometry q2h while awake as she is a shallow breather. She is stable for discharge to SNF today. Will need a lot of encouragement for particiation. Final diagnosis: Community-acquired pneumonia Status at Discharge Cognitive/behavioral status at discharge: Alert to voice oriented times 2-3 Functional status at discharge: uses cane/walker Overall status at discharge: patient is progressing back to baseline Time Spent with Patient Time attestation: Total time spent providing and/or coordinating discharge services: Time spent: Greater than 30 minutes Exam Narrative: General: appears weak and fatigued Cardiac: Normal S1 and S2. No murmur, gallops or friction rubs, peripheral pulses intact. Respiratory: Lungs clear to auscultation, diminished in the bases, no adventitious lung sounds currently on room air Gastrointestinal: soft, non-distended, non-tender, normoactive bowel sounds. : clear and bartolome, pure wick in place Extremities: moves all extremities well, no edema Skin: clean, dry, intact. No wounds or lesions. Neuro: Alert and oriented x3 DS: Data Data Completed and Pending Completed studies during hospitalization: Chest x-ray Pending studies at discharge: None Labs on day of discharge: Labs from last 24 hours 01/24/24 05:45 WBC 6.1 RBC 4.80 Hgb 14.6 Hct 43.4 MCV 90.4 MCH 30.4 MCHC 33.6 RDW 14.2 Plt Count 143 L MPV 11.4 H Immature Gran % (Auto) 0.8 H Neut % (Auto) 60.5 Lymph % (Auto) 28.3 Lane % (Auto) 9.9 H Eos % (Auto) 0.0 Baso % (Auto) 0.5 Lymph # (Auto) 1.72 Lane # (Auto) 0.6 Eos # (Auto) 0.0 Baso # (Auto) 0.0 Abs Immat Gran (auto) 0.05 H Absolute Neuts (auto) 3.7 Absolute Nucleated RBC 0.000 Nucleated RBC % 0.0 Sodium 135 L Potassium 3.4 Chloride 103 Carbon Dioxide 25 Anion Gap 7 BUN 22 H Creatinine 0.60 L Estim Creat Clear Calc 44 Estimated GFR > 60 Glucose 121 H Calcium 9.2 Total Bilirubin 0.7 AST 119 H ALT 46 H Alkaline Phosphatase 101 Total Protein 6.0 L Albumin 3.5 Procedures/Treatments: None Discharge Plan Discharge Attending physician on discharge: Fernando Salas Consulting providers: Marce Ramsay Discharging Clinician: Marce Ramsay Anticipated Discharge Date/Time: 01/24/24 09:55 Patient Disposition: Home, Self-Care Activity: as tolerated Diet: as tolerated Discharge Instructions: * Finish Augmentin as directed even if you are feeling better * Follow up with your primary care doctor in 1 week * Continue incentive spirometer every 2 hours while awake Patient Instructions: Amoxicillin/Clavulanate Potassium (By mouth), Bacterial Pneumonia (DC) Patient Language: Japanese Stand Alone Forms: General Discharge Information Follow-up/Referrals: Stephen Monreal MD [Primary Care Provider] - 1 Week Discharge Medications: New amoxicillin-pot clavulanate 875-125 mg tablet 1 tablet PO Q12H Qty: 6 0RF Continued donepezil 10 mg tablet 10 mg PO QHS Qty: 30 5RF Trelegy Ellipta 200-62.5-25 mcg blister with device 1 inh inhalation DAILY Qty: 60 5RF lisinopril 40 mg tablet 40 mg PO DAILY Qty: 90 3RF Cranberry Urinary Comfort 140-100 mg Capsule 1 cap PO DAILY Calcium 600 + D(3) 600 mg calcium- 200 unit Capsule 1 cap PO DAILY magnesium 250 mg Tablet 250 mg PO DAILY aspirin 81 mg Tablet 81 mg PO DAILY multivitamin [Daily Multivitamin] Tablet 1 tablet PO DAILY simvastatin 40 mg tablet 40 mg PO HS Qty: 90 3RF levothyroxine 88 mcg tablet 88 mcg PO DAILY Qty: 90 1RF hydrochlorothiazide 12.5 mg tablet See Rx Instructions .ROUTE .COMPLEX Qty: 90 2RF Dose Instruction: TAKE 1 TABLET BY MOUTH EVERY DAY Rx Instructions: TAKE 1 TABLET BY MOUTH EVERY DAY Date of admission: 01/20/24 16:04 Primary Care Provider: Stephen Monreal Admitting Provider: Keren Kelly V. Attending physician on admission: Keren Kelly V. Condition: Improved Quality VTE Prophylaxis VTE prophylaxis: pharmacologic ordered Hospitalist MIPS Heart Failure (Exclusion) Patient has history of Heart Transplant or Left Ventricular Assistive Device?: No IF YES, STOP HERE Heart Failure (Qualifier) Patient has current or prior documentation of LVEF less than or equal to 40%, or mod/servere depressed LVSF?: No IF NO, STOP HERE
[2024-01-24 14:00] VITALS: BP 145/66; PULSE 82; RESP 18; TEMP 36.3; O2SAT 95
[2024-01-24 19:45] VITALS: BP 182/108; PULSE 102; RESP 16; TEMP 37.2; O2SAT 92
[2024-01-24 21:15] VITALS: BP 164/78
[2024-01-24] MEDS: SIMVASTATIN 20 MG TABLET 40 MG PO (21:46)
[2024-01-24] MEDS: DONEPEZIL HCL 10 MG TABLET PO (21:46)
== END 2024-01-24 22:40 | DRG 195 ==
LOC: ANHED 19:35 → ANH2MED 21:22
PROVIDERS: Nurse Practitioner Acute Care; Nurse Practitioner Gerontology; Admitting Provider Internal Medicine; Emergency Provider Emergency Medicine; PCP Family Medicine; Visit Provider Internal Medicine
DX: J18.9 Pneumonia, unspecified organism (principal); I12.9 Hypertensive chronic kidney disease with stage 1 through stage 4 chronic kidney disease, or unspecified chronic kidney disease; N18.30 Chronic kidney disease, stage 3 unspecified; E03.9 Hypothyroidism, unspecified; E78.2 Mixed hyperlipidemia; M19.90 Unspecified osteoarthritis, unspecified site; M81.0 Age-related osteoporosis without current pathological fracture; F03.90 Unspecified dementia, unspecified severity, without behavioral disturbance, psychotic disturbance, mood disturbance, and anxiety; K57.30 Diverticulosis of large intestine without perforation or abscess without bleeding; E78.00 Pure hypercholesterolemia, unspecified; M54.59 Other low back pain; G89.29 Other chronic pain; J43.9 Emphysema, unspecified; Z20.822 Contact with and (suspected) exposure to COVID-19; Z86.73 Personal history of transient ischemic attack (TIA), and cerebral infarction without residual deficits; Z90.49 Acquired absence of other specified parts of digestive tract; Z85.3 Personal history of malignant neoplasm of breast; Z98.42 Cataract extraction status, left eye; Z98.41 Cataract extraction status, right eye; Z90.711 Acquired absence of uterus with remaining cervical stump; Z87.891 Personal history of nicotine dependence; Z79.82 Long term (current) use of aspirin; Z98.1 Arthrodesis status
CPT/HCPCS: 36415; 70450; 71045; 71275; 72125; 74177; 80048; 80053; 81001; 82565; 82803; 82948; 83605; 83690; 83735; 83880; 84100; 84436; 84443; 84480; 84484; 85025; 85027; 85055; 85610; 85730; 87040; 87637; 87641; 93005; 93306; 94640; 96361; 96365; 96366; 96367; 96375; 96376; 97110; 97162; 97165; 97530; 97535; 99285; A9270; G0378; J1650; J1885; J2543; J3370; J3480; J7030; J7040; Q9967

== ENCOUNTER 2024-01-28 12:10 | Emergency (ER) | payer MEDICARE, SELFPAY ==
[2024-01-28] VITALS (10 sets, daily range): BP systolic 86–126; BP diastolic 59–73; PULSE 102–152; RESP 22–36; O2SAT 89–97
--- NOTE | 2024-01-28 12:15 | ECG_ITS ---
Test Date: 2024-01-28 12:31:06 Measurements Intervals [place] Rate: 103 P: 8 IN: 154 QRS: 119 QRSD: 138 T: -40 QT: 371 QTc: 487 Interpretive Statements SINUS TACHYCARDIA POSSIBLE LEFT ATRIAL ENLARGEMENT [-0.1mV P-WAVE IN V1/V2] RIGHT BUNDLE BRANCH BLOCK [120+ ms QRS DURATION, UPRIGHT V1, 40+ ms S IN I/aVL/V4/V5/V6] LEFT POSTERIOR FASCICULAR BLOCK [QRS AXIS > 109, INFERIOR Q] MODERATE T-WAVE ABNORMALITY, CONSIDER ANTEROLATERAL ISCHEMIA [-0.1+ mV T-WAVE IN V3-V6] MODERATE T-WAVE ABNORMALITY, CONSIDER INFERIOR ISCHEMIA [-0.1+ mV T-WAVE IN II/aVF] ABNORMAL ECG Electronically Signed On 01-29-2024 08:51:45 [employer]ITION ASSEMBL[employer] II LABORER by Darian Tee M.D.
--- NOTE | 2024-01-28 13:36 | ED.GENADULT ---
HPI - General Adult General Chief complaint: Weakness Stated complaint: WEAKNESS Time Seen by Provider: 01/28/24 12:32 History of Present Illness HPI narrative: This is an 83 female presents with altered mental status. Patient was seen in our hospital 1 week ago for sepsis. She was treated and had some mild improvement for being discharged back to a rehab facility. She had some good days but she has quickly deteriorated over the last 2 days. She is now unresponsive and hypoxic. Patient is accompanied by her daughter. Related Data Home Medications Medication Instructions Recorded Confirmed cranberry concentrate-ascorbic 1 cap PO DAILY 07/08/19 01/19/24 acid 140 mg-100 mg capsule (Cranberry Urinary Comfort) aspirin 81 mg tablet 81 mg PO DAILY 12/08/19 01/19/24 calcium 600 mg (as 1 cap PO DAILY 12/08/19 01/19/24 carbonate)-vitamin D3 5 mcg (200 unit) capsule (Calcium 600 + D(3)) magnesium 250 mg tablet 250 mg PO DAILY 12/08/19 01/19/24 multivitamin 1 tablet PO DAILY 01/19/24 01/19/24 Allergies Allergy/AdvReac Type Severity Reaction Status Date / Time loratadine Allergy Intermediate Swelling Verified 11/08/23 10:59 of throat morphine Allergy Mild Confusion Verified 11/08/23 10:59 PMFSH Past Medical History Medical History Altered mental status Cardiomyopathy Chronic back pain Chronic kidney disease, stage 3 (moderate) Chronic kidney disease, stage 3 unspecified Colovesical fistula Status post sigmoid colon resection with repair of colovesicular fistula, takedown of splenic flexure and hand-sewn colorectal anastomosis Degenerative disc disease Delirium Dementia Diverticulitis of large intestine with abscess 05/29/2019 Diverticulosis Emphysema of lung GI bleed History of breast cancer Left breast cancer 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 Kirkpatrick 07/11/2019: Colonic polyps with polypectomy in the mid descending and distal transverse; colitis; diverticulosis History of left mastectomy History of open sigmoidectomy 07/25/2019 sigmoidectomy with repair of colovesicular fistula, take down the splenic flexure, hand-sewn colorectal anastomosis performed by Dr. Morales History of repair of hiatal hernia Hx of rectal polypectomy Previous back surgery Rods inserted - CERVICAL and lumbar rods and screws SURGERIES X 4 S/P ORIF (open reduction internal fixation) fracture Left hip [facility] within the last couple months around September 2019 Family History Family History Father Malignant neoplasm of prostate Kidney malignancy Mother Emphysema of lung Sibling Diverticulitis large intestine Sister S/P colon resection Heart disease Social History Social History Social History: The patient stated she quit smoking about 15 years ago. The patient is she has 2 children. The patient is living with her daughter at this time otherwise she lives at home. She went to [facility] for short period time while recovering from her left hip repair. 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 Patient does not use alcohol marijuana or illicit drugs. The patient smoked for approximately 43 years. Primary care physician: Dr. Stephen Monreal Code status: Full code per [facility] Healthcare power of sales development coordinator: Heaven Nichols Smoking packs per day: 2 Smoking cigarettes per day: 40.0 Years smoked: 43 Smoking pack-years: 86.00 Smoking status: Former smoker Tobacco type: cigarettes Second hand tobacco smoke exposure: No Smoking end date: 02/27/03 Alcohol intake: never Alcohol use details: 4-5 alcoholic beverages a but quit doing so many years ago. Substance use: never Substance use type: does not use Do You Feel Safe in your Home?: Yes Lack of Transportation: No Lack of Food: Never True Current Housing: I Have Housing Concerned About Future Housing: No Difficulty Paying Gas/Electric Bills: No Difficulty Paying for Meds: No Currently Unemployed: No Education: High School Diploma/GED Difficulty w/ Childcare or Family Care: No Living arrangements: with family Occupation/Education: retired Gender identity (if verbalized by the patient): Female Sexual Orientation (if Verbalized by the Patient): Straight or Heterosexual Spiritual care concerns: No Agree to blood products: Yes Exam Narrative: APPEARANCE: Patient is frail, sunken eyes, temporal wasting Head: atraumatic. EYES: EOMI, NOSE: Atraumatic NECK: Trachea midline RESPIRATORY: Tachypneic, hypoxic CARDIOVASCULAR: RRR, ABDOMINAL: Non-distended MUSCULOSKELETAl: No obvious deformities NEURO: Response to pain SKIN:: Warm, dry. Normal color PSYCHIATRIC: Normal affect Course Vital Signs Vital signs: Vital Signs Pulse Rate 104 H 01/28/24 12:15 Respiratory Rate 30 H 01/28/24 12:15 Blood Pressure 114/65 01/28/24 12:15 Pulse Oximetry 94 01/28/24 12:15 Pulse Rate 102 H 01/28/24 13:31 Respiratory Rate 36 H 01/28/24 13:31 Blood Pressure 126/59 L 01/28/24 13:31 Pulse Oximetry 96 01/28/24 13:31 Medical Decision Making [facility] Narrative Medical decision making narrative: -Course: The 83 yo female presenting unresponsive hypoxic. Goals of care were discussed with the patient's daughter. Patient has not been doing well and is in pain on a daily basis. This decision was made with the daughter and her family to make the patient comfort measures. She has been given pain control and anxiolysis. She will be admitted to hospice for end life care. Vital Signs Vital Signs: Vital Signs Pulse Rate 104 H 01/28/24 12:15 Respiratory Rate 30 H 01/28/24 12:15 Blood Pressure 114/65 01/28/24 12:15 Pulse Oximetry 94 01/28/24 12:15 Pulse Rate 102 H 01/28/24 13:31 Respiratory Rate 36 H 01/28/24 13:31 Blood Pressure 126/59 L 01/28/24 13:31 Pulse Oximetry 96 01/28/24 13:31 Discharge Plan Discharge Clinical Impression: Pneumonia, End of life care, Respiratory failure Patient Disposition: Home, Self-Care Condition: Stable Instructions: Antibiotic Form Prescriptions: No Action donepezil 10 mg tablet 10 mg PO QHS Qty: 30 5RF Trelegy Ellipta 200-62.5-25 mcg blister with device 1 inh inhalation DAILY Qty: 60 5RF lisinopril 40 mg tablet 40 mg PO DAILY Qty: 90 3RF Cranberry Urinary Comfort 140-100 mg Capsule 1 cap PO DAILY Calcium 600 + D(3) 600 mg calcium- 200 unit Capsule 1 cap PO DAILY magnesium 250 mg Tablet 250 mg PO DAILY aspirin 81 mg Tablet 81 mg PO DAILY multivitamin Tablet 1 tablet PO DAILY amoxicillin-pot clavulanate 875-125 mg tablet 1 tablet PO Q12H Qty: 6 0RF simvastatin 40 mg tablet 40 mg PO HS Qty: 90 3RF levothyroxine 88 mcg tablet 88 mcg PO DAILY Qty: 90 1RF hydrochlorothiazide 12.5 mg tablet See Rx Instructions .ROUTE .COMPLEX Qty: 90 2RF Dose Instruction: TAKE 1 TABLET BY MOUTH EVERY DAY Rx Instructions: TAKE 1 TABLET BY MOUTH EVERY DAY Follow-up/Referrals: Stephen Monreal MD [Primary Care Provider] -
--- NOTE | 2024-01-28 13:43 | PCCCNOTE ---
1343-Called to the ED to speak with family regarding options for hospice d/t the pt's declining health. Pt's daughter was agreeable to [facility], updated the POLST form to reflect DNR status/comfort measures only. Called Yomi with [facility], report given and Admissions with [facility] will be outreaching the daughter/facility for admissions options to hospital/facility pending pt's status. ED charge and family made aware.-simon.
[2024-01-28] MEDS: GLYCOPYRROLATE INJ (*SP) 0.2 MG/ML VIAL IV PUSH (13:52)
[2024-01-28] MEDS: HYDROmorphone HCL INJ (*CRX) 1 MG/ML SYR IV PUSH (13:54)
--- NOTE | 2024-01-28 13:55 | PC.NURSE ---
[facility] NURSE AT BEDSIDE FOR ADMISSION CONSULT FOR HOSPICE
[2024-01-28] MEDS: LORazepam INJ (*CRX) 2 MG/ML VIAL IV PUSH (13:57)
[2024-01-28] MEDS: HYDROmorphone HCL INJ (*CRX) 1 MG/ML SYR 2 MG (14:42)
[2024-01-28] MEDS: LORazepam INJ (*CRX) 2 MG/ML VIAL (16:05)
--- NOTE | 2024-01-28 17:20 | PC.NURSE ---
pt arrival to floor @ [phone]. report from Jaja COMER.
== END 2024-01-28 17:00 | disposition hospice, inpatient (51) ==
PROVIDERS: Emergency Provider Emergency Medicine; PCP Family Medicine
DX: J18.9 Pneumonia, unspecified organism (principal); J96.90 Respiratory failure, unspecified, unspecified whether with hypoxia or hypercapnia; Z51.5 Encounter for palliative care; F03.90 Unspecified dementia, unspecified severity, without behavioral disturbance, psychotic disturbance, mood disturbance, and anxiety; I12.9 Hypertensive chronic kidney disease with stage 1 through stage 4 chronic kidney disease, or unspecified chronic kidney disease; N18.30 Chronic kidney disease, stage 3 unspecified; I69.90 Unspecified sequelae of unspecified cerebrovascular disease; J43.9 Emphysema, unspecified; E03.9 Hypothyroidism, unspecified; E78.2 Mixed hyperlipidemia; M19.90 Unspecified osteoarthritis, unspecified site; M81.0 Age-related osteoporosis without current pathological fracture; Z87.891 Personal history of nicotine dependence; Z86.0100 Personal history of colon polyps, unspecified; Z85.3 Personal history of malignant neoplasm of breast; Z90.711 Acquired absence of uterus with remaining cervical stump; Z90.12 Acquired absence of left breast and nipple; Z90.49 Acquired absence of other specified parts of digestive tract; Z98.42 Cataract extraction status, left eye; Z98.41 Cataract extraction status, right eye; Z79.82 Long term (current) use of aspirin; Z79.899 Other long term (current) drug therapy
CPT/HCPCS: 93005; 96374; 96375; 96376; 99285; J1171; J1596; J2060

== ENCOUNTER 2024-01-28 17:01 | HOS | payer OTHER, MEDICARE, SELFPAY ==
[2024-01-28 18:15] VITALS: BMI 21.0
[2024-01-28 18:21] VITALS: BP 77/36; PULSE 111; RESP 24; TEMP 36.3; O2SAT 91
[2024-01-28] MEDS: LORazepam INJ (*CRX) 2 MG/ML VIAL 1 MG IV PUSH (18:31)
[2024-01-28 18:36] VITALS: PULSE 119; RESP 22
[2024-01-28] MEDS: HYDROmorphone HCL/PF (*CRX) 50 MG in SODIUM CHLORIDE 0.9% IV 95 ML IV CONT (18:36)
[2024-01-28 20:00] VITALS: PULSE 119; RESP 22; O2SAT 91
--- NOTE | 2024-01-29 10:27 | ECG_ITS ---
Test Date: 2024-01-28 12:18:53 Measurements Intervals [place] Rate: 103 P: 9 WI: 158 QRS: 115 QRSD: 139 T: -40 QT: 380 QTc: 498 Interpretive Statements SINUS TACHYCARDIA WITH FREQUENT VENTRICULAR PREMATURE COMPLEXES POSSIBLE LEFT ATRIAL ENLARGEMENT [-0.1mV P-WAVE IN V1/V2] RIGHT BUNDLE BRANCH BLOCK [120+ ms QRS DURATION, UPRIGHT V1, 40+ ms S IN I/aVL/V4/V5/V6] LEFT POSTERIOR FASCICULAR BLOCK [QRS AXIS > 109, INFERIOR Q] MODERATE T-WAVE ABNORMALITY, CONSIDER ANTEROLATERAL ISCHEMIA [-0.1+ mV T-WAVE IN V3-V6] MODERATE T-WAVE ABNORMALITY, CONSIDER INFERIOR ISCHEMIA [-0.1+ mV T-WAVE IN II/aVF] Electronically Signed On 01-29-2024 14:27:07 BEE BREEDER by Soy Paiz M.D.
--- NOTE | 2024-01-29 16:19 | PC.NURSE ---
Spoke with family about home arrangements. Family wishes to use [facility] in [place], [facility] called to verify arrangements and they will come get patients' body in about an hour.
--- NOTE | 2024-01-29 17:20 | P.HP_ITS ---
H&P: HPI History of Present Illness Date/Time: 01/29/24 17:20 Chief Complaint: uncontrolled pain Narrative: 83 y/o f was hospitalized 01/17- with pneumoni and sepsis. She returned to SNF where she was in pain and ate poorly with PPS 30. 01/27 she presented to ED via EMS with AMS. Daughter, LULY, opted to admit for inpatient hospice care. Review of Systems Review of Systems: ROS unobtainable: Yes unobtainable due to mental status PMFSH Past Medical History Medical History Altered mental status Cardiomyopathy Chronic back pain Chronic kidney disease, stage 3 (moderate) Chronic kidney disease, stage 3 unspecified Colovesical fistula Status post sigmoid colon resection with repair of colovesicular fistula, takedown of splenic flexure and hand-sewn colorectal anastomosis Degenerative disc disease Delirium Dementia Diverticulitis of large intestine with abscess 05/29/2019 Diverticulosis Emphysema of lung GI bleed History of breast cancer Left breast cancer 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 Kirkpatrick 07/11/2019: Colonic polyps with polypectomy in the mid descending and distal transverse; colitis; diverticulosis History of left mastectomy History of open sigmoidectomy 07/25/2019 sigmoidectomy with repair of colovesicular fistula, take down the splenic flexure, hand-sewn colorectal anastomosis performed by Dr. Morales History of repair of hiatal hernia Hx of rectal polypectomy Previous back surgery Rods inserted - CERVICAL and lumbar rods and screws SURGERIES X 4 S/P ORIF (open reduction internal fixation) fracture Left hip [facility] within the last couple months around September 2019 Family History Family History Father Malignant neoplasm of prostate Kidney malignancy Mother Emphysema of lung Sibling Diverticulitis large intestine Sister S/P colon resection Heart disease Social History Social History (Updated 01/29/24 @ 23:01 by Erwin Nunes MD) Social History: The patient is she has 2 children. The patient is living with her daughter at this time otherwise she lives at home. She went to [facility] for short period time while recovering from her left hip repair. 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 Patient does not use alcohol marijuana or illicit drugs. The patient smoked for approximately 43 years. Primary care physician: Dr. Stephen Monreal Code status: DNR Healthcare power of attorney general: Heaven Nichols Smoking packs per day: 2 Smoking cigarettes per day: 40.0 Years smoked: 43 Smoking pack-years: 86.00 Smoking status: Former smoker Tobacco type: cigarettes Second hand tobacco smoke exposure: No Smoking end date: 02/27/03 Alcohol intake: never Alcohol use details: 4-5 alcoholic beverages a but quit doing so many years ago. Substance use: never Substance use type: does not use Do You Feel Safe in your Home?: Yes Lack of Transportation: No Lack of Food: Never True Current Housing: I Have Housing Concerned About Future Housing: No Difficulty Paying Gas/Electric Bills: No Difficulty Paying for Meds: No Currently Unemployed: No Education: High School Diploma/GED Difficulty w/ Childcare or Family Care: No Living arrangements: with family Occupation/Education: retired Gender identity (if verbalized by the patient): Female Sexual Orientation (if Verbalized by the Patient): Straight or Heterosexual Spiritual care concerns: Yes Agree to blood products: Yes Meds Home Medications and Allergies Home Medications Medication Instructions Recorded Confirmed Type cranberry concentrate-ascorbic 1 cap PO DAILY 07/08/19 01/19/24 History acid 140 mg-100 mg capsule (Cranberry Urinary Comfort) aspirin 81 mg tablet 81 mg PO DAILY 12/08/19 01/19/24 History calcium 600 mg (as 1 cap PO DAILY 12/08/19 01/19/24 History carbonate)-vitamin D3 5 mcg (200 unit) capsule (Calcium 600 + D(3)) magnesium 250 mg tablet 250 mg PO DAILY 12/08/19 01/19/24 History lisinopril 40 mg tablet 40 mg PO DAILY #90 tabs 02/23/23 01/19/24 Rx simvastatin 40 mg tablet 40 mg PO HS #90 tabs 03/23/23 01/19/24 Rx fluticasone fur. 200 mcg-umeclid 1 inh inhalation DAILY #60 ea 08/29/23 01/19/24 Rx 62.5 mcg-vilant 25 mcg inhalat.powder (Trelegy Ellipta) donepezil 10 mg tablet 10 mg PO QHS #30 tabs 11/08/23 01/19/24 Rx levothyroxine 88 mcg tablet 88 mcg PO DAILY #90 tabs 01/10/24 01/19/24 Rx multivitamin 1 tablet PO DAILY 01/19/24 01/19/24 History hydrochlorothiazide 12.5 mg tablet See Rx Instructions .Route 01/22/24 Rx .COMPLEX #90 tabs amoxicillin 875 mg-potassium 1 tablet PO Q12H #6 tabs 01/24/24 Rx clavulanate 125 mg tablet Allergies Allergy/AdvReac Type Severity Reaction Status Date / Time loratadine Allergy Intermediate Swelling Verified 11/08/23 10:59 of throat morphine Allergy Mild Confusion Verified 11/08/23 10:59 Vital Signs Vital Signs - 24 hr 01/28/24 18:21 01/28/24 18:36 01/28/24 18:00 Temperature 97.4 F L Pulse Rate 111 H 119 H Respiratory Rate 24 H 22 H Blood Pressure 77/36 L Pulse Oximetry 91 Oxygen Delivery High Flow Therapy with Na Oxygen Flow Rate 6 01/28/24 20:00 Temperature Pulse Rate 119 H Respiratory Rate 22 H Blood Pressure Pulse Oximetry 91 Oxygen Delivery High Flow Therapy with Na Oxygen Flow Rate 6 Exam Narrative: prior to my exam Assessment and Plan Assessment and plan (1) Hospice care: Code(s): Z51.5 - Encounter for palliative care Status: Acute Assessment and Plan: * Met inpatient hospice criteria due to requiring continue IV morhpine for control of pain. * PRN regimen ordered.
--- NOTE | 2024-01-29 17:21 | P.DN_ITS ---
Discharge Summary Date and Time Date of : 01/28/24 Time of : 20:05 Provider Pronounced By: 2 RNs Name of First RN That Pronounced: Lucero Bonilla Name of Second RN That Pronounced: Jose Burrell Probable Cause of Probable Cause of : sepsis and acute respiratory failure due to pneumonia, late complications Summary Hospital Course: Admitted to inpatient hospice service. Comfort medication initiated. Mrs. Carnes peacefully. Additional Data Confirmation of as documented by pronouncing clinician: Pupillary Reflex, Palpable Pulses, Response to Stimuli, Heart Tones and Breath Sounds Name of Provider Notified: Dr. Nunes Time Provider Notified: 20:33 Provider Requests Autopsy: No Family Requests Autopsy: No [employer] Notified: Yes Date [facility] Notified of : 01/28/24 Time [facility] Notified of : 20:55
== END 2024-01-28 22:05 | disposition expired | DRG 951 ==
PROVIDERS: Admitting Provider Internal Medicine; PCP Family Medicine; Visit Provider Internal Medicine
DX: Z51.5 Encounter for palliative care (principal); A41.9 Sepsis, unspecified organism; J18.9 Pneumonia, unspecified organism; J96.00 Acute respiratory failure, unspecified whether with hypoxia or hypercapnia
CPT/HCPCS: 93005; A9270; J1171; J2060